=== PATIENT | female | born 1950 | race Caucasian/White ===

== ENCOUNTER 2020-01-30 17:33 | Inpatient (IN) ==
--- NOTE | 2020-01-30 17:43 | Emergency Department Note ---
Impression & Plan Ambulatory dysfunction, Hypokalemia, Knee pain, right ED Provider Note NAME: ADDY MON AGE: 69 SEX: F : 1950 ARRIVES VIA: Ambulance INFORMANT: Patient, ED PROVIDER(S): Arcadio Causey MD Chief Complaint: Knee pain HPI: Patient does present from home. The patient was trying to pivot while getting from wheelchair to the bed and the patient did have some right knee pain. Patient states that she has chronic knee pain but today seems worse. Patient describes it as sharp and in the front of the knee. The patient has not taken anything prior to arrival. Patient denies fevers or chills or recent fal ls. Patient states that yesterday she was able to walk across the room which is approximately 10 feet. Patient does chronically use oxygen. No change in her shortness of breath. Patient denies chest pains. Patient denies COVID symptoms. Family has reported per nursing they were considering rehab for the patient as the patient has had a steady decline in the patient's functional ability at home. Patient does live by herself. ROS: See HPI for pertinent positives and negatives. A total of 10 systems were reviewed and otherwise negative. Past medical history: See below Surgical history: See below Social history: See below Physical Exam: GENERAL: Wearing a mask and nasal cannula, NAD, non-toxic. Morbidly obese. EYE EXAM: Normal conjunctiva. PERRL, no anisocoria and EOM's grossly intact w/o pain. NECK: Supple, no nuchal rigidity, no adenopathy, non-tender. No signs of meningismus. LUNGS: Clear to auscultation. Normal chest wall mechanics. HEART: NSR, no MRG. ABDOMEN: Abdomen soft, non-tender, normo-active bowel sounds, no masses, no rebound or guarding. BACK: No CVA TTP. SKIN: No rashes and no bruising. UPPER EXTREMITIES: Upper extremities are grossly normal. LOWER EXTREMITIES: Extremely large lower extremities, effort is present with patient bending knee ankle and hip but is unable to raise legs off the bed. No sensory deficits, no obvious effusion but lower extremities are very large at baseline. NEURO EXAM: A&O x3, cranial nerves II-XII grossly intact, normal speech, decreased strength of bilateral lower extremities. No sensory deficits. Differential diagnoses: Infection, dehydration, metabolic abnormality, hypo/hyperglycemia, electrolyte disturbance, anemia, hypoxia, cardiac sources, intracerebral event, toxicologic, neurologic, as well as other pathologies. Course: Patient was seen and evaluated the bedside. Full history physical exam was performed. EKG: Normal sinus rhythm, rate of 88, wide QRS prolonged QTC, left bundle branch block. Left axis deviation. No priors for comparison. Imaging Studies: Radiology results as stated below per my review in the radiologist's interpretation: XR knee RT 1 or 2V routine CLINICAL HISTORY: pain pain COMPARISON: None. DISCUSSION: Severe degenerative change all major joint compartments. Moderate chondrocalcinosis. No evidence for fracture. There is no evidence for soft tissue swelling. IMPRESSION: Severe degenerative change. Chondrocalcinosis. ACT 112: Negative or not required by law. The above report was generated using voice recognition software. It may contain grammatical, syntax or spelling errors. Electronically signed by: Denver Reid M.D. 01/30/2020 6:23 PM Dictated: 01/30/201821 Transcribed: 01/30/201821 XR knee LT 1 or 2V routine CLINICAL HISTORY: pain pain COMPARISON: None. DISCUSSION: Significant degenerative change all major joint compartments. No evidence for fracture. Moderate chondrocalcinosis. There is no evidence for soft tissue swelling. IMPRESSION: Degenerative change. Chondrocalcinosis. No acute process. ACT 112: Negative or not required by law. The above report was generated using voice recognition software. It may contain grammatical, syntax or spelling errors. Electronically signed by: Denver Reid M.D. 01/30/2020 6:21 PM Dictated: 01/30/201820 Transcribed: 01/30/201820 Cardiac monitoring: An order was placed for continuous cardiac monitoring. The monitor shows a rate of 91 with sinus rhythm. MDM: Patient does present with right knee pain. The patient does have difficulty with moving her legs. Blood work was obtained along with knee x-rays. Patient was given pain medication. Patient's x-ray is unremarkable. The patient does have mild hypokalemia. INR was added as the patient is on Coumadin. Given the patient's inability to properly walk I did discuss the patient's case with case filler. Unable to get to rehab this evening. The patient was subsequently admitted to the [facility] physician group by Dr. Marie.INR was 3.2. Potassium was ordered for repleted. Magnesium was added and resulted as normal. Past Med/Surg History Medical History COPD (chronic obstructive pulmonary disease) Morbid obesity Social History Preferred Language: Italian Feels Safe at Home: Yes Smoking Status: Never smoker Allergies Allergies Allergy/AdvReac Type Severity Reaction Status Date / Time amoxicillin Allergy Unknown Unverified 01/30/20 21:34 codeine Allergy Unknown Unverified 01/30/20 21:31 latex Allergy Unknown Unverified 01/30/20 21:33 meloxicam [From Mobic] Allergy Unknown Unverified 01/30/20 21:32 metformin Allergy Unknown Unverified 01/30/20 21:32 Penicillins Allergy Unknown Unverified 01/30/20 21:30 Sulfa (Sulfonamide Allergy Unknown Unverified 01/30/20 21:30 Antibiotics) tramadol Allergy Unknown Unverified 01/30/20 21:32 Home Meds Home Medications Medication Instructions Recorded Confirmed acetaminophen [Tylenol Extra 1,000 mg PO QID PRN 01/30/20 01/30/20 Strength] albuterol sulfate 2 puff INHALATION Q6H PRN 01/30/20 01/30/20 ascorbic acid (vitamin C) 500 mg PO BID 01/30/20 01/30/20 bumetanide 2 mg PO BID 01/30/20 01/30/20 cholecalciferol (vitamin D3) 50 mcg PO 3XWK 01/30/20 01/30/20 cyclobenzaprine 5 mg PO TID PRN 01/30/20 01/30/20 dicyclomine 10 mg PO BID 01/30/20 01/30/20 diphenhydramine HCl 25 mg PO Q6H PRN 01/30/20 01/30/20 ferrous sulfate 142 mg PO DAILY 01/30/20 01/30/20 fluticasone furoate-vilanterol 1 inh INHALATION DAILY 01/30/20 01/30/20 [Breo Ellipta] fluticasone propionate 1 spray INTRANASAL BID 01/30/20 01/30/20 gabapentin 300 mg PO TID 01/30/20 01/30/20 insulin aspart U-100 [Novolog 60 unit SUBCUT TIDM 01/30/20 01/30/20 Flexpen U-100 Insulin] insulin glargine [Basaglar KwikPen 80 unit SUBCUT QAM 01/30/20 01/30/20 U-100 Insulin] ipratropium-albuterol 3 ml INHALATION BID PRN 01/30/20 01/30/20 levothyroxine 50 mcg PO QAM 01/30/20 01/30/20 linaclotide [Linzess] 145 mcg PO DAILY PRN 01/30/20 01/30/20 meclizine 25 mg PO TID PRN 01/30/20 01/30/20 metolazone 2.5 mg PO QAM 01/30/20 01/30/20 mupirocin 1 applic TOPICAL TID 01/30/20 01/30/20 nystatin 1 applic TOPICAL BID 01/30/20 01/30/20 ondansetron HCl [Zofran] 8 mg PO BID PRN 01/30/20 01/30/20 oxycodone [OxyContin] 10 mg PO Q12H 01/30/20 01/30/20 oxycodone-acetaminophen 1 tab PO Q8H PRN 01/30/20 01/30/20 pantoprazole [Protonix] 40 mg PO DAILY 01/30/20 01/30/20 warfarin 7.5 mg PO DAILY 01/30/20 01/30/20 zolpidem [Ambien] 10 mg PO HS PRN 01/30/20 01/30/20 Results & Data (ED) Vital Signs Vital Signs - 24 hr 01/30/20 17:41 01/30/20 18:29 01/30/20 18:31 Temperature 36.8 C Temperature Source Oral Pulse Rate 91 H Pulse Rate [Finger] 81 Pulse Rhythm Regular Pulse Rhythm [Finger] Regular Pulse Strength Normal Pulse Strength [Finger] Normal Respiratory Rate 18 22 Respiratory Effort / Characteristics Non-Labored Spontaneous Non-Labored Spontaneous Respiratory Depth Normal Normal Respiratory Pattern Regular Regular Blood Pressure 173/74 H Blood Pressure [Left Arm] 122/83 Blood Pressure Mean 107 Blood Pressure Mean [Left Arm] 96 Blood Pressure Position Lying Blood Pressure Position [Left Arm] Lying Pulse Oximetry 98 99 98 Oxygen Delivery Method Nasal Cannula Nasal Cannula Nasal Cannula Oxygen Flow Rate 4 4 4 Sepsis Recent Fever Within 48 Hours No Sepsis New/Unexplained Change in Mental Status No Sepsis Action Taken by Nursing No Action Required 01/30/20 19:30 01/30/20 21:00 Temperature Temperature Source Pulse Rate Pulse Rate [Finger] 88 88 Pulse Rhythm Pulse Rhythm [Finger] Regular Pulse Strength Pulse Strength [Finger] Respiratory Rate 14 16 Respiratory Effort / Characteristics Non-Labored Spontaneous Non-Labored Spontaneous Respiratory Depth Normal Normal Respiratory Pattern Regular Blood Pressure Blood Pressure [Left Arm] 133/58 L 90/74 L Blood Pressure Mean Blood Pressure Mean [Left Arm] 83 79 Blood Pressure Position Blood Pressure Position [Left Arm] Pulse Oximetry 98 95 Oxygen Delivery Method Room Air Nasal Cannula Oxygen Flow Rate 4 Sepsis Recent Fever Within 48 Hours Sepsis New/Unexplained Change in Mental Status Sepsis Action Taken by Correction Medications Current Medication List: was personally reviewed by me Laboratory Data Attestation: I reviewed the patient's lab results. Result diagrams: 01/30/20 18:25 01/30/20 18:25 Lab Results 01/30/20 01/30/20 01/30/20 Range/Units 18:25 18:25 18:25 WBC 7.00 (4.8-10.8) K/uL RBC 4.38 (4.2-5.4) M/uL Hgb 12.5 (12.0-16.0) g/dL Hct 39.4 (37-47) % MCV 90.0 (80-100) fL MCH 28.5 (25-34) pg MCHC 31.7 L (32-36) g/dL RDW Std Deviation 48.5 H (36.4-46.3) fL RDW Coeff of Tung 14.6 H (11.5-14.5) % Plt Count 200 (130-400) K/uL MPV 9.7 (7.4-10.4) fL Immature Gran % (Auto) 0.3 % Neut % (Auto) 75.6 % Lymph % (Auto) 16.1 % [place] % (Auto) 7.9 % Eos % (Auto) 0.0 % Baso % (Auto) 0.1 % Neut # (Auto) 5.29 (1.4-6.5) K/uL Lymph # (Auto) 1.13 L (1.2-3.4) K/uL [place] # (Auto) 0.55 (0.11-0.59) K/uL Eos # (Auto) 0.00 (0-0.5) K/uL Baso # (Auto) 0.01 (0-0.2) K/uL Immature Gran # (Auto) 0.02 (0.00-0.02) K/uL PT 31.7 H (9.0-12.0) Seconds INR 3.2 H (0.9-1.1) APTT 44.7 H (21.0-31.0) Seconds PTT Ratio 1.6 Sodium 132 L (136-145) mmol/L Potassium 2.9 L (3.5-5.1) mmol/L Chloride 86 L (98-107) mmol/L Carbon Dioxide 39 H (21-32) mmol/L Anion Gap 7.0 (3-11) BUN 38 H (7-18) mg/dl Creatinine 1.53 H (0.6-1.2) mg/dl Est Cr Clr Drug Dosing 63.7 ml/min Est GFR ( Amer) 39.3 Est GFR (Non-Af Amer) 33.9 BUN/Creatinine Ratio 24.5 H (10-20) Glucose 135 H (70-99) mg/dl Calcium 10.1 (8.5-10.1) mg/dl Magnesium 2.3 (1.8-2.4) mg/dl Administered Medications Acetaminophen (Tylenol) 650 mg PO Q4H PRN PRN Reason: pain/fever Stop: 02/29/20 23:25 Last Admin: 01/30/20 23:48 Dose: 650 mg Documented by: [id number] Oxycodone HCl (Oxycontin) 10 mg PO BID [facility] Stop: 02/13/20 23:44 Last Admin: 01/30/20 23:58 Dose: Not Given Documented by: [id number] Discontinued Medications Morphine Sulfate (Morphine Sulfate) 4 mg IV NOW STA Stop: 01/30/20 17:50 Last Admin: 01/30/20 18:29 Dose: 4 mg Documented by: [id number] Oxycodone HCl (Oxycontin) Confirm Administered Dose 10 mg .ROUTE .STK-MED ONE Stop: 01/30/20 23:43 Last Admin: 01/30/20 23:45 Dose: 10 mg Documented by: [id number] Potassium Chloride (Klor-Con M20) 40 meq PO NOW STA Stop: 01/30/20 19:54 Last Admin: 01/30/20 20:21 Dose: 40 meq Documented by: [id number] Discharge Plan Visit Data *Final* Discharge Date/Time: 01/30/20 22:28 Chief Complaint: Knee Injury/Pain Stated Complaint: R KNEE PAIN ED Provider: Arcadio Causey Discharge Problem: Ambulatory dysfunction, Hypokalemia, Knee pain, right Patient Disposition: Admitted As Inpatient Discharge Instructions Interventions: ED Discharge Assessment Last Done: 01/30/20 22:28 Discharge Problem: Knee pain, right Qualifiers: Chronicity: acute Qualified Code(s): M25.561 - Pain in right knee
[2020-01-30] MEDS ORDERED: MoRPHine SULFATE 4 MG/ML 1 ML CARP\\VIAL IV STA (17:49)
--- NOTE | 2020-01-30 18:23 | XRay Report ---
XR knee LT 1 or 2V routine CLINICAL HISTORY: pain pain COMPARISON: None. DISCUSSION: Significant degenerative change all major joint compartments. No evidence for fracture. M oderate chondrocalcinosis. There is no evidence for soft tissue swelling. IMPRESSION: Degenerative change. Chondrocalcinosis. No acute process. ACT 112: Negative or not required by law. The above report was generated using voice recognition software. It may contain grammatical, syntax or spelling errors. Electronically signed by: Denver Reid M.D. 01/30/2020 6:21 PM
--- NOTE | 2020-01-30 18:24 | XRay Report ---
XR knee RT 1 or 2V routine CLINICAL HISTORY: pain pain COMPARISON: None. DISCUSSION: Severe degenerative change all major joint compartments. Moderate chondrocalcinosis. No e vidence for fracture. There is no evidence for soft tissue swelling. IMPRESSION: Severe degenerative change. Chondrocalcinosis. ACT 112: Negative or not required by law. The above report was generated using voice recognition software. It may contain grammatical, syntax or spelling errors. Electronically signed by: Denver Reid M.D. 01/30/2020 6:23 PM
[2020-01-30 18:38] LABS: Basophils # (auto) 0.01 K/uL (0-0.2); Basophils % (auto) 0.1 %; Hematocrit (blood only) 39.4 % (37-47); Hemoglobin 12.5 g/dL (12.0-16.0); Immature Granulocytes # (auto) 0.02 K/uL (0.00-0.02); Immature Granulocytes % (auto) 0.3 %; Lymphocytes # (auto) 1.13 K/uL (1.2-3.4); Lymphocytes % (auto) 16.1 %; Mean Corpuscular Hemoglobin 28.5 pg (25-34); Mean Corpuscular Hgb Conc 31.7 g/dL (32-36); Mean Platelet Volume 9.7 fL (7.4-10.4); Monocytes # (auto) 0.55 K/uL (0.11-0.59); Monocytes % (auto) 7.9 %; Neutrophils # (auto) 5.29 K/uL (1.4-6.5); Neutrophils % (auto) 75.6 %; Platelet Count 200 K/uL (130-400); RDW Coefficient of Variation 14.6 % (11.5-14.5); RDW Standard Deviation 48.5 fL (36.4-46.3); Red Blood Count 4.38 M/uL (4.2-5.4)
[2020-01-30 19:03] LABS: BUN Creatinine Ratio 24.5 (10-20); Calcium 10.1 mg/dl (8.5-10.1); Creatinine Clr Calc Pharmacy 63.7 ml/min; Est GFR (African American) 39.3; Est GFR (Non-African American) 33.9; Potassium 2.9 mmol/L (3.5-5.1)
[2020-01-30] MEDS ORDERED: POTASSIUM CHLORIDE 20 MEQ TABCR PO STA (19:53)
[2020-01-30 20:14] LABS: Magnesium 2.3 mg/dl (1.8-2.4)
[2020-01-30 21:24] LABS: INR 3.2 (0.9-1.1); Partial Thromboplastin Ratio 1.6; Partial Thromboplastin Time 44.7 Seconds (21.0-31.0); Prothrombin Time 31.7 Seconds (9.0-12.0)
[2020-01-30] MEDS ORDERED: GLUCAGON FOR INJ 1 MG VIAL SQ PRN (23:26)
[2020-01-30] MEDS ORDERED: MECLIZINE HCL 25 MG TAB PO PRN (23:26)
[2020-01-30] MEDS ORDERED: POLYETHYLENE (MIRALAX) 17 GM PACK PO PRN (23:26)
[2020-01-30] MEDS ORDERED: DC ALL PREVIOUSLY ORDERED DIABETES MEDS ONE (23:26)
[2020-01-30] MEDS ORDERED: GLUCOSE 10 TABS/TUBE PO PRN (23:26)
[2020-01-30] MEDS ORDERED: DEXTROSE 50% 50 ML SYRINGE IV PRN (23:26)
[2020-01-30] MEDS ORDERED: bisacodyL 10 MG SUPP PR STA (23:26)
[2020-01-30] MEDS ORDERED: ALBUT/IPRATROP 3MG/0.5MG NEB 3 ML VIAL INH PRN (23:26)
[2020-01-30] MEDS ORDERED: GLUCOSE 40% GEL 15 GM TUBE PO PRN (23:26)
[2020-01-30] MEDS ORDERED: CARBOHYDRATES FOR HYPOGLYCEMIA PO PRN (23:26)
[2020-01-30] MEDS ORDERED: ALBUTEROL HFA 8 GM INHALER INH PRN (23:26)
[2020-01-30] MEDS ORDERED: OXYCODONE HCL 10 MG TABCR (OXYCONTIN) ONE (23:42)
[2020-01-30] MEDS: ACETAMINOPHEN 325 MG TAB PO PRN (23:48)
--- NOTE | 2020-01-30 23:53 | History & Physical Report ---
Date of Service January 30, 2020 Assessment & Plan (1) Ambulatory dysfunction: Akila Hernandez is a morbidly obese 69 year old woman with complicated PMH here for amulatory dysfunction and inability to function at home. Ambulatory dysfunction Progressive weakness over past few weeks with recent injury in last few days. Likely from obesity and joint destruction, recent weakness possibly secondary to UTI and constipation CVA in differential given patients stated history of upper and lower extremity left sided weakness. Currently not tolerating CT scan and neuro exam showing equal strength bilaterally Will treat UTI, and order PT/OT evaluation Most likely will need inpatient rehab vs SNF placement. UTI urinalysis and culture pending Will treat with ceftriaxone for now Constipation Will treat with dulcolax suppositories and miralax scheduled BID If needed could order enema Likely cause of her abdominal pain Abdominal pain Could be secondary to constipation History of endometrial cancer, will get Transvaginal u/s to evaluate for possible pelvic causes SHERI Likely prerenal secondary to dehydration from recently poor PO intake, Will put on IV fluids CHF Continuing home bumex 2mg PO BID Increased orthopnea and weakness may be caused by CHF exacerbation Will check BNP troponin and order an echo for am History of VTE Continuing home warfarin 7.5 mg daily History of C. Diff Will add probiotic with abx Osteoarthritis Continue home oxycontin for pain control Physical therapy and rehab and weight loss could play a large role in reducing her chronic pain moving forward. Hypothyroidism Continuing home levothryoxine 50 mcg Skin rashes Continuing home mupirocin Adding nystatin for intertrigo DMII Placed on sliding scale with approximately 75% of home dose DVT PPx: Home warfarin F/E/N: Diabetes diet, NSS @125 with KCl rider Dispo: Med tele for evaluation by PT/OT and likely out to rehab vs SNF Conditional code, DNI but all other interventions including chest compressions and shocks desired (2) Hypokalemia: (3) Knee pain, right: (4) Right wrist pain: (5) CHF (congestive heart failure): (6) Shortness of breath: (7) Abdominal pain: (8) Constipation: Admission and Anticipated Discharge Date Admission Date: January 30, 2020 History of Present Illness Chief Complaint: Difficulty getting around Primary Care Provider: NO PCP Akila Hernandez is nelson nice and medically complicated 69 year old woman with a past medical history significant for morbid obesity, CHF, Obesity hypoventilation syndrome, Chronic hypoxemic respiratory failure on 4L O2 at home, DMII, venous thromboembolic disease on warfarin chronically, osteoarthritis, hypothyroidism, HLD, recurrent UTI's, and adenocarcinoma of the endometrium. She weighs 203.3 kg and has home health aids 13 hours a day but lives independently. She is here today because she has had a three day history of worsening ability to get around, left leg muscular weakness and constipation. She tells me she has not had a bowel movement since last week, and even then it was firm and difficult to pass with any success. She has noted that of late in transitioning from her wheelchair to her bed she has had more and more trouble. She has had some increasing abdominal pain and swelling. She has also noted some shortness of breath beyond her usual worse with exertion. She has had some urinary symptoms as well and is concerned she may have another infection. She feels that over the last week or so she is generally doing worse and is not able to thrive at home. On admission to the emergency department she was doing fairly well and was oxygenating appropriately on room air despite her home O2. She had a painful left knee and this was x rayed showing severe degenerative changes. Her labwork was remarkable for hypokalemia(2.9) and an SHERI with a creatinine of 1.53. Patient is resting comfortably at present eating rashida crackers and watching TV. She has no acute distress but does feel some abdominal fullness and discomfort some nausea and feels like she has a UTI. Allergies Allergy/AdvReac Type Severity Reaction Status Date / Time amoxicillin Allergy Unknown Unverified 01/30/20 21:34 codeine Allergy Unknown Unverified 01/30/20 21:31 latex Allergy Unknown Unverified 01/30/20 21:33 meloxicam [From Mobic] Allergy Unknown Unverified 01/30/20 21:32 metformin Allergy Unknown Unverified 01/30/20 21:32 Penicillins Allergy Unknown Unverified 01/30/20 21:30 Sulfa (Sulfonamide Allergy Unknown Unverified 01/30/20 21:30 Antibiotics) tramadol Allergy Unknown Unverified 01/30/20 21:32 Home Medications Home Medications Medication Instructions Recorded Confirmed Type acetaminophen [Tylenol Extra 1,000 mg PO QID PRN 01/30/20 01/30/20 History Strength] albuterol sulfate 2 puff INHALATION Q6H PRN 01/30/20 01/30/20 History ascorbic acid (vitamin C) 500 mg PO BID 01/30/20 01/30/20 History bumetanide 2 mg PO BID 01/30/20 01/30/20 History cholecalciferol (vitamin D3) 50 mcg PO 3XWK 01/30/20 01/30/20 History cyclobenzaprine 5 mg PO TID PRN 01/30/20 01/30/20 History dicyclomine 10 mg PO BID 01/30/20 01/30/20 History diphenhydramine HCl 25 mg PO Q6H PRN 01/30/20 01/30/20 History ferrous sulfate 142 mg PO DAILY 01/30/20 01/30/20 History fluticasone furoate-vilanterol 1 inh INHALATION DAILY 01/30/20 01/30/20 History [Breo Ellipta] fluticasone propionate 1 spray INTRANASAL BID 01/30/20 01/30/20 History gabapentin 300 mg PO TID 01/30/20 01/30/20 History insulin aspart U-100 [Novolog 60 unit SUBCUT TIDM 01/30/20 01/30/20 History Flexpen U-100 Insulin] insulin glargine [Basaglar KwikPen 80 unit SUBCUT QAM 01/30/20 01/30/20 History U-100 Insulin] ipratropium-albuterol 3 ml INHALATION BID PRN 01/30/20 01/30/20 History levothyroxine 50 mcg PO QAM 01/30/20 01/30/20 History linaclotide [Linzess] 145 mcg PO DAILY PRN 01/30/20 01/30/20 History meclizine 25 mg PO TID PRN 01/30/20 01/30/20 History metolazone 2.5 mg PO QAM 01/30/20 01/30/20 History mupirocin 1 applic TOPICAL TID 01/30/20 01/30/20 History nystatin 1 applic TOPICAL BID 01/30/20 01/30/20 History ondansetron HCl [Zofran] 8 mg PO BID PRN 01/30/20 01/30/20 History oxycodone [OxyContin] 10 mg PO Q12H 01/30/20 01/30/20 History oxycodone-acetaminophen 1 tab PO Q8H PRN 01/30/20 01/30/20 History pantoprazole [Protonix] 40 mg PO DAILY 01/30/20 01/30/20 History warfarin 7.5 mg PO DAILY 01/30/20 01/30/20 History zolpidem [Ambien] 10 mg PO HS PRN 01/30/20 01/30/20 History Past Med/Surg History Medical History COPD (chronic obstructive pulmonary disease) Morbid obesity Social History Preferred Language: Malagasy Communication Ability: Effective 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: No Beliefs That Will Affect Care: None marital status: Single Current Living Situation: Alone Feels Safe at Home: Yes Smoking Status: Never smoker Hx Alcohol Use: Yes Hx Substance Use: No Review of Systems Constitutional: + chills, + sweats, + body aches, + fatigue, + malaise, + weakness and + insomnia; no fever and no anorexia Eyes: no problem reported Ear, Nose, Mouth, Throat: no problem reported Respiratory: + dyspnea and + dyspnea on exertion; no cough Cardiovascular: + dyspnea, + dyspnea on exertion, + orthopnea, + paroxysmal nocturnal dyspnea, + palpitations, + lightheadedness and + edema; no chest pain, no chest pain with activity, no syncope and no calf pain Gastrointestinal: + abdominal pain, + belching, + bloating, + early satiety, + nausea, + change in stools, + constipation and + fecal incontinence; no vomiting, no hematemesis, no diarrhea/loose stools, no constant urge to pass stools and no blood in stools Genitourinary: + dysuria, + urinary frequency and + urinary incontinence Integumentary: + rash Intertrigo present Neurologic: + localized weakness LEft sided leg and process checker weakness reported by patient Physical Exam Constitutional: Morbidly obese woman lying in bed clearly uncomfortable neck support pillow gary in from home, Eyes: PERRLA, anicteric sclerae ENMT: external ear and nose normal, oropharynx normal Respiratory: Decreased air entry globally, no extra lung sounds some accessory muscle use. Cardiovascular: RRR, no murmur, no edema Heart Sounds: no click, no gallop, no murmur and no cardiac rub heart sounds distant, unable to assess JVD secondary to body habitus Gastrointestinal (Abdomen): Obese abdomen, mildly tender to left lower quadrant, compressible mass felt, likely stool, left inguinal area tender and full. Difficult exam secondary to body habitus, bowel sounds present Skin: Red raised nonblaching blisters of bilateral lower extremities, possible venous stasis ulcers, multiple hematomas, throughout body including underside of pannus, intertrigo present in skin folds. Results & Data Results & Data ([facility]) Vital Signs (Past 12 Hours) Vital Signs Temp Pulse Pulse Resp BP BP Pulse Ox 01/30/20 22:11 78 16 138/62 98 01/30/20 21:00 88 16 90/74 L 95 01/30/20 19:30 88 14 133/58 L 98 01/30/20 18:31 98 01/30/20 18:29 81 22 122/83 99 01/30/20 17:41 36.8 C 91 H 18 173/74 H 98 Code Status & VTE Plan VTE Prophylaxis Plan VTE Prophylaxis will be ordered: Yes Supervising Physician Co-Signing Physician Notes Attending addendum: I have physically seen this patient, have supervised the medical residents activities, and agree with the H&P unless as otherwise noted. Assessment and Plan: Ambulatory dysfunction- Multifactorial Morbid obesity/severe osteoarthritis, particular complaint of left knee pain. Consult PT/OT Family as discussed, I would agree for need for inpatient rehab Urinary tract infection- Full urinalysis urine culture and sensitivity. Ceftriaxone 2 g IV daily Acute kidney injury/CHF- Hold Bumex this evening, we will rehydrate with IV fluids, and reassess timing of resuming Bumex in the a.m. Follow serial CBC with differential, BMP, troponin and magnesium levels. The patient will be admitted to telemetry for serial cardiac enzymes, serial EKG's, cardiac rhythm monitoring and a 2-D echocardiogram with Dopplers. Diabetes mellitus- Placed on Accu-Cheks before meals and at bedtime/every 6 hours, with NovoLog coverage per scale. Hold standing order for NovoLog with meals. Reduce Glargine from 80 to 60 units subcu every morning History of VTE- Continue current dosing of warfarin and 7.5 mg daily. Follow serial PT/INR History of C. difficile colitis- Add probiotic, and vancomycin 125 mg p.o. daily Hypothyroidism- Continue levothyroxine 50 mcg daily Resident Activity Tracking Resident Involvement: Resident Care Provided Care Provided: Adult Hospital Medicine (1) Knee pain, right Chronicity: acute Qualified Code(s): M25.561 - Pain in right knee
[2020-01-30] MEDS: OXYCODONE HCL 10 MG TABCR (OXYCONTIN) PO SCH (23:58)
[2020-01-31 00:21] LABS: Alanine Aminotransferase 26 U/L (12-78); Albumin Level 2.9 gm/dl (3.4-5.0); Alkaline Phosphatase 81 U/L (45-117); Aspartate Aminotransferase 18 U/L (15-37); Bilirubin Direct 0.2 mg/dl (0-0.2); Bilirubin,Total 0.7 mg/dl (0.2-1); NT Pro B Type Natriuretic Pept 230 pg/ml (0-900); Total Protein 7.7 gm/dl (6.4-8.2); Troponin I < 0.015 ng/ml (0-0.045)
[2020-01-31] MEDS: SODIUM CHLORIDE 0.45 % 1,000 ML IV SCH ×3 (01:24→15:57)
[2020-01-31] MEDS: POTASSIUM CHLORIDE / WTR 10 MEQ/100 ML PLCT IV SCH ×11 (01:33→20:56)
[2020-01-31] MEDS: cefTRIAXone SODIUM 2,000 MG in DEXTROSE 5% 50 ML IV SCH (01:35)
[2020-01-31] MEDS ORDERED: bisacodyL 10 MG SUPP PR ONE (02:10)
[2020-01-31] MEDS: POLYETHYLENE (MIRALAX) 17 GM PACK PO SCH ×3 (02:15→21:00)
[2020-01-31 03:04] LABS: Appearance Urine Cloudy (Clear); Bacteria Urine Automated 4+ (Negative); Bilirubin Urine Negative (Negative); Blood Urine 2+ (Negative); Color Urine Yellow; Epithelial Cell Urine Auto 0-5 /lpf (0-5); Glucose Urine UA Negative (Negative); Ketones Urine Negative (Negative); Leukocyte Esterase Urine 3+ (Negative); Nitrite Urine Negative (Negative); Protein Urine Negative (Negative); RBC Urine Automated 0-4 /hpf (0-4); Specific Gravity Urine 1.017 (1.000-1.030); Urobilinogen Urine Negative (Negative); WBC Urine Automated >30 /hpf (0-5); pH Urine 5.5 (4.5-7.5)
[2020-01-31] MEDS ORDERED: MoRPHine SULFATE 2 MG/ML CARP IV STA (03:30)
[2020-01-31 05:50] LABS: INR 2.8 (0.9-1.1); Prothrombin Time 28.1 Seconds (9.0-12.0)
[2020-01-31] MEDS: LEVOTHYROXINE SODIUM 50 MCG TABLET PO SCH (05:57)
[2020-01-31 06:14] LABS: Estimated Average Glucose 197 mg/dl; Hemoglobin A1C 8.5 % (4.5-5.6)
[2020-01-31] MEDS ORDERED: INSULIN ASPART 100 UNITS/ML 3 ML PEN SC SCH (07:30)
[2020-01-31] MEDS: MUPIROCIN 2% OINT 22 GM TUBE EXT SCH ×3 (08:05→21:00)
--- NOTE | 2020-01-31 08:08 | Ultrasound Report ---
PELVIC ULTRASOUND, TRANSABDOMINAL AND TRANSVAGINAL HISTORY: Adnexal pain, not able to get CT COMPARISON: None. FINDINGS: Uterus: 9.1 x 3.9 cm. No uterine masses. A few nabothian cysts. Endometrial stripe: Abnormally thickened for age measuring 1.1 cm. Right ovary: Obscured by overlying bowel gas. Left ovary: Normal in size and demonstrates normal color flow. Miscellaneous:No pelvic free fluid. IMPRESSION: Abnormally thickened endometrium for age measuring 1.1 cm. Gynecologic consultation recommended to as sess for possibility of an endometrial lesion. ACT 112: Negative or not required by law. Electronically signed by: Wai Abdullahi M.D. 01/31/2020 8:06 AM
--- NOTE | 2020-01-31 08:20 | Electrocardiogram Report ---
Test Reason : Blood Pressure : / mmHG Vent. Rate : 088 BPM Atrial Rate : 088 BPM P-R Int : 190 ms QRS Dur : 134 ms QT Int : 410 ms P-R-T Axes : 049 -56 049 degrees QTc Int : 496 ms Poor data quality, interpretation may be adversely affected Normal sinus rhythm Left bundle branch block Abnormal ECG No previous ECGs available Confirmed by Shalom Do ([id number]) on 01/31/2020 8:20:26 AM Referred By: REFERRED SELF Confirmed By:Shalom Do
[2020-01-31] MEDS: FLUTICASONE/VILANTEROL 100/25MCG 14 PUFFS/INHALER INH SCH (08:26)
[2020-01-31] MEDS: DICYCLOMINE HCL 10 MG CAP PO SCH ×2 (08:26→21:01)
--- NOTE | 2020-01-31 08:26 | XRay Report ---
XR chest 1V portable CLINICAL HISTORY: Shortness of breath dyspnea COMPARISON STUDY: No previous studies for comparison. FINDINGS: The bones soft tissues and hemidiaphragms are normal. The cardiomediastinal silhouette is n ormal. The lungs are clear. The pulmonary vasculature is normal. IMPRESSION: Negative chest. ACT 112: Negative or not required by law. The above report was generated using voice recognition software. It may contain grammatical, syntax or spelling errors. Electronically signed by: Denver Reid M.D. 01/31/2020 8:25 AM
[2020-01-31] MEDS: BUMETANIDE 1 MG TAB PO SCH ×2 (08:27→17:00)
[2020-01-31] MEDS: SACCHAROMYCES BOULARDII 250 MG CAP PO SCH (08:27)
[2020-01-31] MEDS: GABAPENTIN 300 MG CAP PO SCH ×3 (08:27→20:57)
[2020-01-31] MEDS: ASCORBIC ACID 500 MG TAB PO SCH ×2 (08:28→21:01)
[2020-01-31] MEDS: OXYCODONE HCL 10 MG TABCR (OXYCONTIN) PO SCH ×2 (08:28→21:00)
[2020-01-31] MEDS: NYSTATIN CR 15 GM TUBE EXT SCH ×2 (08:28→21:05)
[2020-01-31] MEDS: PANTOprazole 40 MG TAB PO SCH (08:28)
[2020-01-31] MEDS: metOLazone 2.5 MG TABLET PO SCH (08:28)
[2020-01-31] MEDS ORDERED: PHARMACY GLYCEMIC MGMT CONSULT PRN (08:59)
[2020-01-31] MEDS ORDERED: FERROUS SULFATE 142 MG PO SCH (09:00)
[2020-01-31] MEDS ORDERED: INSULIN GLARGINE SOLOSTAR 100 UNITS/ML 3 ML PEN SC SCH ×2 (09:00→21:00)
[2020-01-31] MEDS ORDERED: SOD PHOSPHATE/SOD BIPHOSPHATE ENEMA 132 ML BTL PR STA (10:10)
--- NOTE | 2020-01-31 10:14 | XCELERA ---
[id number]
--- NOTE | 2020-01-31 10:28 | Hospitalist Progress Note ---
Date of Service January 31, 2020 Assessment & Plan (1) Ambulatory dysfunction: Akila Hernandez is a morbidly obese 69 year old woman with complicated PMH here for ambulatory dysfunction and inability to function at home. Ambulatory dysfunction - Progressive weakness over past month - Prior to COVID epidemic, patient was receiving home PT services from [facility] with significant progress - subsequent decline in ambulation when home services suspended due to COVID- related restrictions/institutional policies - Most likely from morbid obesity and joint destruction - CVA cannot be ruled out as patient is unable to have head imaging done due to her size, although no focal deficits appreciated on exam - Echo today showing normal LV function, EF 60-65%; grade I diastolic dysfunction. No sign of fluid overload on exam - anticipate need for inpatient rehab vs SNF placement UTI - patient reports recent urinary retention, possible secondary to co-existent constipation - UA neg nitrites, + for LE, 4+ bacteria, > 30 WBCs - urine culture pending - continue IV ceftriaxone Abdominal pain - began several days prior to admission - left lower quadrant tender on exam - highest suspicion is constipation, although diverticulitis is on differential - CT scan unable to be obtained secondary to body habitus - Follow clinically Constipation - longstanding issue for this patient - dulcolax suppositories and miralax scheduled BID - fleet enema today - suspected source of her abdominal pain SHERI - baseline Cr ~ 1.4 - Cr 1.53 on admission, repeat level ordered for this afternoon - Likely prerenal secondary to dehydration from recently poor PO intake - continue IVF Hx Endometrial Cancer - diagnosed in [place] at [facility] [place] [facility] [place] - focal endometrioid adenocarcinoma, FIGO grade 1 - s/p ED&C (done by a provider at [facility]) and Mirena IUD placement (has since been removed) - currently following with a hat braider-onc provider at [facility] - pelvic US on admission showing a thickened endometrial stripe (1.1cm) History of VTE - continue home dose warfarin Chronic Lymphedema - bilateral LE - no active management History of C. Diff - continue probiotic in setting of antibiotic use Osteoarthritis - Continue home oxycontin for pain control, although opioid likely contributing to ongoing constipation - PT/OT for rehab recommendation Hypothyroidism - Continuing home levothryoxine 50 mcg Skin rashes - Continuing home mupirocin - Adding nystatin for intertrigo DMII, uncontrolled - A1C 8.5 on admission - patient is insulin dependent - follows with Dr. London (endocrinology at [facility] [place] [place] DVT PPx: Home warfarin F/E/N: Diabetes diet, NSS @125 with KCl rider Dispo: Med tele Conditional code, DNI but all other interventions including chest compressions and shocks desired (2) Hypokalemia: (3) Knee pain, right: (4) Right wrist pain: (5) CHF (congestive heart failure): (6) Shortness of breath: (7) Abdominal pain: (8) Constipation: Admission and Anticipated Discharge Date Admission Date: January 30, 2020 Supervising Physician Co-Signing Physician Notes Resident Physician Supervision Note: I independently interviewed and examined the patient and verified the romero history and physical, reviewed labs and image studies, discussed the case with the resident Dr. Rowland and agree with the findings and care plan. Subjective Resting comfortably in bed. Reports history of constipation troubles - home health was going to administer an enema today, before patient got admitted. Patient also has had urinary retention over past several days. Review of Systems Gastrointestinal: + abdominal pain Physical Exam Constitutional: + morbidly obese and cooperative + hirsuitism Eyes: + anicteric sclerae ENMT: external ear and nose normal, oropharynx normal Neck: normal visual inspection and trachea midline Respiratory: normal respiratory effort, lungs clear to auscultation Cardiovascular: Rate/Rhythm: regular rate and regular rhythm Heart Sounds: normal S1, normal S2 and + murmur (systolic ejection ) Gastrointestinal (Abdomen): Inspection/Auscultation: normal bowel sounds and + significant pannus Percussion/Palpation: + abdomen tender (left lower quadrant ) and abdomen soft; no guarding Skin: no rashes, warm and dry Psychiatric: A+Ox3, euthymic affect Results & Data Results & Data ([facility]) Vital Signs (Past 12 Hours) Vital Signs Temp Pulse Pulse Resp BP BP Pulse Ox 01/31/20 07:31 36.5 C 78 20 120/62 99 01/31/20 04:29 36.8 C 73 18 117/64 97 01/31/20 02:17 36.9 C 85 20 128/63 96 01/31/20 00:47 87 Resident Activity Tracking Resident Involvement: Resident Care Provided Care Provided: Adult Hospital Medicine (1) Knee pain, right Chronicity: acute Qualified Code(s): M25.561 - Pain in right knee
--- NOTE | 2020-01-31 10:42 | Pharmacy Report ---
Pharmacy Glycemic Short Note 2 - Date of Service January 31, 2020 - Glycemic Short BSG Results (Last 24 hours): 01/30/20 01/31/20 01/31/20 18:25 01:21 08:08 Glucose 135 H POC Glucose 172 H 248 H OUTPATIENT ANTIDIABETIC REGIMEN: * Basaglar 80 units SQ qAM, Aspart 60 units TID with meals ASSESSMENT: * Akila is a 69 yo T2DM female admitted with ambulatory dysfunction, UTI, SHERI. She takes large doses of insulin at home (260 units/day). * Fasting BSG is elevated, 248 mg/dL. It is unclear when her last dose of basal insulin was prior to admission. She is currently ordered Lantus 30 units BID (~75% of home basal dose). I will change to dose per scale until inpatient needs are determined. * She is ordered 50 units of novolog with meals. I will change this to novolog per CF and CR based on home usage/weight-stress 3. PLAN FOR INPATIENT GLYCEMIC CONTROL: * Hold outpatient oral diabetes medications * Basal insulin * Lantus 30 units this morning + 30 units with lunch * Start Lantus BID per scale this evening: * 0 units for BSG less than 150 mg/dL * 10 units for BSG 150 - 220 mg/dL * 20 units for BSG greater than 220 mg/dL * Bolus insulin * NovoLog per scale ACHS or Q6hrs while NPO * Goal Range: Low 110 mg/dL - High 150 mg/dL * Correction Factor: 10 mg/dL/unit * Nutritional / Prandial insulin per carb ratio of 1 unit per 3 grams CHO consumed
[2020-01-31] MEDS: INSULIN ASPART 100 UNITS/ML 3 ML PEN SC SCH ×3 (12:13→21:02)
[2020-01-31] MEDS ORDERED: INSULIN GLARGINE SOLOSTAR 100 UNITS/ML 3 ML PEN SC ONE (12:30)
[2020-01-31] MEDS: ACETAMINOPHEN 325 MG TAB PO PRN ×2 (12:36→20:55)
[2020-01-31 14:37] LABS: BUN Creatinine Ratio 23.4 (10-20); Calcium 9.6 mg/dl (8.5-10.1); Creatinine Clr Calc Pharmacy 69.7 ml/min; Est GFR (African American) 43.7; Est GFR (Non-African American) 37.7
[2020-01-31] MEDS: WARFARIN SOD 7.5 MG TAB PO SCH (15:58)
[2020-01-31] MEDS: ZOLPIDEM TARTRATE 10 MG TAB PO PRN (20:59)
[2020-02-01] MEDS: SODIUM CHLORIDE 0.45 % 1,000 ML IV SCH ×3 (00:08→16:54)
[2020-02-01] MEDS: cefTRIAXone SODIUM 2,000 MG in DEXTROSE 5% 50 ML IV SCH (00:57)
[2020-02-01] MEDS: INSULIN ASPART 100 UNITS/ML 3 ML PEN SC SCH ×6 (01:04→20:36)
--- NOTE | 2020-02-01 02:10 | Billing Data ---
Date of Service February 01, 2020 Coding Level of Care Code 71038 Initial Inpt Care Lvl 3
[2020-02-01] MEDS: CYCLOBENZAPRINE HCL 10 MG TAB PO PRN (05:56)
[2020-02-01] MEDS: LEVOTHYROXINE SODIUM 50 MCG TABLET PO SCH (05:56)
[2020-02-01] MEDS: PANTOprazole 40 MG TAB PO SCH (07:33)
[2020-02-01] MEDS: CHOLECALCIFEROL 1,000 UNITS 25 MCG TAB PO SCH (07:33)
[2020-02-01] MEDS: DICYCLOMINE HCL 10 MG CAP PO SCH ×2 (07:33→20:39)
[2020-02-01] MEDS: GABAPENTIN 300 MG CAP PO SCH ×3 (07:34→20:38)
[2020-02-01] MEDS: SACCHAROMYCES BOULARDII 250 MG CAP PO SCH (07:34)
[2020-02-01] MEDS: BUMETANIDE 1 MG TAB PO SCH ×2 (07:34→17:21)
[2020-02-01] MEDS: metOLazone 2.5 MG TABLET PO SCH (07:34)
[2020-02-01] MEDS: ASCORBIC ACID 500 MG TAB PO SCH ×2 (07:34→20:38)
[2020-02-01] MEDS: FLUTICASONE/VILANTEROL 100/25MCG 14 PUFFS/INHALER INH SCH (07:35)
[2020-02-01] MEDS: POLYETHYLENE (MIRALAX) 17 GM PACK PO SCH ×3 (07:36→21:04)
[2020-02-01] MEDS: MUPIROCIN 2% OINT 22 GM TUBE EXT SCH ×3 (07:37→20:39)
[2020-02-01] MEDS: NYSTATIN CR 15 GM TUBE EXT SCH ×2 (07:37→20:40)
[2020-02-01] MEDS: ATORVASTATIN 40 MG TAB PO SCH (07:46)
[2020-02-01 08:34] LABS: INR 2.3 (0.9-1.1); Prothrombin Time 23.4 Seconds (9.0-12.0)
[2020-02-01 08:54] LABS: Potassium 2.8 mmol/L (3.5-5.1)
[2020-02-01] MEDS: OXYCODONE HCL 10 MG TABCR (OXYCONTIN) PO SCH ×2 (08:55→20:43)
[2020-02-01] MEDS: ONDANSETRON INJ 2 MG/ML 2 ML VIAL IV PRN ×2 (08:55→18:08)
[2020-02-01] MEDS: INSULIN GLARGINE SOLOSTAR 100 UNITS/ML 3 ML PEN SC SCH ×2 (08:55→09:02)
--- NOTE | 2020-02-01 09:20 | Pharmacy Report ---
Pharmacy Glycemic Short Note 2 - Date of Service February 01, 2020 - Glycemic Short BSG Results (Last 24 hours): 01/31/20 01/31/20 01/31/20 11:48 14:13 16:42 Glucose 163 H POC Glucose 267 H 117 H 01/31/20 02/01/20 02/01/20 20:24 01:02 04:50 Glucose POC Glucose 221 H 244 H 208 H 02/01/20 07:54 Glucose POC Glucose 256 H OUTPATIENT ANTIDIABETIC REGIMEN: * Basaglar 80 units SQ qAM, Aspart 60 units TID with meals ASSESSMENT: * Akila is a 69 yo T2DM female admitted with ambulatory dysfunction, UTI, SHERI. She takes large doses of insulin at home (260 units/day). * Patient received 191 units of insulin yesterday: * 80 units of basal * 111 units of bolus * Majority of BSGs were above goal * Fasting BSG remains elevated. I will increase Lantus dose by 25%. * Tighten Novolog CF and CR. Based on home usage of 260 units/day, the patient could tolerate a CF/CR of 5/2. Patient reports a carb ratio of ~1 at home (she takes set dose of 60 units and typically eats about 60 grams of carbs). PLAN FOR INPATIENT GLYCEMIC CONTROL: * Hold outpatient oral diabetes medications * Basal insulin - increase * Lantus 100 units SQ qAM (administer as two 50 unit injections) * Bolus insulin - tighten * NovoLog per scale ACHS or Q6hrs while NPO * Goal Range: Low 110 mg/dL - High 150 mg/dL * Correction Factor: 5 mg/dL/unit * Nutritional / Prandial insulin per carb ratio of 1 unit per 2 grams CHO consumed
[2020-02-01 09:25] LABS: BUN Creatinine Ratio 24.6 (10-20); Calcium 9.5 mg/dl (8.5-10.1); Creatinine Clr Calc Pharmacy 76.2 ml/min; Est GFR (African American) 49.6; Est GFR (Non-African American) 42.8
[2020-02-01] MEDS: ACETAMINOPHEN 325 MG TAB PO PRN ×2 (10:14→14:32)
[2020-02-01] MEDS ORDERED: POTASSIUM CHLORIDE 20 MEQ TABCR PO STA (12:35)
[2020-02-01] MEDS: POTASSIUM CHLORIDE / WTR 10 MEQ/100 ML PLCT IV SCH ×4 (12:50→19:08)
[2020-02-01] MEDS: MEDROXYPROGESTERONE ACETATE 2.5 MG TAB PO SCH (14:15)
--- NOTE | 2020-02-01 14:23 | Hospitalist Progress Note ---
Date of Service February 01, 2020 Assessment & Plan (1) Ambulatory dysfunction: Akila Hernandez is a morbidly obese 69 year old woman with complicated PMH here for ambulatory dysfunction and inability to function at home. Awaiting inpatient rehab placement. Ambulatory dysfunction - Progressive weakness over past month - Prior to COVID epidemic, patient was receiving home PT services from [facility] with significant progress - subsequent decline in ambulation when home services suspended due to COVID- related restrictions/institutional policies - Most likely from morbid obesity and joint destruction - CVA cannot be ruled out as patient is unable to have head imaging done due to her size, although no focal deficits appreciated on exam - Echo today showing normal LV function, EF 60-65%; grade I diastolic dysfunction. No sign of fluid overload on exam - PT/OT recommended inpatient rehab after discharge, awaiting placement UTI - patient reports recent urinary retention, possible secondary to co-existent constipation - UA neg nitrites, + for LE, 4+ bacteria, > 30 WBCs - urine culture growing gram - bacilli, awaiting sensitives - continue IV ceftriaxone Abdominal pain - began several days prior to admission - left lower quadrant tender on exam - highest suspicion is constipation, although diverticulitis is on differential - CT scan unable to be obtained secondary to body habitus - Follow clinically, treat constipation as below Constipation - longstanding issue for this patient - dulcolax suppositories and miralax scheduled BID - fleet enema given 01/30 with multiple, subsequent BMs - suspected source of her abdominal pain SHERI, resolved - baseline Cr ~ 1.4 - Cr 1.53 on admission, down to 1.26 - Likely prerenal secondary to dehydration from recently poor PO intake Hx Endometrial Cancer - diagnosed in 2016 at [facility] [place] - focal endometrioid adenocarcinoma, FIGO grade 1 - s/p ED&C (done by a provider at [facility]) and Mirena IUD placement (has since been removed) - patient reports current tx with Provera 10mg, daily for 10 days every 3 months. Last dosing in September; we will initiate 10 day course today (01/31) - currently following with a pad tufter-onc provider (Dr. Garza) at [facility] - pelvic US on admission showing a thickened endometrial stripe (1.1cm) History of VTE - continue home dose warfarin Chronic Lymphedema - bilateral LE - no active management History of C. Diff - continue probiotic in setting of antibiotic use Osteoarthritis - Continue home oxycontin for pain control, although opioid likely contributing to ongoing constipation - PT/OT for rehab recommendation Hypothyroidism - Continuing home levothyroxine 50 mcg Skin rashes - Continuing home mupirocin - Adding nystatin for intertrigo DMII, uncontrolled - A1C 8.5 on admission - patient is insulin dependent - follows with Dr. London (endocrinology at [facility]) - patient was not on a statin prior to admission; started lipitor 40mg, qAM - not on an SUSANA/ARB, although at times BP runs low DVT PPx: Home warfarin F/E/N: Diabetes diet, NSS @125 with KCl rider Dispo: Med tele Conditional code, DNI but all other interventions including chest compressions and shocks desired (2) Hypokalemia: (3) Knee pain, right: (4) Right wrist pain: (5) CHF (congestive heart failure): (6) Shortness of breath: (7) Abdominal pain: (8) Constipation: Admission and Anticipated Discharge Date Admission Date: January 30, 2020 Supervising Physician Co-Signing Physician Notes Resident Physician Supervision Note: I independently interviewed and examined the patient and verified the romero history and physical, reviewed labs and image studies, discussed the case with the resident Dr. Rowland and agree with the findings and care plan. Subjective No acute events overnight. Asks for a narcotic for her neck pain. Had several BMs yesterday Review of Systems Musculoskeletal: as per Subjective / HPI and + neck pain Physical Exam Constitutional: + morbidly obese and cooperative + hirsutism Eyes: + anicteric sclerae ENMT: external ear and nose normal, oropharynx normal Neck: normal visual inspection and trachea midline Respiratory: normal respiratory effort, lungs clear to auscultation Cardiovascular: Rate/Rhythm: regular rate and regular rhythm Heart Sounds: normal S1, normal S2 and + murmur (systolic ejection ) Gastrointestinal (Abdomen): Inspection/Auscultation: normal bowel sounds and + significant pannus Percussion/Palpation: + abdomen tender (left lower quadrant ) and abdomen soft; no guarding Skin: no rashes, warm and dry Psychiatric: A+Ox3, euthymic affect Results & Data Results & Data ([facility]) Vital Signs (Past 12 Hours) Vital Signs Temp Pulse Pulse Resp BP Pulse Ox 02/01/20 11:23 36.7 C 81 18 133/80 96 02/01/20 07:35 36.8 C 73 20 123/56 L 97 02/01/20 05:34 75 02/01/20 03:02 37.0 C 78 20 116/51 L 96 Resident Activity Tracking Resident Involvement: Resident Care Provided Care Provided: Adult Hospital Medicine (1) Knee pain, right Chronicity: acute Qualified Code(s): M25.561 - Pain in right knee
[2020-02-01] MEDS: WARFARIN SOD 7.5 MG TAB PO SCH (15:42)
[2020-02-02] MEDS: cefTRIAXone SODIUM 2,000 MG in DEXTROSE 5% 50 ML IV SCH (00:09)
[2020-02-02] MEDS: ZOLPIDEM TARTRATE 10 MG TAB PO PRN ×2 (00:09→20:17)
[2020-02-02] MEDS: SODIUM CHLORIDE 0.45 % 1,000 ML IV SCH ×3 (00:26→17:51)
[2020-02-02] MEDS: CYCLOBENZAPRINE HCL 10 MG TAB PO PRN (00:27)
[2020-02-02] MEDS: LEVOTHYROXINE SODIUM 50 MCG TABLET PO SCH (06:12)
--- NOTE | 2020-02-02 06:37 | Hospitalist Progress Note ---
Date of Service February 02, 2020 Assessment & Plan (1) Ambulatory dysfunction: Akila Hernandez is a morbidly obese 69 year old woman with complicated PMH here for ambulatory dysfunction and inability to function at home. Awaiting inpatient rehab placement. Ambulatory dysfunction - Progressive weakness over past month - Prior to COVID epidemic, patient was receiving home PT services from [facility] with significant progress - subsequent decline in ambulation when home services suspended due to COVID- related restrictions/institutional policies - Most likely from morbid obesity and joint destruction - CVA cannot be ruled out as patient is unable to have head imaging done due to her size, although no focal deficits appreciated on exam - Echo today showing normal LV function, EF 60-65%; grade I diastolic dysfunction. No sign of fluid overload on exam - PT/OT recommended inpatient rehab after discharge, initial insurance authorization denied, attending to do [id number] appeal. Case management involved. - Patient's family expresses strong desire for to have inpatient rehab placement preferably at [facility], but open to idea of her going to SNF for rehab. Patient is fully competent and does not want to go to SNF. If inpatient rehab is denied, patient will have to agree for SNF placement. Case management following. UTI - patient reports recent urinary retention, possible secondary to co-existent constipation - UA neg nitrites, + for LE, 4+ bacteria, > 30 WBCs - urine culture growing flores sensitive klebsiella - deescalate abx from Rocephin to nitrofurantoin Abdominal pain - began several days prior to admission - left lower quadrant tender on exam - highest suspicion is constipation, although diverticulitis is on differential - CT scan unable to be obtained secondary to body habitus - Follow clinically, treat constipation as below Constipation - longstanding issue for this patient - dulcolax suppositories and miralax scheduled BID - fleet enema given 01/30 with multiple, subsequent BMs - suspected source of her abdominal pain SHERI, resolved - baseline Cr ~ 1.4 - Cr 1.53 on admission, down to 126 - Likely prerenal secondary to dehydration from recently poor PO intake Hypokalemia - K has been low since admission despite replacement - level at 2.7 today - Mag normal at 2.3 on admission - 40meq IV and 40meq via elixer ordered today - patient is on bumex daily, although not on a home dose of KCl supplement per med rec; will add today - no GI losses (vomiting/diarrhea) - possibly secondary to elevated aldosterone although much more likely to be from daily loop diuretic use without KCl replacement Hx Endometrial Cancer - diagnosed in 2016 at [facility] [place] - focal endometrioid adenocarcinoma, FIGO grade 1 - s/p ED&C (done by a provider at [facility]) and Mirena IUD placement (has since been removed) - patient reports current tx with Provera 10mg, daily for 10 days every 3 months. Last dosing in September; we will initiate 10 day course today (01/31) - currently following with a manager gyn-onc provider (Dr. Garza) at [facility] - pelvic US on admission showing a thickened endometrial stripe (1.1cm) History of VTE - continue home dose warfarin Chronic Lymphedema - bilateral LE - no active management History of C. Diff - continue probiotic in setting of antibiotic use Osteoarthritis - Continue home oxycontin for pain control, although opioid likely contributing to ongoing constipation - PT/OT for rehab recommendation Hypothyroidism - Continuing home levothyroxine 50 mcg Skin rashes - Continuing home mupirocin - Adding nystatin for intertrigo DMII, uncontrolled - A1C 8.5 on admission - patient is insulin dependent - follows with Dr. London (endocrinology at [facility] [place]) - patient was not on a statin prior to admission; started lipitor 40mg, qAM - not on an SUSANA/ARB, although at times BP runs low DVT PPx: Home warfarin F/E/N: Diabetes diet, NSS @125 with KCl rider Dispo: Med tele Conditional code, DNI but all other interventions including chest compressions and shocks desired (2) Hypokalemia: (3) Knee pain, right: (4) Right wrist pain: (5) CHF (congestive heart failure): (6) Shortness of breath: (7) Abdominal pain: (8) Constipation: Admission and Anticipated Discharge Date Admission Date: January 30, 2020 Supervising Physician Co-Signing Physician Notes Resident Physician Supervision Note: I independently interviewed and examined the patient and verified the romero history and physical, reviewed labs and image studies, discussed the case with the resident Dr. Rowland and agree with the findings and care plan. Subjective No acute events overnight. voices preference to go home (rather than SNF) if acute rehab [id number] does not get approved. Patient had several poor experiences in nursing homes in past Review of Systems Gastrointestinal: + constipation Physical Exam Constitutional: + morbidly obese and cooperative + hirsuitism Eyes: + anicteric sclerae ENMT: external ear and nose normal, oropharynx normal Neck: normal visual inspection and trachea midline Respiratory: normal respiratory effort, lungs clear to auscultation Cardiovascular: Rate/Rhythm: regular rate and regular rhythm Heart Sounds: normal S1, normal S2 and + murmur (systolic ejection ) Gastrointestinal (Abdomen): Inspection/Auscultation: normal bowel sounds and + significant pannus Percussion/Palpation: + abdomen tender (left lower quadrant ) and abdomen soft; no guarding Skin: no rashes, warm and dry Psychiatric: A+Ox3, euthymic affect Results & Data Results & Data ([facility]) Vital Signs (Past 12 Hours) Vital Signs Temp Pulse Pulse Resp BP Pulse Ox 02/02/20 03:52 36.9 C 66 20 135/63 97 02/02/20 01:32 73 02/01/20 23:32 36.6 C 68 20 141/61 H 96 02/01/20 19:19 36.9 C 72 18 126/54 L 95 Resident Activity Tracking Resident Involvement: Resident Care Provided Care Provided: Adult Hospital Medicine (1) Knee pain, right Chronicity: acute Qualified Code(s): M25.561 - Pain in right knee
[2020-02-02 08:26] LABS: INR 2.3 (0.9-1.1)
[2020-02-02] MEDS: DICYCLOMINE HCL 10 MG CAP PO SCH ×2 (08:27→20:18)
[2020-02-02] MEDS: BUMETANIDE 1 MG TAB PO SCH ×2 (08:27→17:18)
[2020-02-02] MEDS: MUPIROCIN 2% OINT 22 GM TUBE EXT SCH ×3 (08:27→20:19)
[2020-02-02] MEDS: FLUTICASONE/VILANTEROL 100/25MCG 14 PUFFS/INHALER INH SCH (08:27)
[2020-02-02] MEDS: SACCHAROMYCES BOULARDII 250 MG CAP PO SCH (08:28)
[2020-02-02] MEDS: ATORVASTATIN 40 MG TAB PO SCH (08:28)
[2020-02-02] MEDS: POLYETHYLENE (MIRALAX) 17 GM PACK PO SCH ×2 (08:28→20:19)
[2020-02-02] MEDS: MEDROXYPROGESTERONE ACETATE 2.5 MG TAB PO SCH (08:29)
[2020-02-02] MEDS: PANTOprazole 40 MG TAB PO SCH (08:29)
[2020-02-02] MEDS: GABAPENTIN 300 MG CAP PO SCH ×3 (08:29→20:18)
[2020-02-02] MEDS: metOLazone 2.5 MG TABLET PO SCH (08:29)
[2020-02-02] MEDS: OXYCODONE HCL 10 MG TABCR (OXYCONTIN) PO SCH ×2 (08:29→20:17)
[2020-02-02] MEDS: ASCORBIC ACID 500 MG TAB PO SCH ×2 (08:29→20:18)
[2020-02-02] MEDS: NYSTATIN CR 15 GM TUBE EXT SCH ×2 (08:29→20:19)
[2020-02-02] MEDS: INSULIN GLARGINE SOLOSTAR 100 UNITS/ML 3 ML PEN SC SCH ×2 (08:30→08:32)
[2020-02-02 08:31] LABS: BUN Creatinine Ratio 24.4 (10-20); Calcium 9.5 mg/dl (8.5-10.1); Creatinine Clr Calc Pharmacy 83.8 ml/min; Est GFR (African American) 54.3; Est GFR (Non-African American) 46.8; Potassium 2.7 mmol/L (3.5-5.1)
[2020-02-02] MEDS: INSULIN ASPART 100 UNITS/ML 3 ML PEN SC SCH ×2 (09:01→12:31)
[2020-02-02] MEDS ORDERED: POTASSIUM CHLORIDE 20 MEQ/15 ML UDC PO STA (10:24)
[2020-02-02] MEDS: POTASSIUM CHLORIDE / WTR 10 MEQ/100 ML PLCT IV SCH ×4 (10:50→14:42)
--- NOTE | 2020-02-02 12:01 | Pharmacy Report ---
Pharmacy Glycemic Short Note 2 - Date of Service February 02, 2020 - Glycemic Short BSG Results (Last 24 hours): 02/01/20 02/01/20 02/02/20 16:33 20:08 07:25 Glucose 222 H POC Glucose 188 H 191 H 02/02/20 02/02/20 07:43 11:39 Glucose POC Glucose 255 H 278 H OUTPATIENT ANTIDIABETIC REGIMEN: * Basaglar 80 units SQ qAM, Aspart 60 units TID with meals ASSESSMENT: * Akila is a 69 yo T2DM female admitted with ambulatory dysfunction, UTI, SHERI. She takes large doses of insulin at home (260 units/day). * Patient received 269 units of insulin yesterday * 100 units of basal * 169 units of prandial/correctional * Fasting BSG this morning of 255 mg/dL * Will add on Lantus HS scale this evening * Lunch BSG of 278 mg/dL - will tighten CR to 1.5 * Continues on ceftriaxone 2 g IV q24h for complicated UTI PLAN FOR INPATIENT GLYCEMIC CONTROL: * Hold outpatient oral diabetes medications * Basal insulin - increase * Lantus 100 units SQ qAM (administer as two 50 unit injections) * Lantus scale HS - 0-20 units (see EHR for details) * Bolus insulin - tighten * NovoLog per scale ACHS or Q6hrs while NPO * Goal Range: Low 110 mg/dL - High 150 mg/dL * Correction Factor: 5 mg/dL/unit * Nutritional / Prandial insulin per carb ratio of 1 unit per 1.5 grams CHO consumed * Will leave with evening pharmacist to reassess appropriateness of aggressive carb ratio
[2020-02-02] MEDS: WARFARIN SOD 7.5 MG TAB PO SCH (16:00)
[2020-02-02] MEDS: INSULIN ASPART 100 UNITS/ML VIAL SC SCH ×2 (17:15→20:20)
[2020-02-02] MEDS ORDERED: INSULIN GLARGINE 100 UNIT/ML VIAL SC SCH (21:00)
[2020-02-02] MEDS ORDERED: INSULIN GLARGINE SOLOSTAR 100 UNITS/ML 3 ML PEN SC SCH (21:00)
[2020-02-03] MEDS: CYCLOBENZAPRINE HCL 10 MG TAB PO PRN ×3 (00:53→22:54)
[2020-02-03] MEDS: ACETAMINOPHEN 325 MG TAB PO PRN ×3 (00:53→16:38)
[2020-02-03] MEDS: SODIUM CHLORIDE 0.45 % 1,000 ML IV SCH ×2 (01:41→08:42)
[2020-02-03] MEDS: LEVOTHYROXINE SODIUM 50 MCG TABLET PO SCH (05:59)
[2020-02-03 07:50] LABS: INR 2.3 (0.9-1.1); Prothrombin Time 23.5 Seconds (9.0-12.0)
[2020-02-03 08:06] LABS: BUN Creatinine Ratio 22.1 (10-20); Calcium 9.3 mg/dl (8.5-10.1); Creatinine Clr Calc Pharmacy 81.2 ml/min; Est GFR (African American) 52.1
[2020-02-03] MEDS ORDERED: POTASSIUM CHLORIDE 20 MEQ/15 ML UDC PO STA (08:21)
[2020-02-03] MEDS: DICYCLOMINE HCL 10 MG CAP PO SCH ×2 (08:32→21:10)
[2020-02-03] MEDS: GABAPENTIN 300 MG CAP PO SCH ×3 (08:32→21:11)
[2020-02-03] MEDS: NITROFURANTOIN MONOHYDRATE 100 MG CAP PO SCH ×2 (08:32→21:10)
[2020-02-03] MEDS: ASCORBIC ACID 500 MG TAB PO SCH ×2 (08:32→21:11)
[2020-02-03] MEDS: PANTOprazole 40 MG TAB PO SCH (08:33)
[2020-02-03] MEDS: BUMETANIDE 1 MG TAB PO SCH ×2 (08:33→17:22)
[2020-02-03] MEDS: ATORVASTATIN 40 MG TAB PO SCH (08:33)
[2020-02-03] MEDS: FLUTICASONE/VILANTEROL 100/25MCG 14 PUFFS/INHALER INH SCH (08:33)
[2020-02-03] MEDS: metOLazone 2.5 MG TABLET PO SCH (08:33)
[2020-02-03] MEDS: SACCHAROMYCES BOULARDII 250 MG CAP PO SCH (08:33)
[2020-02-03] MEDS: POTASSIUM CHLORIDE 20 MEQ TABCR PO SCH (08:33)
[2020-02-03] MEDS: POLYETHYLENE (MIRALAX) 17 GM PACK PO SCH ×2 (08:34→21:11)
[2020-02-03] MEDS: MUPIROCIN 2% OINT 22 GM TUBE EXT SCH ×3 (08:34→21:15)
[2020-02-03] MEDS: INSULIN ASPART 100 UNITS/ML VIAL SC SCH ×4 (08:35→21:34)
[2020-02-03] MEDS: MEDROXYPROGESTERONE ACETATE 2.5 MG TAB PO SCH (08:35)
[2020-02-03] MEDS: NYSTATIN CR 15 GM TUBE EXT SCH ×2 (08:36→21:11)
[2020-02-03] MEDS: INSULIN GLARGINE 100 UNIT/ML VIAL SC SCH ×2 (08:36→08:44)
[2020-02-03] MEDS: OXYCODONE HCL 10 MG TABCR (OXYCONTIN) PO SCH ×2 (08:42→21:11)
[2020-02-03] MEDS ORDERED: bisacodyL 10 MG SUPP PR ONE (09:10)
[2020-02-03] MEDS: POTASSIUM CHLORIDE / WTR 10 MEQ/100 ML PLCT IV SCH ×4 (10:04→14:19)
--- NOTE | 2020-02-03 10:41 | Hospitalist Progress Note ---
Date of Service February 03, 2020 Assessment & Plan (1) Ambulatory dysfunction: Akila Hernandez is a morbidly obese 69 year old woman with complicated PMH here for ambulatory dysfunction and inability to function at home. Awaiting inpatient rehab placement. Ambulatory dysfunction - Progressive weakness over past month - Prior to COVID epidemic, patient was receiving home PT services from [facility] with significant progress - subsequent decline in ambulation when home services suspended due to COVID- related restrictions/institutional policies - Most likely from morbid obesity and joint destruction - CVA cannot be ruled out as patient is unable to have head imaging done due to her size, although no focal deficits appreciated on exam - Echo today showing normal LV function, EF 60-65%; grade I diastolic dysfunction. No sign of fluid overload on exam - PT/OT recommended inpatient rehab after discharge, initial insurance authorization denied, attending to do [id number] appeal on 02/04/20. Case management involved. - Patient's family expresses strong desire for to have inpatient rehab placement preferably at [facility], but open to idea of her going to SNF for rehab. Patient is fully competent and does not want to go to SNF. If inpatient rehab is denied, patient will have to agree for SNF placement. Case management following. UTI - patient reports recent urinary retention, possible secondary to co-existent constipation - urine culture growing flores sensitive klebsiella - Given Rocephin initially - now on nitrofurantoin - Currently on Day 4 of abx Abdominal pain - began several days prior to admission - left lower quadrant tender on exam - highest suspicion is constipation, although diverticulitis is on differential - CT scan unable to be obtained secondary to body habitus - Follow clinically, treat constipation as below Constipation - longstanding issue for this patient - bowel regimen: miralax and colace scheduled BID; dulcolax suppositories prn - fleet enema given 01/30 with multiple, subsequent BMs - still feels she is constipated - will try dose of mag citrate. - suspected source of her abdominal pain SHERI, resolved - baseline Cr ~ 1.4 - Cr 1.53 on admission, down to 126 - Likely prerenal secondary to dehydration from recently poor PO intake Hypokalemia - K has been low since admission despite replacement - level at 3.0 today - Mag normal at 2.3 on admission - 40meq IV and 40meq via elixer ordered today - patient is on bumex daily, although not on a home dose of KCl supplement per med rec; added 20mEq Kcl PO supplement daily - no GI losses (vomiting/diarrhea) - possibly secondary to elevated aldosterone although much more likely to be f rom daily loop diuretic use without prior KCl replacement Hx Endometrial Cancer - diagnosed in 2016 at [facility] [place] - focal endometrioid adenocarcinoma, FIGO grade 1 - s/p ED&C (done by a provider at [facility] in [place]) and Mirena IUD placement (has since been removed) - patient reports current tx with Provera 10mg, daily for 10 days every 3 months. Last dosing in September; we will initiate 10 day course today (completes 02/09) - currently following with a reading interventionist-onc provider (Dr. 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 Diff - continue probiotic in setting of antibiotic use Osteoarthritis - Continue home oxycontin for pain control, although opioid likely contributing to ongoing constipation - PT/OT for rehab recommendation Hypothyroidism - Continuing home levothyroxine 50 mcg Skin rashes - Continuing home mupirocin - Adding nystatin for intertrigo DMII, uncontrolled - A1C 8.5 on admission - patient is insulin dependent - follows with Dr. London (endocrinology at [facility]) - patient was not on a statin prior to admission; started lipitor 40mg, qAM - not on an SUSANA/ARB, although at times BP runs low DVT PPx: Home warfarin F/E/N: Diabetes diet, NSS @125 with KCl rider Dispo: Med tele Conditional code, DNI but all other interventions including chest compressions and shocks desired (2) Hypokalemia: (3) Knee pain, right: (4) Right wrist pain: (5) CHF (congestive heart failure): (6) Shortness of breath: (7) Abdominal pain: (8) Constipation: Admission and Anticipated Discharge Date Admission Date: January 30, 2020 Supervising Physician Co-Signing Physician Notes Resident Physician Supervision Note: I independently interviewed and examined the patient and verified the romero history and physical, reviewed labs and image studies, discussed the case with the resident Dr. Rowland and agree with the findings and care plan. Subjective No acute events overnight. Patient has had some abdominal cramping. Review of Systems Gastrointestinal: + abdominal pain Physical Exam Physical Exam: +hirsutism Constitutional: + morbidly obese and cooperative Eyes: + anicteric sclerae ENMT: external ear and nose normal, oropharynx normal Neck: normal visual inspection and trachea midline Respiratory: normal respiratory effort, lungs clear to auscultation Cardiovascular: Rate/Rhythm: regular rate and regular rhythm Heart Sounds: normal S1, normal S2 and + murmur (systolic ejection ) Extremities: + edema (non-pitting, b/l LE) Gastrointestinal (Abdomen): Inspection/Auscultation: normal bowel sounds and + significant pannus Percussion/Palpation: + abdomen tender (left lower quadrant ) and abdomen soft; no guarding Skin: no rashes, warm and dry Psychiatric: A+Ox3, euthymic affect Results & Data Results & Data ([facility]) Vital Signs (Past 12 Hours) Vital Signs Temp Pulse Pulse Resp BP Pulse Ox 02/03/20 07:30 74 02/03/20 07:28 36.6 C 75 20 124/73 98 02/03/20 05:00 74 02/03/20 03:36 36.7 C 74 20 147/65 H 98 02/02/20 23:43 36.7 C 80 20 143/61 H 97 Resident Activity Tracking Resident Involvement: Resident Care Provided Care Provided: Adult Hospital Medicine (1) Knee pain, right Chronicity: acute Qualified Code(s): M25.561 - Pain in right knee
[2020-02-03] MEDS ORDERED: INSULIN GLARGINE SOLOSTAR 100 UNITS/ML 3 ML PEN SC ONE (12:00)
[2020-02-03] MEDS ORDERED: MAGNESIUM CITRATE 296 ML/BTL PO STA (12:09)
[2020-02-03] MEDS ORDERED: INSULIN GLARGINE 100 UNIT/ML VIAL SC ONE (12:15)
[2020-02-03] MEDS: ONDANSETRON INJ 2 MG/ML 2 ML VIAL IV PRN (13:09)
--- NOTE | 2020-02-03 13:57 | Pharmacy Report ---
Pharmacy Glycemic Short Note 2 - Date of Service February 03, 2020 - Glycemic Short BSG Results (Last 24 hours): 02/02/20 02/02/20 02/03/20 16:46 20:19 07:05 Glucose 238 H POC Glucose 134 H 174 H 02/03/20 02/03/20 02/03/20 07:24 11:34 11:36 Glucose POC Glucose 255 H 323 H* 350 H* OUTPATIENT ANTIDIABETIC REGIMEN: * Basaglar 80 units SQ qAM, Aspart 60 units TID with meals ASSESSMENT: * Akila is a 69 yo T2DM female admitted with ambulatory dysfunction, UTI, SHERI. She takes large doses of insulin at home (260 units/day). * Patient received 292 units of insulin yesterday * 120 units of basal * 172 units of prandial/correctional * Fasting BSG this morning of 255 mg/dL * Will increase Lantus today * Lunch BSG of 323 mg/dL - will tighten CR to 1.5 * Continues on ceftriaxone 2 g IV q24h for complicated UTI PLAN FOR INPATIENT GLYCEMIC CONTROL: * Hold outpatient oral diabetes medications * Basal insulin - increase * Lantus 100 units SQ qAM (administer as two 50 unit injections) * --Added 30 units with lunch * Lantus scale HS - 0-30 units (see EHR for details) * Bolus insulin - tighten * NovoLog per scale ACHS or Q6hrs while NPO * Goal Range: Low 110 mg/dL - High 150 mg/dL * Correction Factor: 5 mg/dL/unit * Nutritional / Prandial insulin per carb ratio of 1 unit per 1.5 grams CHO consumed * Will leave with evening pharmacist to reassess appropriateness of aggressive carb ratio
[2020-02-03] MEDS: WARFARIN SOD 7.5 MG TAB PO SCH (15:33)
[2020-02-03] MEDS ORDERED: INSULIN GLARGINE 100 UNIT/ML VIAL SC SCH ×2 (21:00)
[2020-02-03] MEDS: DOCUSATE SODIUM 100 MG CAP PO SCH (21:10)
[2020-02-03] MEDS: ZOLPIDEM TARTRATE 10 MG TAB PO PRN (21:11)
[2020-02-04] MEDS: INSULIN ASPART 100 UNITS/ML VIAL SC SCH ×6 (00:14→21:44)
[2020-02-04] MEDS: ACETAMINOPHEN 325 MG TAB PO PRN ×2 (03:32→08:03)
[2020-02-04] MEDS: LEVOTHYROXINE SODIUM 50 MCG TABLET PO SCH (06:01)
[2020-02-04] MEDS: POTASSIUM CHLORIDE 20 MEQ TABCR PO SCH ×2 (08:03→21:26)
[2020-02-04] MEDS: ASCORBIC ACID 500 MG TAB PO SCH ×2 (08:03→21:27)
[2020-02-04] MEDS: PANTOprazole 40 MG TAB PO SCH (08:03)
[2020-02-04] MEDS: CHOLECALCIFEROL 1,000 UNITS 25 MCG TAB PO SCH (08:03)
[2020-02-04] MEDS: ATORVASTATIN 40 MG TAB PO SCH (08:03)
[2020-02-04] MEDS: DICYCLOMINE HCL 10 MG CAP PO SCH ×2 (08:03→21:26)
[2020-02-04] MEDS: OXYCODONE HCL 10 MG TABCR (OXYCONTIN) PO SCH ×2 (08:03→21:26)
[2020-02-04] MEDS: metOLazone 2.5 MG TABLET PO SCH (08:03)
[2020-02-04] MEDS: BUMETANIDE 1 MG TAB PO SCH ×2 (08:03→17:40)
[2020-02-04] MEDS: GABAPENTIN 300 MG CAP PO SCH ×3 (08:04→21:26)
[2020-02-04] MEDS: POLYETHYLENE (MIRALAX) 17 GM PACK PO SCH ×2 (08:04→21:26)
[2020-02-04] MEDS: DOCUSATE SODIUM 100 MG CAP PO SCH ×2 (08:04→21:26)
[2020-02-04] MEDS: NITROFURANTOIN MONOHYDRATE 100 MG CAP PO SCH ×2 (08:05→21:26)
[2020-02-04] MEDS: MUPIROCIN 2% OINT 22 GM TUBE EXT SCH ×3 (08:05→21:48)
[2020-02-04] MEDS: NYSTATIN CR 15 GM TUBE EXT SCH ×2 (08:05→21:48)
[2020-02-04] MEDS: MEDROXYPROGESTERONE ACETATE 2.5 MG TAB PO SCH (08:05)
[2020-02-04] MEDS: SACCHAROMYCES BOULARDII 250 MG CAP PO SCH (08:06)
[2020-02-04] MEDS: FLUTICASONE/VILANTEROL 100/25MCG 14 PUFFS/INHALER INH SCH (08:06)
[2020-02-04] MEDS: INSULIN GLARGINE 100 UNIT/ML VIAL SC SCH ×3 (08:09→08:18)
[2020-02-04 08:26] LABS: BUN Creatinine Ratio 21.8 (10-20); Calcium 9.8 mg/dl (8.5-10.1); Creatinine Clr Calc Pharmacy 77.4 ml/min; Est GFR (African American) 49.2; Est GFR (Non-African American) 42.4; Potassium 2.9 mmol/L (3.5-5.1)
[2020-02-04] MEDS ORDERED: POTASSIUM CHLORIDE 20 MEQ TABCR PO STA (09:29)
[2020-02-04] MEDS: POTASSIUM CHLORIDE / WTR 10 MEQ/100 ML PLCT IV SCH ×4 (09:52→14:50)
[2020-02-04] MEDS: CYCLOBENZAPRINE HCL 10 MG TAB PO PRN ×2 (10:56→23:14)
--- NOTE | 2020-02-04 12:04 | Hospitalist Progress Note ---
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 Awaiting inpatient rehab placement vs. discharge home with home PT/OT. Ambulatory dysfunction and deconditioning: - Progressive weakness over past several months. - Prior to COVID epidemic, patient was receiving home PT services from [facility] with significant progress, PT was able to return to house last week. - Differentials include deconditioning from chronic bedbound status and decreased PT at home, CVA, infection. - CVA cannot be ruled out as patient is unable to have head imaging done due to her size, although no focal deficits appreciated on exam. - Echo this admission showed normal LV function, EF 60-65%; grade I diastolic dysfunction. No signs of acute fluid overload on exam. - PT/OT recommended inpatient rehab after discharge, initial insurance authorization denied, attending to do [id number] appeal today. Case management involved. - Suspect that while patient would benefit from inpatient rehab, that she would likely not tolerate several hours of PT daily. - Patient's family expresses strong desire for to have inpatient rehab placement preferably at [facility], but open to idea of her going to SNF for rehab. Patient is fully competent and does not want to go to SNF. If inpatient rehab is denied, patient will have to agree for SNF placement or be discharged home with home PT. Case management following. ? Inflammatory arthropathy: - bilateral knee XRAY showed chondrocalcinosis; ESR and CRP elevated today. - Possibly suggestive of pseudogout; patient refuses joint aspiration or ortho evaluation at this time but is amenable to prednisone. - Will start prednisone 20mg PO, then taper to 10mg daily for some time before considering d/c'ing it. - Suspect this may improve her functional status with regar to her joint pain, making her more able to perform PT/OT daily while admitted. Hypokalemia: - K has been low since admission despite replacement - level at 2.9 today, this is despite KRiders 40meq IV, 20meq KCl PO yesterday. - Mag normal at 2.3 on admission; will recheck given continued hypokalemia. - 40meq IV given today, have increased KCl PO to 40 meq BID. - No vomiting or diarrhea that would explain losses. - Possibly secondary to elevated aldosterone, although much more likely to be from daily loop diuretic use without prior KCl replacement . Patient admits to "not being very compliant with my potassium". Hx Endometrial Cancer: - Diagnosed in 2017 at [facility] [place] with focal endometrioid adenocarcinoma, FIGO grade 1. - s/p ED&C (done by a provider at [facility]) and Mirena IUD placement (has since been removed for unclear reason). - Patient reports current tx with Provera 10mg, daily for 10 days every 3 months. Last dosing in September. - Given abnormally thickened endometrial stripe on admission TVUS, [employer] consult placed. - Dr. Cole was unable to perform endometrial biopsy on L+D 09/02 patient's body habitus. - Will require biopsy and Mirena IUD placement under general anesthesia; patient is amenable and Dr. Cole will confer with [facility] [employer] [facility] surgery office regarding scheduling while admitted. Abdominal pain in patient with Hx positive Cologuard: - Began several days prior to admission. - Diffuse on exam, likely 2/2 constipation given history of chronic high doses of opiates daily. - CT scan unable to be obtained secondary to body habitus. - Follow clinically, treat constipation as below. - GI consult placed for positive Cologuard and stool changes. UTI: - Patient reports recent urinary retention, possible secondary to co-existent constipation. - UA neg nitrites, + for LE, 4+ bacteria, > 30 WBCs. - Urine culture growing flores sensitive klebsiella . - Deescalated Abx from Rocephin to nitrofurantoin this admission; currently on day 5 of Abx. Constipation - Longstanding issue for this patient, chronic opioid used for over 10 years. - Bowel regimen: Miralax and colace scheduled BID; Dulcolax suppositories prn. - Fleet enema given 01/30 with multiple, subsequent BMs. Had one formed BM overnight. DMII, uncontrolled: - A1C 8.5 on admission. - patient is insulin dependent but noncompliant with dosages at home and will "sometimes take her insulin, sometimes not". - DM education consult placed for assistance with dietary changes, insulin regimen at home. - patient was not on a statin prior to admission; started lipitor 40mg, qAM. - not on an SUSANA/ARB, although at times BP runs low so will hold for now. Elevated Creatinine: - Baseline Cr ~ 1.4, currently 1.27. History of VTE - Continue home dose warfarin; INR 2.3 this admission on 7.5mg daily. Chronic Lymphedema - Bilateral LE. - On metolazone and bumetanide at home, continue these and monitor for SHERI, electrolyte abnormalities. History of C. Diff: - Continue probiotic in setting of antibiotic use . Osteoarthritis: - Continue home oxycontin for pain control at reduced dosage due to constipation (normally on Oxycontin 20mg BID, Percocet q6h PRN). - Continue PT/OT. Hypothyroidism: - TSH today 2.7. - Continuing home levothyroxine 50 mcg daily. Intertrigo: - Continuing home mupirocin and nystatin powder for intertrigo. DVT PPx: Home warfarin F/E/N: DM2 diet, K replaced as above Dispo: Med/Surg with Tele Conditional code: DNI but all other interventions including chest compressions and shocks desired (2) Hypokalemia: (3) Knee pain, right: (4) Right wrist pain: (5) CHF (congestive heart failure): (6) Shortness of breath: (7) Abdominal pain: (8) Constipation: (9) Morbid obesity with BMI of 60.0-69.9, adult: (10) Chronic respiratory failure with hypoxia: Admission and Anticipated Discharge Date Admission Date: January 30, 2020 Supervising Physician Co-Signing Physician Notes Resident Physician Supervision Note and Attestation: Pt seen/examined, chart reviewed, care plan d/w PGY2 Dr Zahira Campbell. I agree w/ the romero components of her documentation. Dr Campbell and I performed bedside rounds together. During the visit we observed her PT isabella. She was a max assist x 2 to get from chair to standing position. This took multiple attempts. Used walked to walk 5 feet to sink. Required both PTs to walk that far. Pt's main complaint is that of b/l knee pain along with shoulder pain. She brings up wanting to speak with GI about her positive cologuard, body masker due to h/o endometrial ca, and also told us she was dx with 10 pulmonary nodules in 2008 to 2009. While on subject of b/l knee pain we offered ortho consultation for consideration of knee steroid injections but she adamantly refused such. exam - gen - morbidly obese, a/o x3 mouth - MMM neck -no JVD heart - RRR, s1 s2 lungs - decreased BS bases, o/w CTA b/l abd - obese, soft musculo - b/l knees w crepitus; not warm or tender to palpation; passive ROM produces pain in both knees. b/l shoulders warm to touch; joint effusions present of shoulders; tender to palpation. ext - <1+ edema b/l, pulses 2+ b/l skin - stasis changes b/l shins; severely dry skin arms with some element of keratosis pilaris noted - normal TSH sed rate elevated crp elevated A/P: 1. b/l knee pain - likely with advanced OA, but also pseudogout as seen on x- rays. Could conceivably have gout in various joints as well due to chronic thiazide usage. Her knee pain is the greatest limiting factor in her ambulation. Will Rx for pseudogout - start prednisone. 20mg x 1-2 days, then a course of 10mg for 7-10 days. This should help shoulders too. 2. h/o endometrial ca, abnormal pelvis u/s - body masker consultation. 3. +cologuard test - GI consultation. 4. chronic hypoxic resp failure - likely obesity-hypoventilation syndrome. Really needs updated sleep study. 5. pulmonary nodules - refer to [facility]od[facility] program. 6. T2DM, uncontrolled - defer management to pharmacy glycemic team. 7. UTI - finish abx course. 8. hypokalemia - 2nd to double diuretic usage - replace IV/PO; recheck K/mag levels am. needs rehab without question Andrey Lund MD Subjective Patient without acute events overnight. Complaints of intermittent abdominal pain, has had a BM overnight which she reports is formed and somewhat hard. With continued pain in bilateral knees and R shoulder today. States that she will not go to a SNF, so if she is refused from [facility] she will discharge to home when acute illness is resolved. Review of Systems Review of Systems: All systems reviewed & are unremarkable except as noted in Subjective Constitutional: no fever, no chills and no malaise Respiratory: no cough and no dyspnea Cardiovascular: no chest pain, no palpitations and no edema Physical Exam Physical Exam: Constitutional: + morbidly obese and cooperative; no acute distress Respiratory: Patient with diminished breath sounds at bilateral lung bases, no crackles or wheezes, bilateral chest wall expansion with inspiration; on 4LNC saturating well Cardiovascular: Rate/Rhythm: regular rate and regular rhythm Heart Sounds: + murmur (systolic ejection murmur best heard over RUSB) Extremities: + edema (non-pitting, b/l LE) Gastrointestinal (Abdomen): Inspection/Auscultation: normal bowel sounds and + significant pannus Percussion/Palpation: + abdomen tender (mild, diffuse) and abdomen soft; no guarding Skin: no rashes, warm and dry Psychiatric: A+Ox3, euthymic affect tangential but redirectable Results & Data Results & Data ([facility]) Vital Signs (Past 12 Hours) Vital Signs Temp Pulse Pulse Resp BP Pulse Ox 02/04/20 11:40 36.4 C L 74 20 128/68 97 02/04/20 07:53 36.4 C L 67 18 146/63 H 98 02/04/20 07:25 73 02/04/20 03:00 37 C 84 20 114/56 L 93 02/04/20 01:50 79 Resident Activity Tracking Resident Involvement: Resident Care Provided Care Provided: Adult Hospital Medicine (1) Knee pain, right Chronicity: acute Qualified Code(s): M25.561 - Pain in right knee
[2020-02-04 13:24] LABS: C Reactive Protein 9.83 mg/dl (0-0.29); Thyroid Stimulating Hormone 2.7 uIu/ml (0.300-4.500)
[2020-02-04] MEDS: LIDOCAINE 5% 1 PATCH TD SCH (14:49)
--- NOTE | 2020-02-04 15:33 | Consultation Report ---
DATE OF CONSULTATION: 02/04/2020 GASTROINTESTINAL CONSULTATION NOTE REASON FOR EVALUATION: Positive Cologuard and constipation. HISTORY OF PRESENT ILLNESS: The patient is a 69-year-old admitted a few days ago with ambulatory dysfunction. The patient is massively morbidly obese with a BMI of 69 and a weight of 205.6 kilograms, which is equivalent to about 456 pounds. The patient as an outpatient had a Cologuard test, which returned positive. She has never had a colonoscopy and has been followed in the past in [place] by the [facility] and they had declined colonoscopies due to her morbid obesity. She was also diagnosed with adenocarcinoma of the endometrium and surgical therapy was also declined due to her high morbidity prognosis for surgery. The patient reports that she has some left lower quadrant pain and has chronic constipation, predominant irritable bowel. She has been treated with MiraLax, Colace, Dulcolax suppositories and Linzess in the past. Currently, her blood count shows that she is not anemic. Her sedimentation rate is slightly elevated. PAST MEDICAL HISTORY: Remarkable for congestive heart failure, history of C. diff, osteoarthritis, hypothyroidism, diabetes. MEDICATIONS: Per list. ALLERGIES: AMOXICILLIN, CODEINE, LATEX, MELOXICAM, METFORMIN, PENICILLIN, SULFA AND TRAMADOL. SOCIAL HISTORY: The patient is single, lives alone, does not smoke, does consume some alcohol. REVIEW OF SYSTEMS: Positive for body aches, malaise, dyspnea on exertion, abdominal pain, bloating, dysuria, intertrigo rash, weakness. PHYSICAL EXAMINATION: GENERAL: The patient is lying in bed, sitting up, in no acute distress. The patient is morbidly obese. ABDOMEN: Protuberant. She has a small scar in the right upper abdomen from the lipoma resection. I was not able to palpate any internal organs. She did say that she felt a little bit of tenderness in the left lower quadrant. IMPRESSION AND PLAN: The patient had a positive Cologuard test, but is morbidly obese and not really a candidate for endoscopic procedure or sedation. Gastroenterologists in [place] have declined endoscopy in the past. She is also not an operative candidate based on the inclusion paraeducator declining surgery for endometrial adenocarcinoma in the past. At this point, I would try to treat her symptomatically with MiraLax and Colace. We could potentially resume Linzess if needed. I will check a CEA to see if there are signs of potential colon cancer, but this would be purely for prognostic purposes, not for treatment purposes as she is really not a candidate for sedation due to high risk of morbidity and mortality given her massive obesity.
[2020-02-04] MEDS: predniSONE 20 MG TAB PO SCH (17:06)
[2020-02-04] MEDS: WARFARIN SOD 7.5 MG TAB PO SCH (17:41)
--- NOTE | 2020-02-04 18:58 | Consultation Report ---
DATE OF CONSULTATION: 02/04/2020 REASON FOR CONSULTATION: Thickened endometrial stripe in the setting of prior history of endometrial cancer. BRIEF HISTORY: Akila is a 69-year-old who is admitted to the medicine floor for multiple health concerns. During her admission, she had an ultrasound performed, which showed a thickened endometrial stripe at 1.1 cm. In discussion with Akila today, she reports that she has a prior history of endometrial cancer, which was treated with Mirena IUD followed by serial D and C, hysteroscopies. She reports that this treatment modality was chosen due to her poor candidate for more invasive types of procedures due to her multiple health concerns. The patient reports that she responded well to the Mirena IUD progesterone treatment, and at her last D and C, she was noted to have benign endometrium. She reports that this D and C was performed in mid 2019 to the best of her knowledge. The patient denies any vaginal bleeding since the final D and C, hysteroscopy was performed. The patient reports that her IUD was removed during that OR procedure for unclear reasons. I discussed with Akila today that we should obtain a biopsy for diagnosis, which could potentially be done in house or in clinic. The patient reports that she is homebound and really has no ability to come to the clinic and that everything would need to be done while she is in house. We attempted to do an endometrial biopsy in labor and delivery on an CAPABILITY LEAD bed, but the patient was unable to tolerate the procedure and had to be abandoned. PAST MEDICAL HISTORY: 1. Morbid obesity with BMI of 69 at present. 2. Type 2 diabetes. 3. Chronic lymphedema. 4. Osteoarthritis. 5. Hypothyroidism. 6. Congestive heart failure. 7. Admitted for hypokalemia. 8. History of VTE. 9. History of endometrial cancer as noted per HPI. FAMILY HISTORY: Noncontributory. PAST SURGICAL HISTORY: Multiple D and C, hysteroscopies for history of endometrial cancer. MEDICATIONS: Please see extensive list in EMR. ALLERGIES: Please see extensive list in EMR. PHYSICAL EXAMINATION: VITAL SIGNS: At the time of visit, blood pressure 138/53, pulse 78, respiratory rate 18, temperature 36.5. The patient on nasal cannula at 4 liters per minute with 100% O2 sats. HOSPICE NURSE exam was attempted but unable to be performed secondary to the patient's body habitus and inability to lie flat. ASSESSMENT AND PLAN: Akila is a 69-year-old with a prior history of endometrial cancer, treated with serial dilation and curettages, hysteroscopies with Mirena intrauterine device progesterone treatment. The patient's last dilation and curettage was approximately 1 year ago, at which time the intrauterine device was removed. The patient had an endometrial thickness on admission of 1.1 cm. The patient denies any bleeding since her last dilation and curettage. I discussed with Akila today that in light of her prior history, current medical status with morbid obesity that she was at a high risk of recurrence of the endometrial cancer. I discussed that we should obtain a biopsy, which we attempted today, but was unable to be completed secondary to patient's intolerance of exam. At this point, the only option is to proceed with a dilation and curettage, hysteroscopy and a Mirena intrauterine device placement for treatment. If we are going to do an operating room procedure, I would recommend that we complete all aspects of the treatment and diagnosis at the same time due to the patient's significant medical comorbidities. I will arrange for the procedure for the dilation and curettage, hysteroscopy and Mirena intrauterine device placement for one day this week based on operating room availability and our ability to get a Mirena intrauterine device authorized for placement. I would recommend that anesthesia see the patient at least 1 day prior to the procedure scheduled time to assess the patient's stability to tolerate anesthesia for the procedure.
[2020-02-04] MEDS ORDERED: INSULIN GLARGINE SOLOSTAR 100 UNITS/ML 3 ML PEN SC SCH (21:00)
[2020-02-04] MEDS ORDERED: INSULIN GLARGINE 100 UNIT/ML VIAL SC SCH (21:00)
[2020-02-04] MEDS: AMMONIUM LACTATE 12% LOTION 225 GM BTL EXT SCH (21:17)
[2020-02-04] MEDS: ZOLPIDEM TARTRATE 10 MG TAB PO PRN (21:27)
[2020-02-04] MEDS: ONDANSETRON INJ 2 MG/ML 2 ML VIAL IV PRN (22:33)
[2020-02-05] MEDS ORDERED: INSULIN ASPART 100 UNITS/ML 3 ML PEN SC SCH
[2020-02-05] MEDS: INSULIN ASPART 100 UNITS/ML VIAL SC SCH ×7 (00:22→23:54)
--- NOTE | 2020-02-05 06:09 | Billing Data ---
Date of Service February 04, 2020 Coding Level of Care Code 79757 Subseq Hosp Care Lvl 3
[2020-02-05] MEDS: LEVOTHYROXINE SODIUM 50 MCG TABLET PO SCH (06:39)
[2020-02-05] MEDS: ACETAMINOPHEN 325 MG TAB PO PRN ×3 (06:42→18:39)
--- NOTE | 2020-02-05 07:57 | Hospitalist Progress Note ---
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 Awaiting inpatient rehab placement vs. discharge home with home PT/OT. Ambulatory dysfunction and deconditioning: - Progressive weakness over past several months. - Prior to COVID epidemic, patient was receiving home PT services from [facility] with significant progress (was walking around 100 feet at a time with assistance and walker), PT was able to return to house last week but at that time patient had weakened considerably. - Differentials include deconditioning from chronic bedbound status and decreased PT at home, CVA, infection. - CVA cannot be ruled out as patient is unable to have head imaging done due to her size, although no focal deficits appreciated on exam. - Echo this admission showed normal LV function, EF 60-65%; grade I diastolic dysfunction. No signs of acute fluid overload on exam. - PT/OT recommended inpatient rehab after discharge, initial insurance authorization denied, attending to do [id number] appeal today. - Suspect that while patient would benefit from inpatient rehab, and today has expressed adamant desire to go to acute rehab for daily PT/OT. - Patient's family expresses strong desire for to have inpatient rehab placement preferably at [facility], but open to idea of her going to SNF for rehab. Patient is fully competent and does not want to go to SNF. If inpatient rehab is denied, patient will have to agree for SNF placement or be discharged home with home PT. Case management following. ? Inflammatory arthropathy: - Bilateral knee XRAY showed chondrocalcinosis; ESR and CRP elevated today. - Possibly suggestive of pseudogout; patient refuses joint aspiration or ortho evaluation at this time but is amenable to prednisone, which today seems to have moderately improved the patient's joint pains (specifically knees and R shoulder). - Will continue prednisone 20mg PO today, then taper to 10mg daily for some time following in outpatient setting. - Suspect this may improve her functional status with regard to her joint pain, making her more able to perform PT/OT daily while admitted. Hypokalemia: - K has been low since admission despite replacement; ;evel at 2.9 yesterday despite KRiders 40meq IV, 20meq KCl PO - Mag normal at 2.3 on admission. - Yesterday given extra 40meq IV KRiders and increased KCl to 40meq PO BID. - Today K 3.6. - No vomiting or diarrhea that would explain losses. - Possibly secondary to elevated aldosterone, although much more likely to be from daily loop diuretic use without prior KCl replacement. Patient admits to "not being very compliant with my potassium". Hx Endometrial Cancer: - Diagnosed in 2017 at [facility] [place] with focal endometrioid adenocarcinoma, FIGO grade 1. - s/p ED&C (done by a provider at [facility]) and Mirena IUD placement (has since been removed for unclear reason). - Patient reports current tx with Provera 10mg, daily for 10 days every 3 months. Last dosing in September. - Given abnormally thickened endometrial stripe on admission TVUS, Head Of Science consult placed. - Dr. Cole was unable to perform endometrial biopsy on L+D 2/2 patient's body habitus. - Will require biopsy and Mirena IUD placement under general anesthesia; patient is amenable and Dr. Cole will confer with Head Of Science surgery office regarding scheduling while admitted. Will make NPO when aware of date. Dr. Cole amenable to patient's current INR. Will require anesthesia to see one day prior to surgery. Abdominal pain in patient with Hx positive Cologuard: - Began several days prior to admission. - Diffuse on exam, likely 2/2 constipation given history of chronic high doses of opiates daily. - CT scan unable to be obtained secondary to body habitus. - Follow clinically, treat constipation as below. - GI consult placed for positive Cologuard and stool changes. Feel she is not a good candidate for colonoscopy under sedation. - CEA ordered, normal level. - Recommend restarting Linzess if patient found this helpful for constipation and IBS in the past. UTI: - Patient reports recent urinary retention, possible secondary to co-existent constipation. - UA neg nitrites, + for LE, 4+ bacteria, > 30 WBCs. - Urine culture growing flores sensitive klebsiella . - Deescalated Abx from Rocephin to nitrofurantoin this admission; currently on day 6 of Abx. Constipation: - Longstanding issue for this patient, chronic opioid user for over 10 years. - Bowel regimen: Miralax and colace scheduled BID; Dulcolax suppositories prn. - Fleet enema given 01/30 with multiple, subsequent BMs. Had one formed BM yesterday. DMII, uncontrolled: - A1C 8.5 on admission. - Patient is insulin dependent but noncompliant with dosages at home and will "sometimes take her insulin, sometimes not". - DM education consult placed for assistance with dietary changes, insulin regimen at home. - Patient was not on a statin prior to admission; started Lipitor 40mg, qAM. - Not on an SUSANA/ARB, although at times BP runs low so will hold for now. Elevated Creatinine, resolved: - Baseline Cr ~ 1.4, currently 1.17. History of VTE: - Continue home dose warfarin; INR 2.3 this admission on 7.5mg daily. Chronic Lymphedema: - Bilateral LE. - On metolazone and bumetanide at home, continue these and monitor for SHERI, electrolyte abnormalities. History of C. Diff: - Continue probiotic in setting of antibiotic use. Osteoarthritis: - Continue home Oxycontin for pain control at reduced dosage due to constipation (normally on Oxycontin 20mg BID, Percocet q6h PRN). - Continue PT/OT. Hypothyroidism: - TSH this admission 2.7. - Continuing home levothyroxine 50 mcg daily. Intertrigo: - Continuing home mupirocin and nystatin powder for intertrigo. Keratosis pilaris: - Patient with dry skin of arms on exam. - Ammonium lactate cream added to regimen. DVT PPx: Home warfarin F/E/N: DM2 diet, K replaced as above Dispo: Med/Surg with Tele Conditional code: DNI but all other interventions including chest compressions and shocks desired (2) Hypokalemia: (3) Knee pain, right: (4) Right wrist pain: (5) CHF (congestive heart failure): (6) Shortness of breath: (7) Abdominal pain: (8) Constipation: (9) Morbid obesity with BMI of 60.0-69.9, adult: (10) Chronic respiratory failure with hypoxia: Admission and Anticipated Discharge Date Admission Date: January 30, 2020 Supervising Physician Co-Signing Physician Notes I personally examined the patient and verified all romero points of history and exam, discussed case, and agree with decision making with Dr Hickey. knee pain feeling better than before. for D&C soon would like colo but understands that GI might not feel it feasible or safe, or that inpt might not be appropriate vitals noted nad heent nc at mmm breathing unlabored no accessory muscles good effort skin no rashes no pallor or icterus neuro no focal deficits knee pain - improving w steroids - continue but start to wean thickened endometrium - management by medical assistant ob gyn appreciated positive cologuard - if not safe to do colo due to breathing issues, possibly BE and/or flex sig might suffice and meet with safety criteria otherwise as above Subjective Patient without acute events overnight. Reports that her knees are feeling much better today after starting prednisone 20mg yesterday. Is adamant that she is motivated to perform therapy for as long every day as she needs to in order to qualify for acute rehab. Is motivated to improve her quality of life and "get her life back on track". Denies abdominal pain today, still some constipation but better on bowel regimen. No fevers or chills. Review of Systems Review of Systems: All systems reviewed & are unremarkable except as noted in Subjective Constitutional: no fever, no chills and no malaise Respiratory: no cough and no dyspnea Cardiovascular: no chest pain, no palpitations and no edema Physical Exam Physical Exam: Constitutional: + morbidly obese and cooperative; no acute distress Respiratory: Patient with diminished breath sounds at bilateral lung bases, no crackles or wheezes, bilateral chest wall expansion with inspiration; on 4LNC saturating well Cardiovascular: Rate/Rhythm: regular rate and regular rhythm Heart Sounds: + murmur (systolic ejection murmur best heard over RUSB) Extremities: + edema (non-pitting, b/l LE) Gastrointestinal (Abdomen): Inspection/Auscultation: normal bowel sounds and + significant pannus Percussion/Palpation: + abdomen tender (mild, diffuse) and abdomen soft; no guarding Skin: dry skin on bilateral upper extremities RLE medial to popliteal fossa with pink, non-erythematous mass that patient reports has had for years Psychiatric: A+Ox3, euthymic affect tangential but redirectable Results & Data Results & Data ([facility]) Vital Signs (Past 12 Hours) Vital Signs Temp Pulse Pulse Resp BP Pulse Ox 02/05/20 07:36 36.3 C L 76 16 123/70 99 02/05/20 03:15 36.5 C 82 20 125/62 98 02/05/20 01:18 87 02/04/20 23:45 36.4 C L 93 H 22 129/62 94 Resident Activity Tracking Resident Involvement: Resident Care Provided Care Provided: Adult Hospital Medicine (1) Knee pain, right Chronicity: acute Qualified Code(s): M25.561 - Pain in right knee
[2020-02-05 08:34] LABS: Basophils # (auto) 0.01 K/uL (0-0.2); Basophils % (auto) 0.1 %; Eosinophils # (auto) 0.05 K/uL (0-0.5); Eosinophils % (auto) 0.7 %; Hematocrit (blood only) 37.1 % (37-47); Hemoglobin 11.5 g/dL (12.0-16.0); Immature Granulocytes # (auto) 0.05 K/uL (0.00-0.02); Immature Granulocytes % (auto) 0.7 %; Lymphocytes % (auto) 33.7 %; Mean Corpuscular Hemoglobin 28.3 pg (25-34); Mean Corpuscular Volume 91.4 fL (80-100); Mean Platelet Volume 9.6 fL (7.4-10.4); Monocytes # (auto) 0.52 K/uL (0.11-0.59); Monocytes % (auto) 7.6 %; Neutrophils # (auto) 3.89 K/uL (1.4-6.5); Neutrophils % (auto) 57.2 %; Platelet Count 246 K/uL (130-400); RDW Coefficient of Variation 14.3 % (11.5-14.5); Red Blood Count 4.06 M/uL (4.2-5.4); White Blood Count 6.82 K/uL (4.8-10.8)
[2020-02-05] MEDS: LIDOCAINE 5% 1 PATCH TD SCH (08:41)
[2020-02-05] MEDS: AMMONIUM LACTATE 12% LOTION 225 GM BTL EXT SCH ×2 (08:41→20:33)
[2020-02-05] MEDS: metOLazone 2.5 MG TABLET PO SCH (08:42)
[2020-02-05] MEDS: FLUTICASONE/VILANTEROL 100/25MCG 14 PUFFS/INHALER INH SCH (08:42)
[2020-02-05] MEDS: OXYCODONE HCL 10 MG TABCR (OXYCONTIN) PO SCH ×2 (08:42→20:36)
[2020-02-05] MEDS: MEDROXYPROGESTERONE ACETATE 2.5 MG TAB PO SCH (08:43)
[2020-02-05] MEDS: ATORVASTATIN 40 MG TAB PO SCH (08:43)
[2020-02-05] MEDS: GABAPENTIN 300 MG CAP PO SCH ×3 (08:43→20:37)
[2020-02-05] MEDS: DICYCLOMINE HCL 10 MG CAP PO SCH ×2 (08:43→20:34)
[2020-02-05] MEDS: ASCORBIC ACID 500 MG TAB PO SCH ×2 (08:43→20:37)
[2020-02-05] MEDS: PANTOprazole 40 MG TAB PO SCH (08:43)
[2020-02-05] MEDS: predniSONE 20 MG TAB PO SCH (08:43)
[2020-02-05] MEDS: DOCUSATE SODIUM 100 MG CAP PO SCH ×2 (08:43→20:39)
[2020-02-05] MEDS: NITROFURANTOIN MONOHYDRATE 100 MG CAP PO SCH ×2 (08:43→20:38)
[2020-02-05] MEDS: MUPIROCIN 2% OINT 22 GM TUBE EXT SCH ×3 (08:44→20:33)
[2020-02-05] MEDS: BUMETANIDE 1 MG TAB PO SCH ×2 (08:44→16:51)
[2020-02-05] MEDS: SACCHAROMYCES BOULARDII 250 MG CAP PO SCH (08:44)
[2020-02-05] MEDS: POTASSIUM CHLORIDE 20 MEQ TABCR PO SCH ×2 (08:44→20:38)
[2020-02-05] MEDS: INSULIN GLARGINE 100 UNIT/ML VIAL SC SCH ×2 (08:46→09:07)
[2020-02-05] MEDS: POLYETHYLENE (MIRALAX) 17 GM PACK PO SCH ×2 (08:47→20:35)
[2020-02-05 08:59] LABS: BUN Creatinine Ratio 20.7 (10-20); Est GFR (African American) 54.3; Est GFR (Non-African American) 46.8; Potassium 3.6 mmol/L (3.5-5.1)
[2020-02-05] MEDS ORDERED: NovoLIN-N (NPH) PER UNIT CHARGE SQ SCH (09:00)
[2020-02-05] MEDS: NYSTATIN CR 15 GM TUBE EXT SCH ×2 (09:40→20:35)
[2020-02-05] MEDS: CYCLOBENZAPRINE HCL 10 MG TAB PO PRN (13:04)
--- NOTE | 2020-02-05 15:26 | Pharmacy Report ---
Pharmacy Glycemic Short Note 2 - Date of Service February 05, 2020 - Glycemic Short BSG Results (Last 24 hours): 02/04/20 02/04/20 02/05/20 16:36 20:04 00:16 Glucose POC Glucose 159 H 273 H 267 H 02/05/20 02/05/20 02/05/20 04:09 07:40 08:04 Glucose 200 H POC Glucose 224 H 213 H 02/05/20 11:50 Glucose POC Glucose 269 H OUTPATIENT ANTIDIABETIC REGIMEN: * Basaglar 80 units SQ qAM, Aspart 60 units TID with meals ASSESSMENT: 02/04 * BSGs continue to be elevated, range 159-267 * Received 135 units of basal + 186 units of correctional/prandial * Patient was started on prednisone 20 mg daily, provided additional 20 units of NPH this morning (~0.2 units/kg of adjusted body weight), lunch BSG elevated and therefore adjusted carb ratio * Continuing to titrate up on lantus, fasting is trending down but still elevated 02/02 * Akila is a 69 yo T2DM female admitted with ambulatory dysfunction, UTI, SHERI. She takes large doses of insulin at home (260 units/day). * Patient received 292 units of insulin yesterday * 120 units of basal * 172 units of prandial/correctional * Fasting BSG this morning of 255 mg/dL * Will increase Lantus today * Lunch BSG of 323 mg/dL - will tighten CR to 1.5 * Continues on ceftriaxone 2 g IV q24h for complicated UTI PLAN FOR INPATIENT GLYCEMIC CONTROL: * Hold outpatient oral diabetes medications * Basal insulin - increase * Lantus 130 units SQ qAM (administer as two 65 unit injections) * Lantus scale HS - 0-15 units (see EHR for details) * Bolus insulin - tighten * NovoLog per scale ACHS or Q6hrs while NPO * Goal Range: Low 110 mg/dL - High 150 mg/dL * Correction Factor: 5 mg/dL/unit * Nutritional / Prandial insulin per carb ratio of 1 unit per 1.5 grams CHO consumed * Will leave with evening pharmacist to reassess appropriateness of aggressive carb ratio
--- NOTE | 2020-02-05 15:37 | Progress Notes ---
DATE: 02/05/2020 The patient was seen by gynecology and she is unable to tolerate an endometrial biopsy in the COLLECTOR suite, so the plan is to try to get her evaluated by anesthesia to see if she is able to be sedated, so that they can do an exam under anesthesia and biopsy and placement of an IUD all at once in the OR. In the meantime, the CEA that I have ordered yesterday came back normal at 1.8. Obviously, her gynecologic problem takes precedence over a positive Cologuard with a normal CEA. I suspect that she will be extremely high risk for sedation, and doing an elective or semi-elective colonoscopy would be ill advised.
[2020-02-05] MEDS: WARFARIN SOD 7.5 MG TAB PO SCH ×2 (16:52→18:40)
[2020-02-05 18:12] LABS: INR 2.4 (0.9-1.1); Partial Thromboplastin Ratio 1.3; Partial Thromboplastin Time 34.9 Seconds (21.0-31.0)
--- NOTE | 2020-02-05 18:46 | Billing Data ---
Date of Service February 05, 2020 Coding Level of Care Code 45300 Subseq Hosp Care Lvl 3
[2020-02-05] MEDS ORDERED: INSULIN GLARGINE 100 UNIT/ML VIAL SC SCH (21:00)
[2020-02-05] MEDS: ZOLPIDEM TARTRATE 10 MG TAB PO PRN (22:26)
[2020-02-05] MEDS: CYCLOBENZAPRINE HCL 5 MG TAB PO PRN (22:26)
[2020-02-06] MEDS: INSULIN ASPART 100 UNITS/ML VIAL SC SCH ×7 (03:54→22:09)
[2020-02-06] MEDS: LEVOTHYROXINE SODIUM 50 MCG TABLET PO SCH (05:53)
[2020-02-06] MEDS: ACETAMINOPHEN 325 MG TAB PO PRN ×3 (06:03→21:59)
[2020-02-06] MEDS: metOLazone 2.5 MG TABLET PO SCH (08:05)
[2020-02-06] MEDS: GABAPENTIN 300 MG CAP PO SCH (08:05)
[2020-02-06] MEDS: ATORVASTATIN 40 MG TAB PO SCH ×2 (08:05→08:23)
[2020-02-06] MEDS: MEDROXYPROGESTERONE ACETATE 2.5 MG TAB PO SCH (08:05)
[2020-02-06] MEDS: SACCHAROMYCES BOULARDII 250 MG CAP PO SCH (08:05)
[2020-02-06] MEDS: NITROFURANTOIN MONOHYDRATE 100 MG CAP PO SCH ×2 (08:06→22:08)
[2020-02-06] MEDS: DOCUSATE SODIUM 100 MG CAP PO SCH ×2 (08:06→22:03)
[2020-02-06] MEDS: ASCORBIC ACID 500 MG TAB PO SCH ×2 (08:06→22:10)
[2020-02-06] MEDS: BUMETANIDE 1 MG TAB PO SCH ×2 (08:07→17:14)
[2020-02-06] MEDS: DICYCLOMINE HCL 10 MG CAP PO SCH ×2 (08:07→22:02)
[2020-02-06] MEDS: PANTOprazole 40 MG TAB PO SCH (08:07)
[2020-02-06] MEDS: CHOLECALCIFEROL 1,000 UNITS 25 MCG TAB PO SCH (08:07)
[2020-02-06] MEDS: POTASSIUM CHLORIDE 20 MEQ TABCR PO SCH ×2 (08:07→22:03)
[2020-02-06] MEDS: MUPIROCIN 2% OINT 22 GM TUBE EXT SCH ×3 (08:08→22:01)
[2020-02-06] MEDS: FLUTICASONE/VILANTEROL 100/25MCG 14 PUFFS/INHALER INH SCH (08:08)
[2020-02-06] MEDS: LIDOCAINE 5% 1 PATCH TD SCH (08:09)
[2020-02-06] MEDS: NYSTATIN CR 15 GM TUBE EXT SCH ×2 (08:10→22:00)
[2020-02-06] MEDS: POLYETHYLENE (MIRALAX) 17 GM PACK PO SCH ×2 (08:10→22:08)
[2020-02-06] MEDS: AMMONIUM LACTATE 12% LOTION 225 GM BTL EXT SCH ×2 (08:11→21:59)
[2020-02-06] MEDS: predniSONE 10 MG TABLET PO SCH (08:11)
[2020-02-06] MEDS: OXYCODONE HCL 10 MG TABCR (OXYCONTIN) PO SCH ×2 (08:13→22:11)
--- NOTE | 2020-02-06 08:19 | Pharmacy Report ---
Pharmacy Glycemic Short Note 2 - Date of Service February 06, 2020 - Glycemic Short BSG Results (Last 24 hours): 02/05/20 02/05/20 02/05/20 08:04 11:50 16:34 Glucose 200 H POC Glucose 269 H 255 H 02/05/20 02/05/20 02/05/20 20:20 20:21 23:50 Glucose POC Glucose 303 H* 286 H 212 H 02/06/20 02/06/20 03:51 07:37 Glucose POC Glucose 154 H 200 H OUTPATIENT ANTIDIABETIC REGIMEN: * Basaglar 80 units SQ qAM, Aspart 60 units TID with meals ASSESSMENT: * BSGs remain persistently elevated (ranging 212-286 mg/dL yesterday) * Patient received 364 units of insulin yesterday * -145 units of Lantus * - 20 units of NPH to cover 20 mg prednisone * - 219 units of prandial/correctional insulin * Currently receiving prednisone 10 mg PO daily PLAN FOR INPATIENT GLYCEMIC CONTROL: * Hold outpatient oral diabetes medications * Basal insulin * Lantus 130 units SQ qAM (administer as two 65 unit injections) * NPH 10 units given with prednisone 10 mg this morning * Lantus scale HS - 0-25 units (see EHR for details) * Bolus insulin - CF tightened to 4 last evening - will continue * NovoLog per scale ACHS or Q6hrs while NPO * Goal Range: Low 110 mg/dL - High 150 mg/dL * Correction Factor: 4 mg/dL/unit * Nutritional / Prandial insulin per carb ratio of 1 unit per 1.5 grams CHO consumed * Will leave with evening pharmacist to reassess appropriateness of aggressive carb ratio
[2020-02-06] MEDS: INSULIN GLARGINE 100 UNIT/ML VIAL SC SCH ×3 (08:25→22:07)
[2020-02-06] MEDS ORDERED: NovoLIN-N (NPH) PER UNIT CHARGE SQ SCH (09:00)
--- NOTE | 2020-02-06 09:30 | Anesthesiology Consultation ---
Date of Service February 06, 2020 Assessment & Plan (1) Encounter for pre-operative examination: Chart Review Chart Review: Acceptable Risk for Surgery and Patient NOT seen in Pre Admission Testing Patient's CXR without acute findings. She is on chronic oxygen therapy but remains at 4L NC without any recent changes. She denies any recent worsening of what appears to be her chronic shortness of breath. Echo this admission failed to show any s/s suggestive of heart failure. Patient stated her biggest concern is her inability to be supine and positioning given her significant lower body lymphedema. While she does have significant comorbid conditions, she appears to be relatively well optimized from a cardiopulmonary standpoint. She will be a challenge to position intraoperatively but I feel she could tolerate a general endotracheal anesthetic if she is ramped and/or induced while semirecumbent. Current covid-19 prescreen is negative from 01/31/2020. All questions are answered. Will await surgical scheduling to see if/when patient will present to the OR. NPO guidelines were discussed with patient. Consults Requested none History Surgery Operation Date: 02/08/20 11:30 Proposed Procedures p Dilation and Curettage, - Angelo Cole MD s Hysteroscopy, Possible Polypectomy - Angelo Cole MD Height/Weight Height: 5 ft 8 in Weight: 120.5 kg Allergies Allergy/AdvReac Type Severity Reaction Status Date / Time amoxicillin Allergy Unknown Unverified 01/30/20 21:34 codeine Allergy Unknown Unverified 01/30/20 21:31 latex Allergy Unknown Unverified 01/30/20 21:33 meloxicam [From Mobic] Allergy Unknown Unverified 01/30/20 21:32 metformin Allergy Unknown Unverified 01/30/20 21:32 Penicillins Allergy Unknown Unverified 01/30/20 21:30 Sulfa (Sulfonamide Allergy Unknown Unverified 01/30/20 21:30 Antibiotics) tramadol Allergy Unknown Unverified 01/30/20 21:32 Medications Home Medications Medication Instructions Recorded Confirmed Last Taken acetaminophen [Tylenol Extra 1,000 mg PO QID PRN 01/30/20 01/30/20 Unknown Strength] albuterol sulfate 2 puff INHALATION Q6H PRN 01/30/20 01/30/20 Unknown ascorbic acid (vitamin C) 500 mg PO BID 01/30/20 01/30/20 Unknown bumetanide 2 mg PO BID 01/30/20 01/30/20 Unknown cholecalciferol (vitamin D3) 50 mcg PO 3XWK 01/30/20 01/30/20 Unknown cyclobenzaprine 5 mg PO TID PRN 01/30/20 01/30/20 Unknown dicyclomine 10 mg PO BID 01/30/20 01/30/20 Unknown diphenhydramine HCl 25 mg PO Q6H PRN 01/30/20 01/30/20 Unknown ferrous sulfate 142 mg PO DAILY 01/30/20 01/30/20 Unknown fluticasone furoate-vilanterol 1 inh INHALATION DAILY 01/30/20 01/30/20 Unknown [Breo Ellipta] fluticasone propionate 1 spray INTRANASAL BID 01/30/20 01/30/20 Unknown gabapentin 300 mg PO TID 01/30/20 01/30/20 Unknown insulin aspart U-100 [Novolog 60 unit SUBCUT TIDM 01/30/20 01/30/20 Unknown Flexpen U-100 Insulin] insulin glargine [Basaglar KwikPen 80 unit SUBCUT QAM 01/30/20 01/30/20 Unknown U-100 Insulin] ipratropium-albuterol 3 ml INHALATION BID PRN 01/30/20 01/30/20 Unknown levothyroxine 50 mcg PO QAM 01/30/20 01/30/20 Unknown linaclotide [Linzess] 145 mcg PO DAILY PRN 01/30/20 01/30/20 Unknown meclizine 25 mg PO TID PRN 01/30/20 01/30/20 Unknown metolazone 2.5 mg PO QAM 01/30/20 01/30/20 Unknown mupirocin 1 applic TOPICAL TID 01/30/20 01/30/20 Unknown nystatin 1 applic TOPICAL BID 01/30/20 01/30/20 Unknown ondansetron HCl [Zofran] 8 mg PO BID PRN 01/30/20 01/30/20 Unknown oxycodone [OxyContin] 10 mg PO Q12H 01/30/20 01/30/20 Unknown oxycodone-acetaminophen 1 tab PO Q8H PRN 01/30/20 01/30/20 Unknown pantoprazole [Protonix] 40 mg PO DAILY 01/30/20 01/30/20 Unknown warfarin 7.5 mg PO DAILY 01/30/20 01/30/20 Unknown zolpidem [Ambien] 10 mg PO HS PRN 01/30/20 01/30/20 Unknown atorvastatin 40 mg PO QAM 30 Days #30 tab 02/01/20 Unknown Active Medications Generic Name Dose Route Start Last Admin Trade Name Freq PRN Reason Stop Dose Admin Acetaminophen 650 mg 01/30/20 23:26 02/06/20 13:28 Tylenol PO 02/29/20 23:25 650 mg Q4H PRN Administration pain/fever Ascorbic Acid 500 mg 01/31/20 09:00 02/06/20 08:06 Vitamin C PO 03/01/20 08:59 500 mg BID GOLDIE Administration Atorvastatin Calcium 40 mg 02/01/20 09:00 02/06/20 08:23 Lipitor PO 03/02/20 08:59 Not Given QAM GOLDIE Bumetanide 2 mg 01/31/20 09:00 02/06/20 08:07 Bumex PO 03/01/20 08:59 2 mg BID17 GOLDIE Administration Cyclobenzaprine HCl 5 mg 02/05/20 21:05 02/06/20 09:35 Flexeril PO 03/06/20 21:04 5 mg TID PRN Administration MUSCLE SPASM Diclofenac Sodium 2 gm 02/06/20 10:30 02/06/20 12:33 Voltaren 1% Top EXT 03/07/20 10:29 2 gm BID GOLDIE Administration Dicyclomine HCl 10 mg 01/31/20 09:00 02/06/20 08:07 Bentyl PO 03/01/20 08:59 10 mg BID GOLDIE Administration Diphenhydramine HCl 25 mg 01/30/20 23:26 02/06/20 08:20 Benadryl Capsule PO 03/01/20 23:25 25 mg Q6H PRN Administration Allergy Symptoms Docusate Sodium 100 mg 02/03/20 21:00 02/06/20 08:06 Colace PO 03/04/20 20:59 100 mg BID GOLDIE Administration Fluticasone/Vilanterol 1 puffs 01/31/20 09:00 02/06/20 08:08 Breo Ellipta 100/25 Mcg Inh INH 03/01/20 08:59 1 puffs DAILY GOLDIE Administration Gabapentin 600 mg 02/06/20 14:00 02/06/20 13:28 Neurontin PO 03/07/20 13:59 600 mg TID GOLDIE Administration Insulin Aspart 0 units 02/06/20 08:05 02/06/20 12:34 Novolog Aspart SC 03/03/20 16:29 73 units ACHS GOLDIE Administration Insulin Glargine 65 units 02/05/20 09:00 02/06/20 08:34 Lantus SC 03/04/20 08:59 65 units DAILY@0900,0901 GOLDIE Administration Lactic Acid 1 gm 02/04/20 21:00 02/06/20 08:11 Amlactin EXT 03/05/20 20:59 1 gm BID GOLDIE Administration Levothyroxine Sodium 50 mcg 01/31/20 06:30 02/06/20 05:53 Synthroid PO 03/01/20 06:29 50 mcg DAILYBB GLODIE Administration Lidocaine 3 patch 02/04/20 13:45 02/06/20 08:09 Lidoderm 5% TD 03/05/20 13:44 3 patch QAM GOLDIE Administration Medroxyprogesterone Acetate 10 mg 02/01/20 13:45 02/06/20 08:05 Provera PO 02/11/20 13:44 10 mg QAM GOLDIE Administration Metolazone 2.5 mg 01/31/20 09:00 02/06/20 08:05 Zaroxolyn PO 03/01/20 08:59 2.5 mg QAM GOLDIE Administration Miscellaneous 3 ea 02/04/20 21:00 02/05/20 20:36 Remove Lidoderm Patch N/A 03/05/20 20:59 3 ea DAILY@2100 GOLDIE Administration Mupirocin 1 appln 01/31/20 09:00 02/06/20 13:28 Bactroban 2% EXT 03/01/20 08:59 Not Given TID GOLDIE Nitrofurantoin Macrocrystals 100 mg 02/03/20 08:00 02/06/20 08:06 Macrobid PO 02/08/20 07:59 100 mg BID GOLDIE Administration Protocol Nystatin 1 appln 01/31/20 09:00 02/06/20 08:10 Nystatin EXT 03/01/20 08:59 1 appln BID GOLDIE Administration Ondansetron HCl 4 mg 01/30/20 23:26 02/04/20 22:33 Zofran IV 02/29/20 23:25 4 mg Q6H PRN Administration Nausea Oxycodone HCl 10 mg 01/30/20 23:45 02/06/20 08:13 Oxycontin PO 02/13/20 23:44 10 mg BID GOLDIE Administration Pantoprazole Sodium 40 mg 01/31/20 09:00 02/06/20 08:07 Protonix PO 03/01/20 08:59 40 mg DAILY GOLDIE Administration Polyethylene Glycol 17 gm 01/30/20 23:26 02/06/20 08:10 Miralax Powder Packet PO 02/29/20 23:25 Not Given BID GOLDIE Potassium Chloride 40 meq 02/04/20 21:00 02/06/20 08:07 Klor-Con M20 PO 03/05/20 20:59 40 meq BID GOLDIE Administration Prednisone 10 mg 02/06/20 09:00 02/06/20 08:11 Prednisone PO 03/07/20 08:59 10 mg DAILY GOLDIE Administration Saccharomyces Boulardii 250 mg 01/31/20 09:00 02/06/20 08:05 Florastor PO 03/01/20 08:59 250 mg DAILY GOLDIE Administration Vitamin D 2,000 units 02/01/20 09:00 02/06/20 08:07 Vitamin D3 PO 03/02/20 08:59 2,000 units MoWeFr GOLDIE Administration Warfarin Sodium 7.5 mg 01/31/20 16:00 02/05/20 18:40 Coumadin PO 03/01/20 15:59 7.5 mg DAILY@1600 GOLDIE Administration Zolpidem Tartrate 10 mg 01/30/20 23:26 02/05/20 22:26 Ambien PO 02/29/20 23:25 10 mg HS PRN Administration Insomnia Past Medical History Medical History (Updated 02/06/20 @ 15:56 by Oscar Franklin MD) Ambulatory dysfunction (Inactive) Chronic respiratory failure 4L oxygen at home COPD (chronic obstructive pulmonary disease) Diabetes Endometrial cancer Hypokalemia (Inactive) Hypothyroidism Inflammatory arthropathy Lymphedema Morbid obesity Urinary tract infection VTE (venous thromboembolism) Exercise / Class Metabolic Activity IV < 2 Limit ADL/Bedbound Past Surgical History Surgical History (Updated 02/06/20 @ 15:42 by Oscar Franklin MD) Hx of tonsillectomy History of PONV No Hx of PONV and No Hx of Motion Sickness Social History Smoking Status: Never smoker Do You Dip or Chew Tobacco: No Hx Alcohol Use: Yes alcohol intake frequency: holidays/special occasions only Hx Substance Use: No Physical Exam Vital Signs Last Vital Signs Temp 36.6 C 02/06/20 15:46 Pulse 82 02/06/20 15:46 Resp 20 02/06/20 15:46 BP 138/62 02/06/20 15:46 Pulse Ox 97 02/06/20 15:46 Significant lower body and especially lower extremity swelling 2/2 severe chronic lymphedema. ENMT Mouth: + dentition abnormality; no TMJ abnormality, no TMJ clicking and no chipped teeth Thyromental Distance: < 3.5 Finger Breadths Mallampati Class: II Neck normal visual inspection; neck not thick Respiratory normal respiratory effort Auscultation: lungs clear to auscultation bilaterally Cardiovascular Rate/Rhythm: regular rate and regular rhythm Musculoskeletal Spine: normal cervical ROM and no pain with cervical ROM Extremities: + limited ROM of extremities; + extremities abnormal to inspection Psychiatric Orientation: alert and oriented x 3 Testing Laboratory Results 02/05/20 08:04 02/05/20 08:04 PT 24.0 Seconds (9.0-12.0) H 02/05/20 17:49 INR 2.4 (0.9-1.1) H 02/05/20 17:49 APTT 34.9 Seconds (21.0-31.0) H 02/05/20 17:49 Hemoglobin A1c 8.5 % (4.5-5.6) H 01/31/20 05:06 Urine Color Yellow 01/31/20 02:17 Urine Appearance Cloudy (Clear) A 01/31/20 02:17 Urine pH 5.5 (4.5-7.5) 01/31/20 02:17 Ur Specific [place] 1.017 (1.000-1.030) 01/31/20 02:17 Urine Protein Negative (Negative) 01/31/20 02:17 Urine Glucose (UA) Negative (Negative) 01/31/20 02:17 Urine Ketones Negative (Negative) 01/31/20 02:17 Urine Nitrite Negative (Negative) 01/31/20 02:17 Ur Leukocyte Esterase 3+ (Negative) H 01/31/20 02:17 Urine WBC (Auto) >30 /hpf (0-5) H 01/31/20 02:17 Urine RBC (Auto) 0-4 /hpf (0-4) 01/31/20 02:17 U Hyaline Cast (Auto) 10-30 /lpf (0-5) H 01/31/20 02:17 U Epithel Cells (Auto) 0-5 /lpf (0-5) 01/31/20 02:17 Urine Bacteria (Auto) 4+ (Negative) H 01/31/20 02:17 01/31/20 02:17 Urine Culture - Final Urine,Clean Catch Klebsiella pneumoniae 02/06/20 02/06/20 11:36 07:37 POC Glucose 220 H 200 H Electrocardiogram Date: 01/30/20 HR 88 Poor data quality, interpretation may be adversely affected Normal sinus rhythm Left bundle branch block Abnormal ECG No previous ECGs available Confirmed by Shalom Do ([id number]) on 01/31/2020 8:20:26 AM Chest X-Ray Date: 01/30/20 XR chest 1V portable CLINICAL HISTORY: Shortness of breath dyspnea COMPARISON STUDY: No previous studies for comparison. FINDINGS: The bones soft tissues and hemidiaphragms are normal. The ca rdiomediastinal silhouette is normal. The lungs are clear. The pulmonary vasculature is normal. IMPRESSION: Negative chest. Echocardiogram Date: 01/31/20 EF: 60-65% LV Function: normal LV systolic function is normal EF 60-65% LV wall motion is normal Basal septum is thickened and angulated consistent with sigmoid septum Mild LVH Grade 1 DD No obvious valvular disease. LA moderately dilated.
[2020-02-06] MEDS: CYCLOBENZAPRINE HCL 5 MG TAB PO PRN ×2 (09:35→16:46)
[2020-02-06] MEDS: DICLOFENAC SOD 1% GEL 100 GM TUBE EXT SCH ×2 (12:33→22:00)
[2020-02-06] MEDS: GABAPENTIN 600 MG TAB PO SCH ×2 (13:28→22:08)
[2020-02-06] MEDS: WARFARIN SOD 7.5 MG TAB PO SCH (16:47)
--- NOTE | 2020-02-06 18:20 | Billing Data ---
Date of Service February 06, 2020 Coding Level of Care Code 14952 Subseq Hosp Care Lvl 3
--- NOTE | 2020-02-06 18:22 | Billing Data ---
Date of Service February 06, 2020 Coding Level of Care Code 86792 Prolonged Care (int'l)
--- NOTE | 2020-02-06 18:33 | Hospitalist Progress Note ---
Date of Service February 06, 2020 Assessment & Plan (1) Knee pain, right: (2) Right wrist pain: (3) CHF (congestive heart failure): (4) Shortness of breath: (5) Abdominal pain: (6) Constipation: (7) Morbid obesity with BMI of 60.0-69.9, adult: (8) Chronic respiratory failure with hypoxia: Admission and Anticipated Discharge Date Admission Date: January 30, 2020 Supervising Physician Co-Signing Physician Notes I personally examined the patient and verified all roemro points of history and exam, discussed case, and agree with decision making with Dr Hickey. for D&C tuesday. leg pain ongoing. doesn't really mind basically being bedbound vitals noted nad heent nc at mmm breathing unlabored no accessory muscles good effort skin no rashes no pallor or icterus neuro no focal deficits knee pain, chronic pain, DJD/OA - improving w steroids - continue to wean, modify pain regimen (discussed extensively - for now weaning (slowly) narcotics, raising gabapentin, scheduled tylenol, diclofenac gel to knees, continue topical lidocaine. 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 would want to try again for rehab if at all possible thickened endometrium - management by professional athlete appreciated - for procedure tuesday positive cologuard - normal CEA. unable to do barium enema at this time. non emergent goals of care discussion - she notes to me today (with much repeated questioning to keep her on track) that being able to pray, watch [employer] TV, have daily communion, and have aids take care of her basically constitutes what she thinks of as quality. will need to try to have her communicate those goals to family/caregivers more if they remain consistent over time so that all are on the same page as to what she values otherwise as above >30mins face to face time in ~5p time out ~545p Subjective Patient without acute events overnight. No abdominal pain, knees are sore however not as much as admission. Once professional athlete surgery is performed patient desires discharge home, as "she is fed up with hospital things". No fevers or chills, no chest pain or SOB. No nausea or vomiting. Reports that her pain is manageable today despite being on a lower dose of opiate medication than she is at home. Review of Systems Review of Systems: All systems reviewed & are unremarkable except as noted in Subjective Physical Exam Physical Exam: Constitutional: + morbidly obese and cooperative; no acute distress Respiratory: Patient with diminished breath sounds at bilateral lung bases, no crackles or wheezes, bilateral chest wall expansion with inspiration; on 4LNC saturating well Cardiovascular: Rate/Rhythm: regular rate and regular rhythm Heart Sounds: + murmur (systolic ejection murmur best heard over RUSB) Extremities: + edema (non-pitting, b/l LE) Gastrointestinal (Abdomen): Inspection/Auscultation: normal bowel sounds and + significant pannus Percussion/Palpation: + abdomen tender (mild, diffuse) and abdomen soft; no guarding Skin: dry skin on bilateral upper extremities RLE medial to popliteal fossa with pink, non-erythematous mass that patient reports has had for years Psychiatric: A+Ox3, euthymic affect tangential but redirectable Results & Data Results & Data ([facility]) Vital Signs (Past 12 Hours) Vital Signs Temp Pulse Pulse Resp BP Pulse Ox 02/06/20 17:04 90 02/06/20 15:46 36.6 C 82 20 138/62 97 02/06/20 11:39 36.6 C 72 20 127/56 L 96 02/06/20 07:10 36.5 C 73 20 133/65 100 02/06/20 07:00 67 Resident Activity Tracking Resident Involvement: Resident Care Provided Care Provided: Adult Hospital Medicine (1) Knee pain, right Chronicity: acute Qualified Code(s): M25.561 - Pain in right knee
[2020-02-06] MEDS ORDERED: INSULIN GLARGINE SOLOSTAR 100 UNITS/ML 3 ML PEN SC SCH (21:00)
[2020-02-06] MEDS: ZOLPIDEM TARTRATE 10 MG TAB PO PRN (21:59)
[2020-02-06] MEDS ORDERED: LIDOCAINE 2% JELLY 5 ML TUBE EXT ONE (22:00)
[2020-02-07] MEDS: ACETAMINOPHEN 325 MG TAB PO PRN ×2 (04:41→12:30)
[2020-02-07] MEDS: LEVOTHYROXINE SODIUM 50 MCG TABLET PO SCH (04:42)
[2020-02-07] MEDS: CYCLOBENZAPRINE HCL 5 MG TAB PO PRN ×2 (04:42→18:11)
--- NOTE | 2020-02-07 07:55 | Hospitalist Progress Note ---
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 Awaiting D&C and IUD placement on Tuesday. SHERI: - Today patient with Cr 1.48, baseline per records from [facility] 1.1; likely 2/2 bumetanide dosing. - Patient is noncompliant with medications at home and suspect she was not taking Bumex BID at home every day, whereas here she has been receiving her scheduled doses. It is possible that with the hospital diet twice daily Bumex is too high a dose for her diastolic dysfunction and peripheral edema. - Her diet in house has also been restrictive with regard to salt intake, as opposed to her diet at home. - Will decrease Bumex BID to daily, repeat BMP AM. Abdominal/Adnexal pain with Hx Endometrial Cancer: - [place] [facility] [place] endometrioid [place], FIGO grade 1. - s/p ED&C (done by a provider at [facility]) and Mirena IUD placement (has since been removed for unclear reason). - Patient reports current tx with Provera 10mg, daily for 10 days every 3 months. Last dosing in September. - Given lower abdominal vs adnexal pain, and abnormally thickened endometrial stripe on admission TVUS, Leather Scraper consult placed. - Dr. Cole was unable to perform endometrial biopsy on L+D 2/2 patient's body habitus. - Will require biopsy and Mirena IUD placement under general anesthesia; patient is amenable and Dr. Cole will perform on Tuesday. Will make NPO at midnight. Dr. Cole amenable to patient's current INR. Anesthesia has seen and deemed at appropriate cardiopulmonary risk for this surgery. - Given acuity of symptoms abdominal pain could be secondary in some part due to the above. DMII, uncontrolled: - A1C 8.5 on admission. - Patient is insulin dependent but noncompliant with dosages at home and will "sometimes take her insulin, sometimes not" due to a lack of understanding and education about her diabetes. - DM education consult placed for assistance with dietary changes, insulin regimen at home. - Patient was not on a statin prior to admission; started Lipitor 40mg, qAM. - Not on an SUSANA/ARB, although at times BP runs low so will hold for now. - Had continued discussion with patient today regarding needing to start off fresh on discharge with a static regimen for her Lantus, and then work from the re to determine her best regimen. - On discharge will start her on Lantus/Basaglar 90u BID, with Novolog 60u with meals and then have her "check her work" 2 hours later to determine if she was properly covered. - Given need to adjust patient's insulin on an almost daily basis due to the amount of insulin she uses, would benefit from daily monitoring and regimented structure for further teaching and glucose monitoring. Hypokalemia: - Continues to have hypokalemia despite repletion with KCl 40 meq BID. - Suspect likely secondary to diuretic daily use. - Have decrease Bumex dose from BID to daily as above for SHERI. - Repeat BMP, Mg AM. Ambulatory dysfunction and deconditioning: - Progressive weakness over past several months. - Prior to COVID epidemic, patient was receiving home PT services from [facility] with significant progress (was walking around 100 feet at a time with assistance and walker), PT was able to return to house last week but at that time patient had weakened considerably. - Differentials include deconditioning from chronic bedbound status and decreased PT at home, CVA, infection. - CVA cannot be ruled out as patient is unable to have head imaging done due to her size, although no focal deficits appreciated on exam. - Echo this admission showed normal LV function, EF 60-65%; grade I diastolic dysfunction. No signs of acute fluid overload on exam. - PT/OT recommended inpatient rehab after discharge for continued strengthening. - Due to patient's significant multiple comorbidities, deconditioning at home despite home PT, and multiple changes in home medications that will require frequent if not daily monitoring by a medical professional on discharge, she would benefit highly from Acute Inpatient Rehab at [facility]. Abdominal pain in patient with Hx positive Cologuard: - Began several days prior to admission. - Diffuse on exam early in admission but improving, likely 2/2 constipation given history of chronic high doses of opiates daily. - CT scan unable to be obtained secondary to body habitus. - GI consult placed for positive Cologuard and stool changes. Feel she is not a good candidate for colonoscopy under sedation. - CEA ordered, normal level. - Recommend restarting Linzess if patient found this helpful for constipation and IBS in the past, however not on formulary. Will consider for outpatient. - Unable to perform barium enema due to hospital resources. Could consider at a later date. - Constipation is a longstanding issue for this patient, chronic opioid user for over 10 years. - Bowel regimen: Miralax and Colace scheduled BID; Dulcolax suppositories prn. ? Inflammatory arthropathy: - Bilateral knee XRAY showed chondrocalcinosis; ESR and CRP elevated today. - Possibly suggestive of pseudogout; patient refuses joint aspiration or ortho evaluation at this time but is amenable to prednisone, which seems to have moderately improved the patient's joint pains (specifically knees and R shoulder). - Will continue prednisone 10mg PO while admitted. - Suspect this may improve her functional status with regard to her joint pain, making her more able to perform PT/OT daily while admitted. UTI: - Patient reports recent urinary retention, possible secondary to co-existent constipation. - UA neg nitrites, + for LE, 4+ bacteria, > 30 WBCs. - Urine culture growing flores sensitive klebsiella . - Deescalated Abx from Rocephin to nitrofurantoin this admission; completed treatment. History of VTE: - Continue home dose warfarin; INR 2.3 this admission on 7.5mg daily. Okay to continue dosing despite surgery Tuesday. - Patient has suffered from a PE in SNF in the past prior to starting on Coumadin. - Due to body habitus is likely not a good candidate for NOAC therapy. Chronic Lymphedema: - Bilateral LE. - On metolazone and bumetanide at home, continue these with changes as above and monitor for SHERI, electrolyte abnormalities. History of C. Diff: - Continue probiotic in setting of antibiotic use. Osteoarthritis: - Continue home Oxycontin for pain control at reduced dosage due to constipation (normally on Oxycontin 20mg BID, Percocet q6h PRN). - Today we continued discussion regarding adjusting her home pain medication regimen to help her decrease her constipation when home. - Have increased her gabapentin to 600mg TID this admission in an effort to continue reducing her opiate dose over the next several weeks to months, will be continued as outpatient. - Current opiate dose this admission is Oxycontin 10mg BID. Continue to monitor for signs of withdrawal given change in dosing. - Continue PT/OT. Hypothyroidism: - TSH this admission 2.7. - Continuing home levothyroxine 50 mcg daily. Intertrigo: - Continuing home mupirocin and nystatin powder for intertrigo. Keratosis pilaris: - Patient with dry skin of arms on exam. - Ammonium lactate cream added to regimen. DVT PPx: Home warfarin F/E/N: DM2 diet, K replaced as above Dispo: Med/Surg with Tele Conditional code: DNI but all other interventions including chest compressions and shocks desired (2) Hypokalemia: (3) Knee pain, right: (4) Right wrist pain: (5) CHF (congestive heart failure): (6) Shortness of breath: (7) Abdominal pain: (8) Constipation: (9) Morbid obesity with BMI of 60.0-69.9, adult: (10) Chronic respiratory failure with hypoxia: Admission and Anticipated Discharge Date Admission Date: January 30, 2020 Supervising Physician Co-Signing Physician Notes I personally examined the patient and verified all romero points of history and exam, discussed case, and agree with decision making with Dr Hickey. discussed insulins. for D&C tomorrow. no new complaints. vitals noted nad heent nc at mmm breathing unlabored no accessory muscles good effort skin no rashes no pallor or icterus neuro no focal deficits knee pain, chronic pain, DJD/OA - improving w steroids - continue to wean, continue to modify pain regimen (discussed extensively on 02/05 - for now weaning (slowly) narcotics, raising gabapentin, scheduled tylenol, diclofenac gel to knees, continue topical lidocaine. DM - educated more on basal bolus - particularly the bolus portion. also discussed that my suspicion is that she probably doesn't specifically and only respond best to lantus, but more than likely when she was on lantus coincided with better ovearll control on basal/bolus. morbid obesity, OA/DJD w functionally near paraplegia b/l LE - ongoing PT/OT. will try again for rehab if at all possible thickened endometrium - management by stone finisher appreciated - for procedure tomorrow SHERI - suspect diuretics at home are probably for venous stasis - given morbid obesity she probably actually has a lot of fluid that can be mobilized this way, but also that less sodium (likely) in hospital diet has led to less fluid retention and therefore more dry w bumex. hold afternoon dose. BMP in AM. can give fluids if creatinine continues to rise positive cologuard - normal CEA. unable to do barium enema at this time. non emergent goals of care discussion - she noted to me 02/05 (with much repeated questioning to keep her on track) that being able to pray, watch [employer] TV, have daily communion, and have aids take care of her basically constitutes what she thinks of as quality. will need to try to have her communicate those goals to family/caregivers more if they remain consistent over time so that all are on the same page as to what she values (although not entirely clear if that is truly all that constitutes quality of life for her, as it took a lot of questioning to even get her to answer "what makes you happy" - she frequently would talk about prior living circumstances or medical equipment she had/was trying to get) otherwise as above Subjective Patient without acute events overnight. For hysteroscopy, D&C, Mirena placement tomorrow AM by Dr. Cole. Denies CP, SOB, fevers or chills, abdominal pain, nausea or vomiting. Has continued joint pain however improved some since admission. Review of Systems Review of Systems: All systems reviewed & are unremarkable except as noted in Subjective Physical Exam Physical Exam: Constitutional: + morbidly obese and cooperative; no acute distress Respiratory: Patient with diminished breath sounds at bilateral lung bases, no crackles or wheezes, bilateral chest wall expansion with inspiration; on 4LNC saturating well Cardiovascular: Rate/Rhythm: regular rate and regular rhythm Heart Sounds: + murmur (systolic ejection murmur best heard over RUSB) Extremities: + edema (non-pitting, b/l LE) Gastrointestinal (Abdomen): Inspection/Auscultation: normal bowel sounds and + significant pannus Percussion/Palpation: + abdomen tender (mild, diffuse) and abdomen soft; no guarding Skin: dry skin on bilateral upper extremities RLE medial to popliteal fossa with pink, non-erythematous mass that patient reports has had for years Psychiatric: A+Ox3, euthymic affect tangential but redirectable Results & Data Results & Data ([facility]) Vital Signs (Past 12 Hours) Vital Signs Temp Pulse Pulse Resp BP Pulse Ox 02/07/20 07:19 36.6 C 72 16 147/67 H 100 02/07/20 07:08 68 02/07/20 04:00 36.5 C 71 18 139/62 98 02/07/20 00:00 67 02/06/20 23:00 36.7 C 62 18 119/53 L 97 02/06/20 20:11 36.6 C 75 20 114/63 97 Resident Activity Tracking Resident Involvement: Resident Care Provided Care Provided: Adult Hospital Medicine (1) Knee pain, right Chronicity: acute Qualified Code(s): M25.561 - Pain in right knee
[2020-02-07 08:10] LABS: Basophils # (auto) 0.02 K/uL (0-0.2); Basophils % (auto) 0.3 %; Eosinophils # (auto) 0.07 K/uL (0-0.5); Hematocrit (blood only) 40.4 % (37-47); Hemoglobin 12.3 g/dL (12.0-16.0); Immature Granulocytes # (auto) 0.09 K/uL (0.00-0.02); Immature Granulocytes % (auto) 1.3 %; Lymphocytes # (auto) 3.36 K/uL (1.2-3.4); Lymphocytes % (auto) 48.1 %; Mean Corpuscular Hgb Conc 30.4 g/dL (32-36); Mean Platelet Volume 9.4 fL (7.4-10.4); Monocytes # (auto) 0.66 K/uL (0.11-0.59); Monocytes % (auto) 9.5 %; Neutrophils # (auto) 2.78 K/uL (1.4-6.5); Neutrophils % (auto) 39.8 %; Platelet Count 301 K/uL (130-400); RDW Coefficient of Variation 14.7 % (11.5-14.5); RDW Standard Deviation 49.4 fL (36.4-46.3); Red Blood Count 4.39 M/uL (4.2-5.4); White Blood Count 6.98 K/uL (4.8-10.8)
[2020-02-07 08:40] LABS: BUN Creatinine Ratio 23.9 (10-20); Calcium 9.9 mg/dl (8.5-10.1); Creatinine Clr Calc Pharmacy 66.9 ml/min; Est GFR (African American) 40.9; Est GFR (Non-African American) 35.3; Potassium 3.1 mmol/L (3.5-5.1)
[2020-02-07] MEDS: ATORVASTATIN 40 MG TAB PO SCH (08:52)
[2020-02-07] MEDS: OXYCODONE HCL 10 MG TABCR (OXYCONTIN) PO SCH ×2 (08:52→20:44)
[2020-02-07] MEDS: POTASSIUM CHLORIDE 20 MEQ TABCR PO SCH ×2 (08:52→20:36)
[2020-02-07] MEDS: ASCORBIC ACID 500 MG TAB PO SCH ×2 (08:52→20:45)
[2020-02-07] MEDS: predniSONE 10 MG TABLET PO SCH (08:52)
[2020-02-07] MEDS: BUMETANIDE 1 MG TAB PO SCH (08:53)
[2020-02-07] MEDS: MEDROXYPROGESTERONE ACETATE 2.5 MG TAB PO SCH (08:53)
[2020-02-07] MEDS: PANTOprazole 40 MG TAB PO SCH (08:53)
[2020-02-07] MEDS: GABAPENTIN 600 MG TAB PO SCH ×3 (08:53→20:41)
[2020-02-07] MEDS: SACCHAROMYCES BOULARDII 250 MG CAP PO SCH (08:53)
[2020-02-07] MEDS: metOLazone 2.5 MG TABLET PO SCH (08:53)
[2020-02-07] MEDS: DOCUSATE SODIUM 100 MG CAP PO SCH ×2 (08:53→20:36)
[2020-02-07] MEDS: AMMONIUM LACTATE 12% LOTION 225 GM BTL EXT SCH ×2 (08:54→20:34)
[2020-02-07] MEDS: DICLOFENAC SOD 1% GEL 100 GM TUBE EXT SCH ×2 (08:54→20:45)
[2020-02-07] MEDS: DICYCLOMINE HCL 10 MG CAP PO SCH ×2 (08:54→20:35)
[2020-02-07] MEDS: MUPIROCIN 2% OINT 22 GM TUBE EXT SCH ×3 (08:54→20:34)
[2020-02-07] MEDS: NYSTATIN CR 15 GM TUBE EXT SCH ×2 (08:55→20:44)
[2020-02-07] MEDS: POLYETHYLENE (MIRALAX) 17 GM PACK PO SCH ×2 (08:56→20:41)
[2020-02-07] MEDS: FLUTICASONE/VILANTEROL 100/25MCG 14 PUFFS/INHALER INH SCH (08:57)
[2020-02-07] MEDS: LIDOCAINE 5% 1 PATCH TD SCH (08:57)
[2020-02-07] MEDS: NovoLIN-N (NPH) PER UNIT CHARGE SQ SCH (09:04)
[2020-02-07] MEDS: INSULIN ASPART 100 UNITS/ML VIAL SC SCH ×4 (09:05→20:42)
[2020-02-07] MEDS: INSULIN GLARGINE 100 UNIT/ML VIAL SC SCH ×3 (09:08→20:37)
--- NOTE | 2020-02-07 11:38 | Pharmacy Report ---
Pharmacy Glycemic Short Note 2 - Date of Service February 07, 2020 - Glycemic Short BSG Results (Last 24 hours): 02/06/20 02/06/20 02/06/20 11:36 16:41 22:06 Glucose POC Glucose 220 H 165 H 123 H 02/07/20 02/07/20 07:39 07:46 Glucose 182 H POC Glucose 189 H OUTPATIENT ANTIDIABETIC REGIMEN: * Basaglar 80 units SQ qAM, Aspart 60 units TID with meals ASSESSMENT: 02/06 * Patient received total of 354 units of insulin yesterday, of which 140 units were basal * Fasting BSG 182 mg/dL - improving from day prior - continue same basal/NPH for this AM * Continue same CF/CR * Plan for NPO at midnight for endometrial biopsy tomorrow - will evaluate basal tomorrow AM PLAN FOR INPATIENT GLYCEMIC CONTROL: * Hold outpatient oral diabetes medications * Basal insulin * Lantus 130 units SQ qAM (administer as two 65 unit injections) * NPH 10 units given with prednisone 10 mg this morning * Lantus scale HS - 0-20 units (see EHR for details) * Bolus insulin * NovoLog per scale ACHS or Q6hrs while NPO * Goal Range: Low 110 mg/dL - High 150 mg/dL * Correction Factor: 4 mg/dL/unit * Nutritional / Prandial insulin per carb ratio of 1 unit per 1 grams CHO consumed * Will leave with evening pharmacist to reassess appropriateness of aggressive carb ratio
--- NOTE | 2020-02-07 16:43 | Billing Data ---
Date of Service February 07, 2020 Coding Level of Care Code 86826 Subseq Hosp Care Lvl 3
[2020-02-07] MEDS: WARFARIN SOD 7.5 MG TAB PO SCH (16:55)
[2020-02-07] MEDS: ZOLPIDEM TARTRATE 10 MG TAB PO PRN (20:45)
[2020-02-08] MEDS: LEVOTHYROXINE SODIUM 50 MCG TABLET PO SCH (07:49)
--- NOTE | 2020-02-08 07:55 | Hospitalist Progress Note ---
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 Awaiting D&C and IUD placement today. SHERI: - Yesterday patient with Cr 1.48, baseline per records from [facility] 1.2; likely 2/2 bumetanide dosing. - Patient is noncompliant with medications at home and suspect she was not taking Bumex BID at home every day, whereas here she has been receiving her scheduled doses. It is possible that with the hospital diet twice daily Bumex is too high a dose for her diastolic dysfunction and peripheral edema. - Her diet in house has also been restrictive with regard to salt intake, as opposed to her diet at home. - Decreased Bumex BID to daily yesterday, creatinine today 1.39, no longer SHERI. - Repeat BMP tomorrow. Abdominal/Adnexal pain with Hx Endometrial Cancer: - Diagnosed in 2017 at [facility] with focal endometrioid adenocarcinoma, FIGO grade 1. - s/p ED&C (done by a provider at [facility] in [place]) and Mirena IUD placement (has since been removed for unclear reason). - Patient reports current tx with Provera 10mg, daily for 10 days every 3 months. Last dosing in September. - Given lower abdominal vs adnexal pain, and abnormally thickened endometrial stripe on admission TVUS, Stock Counter consult placed. - Dr. Cole was unable to perform endometrial biopsy on L+D 2/2 patient's body habitus. - Will require biopsy and Mirena IUD placement under general anesthesia; patient is amenable and Dr. Cole will perform today. - Given acuity of symptoms abdominal pain could be secondary in some part due to the above. DMII, uncontrolled: - A1C 8.5 on admission. - Patient is insulin dependent but noncompliant with dosages at home and will "sometimes take her insulin, sometimes not" due to a lack of understanding and education about her diabetes. - DM education consult placed for assistance with dietary changes, insulin regimen at home. - Patient was not on a statin prior to admission; started Lipitor 40mg, qAM. - Not on an SUSANA/ARB, although at times BP runs low so will hold for now. - Had continued discussion with patient today regarding needing to start off fresh on discharge with a static regimen for her Lantus, and then work from there to determine her best regimen. - On discharge will start her on Lantus/Basaglar 90u BID, with Novolog 60u with meals and then have her "check her work" 2 hours later to determine if she was properly covered. - Given need to adjust patient's insulin on an almost daily basis due to the amount of insulin she uses, would benefit from daily monitoring and regimented structure for further teaching and glucose monitoring. Hypokalemia/Hypomagnesemia: - Continues to have hypokalemia despite repletion with KCl 40 meq BID. - Suspect likely secondary to diuretic daily use. - Have decreased Bumex dose from BID to daily as above for SHERI. - Mg today 1.7, repleted with Mag Sulfate 1gram x2 bags. - KRiders 40meq IV given for potassium repletion. - Repeat BMP, Mg AM. Ambulatory dysfunction and deconditioning: - Progressive weakness over past several months. - Prior to COVID epidemic, patient was receiving [facility] with significant progress (was walking around 100 feet at a time with assistance and walker), PT was able to return to house last week but at that time patient had weakened considerably. - Differentials include deconditioning from chronic bedbound status and decreased PT at home, CVA, infection. - CVA cannot be ruled out as patient is unable to have head imaging done due to her size, although no focal deficits appreciated on exam. - Echo this admission showed normal LV function, EF 60-65%; grade I diastolic dysfunction. No signs of acute fluid overload on exam. - PT/OT recommended inpatient rehab after discharge for continued strengthening. - Due to patient's significant multiple comorbidities, deconditioning at home despite home PT, and multiple changes in home medications that will require frequent if not daily monitoring by a medical professional on discharge, she would benefit highly from Acute Inpatient Rehab at [facility]. Osteoarthritis: - Continue home Oxycontin for pain control at reduced dosage due to constipation (normally on Oxycontin 20mg BID, Percocet q6h PRN). - Today we continued discussion regarding adjusting her home pain medication regimen to help her decrease her constipation when home. - Have increased her gabapentin to 600mg TID this admission in an effort to continue reducing her opiate dose over the next several weeks to months, will be continued as outpatient. - Current opiate dose this admission is Oxycontin 10mg BID. Continue to monitor for signs of withdrawal given change in dosing. - Continue PT/OT. Abdominal pain in patient with Hx positive Cologuard: - Began several days prior to admission. - Diffuse on exam early in admission but improving, likely 2/2 constipation given history of chronic high doses of opiates daily. - CT scan unable to be obtained secondary to body habitus. - GI consult placed for positive Cologuard and stool changes. Feel she is not a good candidate for colonoscopy under sedation. - CEA ordered, normal level. - Recommend restarting Linzess if patient found this helpful for constipation and IBS in the past, however not on formulary. Will consider for outpatient. - Unable to perform barium enema due to hospital resources. Could consider at a later date. - Constipation is a longstanding issue for this patient, chronic opioid user for over 10 years. - Bowel regimen: Miralax and Colace scheduled BID; Dulcolax suppositories prn. ? Inflammatory arthropathy: - Bilateral knee XRAY showed chondrocalcinosis; ESR and CRP elevated today. - Possibly suggestive of pseudogout; patient refuses joint aspiration or ortho evaluation at this time but is amenable to prednisone, which seems to have moderately improved the patient's joint pains (specifically knees and R shoulder). - Will continue prednisone 10mg PO while admitted. - Suspect this may improve her functional status with regard to her joint pain, making her more able to perform PT/OT daily while admitted. UTI: - Patient reports recent urinary retention, possible secondary to co-existent constipation. - UA neg nitrites, + for LE, 4+ bacteria, > 30 WBCs. - Urine culture growing floers sensitive klebsiella . - Deescalated Abx from Rocephin to nitrofurantoin this admission; completed treatment. History of VTE: - Continue home dose warfarin; INR 2.3 this admission on 7.5mg daily. Okay to continue dosing despite surgery Tuesday. - Patient has suffered from a PE in SNF in the past prior to starting on Coumadin. - Due to body habitus is likely not a good candidate for NOAC therapy. Chronic Lymphedema: - Bilateral LE. - On metolazone and bumetanide at home, continue these with changes as above and monitor for SHERI, electrolyte abnormalities. History of C. Diff: - Continue probiotic in setting of antibiotic use. Hypothyroidism: - TSH this admission 2.7. - Continuing home levothyroxine 50 mcg daily. Intertrigo: - Continuing home mupirocin and nystatin powder for intertrigo. Keratosis pilaris: - Patient with dry skin of arms on exam. - Ammonium lactate cream added to regimen. DVT PPx: Home warfarin F/E/N: DM2 diet, K and Mg replaced as above Dispo: Med/Surg with Tele Conditional code: DNI but all other interventions including chest compressions and shocks desired (2) Right wrist pain: (3) CHF (congestive heart failure): (4) Shortness of breath: (5) Abdominal pain: (6) Constipation: (7) Morbid obesity with BMI of 60.0-69.9, adult: (8) Chronic respiratory failure with hypoxia: (9) SHERI (acute kidney injury): (10) Endometrial cancer: Admission and Anticipated Discharge Date Admission Date: January 30, 2020 Supervising Physician Co-Signing Physician Notes I personally examined the patient and verified all romero points of history and exam, discussed case, and agree with decision making with Dr Hickey. life educator procedure went well. no new issues or problems. unfortunately unable to get approval for rehab. she plans on home and outpt therapy once she is able to get care set up. vitals noted nad heent nc at mmm breathing unlabored no accessory muscles good effort skin no rashes no pallor or icterus neuro no focal deficits knee pain, chronic pain, DJD/OA - improving w steroids - continue to wean (5mg tomorrow and tuesday, then likely stop), slowly modify pain regimen (discussed extensively on 02/05 - for now weaning (slowly) narcotics, raising gabapentin, scheduled tylenol, diclofenac gel to knees, continue topical lidocaine. DM - continue to titrate basal bolus morbid obesity, OA/DJD w functionally near paraplegia b/l LE - ongoing PT/OT. will have to do home PT - unable to get to rehab thickened endometrium - management by life educator appreciated - post procedure. SHERI - suspect diuretics at home are probably for venous stasis - given morbid obesity she probably actually has a lot of fluid that can be mobilized this way, but also that less sodium (likely) in hospital diet has led to less fluid retention and therefore more dry w bumex. creatinine improved some on reduced dose - continue, continue to follow positive cologuard - normal CEA. unable to do barium enema at this time. non emergent goals of care discussion - she noted to me 02/05 (with much repeated questioning to keep her on track) that being able to pray, watch Baptism TV, have daily communion, and have aids take care of her basically constitutes what she thinks of as quality. will need to try to have her communicate those goals to family/caregivers more if they remain consistent over time so that all are on the same page as to what she values (although not entirely clear if that is truly all that constitutes quality of life for her, as it took a lot of questi oning to even get her to answer "what makes you happy" - she frequently would talk about prior living circumstances or medical equipment she had/was trying to get) otherwise as above, anticipate home once caregivers able to be set up / safe environment Subjective Patient without any acute events overnight. For OR this AM for hysteroscopy, D&C, IUD placement by Dr. Cole. Doing well otherwise and without complaints. No chest pain, SOB, nausea or vomiting, constipation or diarrhea, fevers or chills. Review of Systems Review of Systems: All systems reviewed & are unremarkable except as noted in Subjective Physical Exam Physical Exam: Constitutional: + morbidly obese and cooperative; no acute distress Respiratory: Patient with diminished breath sounds at bilateral lung bases, no crackles or wheezes, bilateral chest wall expansion with inspiration; on 4LNC saturating well Cardiovascular: Rate/Rhythm: regular rate and regular rhythm Heart Sounds: + murmur (systolic ejection murmur best heard over RUSB) Extremities: + edema (non-pitting, b/l LE) Gastrointestinal (Abdomen): Inspection/Auscultation: normal bowel sounds and + significant pannus Percussion/Palpation: + abdomen tender (mild, diffuse) and abdomen soft; no guarding Skin: dry skin on bilateral upper extremities RLE medial to popliteal fossa with pink, non-erythematous mass that patient reports has had for years Psychiatric: A+Ox3, euthymic affect tangential but redirectable Results & Data Results & Data ([facility]) Vital Signs (Past 12 Hours) Vital Signs Temp Pulse Pulse Resp BP Pulse Ox 02/08/20 07:01 36.9 C 70 18 116/58 L 100 02/08/20 04:06 36.5 C 68 18 135/61 98 02/08/20 02:56 69 02/07/20 23:00 36.5 C 69 18 134/52 L 99 Resident Activity Tracking Resident Involvement: Resident Care Provided Care Provided: Adult Hospital Medicine (1) Knee pain, right Chronicity: acute Qualified Code(s): M25.561 - Pain in right knee
[2020-02-08 08:13] LABS: Est GFR (African American) 44.1; Potassium 3.2 mmol/L (3.5-5.1)
[2020-02-08 08:14] LABS: BUN Creatinine Ratio 26.2 (10-20); Calcium 9.7 mg/dl (8.5-10.1); Creatinine Clr Calc Pharmacy 70.1 ml/min; Magnesium 1.7 mg/dl (1.8-2.4)
[2020-02-08] MEDS: INSULIN GLARGINE 100 UNIT/ML VIAL SC SCH ×3 (09:58→20:07)
[2020-02-08] MEDS: INSULIN ASPART 100 UNITS/ML VIAL SC SCH ×4 (09:58→20:07)
[2020-02-08] MEDS: LIDOCAINE 5% 1 PATCH TD SCH (10:03)
[2020-02-08] MEDS: POTASSIUM CHLORIDE 20 MEQ TABCR PO SCH ×2 (10:03→21:02)
[2020-02-08] MEDS: DOCUSATE SODIUM 100 MG CAP PO SCH ×2 (10:04→21:00)
[2020-02-08] MEDS: DICYCLOMINE HCL 10 MG CAP PO SCH ×2 (10:04→21:01)
[2020-02-08] MEDS: SACCHAROMYCES BOULARDII 250 MG CAP PO SCH (10:04)
[2020-02-08] MEDS: BUMETANIDE 1 MG TAB PO SCH (10:04)
[2020-02-08] MEDS: ATORVASTATIN 40 MG TAB PO SCH (10:04)
[2020-02-08] MEDS: metOLazone 2.5 MG TABLET PO SCH (10:05)
[2020-02-08] MEDS: GABAPENTIN 600 MG TAB PO SCH ×3 (10:05→21:04)
[2020-02-08] MEDS: ASCORBIC ACID 500 MG TAB PO SCH ×2 (10:05→21:03)
[2020-02-08] MEDS: CHOLECALCIFEROL 1,000 UNITS 25 MCG TAB PO SCH (10:05)
[2020-02-08] MEDS: POLYETHYLENE (MIRALAX) 17 GM PACK PO SCH ×2 (10:05→21:08)
[2020-02-08] MEDS: predniSONE 10 MG TABLET PO SCH (10:05)
[2020-02-08] MEDS: PANTOprazole 40 MG TAB PO SCH (10:05)
[2020-02-08] MEDS: MEDROXYPROGESTERONE ACETATE 2.5 MG TAB PO SCH (10:05)
[2020-02-08] MEDS: OXYCODONE HCL 10 MG TABCR (OXYCONTIN) PO SCH ×2 (10:05→21:06)
[2020-02-08] MEDS: DICLOFENAC SOD 1% GEL 100 GM TUBE EXT SCH ×2 (10:06→21:12)
[2020-02-08] MEDS: NYSTATIN CR 15 GM TUBE EXT SCH ×2 (10:07→21:11)
[2020-02-08] MEDS: FLUTICASONE/VILANTEROL 100/25MCG 14 PUFFS/INHALER INH SCH (10:08)
[2020-02-08] MEDS: AMMONIUM LACTATE 12% LOTION 225 GM BTL EXT SCH ×2 (10:08→21:10)
[2020-02-08] MEDS: MUPIROCIN 2% OINT 22 GM TUBE EXT SCH ×3 (10:08→21:10)
[2020-02-08] MEDS: POTASSIUM CHLORIDE / WTR 10 MEQ/100 ML PLCT IV SCH ×4 (10:41→19:26)
[2020-02-08] MEDS: MAGNESIUM SULFATE / D5W 1 GM/100 ML BAG IV SCH ×2 (10:41→15:57)
[2020-02-08] MEDS ORDERED: PROPOFOL IV EMULSION 10 MG/ML 20 ML VIAL IV ONE (10:52)
[2020-02-08] MEDS ORDERED: MIDAZOLAM HCL 1 MG/ML 2ML VIAL ONE (10:52)
[2020-02-08] MEDS ORDERED: LIDOCAINE HCL 2% 2 ML VIAL/AMP(20MG/ML) INFIL ONE (10:52)
[2020-02-08] MEDS ORDERED: ONDANSETRON INJ 2 MG/ML 2 ML VIAL ONE (10:52)
[2020-02-08] MEDS ORDERED: fentaNYL citrate 100 MCG/2 ML VIAL ONE (10:53)
--- NOTE | 2020-02-08 11:25 | History & Physical Bridge Note ---
Date of Service February 08, 2020 History & Physical Bridge Note I have examined the patient, reviewed the History & Physical and in the interval since the performance of the History & Physical I have noted the following changes of clinical significance:Discussed case with lead warehouse associate oncology [place] [facility]. Altamirano, who recommend just doing a EMB with IUD placement. Discussed with patient today.
[2020-02-08] MEDS ORDERED: KETAMINE HCL INJ 50 MG/ML 10 ML VIAL ONE (12:20)
--- NOTE | 2020-02-08 12:42 | Pharmacy Report ---
Pharmacy Glycemic Short Note 2 - Date of Service February 08, 2020 - Glycemic Short BSG Results (Last 24 hours): 02/07/20 02/07/20 02/08/20 16:52 20:39 07:17 Glucose 131 H POC Glucose 250 H 215 H 02/08/20 02/08/20 07:22 11:56 Glucose POC Glucose 171 H 196 H OUTPATIENT ANTIDIABETIC REGIMEN: * Basaglar 80 units SQ qAM, Aspart 60 units TID with meals ASSESSMENT: 02/07 * Patient received total of 426 units of insulin yesterday, of which 160 units were basal insulin * Fating BSG this AM 171 mg/dL - patient NPO this AM for procedure / reduced Lantus from 130 units to 110 units this AM (~15% decr for NPO status) * Lunch time BSG 196 - continue same CF/CR * Continue scale for Lantus at HS * Had held NPH dose this AM due to prednisone dose being held for NPO status 02/06 * Patient received total of 354 units of insulin yesterday, of which 140 units were basal * Fasting BSG 182 mg/dL - improving from day prior - continue same basal/NPH for this AM * Continue same CF/CR * Plan for NPO at midnight for endometrial biopsy tomorrow - will evaluate basal tomorrow AM PLAN FOR INPATIENT GLYCEMIC CONTROL: * Hold outpatient oral diabetes medications * Basal insulin * Lantus 110 units SQ qAM (administer as two 55 unit injections) - reduced for NPO 02/07 * NPH 10 units given with prednisone 10 mg this morning - held d/t prednisone not given * Lantus scale HS - 0-20 units (see EHR for details) * Bolus insulin * NovoLog per scale ACHS or Q6hrs while NPO * Goal Range: Low 110 mg/dL - High 150 mg/dL * Correction Factor: 4 mg/dL/unit * Nutritional / Prandial insulin per carb ratio of 1 unit per 1 grams CHO consumed * Will leave with evening pharmacist to reassess appropriateness of aggressive carb ratio
--- NOTE | 2020-02-08 12:44 | Post Operative Brief Note ---
PG Immediate Post Op with CF Date of Surgery February 08, 2020 Pre & Post Diagnosis Operation Date: 02/08/20 11:30 Pre-Op Diagnosis: Endometrial thickening, history of endometrial cancer Post-Op Diagnosis: Endometrial thickening, history of endometrial cancer I identified the patient and participated in the time-out.: Yes Procedure Operation Date: 02/08/20 11:30 Actual Procedures p Dilation of Cervix, Endometrial Biopsy, Placement of IUD(Not Applicable) - Angelo Cole MD Surgeon Angelo Cole MD Hospitalist Physician None Estimated Blood Loss 2 Findings Consistent with Post-Op Diagnosis Specimens Specimen Description: A. Endometrial Biopsy
[2020-02-08] MEDS ORDERED: ePHEDrine sulfate 50 MG/ML AMP IV PRN (13:02)
[2020-02-08] MEDS ORDERED: ATROPINE SULFATE 0.1 MG/ML 10ML SYR IV PRN (13:02)
[2020-02-08] MEDS ORDERED: ONDANSETRON INJ 2 MG/ML 2 ML VIAL IV STA (13:29)
--- NOTE | 2020-02-08 13:40 | Anesthesiology Progress Note ---
Date of Service February 08, 2020 Anesthesia Post Procedure Vital Signs Vital Signs: Temp Pulse Pulse Pulse Pulse Resp BP 02/08/20 13:30 74 20 142/58 H 02/08/20 13:20 76 20 143/53 H 02/08/20 13:10 82 20 140/58 L 02/08/20 13:04 36.5 C 79 20 127/73 02/08/20 11:30 36.6 C 76 76 20 126/67 02/08/20 08:00 69 02/08/20 07:01 36.9 C 70 18 116/58 L 02/08/20 04:06 36.5 C 68 18 135/61 02/08/20 02:56 69 02/07/20 23:00 36.5 C 69 18 134/52 L 02/07/20 19:22 83 18 107/41 L 02/07/20 15:43 36.4 C L 76 18 141/75 H 02/07/20 15:14 93 H Pulse Ox 02/08/20 13:30 96 02/08/20 13:20 96 02/08/20 13:10 100 02/08/20 13:04 100 02/08/20 11:30 100 02/08/20 08:00 02/08/20 07:01 100 02/08/20 04:06 98 02/08/20 02:56 02/07/20 23:00 99 02/07/20 19:22 97 02/07/20 15:43 98 02/07/20 15:14 Pain Intensity Right Knee: Pain Intensity: 5 Bilateral Leg: Pain Intensity: 5 Bilateral Neck: Pain Intensity: 2 Transfer of Care Handoff Completed per policy Notes Mental Status: alert / awake / arousable Patient Amnestic to Procedure: Yes Nausea / Vomiting: adequately controlled Pain: adequately controlled Airway Patency, RR, SpO2: stable & adequate BP & HR: stable & adequate Hydration State: stable & adequate Anesthetic Complications: no major complications apparent
[2020-02-08] MEDS ORDERED: OXYCODONE/ACETAMINOPHEN 5mg/325mg TAB PO STA (14:53)
[2020-02-08] MEDS ORDERED: OXYCODONE/ACETAMINOPHEN 5mg/325mg TAB PO ONE (15:03)
[2020-02-08] MEDS: CYCLOBENZAPRINE HCL 5 MG TAB PO PRN (17:06)
[2020-02-08] MEDS: ACETAMINOPHEN 325 MG TAB PO PRN (17:06)
[2020-02-08] MEDS: WARFARIN SOD 7.5 MG TAB PO SCH (17:06)
--- NOTE | 2020-02-08 18:43 | Billing Data ---
Date of Service February 08, 2020 Coding Level of Care Code 73286 Subseq Hosp Care Lvl 2
--- NOTE | 2020-02-08 19:27 | Operative Report (OR) ---
DATE OF OPERATION: 02/08/2020 OPERATIVE PROCEDURES: 1. Exam under anesthesia. 2. Endometrial biopsy. 3. Placement of IUD. PREOPERATIVE DIAGNOSES: 1. History of endometrial cancer. 2. Thickened endometrium on ultrasound. POSTOPERATIVE DIAGNOSES: 1. History of endometrial cancer. 2. Thickened endometrium on ultrasound. 3. Status post procedure. SURGEON: Angelo Cole MD. ESTIMATED BLOOD LOSS: 2 mL. DRAINS: None. FLUIDS: Continuous lactated Ringer. URINE OUTPUT: Not measured. COMPLICATIONS: None. FINDINGS: There was noted to be normal external female genitalia. Cervix was visualized and appeared normal. Vagina was normal. An endometrial biopsy was attempted with scant material collected. An IUD was inserted into the uterus without complication. INDICATIONS: Akila is a 69-year-old with a prior history of endometrial cancer first diagnosed several years ago. At that time, the patient saw several [employer]IC [employer]ANT [employer]MER oncologists who recommended that she was only a candidate for progesterone therapy as due to medical issues and BMI, she is not a surgical candidate. The patient was also previously offered radiation therapy, which she declined. The patient reports that she was initially treated with a Mirena IUD with serial D and Cs performed to ensure resolution of the endometrial cancer, which did have 2 negative endometrial sampling results. The IUD was then subsequently removed for unclear reasons approximately 1 year ago and the patient has had no bleeding since that time. She presented for care for other issues and in that visit was noted to have a thickened endometrium on ultrasound. I previously discussed options and further discussed this finding with Akila and potential treatment options. I contacted [facility] oncology at [facility], Dr. Angelo Altamirano, and I discussed the case with him and the plan and discussed the potential treatment options. In discussion with Dr. Altamirano, the patient is not a surgical candidate and will never be able to be a surgical candidate, and therefore, the only option would be progesterone therapies. We discussed that Mirena IUD is typically the best option as it does provide a consistent progesterone release to the uterus. He did not feel that any sampling was really necessary going forward and if we were able to obtain an endometrial biopsy at the time of IUD placement, that was good, but that was not required as the other treatment options would not be indicated for her due to her other medical comorbidities. I discussed this conversation with Akila and the recommendation of trying for an endometrial biopsy, but most importantly placement of Mirena IUD, which she was agreeable to. Consents for the procedure were reviewed and signed with her. DESCRIPTION OF PROCEDURE: The patient was taken to the operating room after consents were ensured. Upon presentation, she was properly identified. Sedation was performed and was able to maintain normal breathing. The patient was then prepped and draped in normal sterile fashion and a preprocedural timeout was performed. A speculum was then placed within the vagina with visualization of the cervix. A single tooth tenaculum was placed on the superior aspect of the cervix. Cervix was then dilated to allow for entry of an endometrial Pipelle, which was introduced into the uterus with a small amount of material obtained. The IUD was then inserted into the uterus and deployed per yard loader operator's recommendations. The strings were then trimmed. The tenaculum was removed from the anterior aspect of the cervix and inspected to ensure that no bleeding from tenaculum was occurring and the speculum was then removed. The patient was then taken to recovery room in stable condition. All instrument counts were correct. The patient tolerated the procedure well without complications. I attest to the content of the Intraoperative Record and any orders documented therein. Any exceptions are noted below. MTDD
[2020-02-08] MEDS: ZOLPIDEM TARTRATE 10 MG TAB PO PRN (20:58)
[2020-02-09] MEDS: ACETAMINOPHEN 325 MG TAB PO PRN ×3 (00:19→14:30)
[2020-02-09] MEDS: LEVOTHYROXINE SODIUM 50 MCG TABLET PO SCH (06:05)
[2020-02-09] MEDS: CYCLOBENZAPRINE HCL 5 MG TAB PO PRN ×2 (06:42→17:41)
[2020-02-09] MEDS: INSULIN ASPART 100 UNITS/ML VIAL SC SCH ×4 (09:34→20:09)
[2020-02-09] MEDS: INSULIN GLARGINE 100 UNIT/ML VIAL SC SCH ×3 (09:38→20:08)
[2020-02-09] MEDS: NovoLIN-N (NPH) PER UNIT CHARGE SQ SCH (09:42)
[2020-02-09] MEDS: DICYCLOMINE HCL 10 MG CAP PO SCH ×2 (10:05→20:04)
[2020-02-09] MEDS: FLUTICASONE/VILANTEROL 100/25MCG 14 PUFFS/INHALER INH SCH (10:06)
[2020-02-09] MEDS: BUMETANIDE 1 MG TAB PO SCH (10:08)
[2020-02-09] MEDS: SACCHAROMYCES BOULARDII 250 MG CAP PO SCH ×2 (10:09→11:04)
[2020-02-09] MEDS: POTASSIUM CHLORIDE 20 MEQ TABCR PO SCH ×2 (10:11→20:05)
[2020-02-09] MEDS: LIDOCAINE 5% 1 PATCH TD SCH (10:13)
[2020-02-09] MEDS: ATORVASTATIN 40 MG TAB PO SCH ×2 (10:14→11:01)
[2020-02-09] MEDS: GABAPENTIN 600 MG TAB PO SCH ×3 (10:15→20:07)
[2020-02-09] MEDS: NYSTATIN CR 15 GM TUBE EXT SCH ×3 (10:15→20:11)
[2020-02-09] MEDS: predniSONE 5 MG TAB PO SCH (10:16)
[2020-02-09] MEDS: PANTOprazole 40 MG TAB PO SCH (10:16)
[2020-02-09] MEDS: MEDROXYPROGESTERONE ACETATE 2.5 MG TAB PO SCH (10:17)
[2020-02-09] MEDS: metOLazone 2.5 MG TABLET PO SCH (10:19)
[2020-02-09] MEDS: ASCORBIC ACID 500 MG TAB PO SCH ×3 (10:19→20:06)
[2020-02-09] MEDS: POLYETHYLENE (MIRALAX) 17 GM PACK PO SCH ×2 (10:20→20:03)
[2020-02-09] MEDS: DOCUSATE SODIUM 100 MG CAP PO SCH ×2 (10:21→20:03)
[2020-02-09] MEDS: DICLOFENAC SOD 1% GEL 100 GM TUBE EXT SCH ×2 (10:22→20:09)
--- NOTE | 2020-02-09 10:24 | Hospitalist Progress Note ---
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 SHERI: improving - Cr down from 1.4 to 1.32 - noncompliant with home BID bumex dosing; hospital low salt diet and scheduled medications likely putting more stress on kidneys than at home - continue following BMP - also Pelvic/Adnexal pain with Hx Endometrial Cancer: - Diagnosed in 2017 at [facility] [place] with focal endometrioid adenocarcinoma, FIGO grade 1. - s/p ED&C and IUD placement + removal at [facility] - Thickened endometrial stripe on uterine ultrasound -- endometrial biopsy and IUD placement in OR under anesthesia 02/[address] Cole - Constipation is a longstanding issue for this patient, chronic opioid user for over 10 years. - Bowel regimen: Miralax and Colace scheduled BID; Dulcolax suppositories prn. Abdominal pain w/ hx positive cologuard: - GI: not good candidate for endoscopy due to anesthesia requirements - CEA ordered, normal level. - Recommend restarting Linzess if patient found this helpful for constipation and IBS in the past, however not on formulary. Will consider for outpatient. - Unable to perform barium enema due to hospital resources. Could consider at a later date. DMII, uncontrolled: - A1C 8.5 on admission. - Patient is insulin dependent but noncompliant with dosages at home and will "sometimes take her insulin, sometimes not" due to a lack of understanding and education about her diabetes. - DM education consult placed for assistance with dietary changes, insulin regimen at home. - Patient was not on a statin prior to admission; started Lipitor 40mg, qAM. - Not on an SUSANA/ARB, although at times BP runs low so will hold for now. - Had continued discussion with patient today regarding needing to start off fresh on discharge with a static regimen for her Lantus, and then work from there to determine her best regimen. - On discharge will start her on Lantus/Basaglar 90u BID, with Novolog 60u with meals and then have her "check her work" 2 hours later to determine if she was properly covered. - Given need to adjust patient's insulin on an almost daily basis due to the amount of insulin she uses, would benefit from daily monitoring and regimented structure for further teaching and glucose monitoring. Electrolyte Disturbances: - Hypokalemia normalized with Kriders - mild Hyponatremia at 135 - Magnesium 2.0 after repletion yesterday - Cr continues to improve. History of VTE: - Continue home dose warfarin; INR 2.3 this admission on 7.5mg daily. Okay to continue dosing despite surgery Tuesday. - Patient has suffered from a PE in SNF in the past prior to starting on Coumadin. - Due to body habitus is likely not a good candidate for NOAC therapy. Ambulatory dysfunction and deconditioning: - Progressive weakness over past several months. - Prior to COVID epidemic, patient was receiving home PT services from [facility] with significant progress (was walking around 100 feet at a time with assistance and walker), PT was able to return to house last week but at that time patient had weakened considerably. - Differentials include deconditioning from chronic bedbound status and decreased PT at home, CVA, infection. - CVA cannot be ruled out as patient is unable to have head imaging done due to her size, although no focal deficits appreciated on exam. - Echo this admission showed normal LV function, EF 60-65%; grade I diastolic dysfunction. No signs of acute fluid overload on exam. - PT/OT recommended inpatient rehab after discharge for continued strengthening. - Due to patient's significant multiple comorbidities, deconditioning at home despite home PT, and multiple changes in home medications that will require frequent if not daily monitoring by a medical professional on discharge, she would benefit highly from Acute Inpatient Rehab at [facility]. Osteoarthritis: - Continue home Oxycontin for pain control at reduced dosage due to constipation (normally on Oxycontin 20mg BID, Percocet q6h PRN). - Today we continued discussion regarding adjusting her home pain medication regimen to help her decrease her constipation when home. - Have increased her gabapentin to 600mg TID this admission in an effort to continue reducing her opiate dose over the next several weeks to months, will be continued as outpatient. - Current opiate dose this admission is Oxycontin 10mg BID. Continue to monitor for signs of withdrawal given change in dosing. - Continue PT/OT. ? Inflammatory arthropathy: chronic - Bilateral knee XRAY showed chondrocalcinosis; ESR and CRP elevated today. - Possibly suggestive of pseudogout; patient refuses joint aspiration or ortho evaluation at this time but is amenable to prednisone, which seems to have moderately improved the patient's joint pains (specifically knees and R shoulder). - Will continue prednisone 10mg PO while admitted. - Suspect this may improve her functional status with regard to her joint pain, making her more able to perform PT/OT daily while admitted. UTI: resolved - Patient reports recent urinary retention, possible secondary to co-existent constipation. - UA neg nitrites, + for LE, 4+ bacteria, > 30 WBCs. - Urine culture growing flores sensitive klebsiella . - Deescalated Abx from Rocephin to nitrofurantoin this admission; completed treatment. Chronic Lymphedema: - Bilateral LE. - On metolazone and bumetanide at home, continue these with changes as above and monitor for SHERI, electrolyte abnormalities. History of C. Diff: - Continue probiotic in setting of antibiotic use. Hypothyroidism: - TSH this admission 2.7. - Continuing home levothyroxine 50 mcg daily. Intertrigo: - Continuing home mupirocin and nystatin powder for intertrigo. Keratosis pilaris: - Patient with dry skin of arms on exam. - Ammonium lactate cream added to regimen. DVT PPx: Home warfarin F/E/N: DM2 diet, K and Mg replaced as above Dispo: Med/Surg with Tele Conditional code: DNI but all other interventions including chest compressions and shocks desired (2) Right wrist pain: (3) CHF (congestive heart failure): (4) Shortness of breath: (5) Abdominal pain: (6) Constipation: (7) Morbid obesity with BMI of 60.0-69.9, adult: (8) Chronic respiratory failure with hypoxia: (9) SHERI (acute kidney injury): (10) Endometrial cancer: Admission and Anticipated Discharge Date Admission Date: January 30, 2020 Supervising Physician Co-Signing Physician Notes I personally examined the patient and verified all romero points of history and exam, discussed case, and agree with decision making with Dr Maloney. feeling ok a little crampy from procedure but nothing severe vitals noted nad heent nc at mmm breathing unlabored no accessory muscles good effort skin no rashes no pallor or icterus neuro no focal deficits knee pain, chronic pain, DJD/OA - improving w steroids - continue to wean (5mg tuesday, then likely stop), slowly modify pain regimen (discussed extensively on 02/05 - for now weaning (slowly) narcotics, raised gabapentin, scheduled tylenol, diclofenac gel to knees, continue topical lidocaine. 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 will have to do home PT - unable to get to rehab due to insurance denial thickened endometrium - management by ob/gyn appreciated - post procedure. doing well SHERI - suspect diuretics at home are probably for venous stasis - given morbid obesity she probably actually has a lot of fluid that can be mobilized this way, but also that less sodium (likely) in hospital diet has led to less fluid retention and therefore more dry w bumex. improving creat, follow positive cologuard - normal CEA. unable to do barium enema at this time. non emergent goals of care discussion - she noted to me 02/05 (with much repeated questioning to keep her on track) that being able to pray, watch [employer] TV, have daily communion, and have aids take care of her basically constitutes what she thinks of as quality. will need to try to have her communicate those goals to family/caregivers more if they remain consistent over time so that all are on the same page as to what she values (although not entirely clear if that is truly all that constitutes quality of life for her, as it took a lot of questioning to even get her to answer "what makes you happy" - she frequently would talk about prior living circumstances or medical equipment she had/was trying to get) otherwise as above, anticipate home once caregivers able to be set up / safe environment Subjective complaints of mild lower abdominal pain/uterine cramping with some vaginal discharge. Experiencing some diarrhea, nonbloody. Hesitant to eat due to frequent bowel movements. Review of Systems Constitutional: no fever, no chills, no body aches and no fatigue Respiratory: no cough and no dyspnea Cardiovascular: no chest pain, no dyspnea and no edema Gastrointestinal: + diarrhea/loose stools; no abdominal pain, no nausea, no vomiting and no constipation Genitourinary: + vaginal discharge and + pelvic pain; no dysuria Physical Exam Constitutional: morbidly obese, sitting in no acute distress Neck: normal visual inspection Respiratory: normal respiratory effort, able to speak in complete sentences and symmetric chest movement; no respiratory distress, no labored breathing, no retractions, no cough and no audible wheezes Auscultation: lungs clear to auscultation bilaterally; no crackles, no rales, no rhonchi and no wheezes exam limited by body habitus Cardiovascular: Rate/Rhythm: regular rate and regular rhythm Heart Sounds: normal S1 and normal S2; no gallop, no murmur and no cardiac rub Vessels: posterior tibial pulses present Gastrointestinal (Abdomen): Multiple large pannus(es?), soft, not tympanic Results & Data Results & Data ([facility]) Vital Signs (Past 12 Hours) Vital Signs Temp Pulse Pulse Resp BP Pulse Ox 02/09/20 07:32 36.5 C 74 20 142/60 H 99 02/09/20 04:00 36.5 C 69 18 123/60 98 Laboratory Results WBC 6.98 K/uL (4.8-10.8) 02/07/20 07:39 RBC 4.39 M/uL (4.2-5.4) 02/07/20 07:39 Hgb 12.3 g/dL (12.0-16.0) 02/07/20 07:39 Hct 40.4 % (37-47) 02/07/20 07:39 MCV 92.0 fL (80-100) 02/07/20 07:39 MCH 28.0 pg (25-34) 02/07/20 07:39 MCHC 30.4 g/dL (32-36) L 02/07/20 07:39 RDW Std Deviation 49.4 fL (36.4-46.3) H 02/07/20 07:39 RDW Coeff of Tung 14.7 % (11.5-14.5) H 02/07/20 07:39 Plt Count 301 K/uL (130-400) 02/07/20 07:39 MPV 9.4 fL (7.4-10.4) 02/07/20 07:39 Immature Gran % (Auto) 1.3 % 02/07/20 07:39 Neut % (Auto) 39.8 % 02/07/20 07:39 Lymph % (Auto) 48.1 % 02/07/20 07:39 [place] % (Auto) 9.5 % 02/07/20 07:39 Eos % (Auto) 1.0 % 02/07/20 07:39 Baso % (Auto) 0.3 % 02/07/20 07:39 Neut # (Auto) 2.78 K/uL (1.4-6.5) 02/07/20 07:39 Lymph # (Auto) 3.36 K/uL (1.2-3.4) 02/07/20 07:39 [place] # (Auto) 0.66 K/uL (0.11-0.59) H 02/07/20 07:39 Eos # (Auto) 0.07 K/uL (0-0.5) 02/07/20 07:39 Baso # (Auto) 0.02 K/uL (0-0.2) 02/07/20 07:39 Immature Gran # (Auto) 0.09 K/uL (0.00-0.02) H 02/07/20 07:39 ESR 57 mm/hr (0-21) H 02/04/20 07:10 PT 24.0 Seconds (9.0-12.0) H 02/05/20 17:49 INR 2.4 (0.9-1.1) H 02/05/20 17:49 APTT 34.9 Seconds (21.0-31.0) H 02/05/20 17:49 PTT Ratio 1.3 02/05/20 17:49 Sodium 135 mmol/L (136-145) L 02/09/20 11:59 Potassium 3.5 mmol/L (3.5-5.1) 02/09/20 11:59 Chloride 95 mmol/L (98-107) L 02/09/20 11:59 Carbon Dioxide 35 mmol/L (21-32) H 02/09/20 11:59 Anion Gap 5.0 (3-11) 02/09/20 11:59 BUN 26 mg/dl (7-18) H 02/09/20 11:59 Creatinine 1.32 mg/dl (0.6-1.2) H 02/09/20 11:59 Est Cr Clr Drug Dosing 73.9 ml/min 02/09/20 11:59 Est GFR ( Amer) 46.9 02/09/20 11:59 Est GFR (Non-Af Amer) 40.5 02/09/20 11:59 BUN/Creatinine Ratio 19.8 (10-20) 02/09/20 11:59 Glucose 176 mg/dl (70-99) H 02/09/20 11:59 POC Glucose 203 mg/dl (70-99) H 02/09/20 11:47 Estimat Average Glucose 197 mg/dl 01/31/20 05:06 Hemoglobin A1c 8.5 % (4.5-5.6) H 01/31/20 05:06 Calcium 10.2 mg/dl (8.5-10.1) H 02/09/20 11:59 Magnesium 2.0 mg/dl (1.8-2.4) 02/09/20 11:59 Total Bilirubin 0.7 mg/dl (0.2-1) 01/30/20 23:40 Direct Bilirubin 0.2 mg/dl (0-0.2) 01/30/20 23:40 AST 18 U/L (15-37) 01/30/20 23:40 ALT 26 U/L (12-78) 01/30/20 23:40 Alkaline Phosphatase 81 U/L (45-117) 01/30/20 23:40 Troponin I < 0.015 ng/ml (0-0.045) 01/30/20 23:40 C-Reactive Protein 9.83 mg/dl (0-0.29) H 02/04/20 07:10 NT-Pro-B Natriuret Pep 230 pg/ml (0-900) 01/30/20 23:40 Total Protein 7.7 gm/dl (6.4-8.2) 01/30/20 23:40 Albumin 2.9 gm/dl (3.4-5.0) L 01/30/20 23:40 Carcinoembryonic Ag 1.8 ng/ml (0-2.5) 02/04/20 15:34 TSH 2.700 uIu/ml (0.300-4.500) 02/04/20 07:10 Urine Color Yellow 01/31/20 02:17 Urine Appearance Cloudy (Clear) A 01/31/20 02:17 Urine pH 5.5 (4.5-7.5) 01/31/20 02:17 Ur Specific [place] 1.017 (1.000-1.030) 01/31/20 02:17 Urine Protein Negative (Negative) 01/31/20 02:17 Urine Glucose (UA) Negative (Negative) 01/31/20 02:17 Urine Ketones Negative (Negative) 01/31/20 02:17 Urine Blood 2+ (Negative) H 01/31/20 02:17 Urine Nitrite Negative (Negative) 01/31/20 02:17 Urine Bilirubin Negative (Negative) 01/31/20 02:17 Urine Urobilinogen Negative (Negative) 01/31/20 02:17 Ur Leukocyte Esterase 3+ (Negative) H 01/31/20 02:17 Urine WBC (Auto) >30 /hpf (0-5) H 01/31/20 02:17 Urine RBC (Auto) 0-4 /hpf (0-4) 01/31/20 02:17 U Hyaline Cast (Auto) 10-30 /lpf (0-5) H 01/31/20 02:17 U Epithel Cells (Auto) 0-5 /lpf (0-5) 01/31/20 02:17 Urine Bacteria (Auto) 4+ (Negative) H 01/31/20 02:17 SARS-CoV-2 RNA (RT-PCR) NEGATIVE (Negative) 01/31/20 21:40 Resident Activity Tracking Resident Involvement: Resident Care Provided Care Provided: Adult Hospital Medicine (1) Knee pain, right Chronicity: acute Qualified Code(s): M25.561 - Pain in right knee
[2020-02-09] MEDS: OXYCODONE HCL 10 MG TABCR (OXYCONTIN) PO SCH ×2 (10:30→20:15)
[2020-02-09] MEDS: MUPIROCIN 2% OINT 22 GM TUBE EXT SCH ×3 (11:00→20:04)
[2020-02-09] MEDS: AMMONIUM LACTATE 12% LOTION 225 GM BTL EXT SCH ×2 (11:00→20:03)
[2020-02-09 12:54] LABS: BUN Creatinine Ratio 19.8 (10-20); Calcium 10.2 mg/dl (8.5-10.1); Creatinine Clr Calc Pharmacy 73.9 ml/min; Est GFR (African American) 46.9; Est GFR (Non-African American) 40.5; Potassium 3.5 mmol/L (3.5-5.1)
[2020-02-09] MEDS: WARFARIN SOD 7.5 MG TAB PO SCH (16:05)
--- NOTE | 2020-02-09 17:50 | Billing Data ---
Date of Service February 09, 2020 Coding Level of Care Code 86789 Subseq Hosp Care Lvl 2
[2020-02-10] MEDS: ACETAMINOPHEN 325 MG TAB PO PRN ×2 (04:18→15:01)
[2020-02-10] MEDS: LEVOTHYROXINE SODIUM 50 MCG TABLET PO SCH (04:18)
--- NOTE | 2020-02-10 08:23 | Hospitalist Progress Note ---
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 SHERI: resolved - Cr down from 1.4 to 1.18 - noncompliant with home BID bumex dosing;switched to daily bumex + metolazone continued - continue following BMP Pelvic/Adnexal pain with Hx Endometrial Cancer: - Diagnosed in 2017 at [facility] with focal endometrioid adenocarcinoma, FIGO grade 1. - s/p ED&C and IUD placement + removal at [facility] - Thickened endometrial stripe on uterine ultrasound -- endometrial biopsy and IUD placement in OR under anesthesia 02/[address] Cole - Constipation is a longstanding issue for this patient, chronic opioid user for over 10 years. - Bowel regimen: Miralax and Colace scheduled BID; Dulcolax suppositories prn. Abdominal pain w/ hx positive cologuard: - GI: not good candidate for endoscopy due to anesthesia requirements - CEA ordered, normal level. - Recommend restarting Linzess if patient found this helpful for constipation and IBS in the past, however not on formulary. Will consider for outpatient. - Unable to perform barium enema due to hospital resources. Could consider at a later date. DMII, uncontrolled: - A1C 8.5 on admission. - Patient is insulin dependent but noncompliant with dosages at home and will "sometimes take her insulin, sometimes not" due to a lack of understanding and education about her diabetes. - DM education consult placed for assistance with dietary changes, insulin regimen at home. - Patient was not on a statin prior to admission; started Lipitor 40mg, qAM. - Not on an SUSANA/ARB, although at times BP runs low so will hold for now. - Had continued discussion with patient today regarding needing to start off fresh on discharge with a static regimen for her Lantus, and then work from there to determine her best regimen. - On discharge will start her on Lantus/Basaglar 90u BID, with Novolog 60u with meals and then have her "check her work" 2 hours later to determine if she was properly covered. - Given need to adjust patient's insulin on an almost daily basis due to the amount of insulin she uses, would benefit from daily monitoring and regimented structure for further teaching and glucose monitoring. Electrolyte Disturbances: - Hypokalemia normalized with K-riders - mild Hyponatremia at 135 - Magnesium 2.0 after repletion - Cr continues to improve. - may benefit from oral potassium on home regimen (pt requested 10 mg pills as the 20 mg and bigger pills are difficult for her to swallow) History of VTE: - Continue home dose warfarin; INR 2.3 this admission on 7.5mg daily. Okay to continue dosing despite surgery Tuesday. - Patient has suffered from a PE in SNF in the past prior to starting on Coumadin. - Due to body habitus is likely not a good candidate for NOAC therapy. Ambulatory dysfunction and deconditioning: - Progressive weakness over past several months. - Prior to COVID epidemic, patient was receiving home PT services from [facility] with significant progress (was walking around 100 feet at a time with assistance and walker), PT was able to return to house last week but at that time patient had weakened considerably. - Differentials include deconditioning from chronic bedbound status and decreased PT at home, CVA, infection. - CVA cannot be ruled out as patient is unable to have head imaging done due to her size, although no focal deficits appreciated on exam. - Echo this admission showed normal LV function, EF 60-65%; grade I diastolic dysfunction. No signs of acute fluid overload on exam. - PT/OT recommended inpatient rehab after discharge for continued strengthening. - Due to patient's significant multiple comorbidities, deconditioning at home despite home PT, and multiple changes in home medications that will require frequent if not daily monitoring by a medical professional on discharge, she would benefit highly from Acute Inpatient Rehab at [facility]. Osteoarthritis: - Continue home Oxycontin for pain control at reduced dosage due to constipation (normally on Oxycontin 20mg BID, Percocet q6h PRN). - Today we continued discussion regarding adjusting her home pain medication regimen to help her decrease her constipation when home. - Have increased her gabapentin to 600mg TID this admission in an effort to continue reducing her opiate dose over the next several weeks to months, will be continued as outpatient. - Current opiate dose this admission is Oxycontin 10mg BID. Continue to monitor for signs of withdrawal given change in dosing. - Continue PT/OT. ? Inflammatory arthropathy: chronic - Bilateral knee XRAY showed chondrocalcinosis; ESR and CRP elevated today. - Possibly suggestive of pseudogout; patient refuses joint aspiration or ortho evaluation at this time but is amenable to prednisone, which seems to have moderately improved the patient's joint pains (specifically knees and R shoulder). - Will continue prednisone 10mg PO while admitted. - Suspect this may improve her functional status with regard to her joint pain, making her more able to perform PT/OT daily while admitted. UTI: resolved - Patient reports recent urinary retention, possible secondary to co-existent constipation. - UA neg nitrites, + for LE, 4+ bacteria, > 30 WBCs. - Urine culture growing flores sensitive klebsiella . - Deescalated Abx from Rocephin to nitrofurantoin this admission; completed treatment. Chronic Lymphedema: - Bilateral LE. - On metolazone and bumetanide at home, continue these with changes as above and monitor for SHERI, electrolyte abnormalities. History of C. Diff: - Continue probiotic in setting of antibiotic use. Hypothyroidism: - TSH this admission 2.7. - Continuing home levothyroxine 50 mcg daily. Intertrigo: - Continuing home mupirocin and nystatin powder for intertrigo. Keratosis pilaris: - Patient with dry skin of arms on exam. - Ammonium lactate cream added to regimen. DVT PPx: Home warfarin F/E/N: DM2 diet, K and Mg replaced as above Dispo: Med/Surg with Tele; placement to rehab this week Conditional code: DNI but all other interventions including chest compressions and shocks desired (2) Right wrist pain: (3) CHF (congestive heart failure): (4) Shortness of breath: (5) Abdominal pain: (6) Constipation: (7) Morbid obesity with BMI of 60.0-69.9, adult: (8) Chronic respiratory failure with hypoxia: (9) SHERI (acute kidney injury): (10) Endometrial cancer: Admission and Anticipated Discharge Date Admission Date: January 30, 2020 Supervising Physician Co-Signing Physician Notes I personally examined the patient and verified all romero points of history and exam, discussed case, and agree with decision making with Dr Maloney. no new complaints, plan for home tomorrow. discussed glucose management vitals noted nad heent nc at mmm breathing unlabored no accessory muscles good effort skin no rashes no pallor or icterus neuro no focal deficits knee pain, chronic pain, DJD/OA - improved steroids - stopped after today, slowly modify pain regimen (discussed extensively on 02/05 - for now weaning (slowly) narcotics, raised gabapentin, scheduled tylenol, diclofenac gel to knees, continue topical lidocaine. 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 for home PT - unable to get to rehab due to insurance denial thickened endometrium - management by senior contracts administrator appreciated - post procedure. doing well SHERI - suspect diuretics at home are probably for venous stasis - given morbid obesity she probably actually has a lot of fluid that can be mobilized this way, but also that less sodium (likely) in hospital diet has led to less fluid retention and therefore more dry w bumex. improving creat, follow periodically positive cologuard - normal CEA. unable to do barium enema at this time. non emergent goals of care discussion - she noted to me 02/05 (with much repeated questioning to keep her on track) that being able to pray, watch Zoroastrianism TV, have daily communion, and have aids take care of her basically constitutes what she thinks of as quality. will need to try to have her communicate those goals to family/caregivers more if they remain consistent over time so that all are on the same page as to what she values (although not entirely clear if that is truly all that constitutes quality of life for her, as it took a lot of questioning to even get her to answer "what makes you happy" - she frequently would talk about prior living circumstances or medical equipment she had/was trying to get) otherwise as above, anticipate home once caregivers able to be set up / safe environment (likely 02/10) Subjective Continuing to have soft, frequent bowel movements. No other complaints. Review of Systems Constitutional: no fever, no chills, no body aches and no fatigue Respiratory: no cough and no dyspnea Cardiovascular: no chest pain, no dyspnea and no edema Gastrointestinal: + diarrhea/loose stools; no abdominal pain, no nausea, no vomiting and no constipation Genitourinary: no dysuria Physical Exam Constitutional: morbidly obese, sitting in no acute distress Neck: normal visual inspection Respiratory: normal respiratory effort, able to speak in complete sentences and symmetric chest movement; no respiratory distress, no labored breathing, no retractions, no cough and no audible wheezes Auscultation: lungs clear to auscultation bilaterally; no crackles, no rales, no rhonchi and no wheezes exam limited by body habitus Cardiovascular: Rate/Rhythm: regular rate and regular rhythm Heart Sounds: normal S1 and normal S2; no gallop, no murmur and no cardiac rub Vessels: posterior tibial pulses present Gastrointestinal (Abdomen): Multiple large pannus(es?), soft, not tympanic Results & Data Results & Data ([facility]) Vital Signs (Past 12 Hours) Vital Signs Temp Pulse Pulse Pulse Resp BP Pulse Ox 02/10/20 07:39 65 02/10/20 07:13 36.3 C L 69 20 128/64 100 02/10/20 05:25 36.6 C 66 20 113/54 L 99 02/10/20 01:38 70 02/09/20 23:58 36.6 C 65 20 131/55 L 96 Laboratory Results WBC 6.98 K/uL (4.8-10.8) 02/07/20 07:39 RBC 4.39 M/uL (4.2-5.4) 02/07/20 07:39 Hgb 12.3 g/dL (12.0-16.0) 02/07/20 07:39 Hct 40.4 % (37-47) 02/07/20 07:39 MCV 92.0 fL (80-100) 02/07/20 07:39 MCH 28.0 pg (25-34) 02/07/20 07:39 MCHC 30.4 g/dL (32-36) L 02/07/20 07:39 RDW Std Deviation 49.4 fL (36.4-46.3) H 02/07/20 07:39 RDW Coeff of Tung 14.7 % (11.5-14.5) H 02/07/20 07:39 Plt Count 301 K/uL (130-400) 02/07/20 07:39 MPV 9.4 fL (7.4-10.4) 02/07/20 07:39 Immature Gran % (Auto) 1.3 % 02/07/20 07:39 Neut % (Auto) 39.8 % 02/07/20 07:39 Lymph % (Auto) 48.1 % 02/07/20 07:39 [place] % (Auto) 9.5 % 02/07/20 07:39 Eos % (Auto) 1.0 % 02/07/20 07:39 Baso % (Auto) 0.3 % 02/07/20 07:39 Neut # (Auto) 2.78 K/uL (1.4-6.5) 02/07/20 07:39 Lymph # (Auto) 3.36 K/uL (1.2-3.4) 02/07/20 07:39 [place] # (Auto) 0.66 K/uL (0.11-0.59) H 02/07/20 07:39 Eos # (Auto) 0.07 K/uL (0-0.5) 02/07/20 07:39 Baso # (Auto) 0.02 K/uL (0-0.2) 02/07/20 07:39 Immature Gran # (Auto) 0.09 K/uL (0.00-0.02) H 02/07/20 07:39 ESR 57 mm/hr (0-21) H 02/04/20 07:10 PT 24.0 Seconds (9.0-12.0) H 02/05/20 17:49 INR 2.4 (0.9-1.1) H 02/05/20 17:49 APTT 34.9 Seconds (21.0-31.0) H 02/05/20 17:49 PTT Ratio 1.3 02/05/20 17:49 Sodium 136 mmol/L (136-145) 02/10/20 09:09 Potassium 3.3 mmol/L (3.5-5.1) L 02/10/20 09:09 Chloride 96 mmol/L (98-107) L 02/10/20 09:09 Carbon Dioxide 36 mmol/L (21-32) H 02/10/20 09:09 Anion Gap 4.0 (3-11) 02/10/20 09:09 BUN 22 mg/dl (7-18) H 02/10/20 09:09 Creatinine 1.18 mg/dl (0.6-1.2) 02/10/20 09:09 Est Cr Clr Drug Dosing 98.4 ml/min 02/10/20 09:09 Est GFR ( Amer) 53.7 02/10/20 09:09 Est GFR (Non-Af Amer) 46.4 02/10/20 09:09 BUN/Creatinine Ratio 18.6 (10-20) 02/10/20 09:09 Glucose 238 mg/dl (70-99) H 02/10/20 09:09 POC Glucose 195 mg/dl (70-99) H 02/10/20 11:45 Estimat Average Glucose 197 mg/dl 01/31/20 05:06 Hemoglobin A1c 8.5 % (4.5-5.6) H 01/31/20 05:06 Calcium 9.8 mg/dl (8.5-10.1) 02/10/20 09:09 Magnesium 2.0 mg/dl (1.8-2.4) 02/09/20 11:59 Total Bilirubin 0.7 mg/dl (0.2-1) 01/30/20 23:40 Direct Bilirubin 0.2 mg/dl (0-0.2) 01/30/20 23:40 AST 18 U/L (15-37) 01/30/20 23:40 ALT 26 U/L (12-78) 01/30/20 23:40 Alkaline Phosphatase 81 U/L (45-117) 01/30/20 23:40 Troponin I < 0.015 ng/ml (0-0.045) 01/30/20 23:40 C-Reactive Protein 9.83 mg/dl (0-0.29) H 02/04/20 07:10 NT-Pro-B Natriuret Pep 230 pg/ml (0-900) 01/30/20 23:40 Total Protein 7.7 gm/dl (6.4-8.2) 01/30/20 23:40 Albumin 2.9 gm/dl (3.4-5.0) L 01/30/20 23:40 Carcinoembryonic Ag 1.8 ng/ml (0-2.5) 02/04/20 15:34 TSH 2.700 uIu/ml (0.300-4.500) 02/04/20 07:10 Urine Color Yellow 01/31/20 02:17 Urine Appearance Cloudy (Clear) A 01/31/20 02:17 Urine pH 5.5 (4.5-7.5) 01/31/20 02:17 Ur Specific Snook 1.017 (1.000-1.030) 01/31/20 02:17 Urine Protein Negative (Negative) 01/31/20 02:17 Urine Glucose (UA) Negative (Negative) 01/31/20 02:17 Urine Ketones Negative (Negative) 01/31/20 02:17 Urine Blood 2+ (Negative) H 01/31/20 02:17 Urine Nitrite Negative (Negative) 01/31/20 02:17 Urine Bilirubin Negative (Negative) 01/31/20 02:17 Urine Urobilinogen Negative (Negative) 01/31/20 02:17 Ur Leukocyte Esterase 3+ (Negative) H 01/31/20 02:17 Urine WBC (Auto) >30 /hpf (0-5) H 01/31/20 02:17 Urine RBC (Auto) 0-4 /hpf (0-4) 01/31/20 02:17 U Hyaline Cast (Auto) 10-30 /lpf (0-5) H 01/31/20 02:17 U Epithel Cells (Auto) 0-5 /lpf (0-5) 01/31/20 02:17 Urine Bacteria (Auto) 4+ (Negative) H 01/31/20 02:17 SARS-CoV-2 RNA (RT-PCR) NEGATIVE (Negative) 01/31/20 21:40 (1) Knee pain, right Chronicity: acute Qualified Code(s): M25.561 - Pain in right knee
[2020-02-10] MEDS: ATORVASTATIN 40 MG TAB PO SCH (08:40)
[2020-02-10] MEDS: DOCUSATE SODIUM 100 MG CAP PO SCH ×2 (08:40→20:20)
[2020-02-10] MEDS: AMMONIUM LACTATE 12% LOTION 225 GM BTL EXT SCH ×2 (08:40→20:18)
[2020-02-10] MEDS: POLYETHYLENE (MIRALAX) 17 GM PACK PO SCH ×2 (08:40→20:23)
[2020-02-10] MEDS: POTASSIUM CHLORIDE 20 MEQ TABCR PO SCH ×2 (08:41→20:20)
[2020-02-10] MEDS: FLUTICASONE/VILANTEROL 100/25MCG 14 PUFFS/INHALER INH SCH (08:41)
[2020-02-10] MEDS: BUMETANIDE 1 MG TAB PO SCH (08:41)
[2020-02-10] MEDS: MUPIROCIN 2% OINT 22 GM TUBE EXT SCH ×3 (08:41→20:19)
[2020-02-10] MEDS: DICYCLOMINE HCL 10 MG CAP PO SCH ×2 (08:41→20:19)
[2020-02-10] MEDS: LIDOCAINE 5% 1 PATCH TD SCH (08:41)
[2020-02-10] MEDS: SACCHAROMYCES BOULARDII 250 MG CAP PO SCH (08:41)
[2020-02-10] MEDS: GABAPENTIN 600 MG TAB PO SCH ×3 (08:42→20:23)
[2020-02-10] MEDS: OXYCODONE HCL 10 MG TABCR (OXYCONTIN) PO SCH ×2 (08:42→20:30)
[2020-02-10] MEDS: metOLazone 2.5 MG TABLET PO SCH (08:42)
[2020-02-10] MEDS: PANTOprazole 40 MG TAB PO SCH (08:42)
[2020-02-10] MEDS: MEDROXYPROGESTERONE ACETATE 2.5 MG TAB PO SCH (08:42)
[2020-02-10] MEDS: ASCORBIC ACID 500 MG TAB PO SCH ×2 (08:42→20:24)
[2020-02-10] MEDS: NYSTATIN CR 15 GM TUBE EXT SCH ×2 (08:42→20:15)
[2020-02-10] MEDS: predniSONE 5 MG TAB PO SCH (08:42)
[2020-02-10] MEDS: NovoLIN-N (NPH) PER UNIT CHARGE SQ SCH (08:43)
[2020-02-10] MEDS: DICLOFENAC SOD 1% GEL 100 GM TUBE EXT SCH ×2 (08:43→20:16)
[2020-02-10] MEDS: INSULIN GLARGINE 100 UNIT/ML VIAL SC SCH ×3 (08:43→20:22)
[2020-02-10] MEDS: INSULIN ASPART 100 UNITS/ML VIAL SC SCH ×4 (08:44→20:23)
[2020-02-10 09:55] LABS: BUN Creatinine Ratio 18.6 (10-20); Calcium 9.8 mg/dl (8.5-10.1); Creatinine Clr Calc Pharmacy 98.4 ml/min; Est GFR (African American) 53.7; Est GFR (Non-African American) 46.4; Potassium 3.3 mmol/L (3.5-5.1)
[2020-02-10] MEDS: CYCLOBENZAPRINE HCL 5 MG TAB PO PRN (10:47)
--- NOTE | 2020-02-10 11:32 | Pharmacy Report ---
Pharmacy Glycemic Short Note 2 - Date of Service February 10, 2020 - Glycemic Short BSG Results (Last 24 hours): 02/09/20 02/09/20 02/09/20 11:47 11:59 16:37 Glucose 176 H POC Glucose 203 H 140 H 02/09/20 02/10/20 02/10/20 20:03 00:08 07:37 Glucose POC Glucose 95 86 213 H 02/10/20 09:09 Glucose 238 H POC Glucose OUTPATIENT ANTIDIABETIC REGIMEN: * Basaglar 80 units SQ qAM, Aspart 60 units TID with meals ASSESSMENT: 02/09 * Patient received total of 361 units of insulin yesterday, 140 units basal * Blood sugars higher in the morning but drop to goal by dinner time * No changes at this time to prevent hypoglycemia 02/07 * Patient received total of 426 units of insulin yesterday, of which 160 units were basal insulin * Fating BSG this AM 171 mg/dL - patient NPO this AM for procedure / reduced Lantus from 130 units to 110 units this AM (~15% decr for NPO status) * Lunch time BSG 196 - continue same CF/CR * Continue scale for Lantus at HS * Had held NPH dose this AM due to prednisone dose being held for NPO status 02/06 * Patient received total of 354 units of insulin yesterday, of which 140 units were basal * Fasting BSG 182 mg/dL - improving from day prior - continue same basal/NPH for this AM * Continue same CF/CR * Plan for NPO at midnight for endometrial biopsy tomorrow - will evaluate basal tomorrow AM PLAN FOR INPATIENT GLYCEMIC CONTROL: * Hold outpatient oral diabetes medications * Basal insulin * Lantus 130 units SQ qAM (administer as two 65 unit injections) * NPH 10 units given with prednisone 5 mg QAM * Lantus scale HS - 0-20 units (see EHR for details) * Bolus insulin * NovoLog per scale ACHS or Q6hrs while NPO * Goal Range: Low 110 mg/dL - High 150 mg/dL * Correction Factor: 4 mg/dL/unit * Nutritional / Prandial insulin per carb ratio of 1 unit per 1 grams CHO consumed
[2020-02-10] MEDS: ONDANSETRON INJ 2 MG/ML 2 ML VIAL IV PRN (15:01)
[2020-02-10] MEDS: WARFARIN SOD 7.5 MG TAB PO SCH (15:53)
--- NOTE | 2020-02-10 17:21 | Billing Data ---
Date of Service February 10, 2020 Coding Level of Care Code 65623 Subseq Hosp Care Lvl 2
[2020-02-10] MEDS: POTASSIUM CHLORIDE 10 MEQ TABCR PO SCH (20:21)
[2020-02-10] MEDS: ZOLPIDEM TARTRATE 10 MG TAB PO PRN (20:30)
[2020-02-11] MEDS: CYCLOBENZAPRINE HCL 5 MG TAB PO PRN ×2 (01:34→08:49)
[2020-02-11] MEDS: ACETAMINOPHEN 325 MG TAB PO PRN ×2 (01:36→08:48)
[2020-02-11] MEDS: LEVOTHYROXINE SODIUM 50 MCG TABLET PO SCH (06:07)
[2020-02-11] MEDS: OXYCODONE HCL 10 MG TABCR (OXYCONTIN) PO SCH (08:48)
[2020-02-11] MEDS: DOCUSATE SODIUM 100 MG CAP PO SCH (08:49)
[2020-02-11] MEDS: SACCHAROMYCES BOULARDII 250 MG CAP PO SCH (08:49)
[2020-02-11] MEDS: DICYCLOMINE HCL 10 MG CAP PO SCH (08:49)
[2020-02-11] MEDS: ATORVASTATIN 40 MG TAB PO SCH (08:49)
[2020-02-11] MEDS: POLYETHYLENE (MIRALAX) 17 GM PACK PO SCH (08:50)
[2020-02-11] MEDS: DICLOFENAC SOD 1% GEL 100 GM TUBE EXT SCH (08:52)
[2020-02-11] MEDS: POTASSIUM CHLORIDE 10 MEQ TABCR PO SCH (08:52)
[2020-02-11] MEDS: POTASSIUM CHLORIDE 20 MEQ TABCR PO SCH (08:52)
[2020-02-11] MEDS: FLUTICASONE/VILANTEROL 100/25MCG 14 PUFFS/INHALER INH SCH (08:52)
[2020-02-11] MEDS: metOLazone 2.5 MG TABLET PO SCH (08:53)
[2020-02-11] MEDS: CHOLECALCIFEROL 1,000 UNITS 25 MCG TAB PO SCH (08:53)
[2020-02-11] MEDS: BUMETANIDE 1 MG TAB PO SCH (08:53)
[2020-02-11] MEDS: PANTOprazole 40 MG TAB PO SCH (08:53)
[2020-02-11] MEDS: GABAPENTIN 600 MG TAB PO SCH ×2 (08:54→15:17)
[2020-02-11] MEDS: MEDROXYPROGESTERONE ACETATE 2.5 MG TAB PO SCH (08:54)
[2020-02-11] MEDS: ASCORBIC ACID 500 MG TAB PO SCH (08:54)
[2020-02-11] MEDS: INSULIN GLARGINE 100 UNIT/ML VIAL SC SCH ×2 (08:55→09:12)
[2020-02-11] MEDS: LIDOCAINE 5% 1 PATCH TD SCH (08:56)
[2020-02-11] MEDS: NYSTATIN CR 15 GM TUBE EXT SCH (08:57)
[2020-02-11] MEDS: INSULIN ASPART 100 UNITS/ML VIAL SC SCH ×2 (08:57→12:24)
[2020-02-11] MEDS: AMMONIUM LACTATE 12% LOTION 225 GM BTL EXT SCH (09:10)
[2020-02-11] MEDS: MUPIROCIN 2% OINT 22 GM TUBE EXT SCH ×2 (09:10→15:17)
[2020-02-11 09:27] LABS: BUN Creatinine Ratio 19.4 (10-20); Creatinine Clr Calc Pharmacy 87.5 ml/min; Est GFR (African American) 46.5; Est GFR (Non-African American) 40.1; Potassium 3.7 mmol/L (3.5-5.1)
--- NOTE | 2020-02-11 12:32 | Discharge Summary ---
Date of Service February 11, 2020 Admission HPI Per Admitting Provider Akila Hernandez is nelson nice and medically complicated 69 year old woman with a past medical history significant for morbid obesity, CHF, Obesity hypoventilation syndrome, Chronic hypoxemic respiratory failure on 4L O2 at h ome, DMII, venous thromboembolic disease on warfarin chronically, osteoarthritis, hypothyroidism, HLD, recurrent UTI's, and adenocarcinoma of the endometrium. She weighs 203.3 kg and has home health aids 13 hours a day but lives independently. She is here today because she has had a three day history of worsening ability to get around, left leg muscular weakness and constipation. She tells me she has not had a bowel movement since last week, and even then it was firm and difficult to pass with any success. She has noted that of late in transitioning from her wheelchair to her bed she has had more and more trouble. She has had some increasing abdominal pain and swelling. She has also noted some shortness of breath beyond her usual worse with exertion. She has had some urinary symptoms as well and is concerned she may have another infection. She feels that over the last week or so she is generally doing worse and is not able to thrive at home. On admission to the emergency department she was doing fairly well and was oxygenating appropriately on room air despite her home O2. She had a painful left knee and this was x rayed showing severe degenerative changes. Her labwork was remarkable for hypokalemia(2.9) and an SHERI with a creatinine of 1.53. Patient is resting comfortably at present eating rashida crackers and watching TV. She has no acute distress but does feel some abdominal fullness and discomfort some nausea and feels like she has a UTI. Admission Exam Per Admitting Provider Constitutional: Morbidly obese woman lying in bed clearly uncomfortable neck support pillow gary in from home, Eyes: PERRLA, anicteric sclerae ENMT: external ear and nose normal, oropharynx normal Respiratory: Decreased air entry globally, no extra lung sounds some accessory muscle use. Cardiovascular: RRR, no murmur, no edema Heart Sounds: no click, no gallop, no murmur and no cardiac rub heart sounds distant, unable to assess JVD secondary to body habitus Gastrointestinal (Abdomen): Obese abdomen, mildly tender to left lower quadrant, compressible mass felt, likely stool, left inguinal area tender and full. Difficult exam secondary to body habitus, bowel sounds present Skin: Red raised nonblaching blisters of bilateral lower extremities, possible venous stasis ulcers, multiple hematomas, throughout body including underside of pannus, intertrigo present in skin folds. Principal Diagnosis ambulatory dysfunction, UTI, constipation Discharge Exam Constitutional WD/WN, vitals as above Eyes PERRL, conjunctivae normal, anicteric sclerae ENMT external ear and nose normal, oropharynx normal Neck normal visual inspection Respiratory normal respiratory effort, lungs clear to auscultation Cardiovascular RRR, no murmur, no edema Gastrointestinal (Abdomen) normal bowel sounds, soft, nontender, no hepatosplenomegaly Musculoskeletal no cyanosis or clubbing, extremities motor strength 5/5 Skin no rashes, warm and dry Psychiatric A+Ox3, euthymic affect Discharge Data Allergies Allergy/AdvReac Type Severity Reaction Status Date / Time amoxicillin Allergy Unknown Unverified 01/30/20 21:34 codeine Allergy Unknown Unverified 01/30/20 21:31 latex Allergy Unknown Unverified 01/30/20 21:33 meloxicam [From Mobic] Allergy Unknown Unverified 01/30/20 21:32 metformin Allergy Unknown Unverified 01/30/20 21:32 Penicillins Allergy Unknown Unverified 01/30/20 21:30 Sulfa (Sulfonamide Allergy Unknown Unverified 01/30/20 21:30 Antibiotics) tramadol Allergy Unknown Unverified 01/30/20 21:32 Consultations 01/30/20 19:53 ED Decision to Admit Stat 01/30/20 23:26 Consult Case Management - Discharge Planning Stat 02/04/20 14:27 Consult Gastroenterology Routine Consult Gynecology Routine Consult Lung Nodule Program Routine 02/06/20 07:49 Consult Anesthesiology Routine Procedures Performed Operation Date: 02/08/20 11:30 Actual Procedures p Dilation of Cervix, Endometrial Biopsy, Placement of IUD(Not Applicable) - Angelo Cole MD Ordered Studies 01/30/20 23:26 US pelvic complete Urgent US transvaginal Urgent Hospital Course (1) Knee pain, right: 69 yo F PMHx DM2 not well controlled, hypothyroidism, peripheral edema, osteoarthritis and fibromyalgia, GERD, 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 SHERI: - Resolved. - Cr down from 1.4 to 1.33. - Noncompliant with home BID Bumex dosing; switched to daily Bumex + metolazone continued. - Will require repeat BMP in one week to evaluate kidney function. Pelvic/Adnexal pain with Hx Endometrial Cancer: - Diagnosed in 2017 at [facility] with focal endometrioid adenocarcinoma, FIGO grade 1. - s/p ED&C and IUD placement + removal at [facility] [address]. - Thickened endometrial stripe on uterine ultrasound -- endometrial biopsy and IUD placement in OR under anesthesia 02/[address] Cole. Constipation: - Constipation is a longstanding issue for this patient, chronic opioid user for over 10 years. - Bowel regimen: Miralax PRN constipation. Abdominal pain w/ hx positive Cologuard: - GI: not good candidate for endoscopy due to anesthesia requirements. - CEA ordered, normal level. - Recommend restarting Linzess if patient found this helpful for constipation and IBS in the past, however not on formulary. Will consider for outpatient. - Unable to perform barium enema due to hospital resources. Could consider at a later date. DMII, uncontrolled: - A1C 8.5 on admission. - Patient is insulin dependent but noncompliant with dosages at home and will "sometimes take her insulin, sometimes not" due to a lack of understanding and education about her diabetes. - DM education consult placed for assistance with dietary changes, insulin regimen at home. - Patient was not on a statin prior to admission; started Lipitor 40mg, qAM. - Not on an SUSANA/ARB, although at times BP runs low so will hold for now. Can consider outpatient. - Had continued discussion with patient today regarding needing to start off fresh on discharge with a static regimen for her Lantus, and then work from there to determine her best regimen. - On discharge will start her on Lantus/Basaglar 85u BID, with Novolog 55u with meals and then have her "check her work" 2 hours later to determine if she was properly covered. She will check her sugars after meals and at bedtime. Electrolyte Disturbances: - Hypokalemia normalized with K-riders. - mild Hyponatremia at 135. - Magnesium 2.0 after repletion. - Cr continues to improve. - Have prescribed KCl 40meq (in 10meq pills due to tolerance by patient) BID given hypokalemia due to diuretic therapy. History of VTE: - Continue home dose warfarin; INR 2.4 this admission on 7.5mg daily. - Patient has suffered from a PE in SNF in the past prior to starting on Co umadin. - Due to body habitus is likely not a good candidate for NOAC therapy. - Repeat INR in one week. Ambulatory dysfunction and deconditioning: - Progressive weakness over past several months. - Prior to COVID epidemic, patient was receiving home PT services from [facility] with significant progress (was walking around 100 feet at a time with assistance and walker), PT was able to return to house last week but at that time patient had weakened considerably. - Differentials include deconditioning from chronic bedbound status and decreased PT at home, CVA, infection. - CVA cannot be ruled out as patient is unable to have head imaging done due to her size, although no focal deficits appreciated on exam. - Echo this admission showed normal LV function, EF 60-65%; grade I diastolic dysfunction. No signs of acute fluid overload on exam. - PT/OT recommended inpatient rehab after discharge for continued strengthening. - Due to patient's significant multiple comorbidities, deconditioning at home despite home PT, and multiple changes in home medications that will require frequent if not daily monitoring by a medical professional on discharge, she would benefit highly from Acute Inpatient Rehab at [facility]. Despite this, insurance has denied her acute rehab stay. - Patient refuses SNF and so will go home with home PT. - Follow up with myself both tomorrow, and on a weekly basis by phone (cannot do home health visits at this time due to COVID 19 pandemic). Osteoarthritis: - Continue home Oxycontin for pain control at reduced dosage due to constipation (normally on Oxycontin 20mg BID, Percocet q6h PRN). - Have increased her gabapentin to 600mg TID this admission in an effort to continue reducing her opiate dose over the next several weeks to months, will be continued as outpatient. - Current opiate dose this admission is Oxycontin 10mg BID, to continue outpatient with home Percocet PRN. - Continue Voltaren gel to knees. ? Inflammatory arthropathy: chronic - Bilateral knee XRAY showed chondrocalcinosis; ESR and CRP elevated today. - Possibly suggestive of pseudogout; patient refuses joint aspiration or ortho evaluation at this time but is amenable to prednisone, which seems to have moderately improved the patient's joint pains (specifically knees and R shoulder). - Received a week of steroid therapy; will not continue on discharge. UTI: resolved - Patient reports recent urinary retention, possible secondary to co-existent constipation. - UA neg nitrites, + for LE, 4+ bacteria, > 30 WBCs. - Urine culture growing flores sensitive klebsiella . - Deescalated Abx from Rocephin to nitrofurantoin this admission; completed 7 days of treatment. Chronic Lymphedema: - Bilateral LE. - On metolazone and bumetanide at home, continue these with changes as above and monitor for SHERI, electrolyte abnormalities. Hypothyroidism: - TSH this admission 2.7. - Continuing home levothyroxine 50 mcg daily. Intertrigo: - Continuing home mupirocin and nystatin powder for intertrigo. Keratosis pilaris: - Patient with dry skin of arms on exam. - Ammonium lactate cream added to regimen. - Advised good moisturizing at home. Dispo: home with home health services (PT/OT/lab draws), appointment with Dr. Campbell tomorrow for transition of care. (2) Right wrist pain: (3) CHF (congestive heart failure): (4) Shortness of breath: (5) Abdominal pain: (6) Constipation: (7) Morbid obesity with BMI of 60.0-69.9, adult: (8) Chronic respiratory failure with hypoxia: (9) SHERI (acute kidney injury): (10) Endometrial cancer: Total Time Total Time Spent Total Time Spent (In Minutes): I spent 45 minutes in seeing the patient, r eviewing data, calling in prescriptions, and answering her questions. Discharge Plan Discharge Items Patient Disposition: Home - Home Health Services Reason For Visit: WEAKNESS,DIFFICULTY WALKING LEFT SIDE WORSE THAN R Discharge Diagnosis: Ambulatory Dysfunction Activity: Per Instructions section Non-emergency contact: Primary Care Provider and Manager Legal Call non-emergency contact if: you have any medication questions and your temperature is above 101 Follow-up/Referrals: Rakesh Felix [Physician] - 03/24/20 10:20 am (Please, follow up with Dr. Felix on TuesdayMarch 24 at 10:20 am. *If you need to change this appointment, call the office at [phone].) Zahira Campbell, [Resident] - 02/12/20 2:40 pm (Please, follow up with Dr. Zahira Campbell on TuesdayFebruary 11 at 2:40 pm. You will be called by the doctor at this time. *The office is located in [address] of [facility], next to this hospital. If you need to change this appointment, call the office at [phone]. YOU DO NOT NEED TO GO TO THE OFFICE. THIS APPOINTMENT WILL BE A TELEPHONE VISIT.) Diet: Carb Consistent or DM2 Addtl Attending Provider Instructions: You were admitted the hospital for continued weakness. While you were here you had a transvaginal ultrasound which showed a thick endometrium. You had a biopsy of your endometrium done which is still pending, and a Mirena IUD placed without issue. You also had several insulin changes made, with good glucose control in the hospital. We will change your home insulin as described in the instructions favio caputo. We also increased your gabapentin for your knee and arthritis pains. We decreased your diuretic pills as below. We will be sending you home on Potassium supplements to take daily. Your new medications and care instructions will also be discussed with your POA. You will continue home PT/OT to further strengthen and move the fluid out of your legs. Please see the following medication changes: We have increased your gabapentin to 600mg every 8 hours. We were able to send you home with Oxycontin 10mg every 12 hours. You can continue to take your home Percocet every 6 hours as needed. For your insulin, you will take Basaglar 85 units every 12 hours (6am, 6pm). You will take 55 units of Novolog with every meal (three times a day). You should take your insulin with your meal. We have decreased your Bumex to one pill every day. You will take Potassium pills, 40 meq every 12 hours. You were sent for Voltaren gel to apply to your knees. You will take atorvastatin, a cholesterol medication, one pill every day. All of these medications have been sent to your Pharmacy. You should be checking your sugar two hours after you eat, to see what your sugar is and "check your work" to see how your carbs were covered. You should also check your sugar before bed. Please keep a log of these sugars for the next week so we can discuss them at our telephone visits. We will discuss your pain, your blood sugars, and your breathing/swelling at your telephone appointments in the clinic both tomorrow and one week from now. Your phone appointment tomorrow is at 2:40PM. If you have any worsening of your swelling, chest pain, trouble breathing, please seek urgent medical care. Pending Studies at Discharge: No Stand-Alone Forms: [facility], Smoking Cessation Medications and DC Order Prescriptions: New atorvastatin 40 mg Tablet 40 mg PO QAM 30 Days Qty: 30 RF: 0 gabapentin 600 mg Tablet 600 mg PO TID Qty: 30 RF: 0 bumetanide 1 mg Tablet 2 mg PO DAILY Qty: 30 RF: 0 potassium chloride [Klor-Con M10] 10 mEq Tablet,Er Particles/Crystals 40 meq PO BID 30 Days Qty: 240 RF: 0 diclofenac sodium [Voltaren] 1 % Gel 2 g EXT BID Qty: 100 RF: 0 oxycodone [OxyContin] 10 mg Tablet,Oral Only,Ext.Rel.12 Hr 10 mg PO BID Qty: 30 RF: 0 Continued levothyroxine 50 mcg tablet 50 mcg PO QAM RF: 0 cyclobenzaprine 5 mg tablet 5 mg PO TID PRN (Reason: Spasms) RF: 0 diphenhydramine HCl 25 mg Tablet 25 mg PO Q6H PRN (Reason: Allergy Symptoms) RF: 0 meclizine 25 mg Tablet 25 mg PO TID PRN (Reason: Dizziness Or Vertigo) RF: 0 zolpidem [Ambien] 10 mg Tablet 10 mg PO HS PRN (Reason: Insomnia) RF: 0 pantoprazole [Protonix] 40 mg Tablet,Delayed Release (Dr/Ec) 40 mg PO DAILY RF: 0 warfarin 7.5 mg Tablet 7.5 mg PO DAILY RF: 0 albuterol sulfate 90 mcg/actuation HFA aerosol inhaler 2 puff INHALATION Q6H PRN (Reason: Shortness Of Breath Or Wheezing) RF: 0 ipratropium-albuterol 0.5 mg-3 mg(2.5 mg base)/3 mL Solution For Nebulization 3 ml INHALATION BID PRN (Reason: Shortness Of Breath Or Wheezing) RF: 0 ascorbic acid (vitamin C) 500 mg Tablet 500 mg PO BID RF: 0 dicyclomine 10 mg Capsule 10 mg PO BID RF: 0 oxycodone-acetaminophen 5-325 mg Tablet 1 tab PO Q8H PRN (Reason: Breakthrough Pain) RF: 0 cholecalciferol (vitamin D3) 50 mcg (2,000 unit) Tablet,Chewable 50 mcg PO 3XWK RF: 0 Breo Ellipta 100-25 mcg/dose blister with device 1 inh INHALATION DAILY RF: 0 ferrous sulfate 142 mg (45 mg iron) Tablet Extended Release 142 mg PO DAILY RF: 0 metolazone 2.5 mg tablet 2.5 mg PO QAM RF: 0 ondansetron HCl [Zofran] 8 mg Tablet 8 mg PO BID PRN (Reason: Nausea) RF: 0 mupirocin 2 % ointment 1 applic TOPICAL TID RF: 0 fluticasone propionate 50 mcg/actuation spray,suspension 1 spray INTRANASAL BID RF: 0 acetaminophen [Tylenol Extra Strength] 500 mg Tablet 1,000 mg PO QID PRN (Reason: Pain) RF: 0 Linzess 145 mcg Capsule 145 mcg PO DAILY PRN (Reason: Constipation) RF: 0 nystatin 100,000 unit/gram Powder 1 applic TOPICAL BID RF: 0 Changed insulin aspart U-100 [Novolog Flexpen U-100 Insulin] 100 unit/mL (3 mL) insulin pen 55 unit SUBCUT TIDM Qty: 0 RF: 0 Basaglar KwikPen U-100 Insulin 100 unit/mL (3 mL) insulin pen 85 unit SUBCUT BID Qty: 0 RF: 0 Discontinued oxycodone [OxyContin] 10 mg Tablet,Oral Only,Ext.Rel.12 Hr 10 mg PO Q12H RF: 0 bumetanide 1 mg tablet 2 mg PO BID RF: 0 gabapentin 300 mg capsule 300 mg PO TID RF: 0 Discharge Orders: Discharge Order (Routine); Ordered 02/11/20 Ordered By: Zahira Bah/Other Patient Handouts: Managing Diabetes: The A1C Test Admission Data Admit Date/Time: 01/30/20 22:04 Attending Provider: Rudy Gutiérrez Admit Provider: Tra Corenjo Primary Care Provider: PCP,NO Other Providers: [facility] ; Andrey Lund ; Nixon Mata ; Rakesh Felix ; Angelo Cole ; Roscoe Ortiz. ; [facility] Other Interventions: Discharge Summary Assessment (RN) Last Done: 02/11/20 11:55 DC Date/Time DO NOT enter until pt leaves facility: 02/11/20 16:22 Supervising Physician Co-Signing Physician Notes I also saw the patient with the resident physician and confirmed romero portions of the history and examination. Discharge is arranged for this afternoon. We reviewed the medications in detail, including the changes in her insulin regimen, as well as her pain medications. She will have a video visit tomorrow afternoon to review all, and trouble shoot any logistical issues that may arise. Resident Activity Tracking Resident Involvement: Resident Care Provided Care Provided: Adult Hospital Medicine
== END 2020-02-11 16:22 | disposition home health service (06) | DRG 744 ==
LOC: ED 17:33 → SUATTDRO 22:04 → 2N 22:04

== ENCOUNTER 2020-06-26 03:34 | Observation (INO) ==
--- NOTE | 2020-06-26 03:55 | Emergency Department Note ---
Impression & Plan Substernal chest pain ED Provider Note Name: ADDY MON Age: 69 Sex: F Arrives Via: Ambulance Informant: Patient, EMS ED Provider: Donnie Sun MD Chief Complaint: Chest pain Impression: Substernal Chest Pain Medical Decision Makin yr old pleasnat female with history of COPD, DMI, Hypothyroid, Arthritis, Lymphedema, morbid obesity, PE, GERD arrives for acute onset substernal chest pain prior to arrival. ASA 324mg [employer] and pain resolved with 2 SLNTG by EMS. She is without symptoms on arrival and initial EKG unchanged from when she was here just a few days earlier for similar. CXR unchanged. Patient is stable with stable vitals and normal O2 sats on her baseline 4 L NC. Without significant shortness of breath and as already on coumadin PE seems unlikely. No persistent pain and with improvement after SLNTG dissection unlikely as well. Prior Medical Record and Triage/Nursing Notes reviewed by Me Additional history obtained from Differentials:Cardiac ischemia, aortic dissection, pulmonary embolism, pneumothorax, pneumonia, pericarditis, myocarditis, esophageal rupture, GERD, cholecystitis, pancreatitis, musculoskeletal, as well as other pathologies. Vital Signs: reviewed and remarkable for no significant abnormalities Interventions: Oxy IR 10mg PO (chronic arthritis pain med) Labs:Reviewed and remarkable for no significant abnormalities Imaging:X ray results are stated below per my interpretation: Chest: 1 view: No infiltrate, no effusion, normal cardiac border. Similar to 06/22/20 EKG:Per My Interpretation: Indication Chest Pain: NSR 90 bpm, qtc 472 with LBBB. No Ectopy. No Ischemia. Compared to EKG 06/22/20, no significant changes. Cardiac/Tele Monitoring: Cardiac Monitoring: An Order was placed for continuous cardiac monitoring. The monitor shows a rate of 80 with a normal sinus rhythm. Consults:Dr Mata Plan: Disposition:Hospitalization. Condition: Good Prescriptions:none PDMP: n/a History of Present Illness:69 yr old female arrives for evaluation of chest pain. Patient notes she was laying in bed around 12:30am when she developed subs ternal chest pressure. No radiation. Associated mild nausea. No shortness of breath beyond her normal chronic breathing difficulties. Denies vomiting, palpitations, syncope, nor other symptoms. Worse with exertion, better with rest. Used ASA 324mg PO and EMS called. EMS gave 2 SLNTG with improvement in chest pain. Patient with episode similar to this a few days ago which brought her to ED but notes this episode far more painful. Denies other recent cardiac evaluation. Denies known CAD. Has history of PE 12 years ago for which she is on Coumadin. Admits issues with low Coumadin recently for which she received Lovenox shot a few days ago. Denies recent fevers, chills, headache, neck pain, syncope, abdominal pain, urinary/bowel changes, change to leg swelling, calf pain nor other symptoms. She notes chronic joint pains for which she is on oxycodone, hydroxychloriquine, gabapentin. ROS: See above HPI for pertinent positives & negatives. A total of 10 systems reviewed and were otherwise negative. 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 Morbidly obese requiring near max assist to move from bed to bed EYES: No scleral icterus, unremarkable pupils. ENT: Mucous membranes moist, no nasal congestion. NECK: No masses appreciated, nomeningismus, trachea is midline. RESPIRATORY: No dyspnea. Clear to auscultation and equal bilaterally. No wheeze, no rhonchi. CARDIOVASCULAR: Regular rate and rhythm.No murmurs, rubs, gallops appreciated. GASTROINTESTINAL: Abdomen soft, non-tender, no peritonitis.Bowel sounds positive.No masses appreciated. BACK: No midline tenderness, no CVA tenderness EXTREMITIES: Wrists in splints, Normal motion all extremities, no cyanosis, no edema. NEUROLOGIC: Alert and oriented, no acute motor or sensory deficits, no focal weakness, cranial nerves grossly intact. SKIN: No rash, no jaundice, no diaphoresis. PSYCH: Appropriate GCS: 15 ED Course: Times/Reassessments: Stable, no further chest pain, Given Oxy IR for chronic arthritis pain Donnie Sun MD Past Med/Surg History Medical History Ambulatory dysfunction Chronic respiratory failure 4L oxygen at home COPD (chronic obstructive pulmonary disease) Diabetes Endometrial cancer GERD (gastroesophageal reflux disease) Hiatal hernia Hypokalemia Hypothyroidism Inflammatory arthropathy Lymphedema Morbid obesity Urinary tract infection VTE (venous thromboembolism) Surgical History Hx of tonsillectomy Social History Smoking Status: Never smoker Second Hand Exposure: No; Hx Alcohol Use: Yes Hx Substance Use: No Preferred Language: Divehi Communication Ability: Effective 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 Beliefs That Will Affect Care: None marital status: Single Current Living Situation: Alone Feels Safe at Home: Yes Assistive Devices: Glasses and Walker Allergies Allergies Allergy/AdvReac Type Severity Reaction Status Date / Time amoxicillin Allergy Severe Anaphylaxis Verified 06/26/20 04:43 Penicillins Allergy Severe Anaphylaxis Verified 06/26/20 04:43 WITH AMOXICILLIN latex Allergy Intermediate ITCHY, Verified 06/26/20 04:43 TIGHTENING OF THROAT meloxicam [From Mobic] Allergy Intermediate TIGHTENING Verified 06/26/20 04:43 OF THROAT Sulfa (Sulfonamide Allergy Intermediate Hives Verified 06/26/20 04:43 Antibiotics) tramadol Allergy Intermediate TIGHTENING Verified 06/26/20 04:43 OF THROAT codeine AdvReac Intermediate Nausea Verified 06/26/20 04:43 metformin AdvReac Intermediate Gastrointestinal Verified 06/26/20 04:43 Upset Home Meds Home Medications Medication Instructions Recorded Confirmed Breo Ellipta 1 inh INHALATION QAM 01/30/20 06/26/20 acetaminophen [Tylenol Extra 500 - 1,000 mg PO QID PRN 01/30/20 06/26/20 Strength] albuterol sulfate 2 puff INHALATION Q6H PRN 01/30/20 06/26/20 ascorbic acid (vitamin C) 500 mg PO BID 01/30/20 06/26/20 cholecalciferol (vitamin D3) 50 mcg PO 3XWK 01/30/20 06/26/20 dicyclomine 10 mg PO BID PRN 01/30/20 06/26/20 diphenhydramine HCl 25 mg PO Q6H PRN 01/30/20 06/26/20 fluticasone propionate 1 spray INTRANASAL BID 01/30/20 06/26/20 ipratropium-albuterol 3 ml INHALATION BID PRN 01/30/20 06/26/20 levothyroxine 50 mcg PO QAM 01/30/20 06/26/20 meclizine 25 mg PO TID PRN 01/30/20 06/26/20 metolazone 2.5 mg PO QAM 01/30/20 06/26/20 mupirocin 1 applic TOPICAL TID PRN 01/30/20 06/26/20 nystatin 1 applic TOPICAL BID 01/30/20 06/26/20 oxycodone-acetaminophen 1 tab PO Q8H PRN 01/30/20 06/26/20 pantoprazole [Protonix] 40 mg PO QAM 01/30/20 06/26/20 warfarin 7.5 mg PO 5XWK 01/30/20 06/26/20 zolpidem [Ambien] 10 mg PO HS PRN 01/30/20 06/26/20 bisacodyl [Dulcolax (bisacodyl)] 5 mg PO HS PRN 04/18/20 06/26/20 bumetanide See Rx Instructions .ROUTE .COMPLEX 04/18/20 06/26/20 dextromethorphan-guaifenesin 1 tab PO Q12H PRN 04/18/20 06/26/20 [Mucinex DM] diphenhydramine-acetaminophen 1 - 2 tab PO HS PRN 04/18/20 06/26/20 [Tylenol PM Extra Strength] ferrous sulfate [FerrouSul] 325 mg PO DAILY 04/18/20 06/26/20 insulin aspart U-100 [Novolog 0 unit SUBCUT TIDM MDD 60 UNITS/DAY 04/18/20 06/26/20 Flexpen U-100 Insulin] insulin glargine [Lantus Solostar 30 unit SUBCUT QPM 04/18/20 06/26/20 U-100 Insulin] insulin glargine [Lantus Solostar 70 unit SUBCUT QAM 04/18/20 06/26/20 U-100 Insulin] oxycodone [OxyContin] 10 mg PO Q12 04/18/20 06/26/20 gabapentin 600 mg PO TID 05/09/20 06/26/20 ondansetron HCl 8 mg PO BID PRN 05/09/20 06/26/20 hydroxychloroquine [Plaquenil] 200 mg PO DAILY 06/22/20 06/26/20 warfarin 5 mg PO 2XWK 06/26/20 06/26/20 Previous Rx's Medication Instructions Recorded diclofenac sodium [Voltaren] 2 g EXT BID #100 gm 02/11/20 albuterol sulfate 2 inh INH QID PRN #1 g 04/18/20 Results & Data (ED) Vital Signs Vital Signs - 24 hr 06/26/20 03:48 06/26/20 03:51 06/26/20 04:00 Temperature Temperature Source Pulse Rate 93 H 95 H 95 H Pulse Rate from SpO2 Sensor 94 H 93 H Respiratory Rate 21 19 20 Blood Pressure 129/66 Blood Pressure [Right Arm] Blood Pressure Mean 82 Blood Pressure Mean [Right Arm] Pulse Oximetry 96 96 Oxygen Delivery Method Oxygen Flow Rate Sepsis Recent Fever Within 48 Hours Sepsis New/Unexplained Change in Mental Status Sepsis Action Taken by Nursing 06/26/20 04:01 06/26/20 04:04 06/26/20 04:10 Temperature 36.9 C Temperature Source Oral Pulse Rate 100 H 104 H 95 H Pulse Rate from SpO2 Sensor Respiratory Rate 22 17 Blood Pressure 129/67 129/66 Blood Pressure [Right Arm] Blood Pressure Mean 85 87 Blood Pressure Mean [Right Arm] Pulse Oximetry 96 Oxygen Delivery Method Nasal Cannula Oxygen Flow Rate 4 Sepsis Recent Fever Within 48 Hours No Sepsis New/Unexplained Change in Mental Status No Sepsis Action Taken by Nursing No Action Required 06/26/20 04:12 06/26/20 04:20 06/26/20 04:30 Temperature Temperature Source Pulse Rate 92 H 90 Pulse Rate from SpO2 Sensor Respiratory Rate 22 15 26 H Blood Pressure Blood Pressure [Right Arm] 129/66 Blood Pressure Mean Blood Pressure Mean [Right Arm] 87 Pulse Oximetry 97 Oxygen Delivery Method Nasal Cannula Oxygen Flow Rate 4 Sepsis Recent Fever Within 48 Hours Sepsis New/Unexplained Change in Mental Status Sepsis Action Taken by Nursing 06/26/20 04:31 06/26/20 04:40 06/26/20 04:50 Temperature Temperature Source Pulse Rate 87 85 86 Pulse Rate from SpO2 Sensor 88 Respiratory Rate 22 17 19 Blood Pressure 130/71 Blood Pressure [Right Arm] Blood Pressure Mean 94 Blood Pressure Mean [Right Arm] Pulse Oximetry 97 Oxygen Delivery Method Oxygen Flow Rate Sepsis Recent Fever Within 48 Hours Sepsis New/Unexplained Change in Mental Status Sepsis Action Taken by Nursing 06/26/20 05:00 06/26/20 05:01 06/26/20 05:10 Temperature Temperature Source Pulse Rate 86 90 87 Pulse Rate from SpO2 Sensor 86 87 Respiratory Rate 16 18 18 Blood Pressure 118/34 L Blood Pressure [Right Arm] Blood Pressure Mean 96 Blood Pressure Mean [Right Arm] Pulse Oximetry 93 96 Oxygen Delivery Method Oxygen Flow Rate Sepsis Recent Fever Within 48 Hours Sepsis New/Unexplained Change in Mental Status Sepsis Action Taken by Nursing 06/26/20 05:20 Temperature Temperature Source Pulse Rate 84 Pulse Rate from SpO2 Sensor 85 Respiratory Rate Blood Pressure Blood Pressure [Right Arm] Blood Pressure Mean Blood Pressure Mean [Right Arm] Pulse Oximetry 94 Oxygen Delivery Method Oxygen Flow Rate Sepsis Recent Fever Within 48 Hours Sepsis New/Unexplained Change in Mental Status Sepsis Action Taken by Nursing Laboratory Data Result diagrams: 06/27/20 00:47 06/27/20 00:47 Lab Results 06/26/20 06/26/20 06/26/20 Range/Units 04:52 04:52 04:52 WBC 7.23 (4.8-10.8) K/uL RBC 4.30 (4.2-5.4) M/uL Hgb 11.9 L (12.0-16.0) g/dL Hct 38.7 (37-47) % MCV 90.0 (80-100) fL MCH 27.7 (25-34) pg MCHC 30.7 L (32-36) g/dL RDW Std Deviation 50.1 H (36.4-46.3) fL RDW Coeff of Tung 15.2 H (11.5-14.5) % Plt Count 220 (130-400) K/uL MPV 10.0 (7.4-10.4) fL Immature Gran % (Auto) 0.1 % Neut % (Auto) 66.4 % Lymph % (Auto) 25.6 % Kemper % (Auto) 6.2 % Eos % (Auto) 1.4 % Baso % (Auto) 0.3 % Neut # (Auto) 4.80 (1.4-6.5) K/uL Lymph # (Auto) 1.85 (1.2-3.4) K/uL Kemper # (Auto) 0.45 (0.11-0.59) K/uL Eos # (Auto) 0.10 (0-0.5) K/uL Baso # (Auto) 0.02 (0-0.2) K/uL Immature Gran # (Auto) 0.01 (0.00-0.02) K/uL PT 17.5 H (9.0-12.0) Seconds INR 1.7 H (0.9-1.1) APTT 29.2 (21.0-31.0) Seconds PTT Ratio 1.0 Sodium 136 (136-145) mmol/L Potassium 3.5 (3.5-5.1) mmol/L Chloride 96 L (98-107) mmol/L Carbon Dioxide 36 H (21-32) mmol/L Anion Gap 4.0 (3-11) BUN 48 H (7-18) mg/dl Creatinine 1.53 H (0.6-1.2) mg/dl Est Cr Clr Drug Dosing 66.0 ml/min Est GFR ( Amer) 39.3 Est GFR (Non-Af Amer) 33.9 BUN/Creatinine Ratio 31.4 H (10-20) Glucose 223 H (70-99) mg/dl Estimat Average Glucose mg/dl Hemoglobin A1c (4.5-5.6) % Calcium 10.1 (8.5-10.1) mg/dl Magnesium 2.2 (1.8-2.4) mg/dl Total Bilirubin 0.3 (0.2-1) mg/dl Direct Bilirubin < 0.1 (0-0.2) mg/dl AST 10 L (15-37) U/L ALT 27 (12-78) U/L Alkaline Phosphatase 76 (45-117) U/L Troponin I 0.019 (0-0.045) ng/ml Total Protein 8.1 (6.4-8.2) gm/dl Albumin 3.7 (3.4-5.0) gm/dl Triglycerides (0-150) mg/dl Cholesterol (0-200) mg/dl LDL Cholesterol, Calc mg/dl VLDL Cholesterol, Calc mg/dl HDL Cholesterol mg/dl Cholesterol/HDL Ratio Lipase 61 L (73-393) U/L 11/26/20 11/26/20 Range/Units 04:52 04:58 WBC (4.8-10.8) K/uL RBC (4.2-5.4) M/uL Hgb (12.0-16.0) g/dL Hct (37-47) % MCV (80-100) fL MCH (25-34) pg MCHC (32-36) g/dL RDW Std Deviation (36.4-46.3) fL RDW Coeff of Tung (11.5-14.5) % Plt Count (130-400) K/uL MPV (7.4-10.4) fL Immature Gran % (Auto) % Neut % (Auto) % Lymph % (Auto) % Kemper % (Auto) % Eos % (Auto) % Baso % (Auto) % Neut # (Auto) (1.4-6.5) K/uL Lymph # (Auto) (1.2-3.4) K/uL Kemper # (Auto) (0.11-0.59) K/uL Eos # (Auto) (0-0.5) K/uL Baso # (Auto) (0-0.2) K/uL Immature Gran # (Auto) (0.00-0.02) K/uL PT (9.0-12.0) Seconds INR (0.9-1.1) APTT (21.0-31.0) Seconds PTT Ratio Sodium (136-145) mmol/L Potassium (3.5-5.1) mmol/L Chloride (98-107) mmol/L Carbon Dioxide (21-32) mmol/L Anion Gap (3-11) BUN (7-18) mg/dl Creatinine (0.6-1.2) mg/dl Est Cr Clr Drug Dosing ml/min Est GFR ( Amer) Est GFR (Non-Af Amer) BUN/Creatinine Ratio (10-20) Glucose (70-99) mg/dl Estimat Average Glucose 192 mg/dl Hemoglobin A1c 8.3 H (4.5-5.6) % Calcium (8.5-10.1) mg/dl Magnesium (1.8-2.4) mg/dl Total Bilirubin (0.2-1) mg/dl Direct Bilirubin (0-0.2) mg/dl AST (15-37) U/L ALT (12-78) U/L Alkaline Phosphatase (45-117) U/L Troponin I (0-0.045) ng/ml Total Protein (6.4-8.2) gm/dl Albumin (3.4-5.0) gm/dl Triglycerides 170 H (0-150) mg/dl Cholesterol 181 (0-200) mg/dl LDL Cholesterol, Calc 103 mg/dl VLDL Cholesterol, Calc 34 mg/dl HDL Cholesterol 44 mg/dl Cholesterol/HDL Ratio 4 Lipase (73-393) U/L Administered Medications Acetaminophen (Acetaminophen 325 Mg Tab) 650 mg PO Q4H PRN PRN Reason: Pain or Fever Stop: 07/26/20 09:03 Last Admin: 06/26/20 19:51 Dose: 650 mg Documented by: [id number] Ascorbic Acid (Ascorbic Acid 500 Mg Tab) 500 mg PO BID [facility] Stop: 07/26/20 09:03 Last Admin: 06/27/20 07:52 Dose: 500 mg Documented by: [id number] Admin: 06/26/20 21:06 Dose: 500 mg Documented by: [id number] Admin: 06/26/20 11:18 Dose: 500 mg Documented by: [id number] Ferrous Sulfate (Ferrous Sulfate 325 Mg Tab) 325 mg PO DAILY [facility] Stop: 07/26/20 09:03 Last Admin: 06/27/20 07:51 Dose: 325 mg Documented by: [id number] Admin: 06/26/20 11:16 Dose: 325 mg Documented by: [id number] Fluticasone Propionate (Fluticasone Propionate Na Spr 16 Gm Btl) 1 sprays GUSTAVO BID [facility] Stop: 07/26/20 09:03 Last Admin: 06/27/20 07:55 Dose: 1 sprays Documented by: [id number] Admin: 06/26/20 21:04 Dose: 1 sprays Documented by: [id number] Admin: 06/26/20 11:19 Dose: 1 sprays Documented by: [id number] Fluticasone/Vilanterol (Fluticasone/Vilanterol 100/25mcg 14 Puffs/Inhaler) 1 puffs INH QAM [facility] Stop: 07/26/20 09:03 Last Admin: 06/27/20 07:57 Dose: 1 puffs Documented by: [id number] Admin: 06/26/20 11:18 Dose: 1 puffs Documented by: [id number] Gabapentin (Gabapentin 600 Mg Tab) 600 mg PO TID [facility] Stop: 07/26/20 09:03 Last Admin: 06/27/20 07:52 Dose: 600 mg Documented by: [id number] Admin: 06/26/20 21:06 Dose: 600 mg Documented by: [id number] Admin: 06/26/20 14:12 Dose: Not Given Documented by: [id number] Admin: 06/26/20 14:10 Dose: 600 mg Documented by: [id number] Heparin Sodium (Porcine) (Heparin Sod 5,000 Unit/0.5 Ml Vial) 7,500 units SQ Q8 [facility] Stop: 07/26/20 13:59 Last Admin: 06/27/20 05:48 Dose: 7,500 units Documented by: [id number] Admin: 06/26/20 21:07 Dose: 7,500 units Documented by: [id number] Admin: 06/26/20 14:10 Dose: 7,500 units Documented by: [id number] Hydroxychloroquine Sulfate (Hydroxychloroquine Sulfate 200 Mg Tab) 200 mg PO DAILY [facility] Stop: 07/26/20 09:03 Last Admin: 06/27/20 07:53 Dose: 200 mg Documented by: [id number] Admin: 06/26/20 11:18 Dose: 200 mg Documented by: [id number] Bumetanide 2 mg/ Syringe 8 mls @ 4 mls/min IV QAM [facility] Stop: 07/27/20 08:59 Last Admin: 06/27/20 07:53 Dose: 4 mls/min Documented by: [id number] Bumetanide 1 mg/ Syringe 4 mls @ 4 mls/min IV DAILY@1700 [facility] Stop: 07/26/20 16:59 Last Admin: 06/26/20 16:11 Dose: 4 mls/min Documented by: [id number] Insulin Aspart (Insulin Aspart 100 Units/Ml 3 Ml Pen) 0 units SC ACHS [facility] Stop: 07/26/20 09:03 Last Admin: 06/27/20 11:57 Dose: 37 units Documented by: [id number] Cosigned by: [id number] Admin: 06/27/20 07:58 Dose: 33 units Documented by: [id number] Cosigned by: [id number] Admin: 06/26/20 21:03 Dose: 13 units Documented by: [id number] Cosigned by: [id number] Admin: 06/26/20 17:46 Dose: 6 units Documented by: [id number] Cosigned by: [id number] Admin: 06/26/20 16:05 Dose: 20 units Documented by: [id number] Cosigned by: [id number] Admin: 06/26/20 12:19 Dose: 17 units Documented by: [id number] Cosigned by: [id number] Admin: 06/26/20 11:20 Dose: 6 units Documented by: [id number] Cosigned by: [id number] Insulin Glargine (Insulin Glargine 100 Unit/Ml Vial) 90 units SC QAM [facility] Stop: 07/27/20 08:59 Last Admin: 06/27/20 07:55 Dose: 90 units Documented by: [id number] Cosigned by: [id number] Levothyroxine Sodium (Levothyroxine Sodium 50 Mcg Tablet) 50 mcg PO DAILYBB [facility] Stop: 07/26/20 09:03 Last Admin: 06/27/20 05:48 Dose: 50 mcg Documented by: [id number] Admin: 06/26/20 11:18 Dose: 50 mcg Documented by: [id number] Metolazone (Metolazone 2.5 Mg Tablet) 2.5 mg PO QAM [facility] Stop: 07/26/20 09:03 Last Admin: 06/27/20 07:53 Dose: 2.5 mg Documented by: [id number] Admin: 06/26/20 11:17 Dose: 2.5 mg Documented by: [id number] Nystatin (Nystatin Powder 15gm Btl) 1 appln EXT BID [facility] Stop: 07/26/20 09:03 Last Admin: 06/27/20 07:56 Dose: 1 appln Documented by: [id number] Admin: 06/26/20 21:37 Dose: Not Given Documented by: [id number] Admin: 06/26/20 11:21 Dose: 1 appln Documented by: [id number] Oxycodone HCl (Oxycodone Hcl 10 Mg Tabcr (Oxycontin)) 10 mg PO Q12 [facility] Stop: 07/10/20 20:59 Last Admin: 06/27/20 08:03 Dose: 10 mg Documented by: [id number] Admin: 06/26/20 21:14 Dose: 10 mg Documented by: [id number] Oxycodone/Acetaminophen (Oxycodone/Acetaminophen 5mg/325mg Tab) 1 tab PO Q8H PRN PRN Reason: Breakthrough Pain Stop: 07/10/20 17:23 Last Admin: 06/27/20 09:41 Dose: 1 tab Documented by: [id number] Admin: 06/26/20 18:12 Dose: 1 tab Documented by: [id number] Pantoprazole Sodium (Pantoprazole 40 Mg Tab) 40 mg PO QAM [facility] Stop: 07/26/20 09:03 Last Admin: 06/27/20 07:52 Dose: 40 mg Documented by: [id number] Admin: 06/26/20 11:17 Dose: 40 mg Documented by: [id number] Vitamin D (Cholecalciferol 1,000 Units 25 Mcg Tab) 2,000 units PO MoWeFr@0900 [facility] Stop: 07/27/20 08:59 Last Admin: 06/27/20 07:54 Dose: 2,000 units Documented by: [id number] Zolpidem Tartrate (Zolpidem Tartrate 10 Mg Tab) 10 mg PO HS PRN PRN Reason: Insomnia Stop: 07/26/20 09:03 Last Admin: 06/26/20 23:32 Dose: 10 mg Documented by: [id number] Discontinued Medications Bumetanide (Bumetanide 1 Mg Tab) [facility] [place]: 07/26/20 09:03 Last Admin: 06/26/20 11:16 Dose: 2 mg Documented by: [id number] Insulin Aspart (Insulin Aspart 100 Units/Ml 3 Ml Pen) 0 units SC TODAY@0000,0400 [facility] Stop: 06/27/20 04:01 Last Admin: 06/27/20 04:10 Dose: 10 units Documented by: [id number] Cosigned by: [id number] Admin: 06/27/20 00:13 Dose: 9 units Documented by: [id number] Cosigned by: [id number] Insulin Glargine (Insulin Glargine 100 Unit/Ml Vial) 70 units SC NOW ONE Stop: 06/26/20 08:16 Last Admin: 06/26/20 08:21 Dose: 70 units Documented by: [id number] Cosigned by: [id number] Insulin Glargine (Insulin Glargine 100 Unit/Ml Vial) 30 units SQ QPM [facility] Stop: 07/26/20 20:59 Last Admin: 06/26/20 21:06 Dose: 30 units Documented by: [id number] Cosigned by: [id number] Insulin Glargine (Insulin Glargine Solostar 100 Units/Ml 3 Ml Pen) 70 units SQ QAM [facility] Stop: 07/26/20 09:03 Last Admin: 06/26/20 10:28 Dose: Not Given Documented by: [id number] Oxycodone HCl (Oxycodone Hcl Ir 5 Mg Tab (Immediate Release)) 10 mg PO NOW STA Stop: 06/26/20 05:07 Last Admin: 06/26/20 05:25 Dose: 10 mg Documented by: [id number] Perflutren Lipid Microsphere (Perflutren Lipid Microsphere ([employer])) 2 ml IV ONCE ONE Stop: 06/26/20 10:17 Last Admin: 06/26/20 10:16 Dose: 2 ml Documented by: [id number] Warfarin Sodium (Warfarin Sod 5 Mg Tab) 10 mg PO 1600 ONE Stop: 06/26/20 16:01 Last Admin: 06/26/20 16:10 Dose: 10 mg Documented by: [id number] Discharge Plan Visit Data Chief Complaint: Chest Pain Stated Complaint: CHEST PAIN/SHORT OF BREATH ED Provider: Donnie Sun Discharge Problem: Substernal chest pain Patient Disposition: Admitted As Inpatient Discharge Instructions Interventions: ED Discharge Assessment Last Done: 06/26/20 08:42
[2020-06-26] MEDS ORDERED: oxyCODONE HCL IR 5 MG TAB (IMMEDIATE RELEASE) PO STA (05:06)
[2020-06-26 05:27] LABS: Basophils # (auto) 0.02 K/uL (0-0.2); Basophils % (auto) 0.3 %; Eosinophils % (auto) 1.4 %; Hematocrit (blood only) 38.7 % (37-47); Hemoglobin 11.9 g/dL (12.0-16.0); Immature Granulocytes # (auto) 0.01 K/uL (0.00-0.02); Immature Granulocytes % (auto) 0.1 %; Lymphocytes # (auto) 1.85 K/uL (1.2-3.4); Lymphocytes % (auto) 25.6 %; Mean Corpuscular Hemoglobin 27.7 pg (25-34); Mean Corpuscular Hgb Conc 30.7 g/dL (32-36); Monocytes # (auto) 0.45 K/uL (0.11-0.59); Monocytes % (auto) 6.2 %; Neutrophils % (auto) 66.4 %; Platelet Count 220 K/uL (130-400); RDW Coefficient of Variation 15.2 % (11.5-14.5); RDW Standard Deviation 50.1 fL (36.4-46.3); White Blood Count 7.23 K/uL (4.8-10.8)
[2020-06-26 05:53] LABS: Alanine Aminotransferase 27 U/L (12-78); Albumin Level 3.7 gm/dl (3.4-5.0); Aspartate Aminotransferase 10 U/L (15-37); BUN Creatinine Ratio 31.4 (10-20); Bilirubin Direct < 0.1 mg/dl (0-0.2); Blood Urea Nitrogen 48 mg/dl (7-18); Calcium 10.1 mg/dl (8.5-10.1); Carbon Dioxide 36 mmol/L (21-32); Chloride 96 mmol/L (98-107); Est GFR (African American) 39.3; Est GFR (Non-African American) 33.9; Glucose 223 mg/dl (70-99); Lipase 61 U/L (73-393); Magnesium 2.2 mg/dl (1.8-2.4); Potassium 3.5 mmol/L (3.5-5.1); Sodium 136 mmol/L (136-145)
[2020-06-26 05:58] LABS: Alkaline Phosphatase 76 U/L (45-117); Bilirubin,Total 0.3 mg/dl (0.2-1); Total Protein 8.1 gm/dl (6.4-8.2); Troponin I 0.019 ng/ml (0-0.045)
[2020-06-26 06:18] LABS: INR 1.7 (0.9-1.1); Partial Thromboplastin Time 29.2 Seconds (21.0-31.0); Prothrombin Time 17.5 Seconds (9.0-12.0)
[2020-06-26] MEDS ORDERED: ALBUT/IPRATROP 3MG/0.5MG NEB 3 ML VIAL NEB PRN (06:43)
--- NOTE | 2020-06-26 06:47 | History & Physical Report ---
Date of Service June 26, 2020 Assessment & Plan (1) Atypical chest pain: The patient will be admitted to telemetry for serial cardiac enzymes, serial EKG's, cardiac rhythm monitoring and a 2-D echocardiogram with Dopplers. Aspirin 81 mg p.o. daily continue metolazone, and bumetanide Present on Admission?: Yes (2) Chronic respiratory failure: O2 sat satisfactory on her baseline of 4 L nasal cannula O2. Continue duo nebs as needed. Continue Brio Ellipta 1 inhalation every morning, Present on Admission?: Yes (3) Diabetes: Continue usual dose of insulin glargine, 70 units subcu every morning and 30 units subcu every afternoon. Placed on Accu-Cheks before meals and at bedtime with NovoLog coverage per scale Check hemoglobin A1c Present on Admission?: Yes (4) VTE (venous thromboembolism): See above venous thromboembolism history- INR mildly subtherapeutic at 1.7. Continue current regimen, recheck laboratories later on today and then daily. Present on Admission?: Yes (5) Subtherapeutic international normalized ratio (INR): See above Present on Admission?: Yes (6) SHERI (acute kidney injury): Creatinine 1.53 upon admission, with range 1.18-1.50. Follow serial BMP Present on Admission?: Yes (7) Hypothyroidism: Continue levothyroxine 50 mcg daily Present on Admission?: Yes (8) Morbid obesity with BMI of 60.0-69.9, adult: (9) Inflammatory arthropathy: Continue hydroxychloroquine 10 mg daily for now. There is a potential that the atypical chest pain that she is having may have been brought on by GI side effects of hydroxychloroquine. Continue oxycodone extended release 10 mg p.o. every 12 hours, and oxycodone/acetaminophen 5/325 1 p.o. every 8 hours as needed breakthrough pain Present on Admission?: Yes (10) GERD (gastroesophageal reflux disease): GERD/hiatal hernia- Continue pantoprazole 40 mg p.o. every morning Present on Admission?: Yes (11) Hiatal hernia: See above Present on Admission?: Yes History of Present Illness Chief Complaint: The patient presents to the emergency department via ambulance with complaint of precordial chest pain that was relieved by aspirin 324 mg and 2 sublingual nitroglycerin administered by EMS prior to arrival Primary Care Provider: Jarret Saunders DO The patient is a 69-year-old female with a past medical history including chronic respiratory failure, lymphedema, inflammatory arthropathy, hypothyroidism, venous thromboembolism, diabetes mellitus, urinary tract infection, endometrial cancer, morbid obesity with BMI 71.7, abdominal pain, chronic shortness of breath and CHF. The patient presents as noted above. The patient usually wears nasal cannula 4 L, and O2 sats upon admission were in the low to mid 90s. Allergies Allergy/AdvReac Type Severity Reaction Status Date / Time amoxicillin Allergy Severe Anaphylaxis Verified 06/26/20 04:43 Penicillins Allergy Severe Anaphylaxis Verified 06/26/20 04:43 WITH AMOXICILLIN latex Allergy Intermediate ITCHY, Verified 06/26/20 04:43 TIGHTENING OF THROAT meloxicam [From Mobic] Allergy Intermediate TIGHTENING Verified 06/26/20 04:43 OF THROAT Sulfa (Sulfonamide Allergy Intermediate Hives Verified 06/26/20 04:43 Antibiotics) tramadol Allergy Intermediate TIGHTENING Verified 06/26/20 04:43 OF THROAT codeine AdvReac Intermediate Nausea Verified 06/26/20 04:43 metformin AdvReac Intermediate Gastrointestinal Verified 06/26/20 04:43 Upset Home Medications Medication Instructions Recorded Confirmed Type Breo Ellipta 1 inh INHALATION QAM 01/30/20 06/26/20 History acetaminophen [Tylenol Extra 500 - 1,000 mg PO QID PRN 01/30/20 06/26/20 History Strength] albuterol sulfate 2 puff INHALATION Q6H PRN 01/30/20 06/26/20 History ascorbic acid (vitamin C) 500 mg PO BID 01/30/20 06/26/20 History cholecalciferol (vitamin D3) 50 mcg PO 3XWK 01/30/20 06/26/20 History dicyclomine 10 mg PO BID PRN 01/30/20 06/26/20 History diphenhydramine HCl 25 mg PO Q6H PRN 01/30/20 06/26/20 History fluticasone propionate 1 spray INTRANASAL BID 01/30/20 06/26/20 History ipratropium-albuterol 3 ml INHALATION BID PRN 01/30/20 06/26/20 History levothyroxine 50 mcg PO QAM 01/30/20 06/26/20 History meclizine 25 mg PO TID PRN 01/30/20 06/26/20 History metolazone 2.5 mg PO QAM 01/30/20 06/26/20 History mupirocin 1 applic TOPICAL TID PRN 01/30/20 06/26/20 History nystatin 1 applic TOPICAL BID 01/30/20 06/26/20 History oxycodone-acetaminophen 1 tab PO Q8H PRN 01/30/20 06/26/20 History pantoprazole [Protonix] 40 mg PO QAM 01/30/20 06/26/20 History warfarin 7.5 mg PO 5XWK 01/30/20 06/26/20 History zolpidem [Ambien] 10 mg PO HS PRN 01/30/20 06/26/20 History diclofenac sodium [Voltaren] 2 g EXT BID #100 gm 02/11/20 06/26/20 Rx albuterol sulfate 2 inh INH QID PRN #1 g 04/18/20 06/26/20 Rx bisacodyl [Dulcolax (bisacodyl)] 5 mg PO HS PRN 04/18/20 06/26/20 History bumetanide See Rx Instructions .ROUTE .COMPLEX 04/18/20 06/26/20 History dextromethorphan-guaifenesin 1 tab PO Q12H PRN 04/18/20 06/26/20 History [Mucinex DM] diphenhydramine-acetaminophen 1 - 2 tab PO HS PRN 04/18/20 06/26/20 History [Tylenol PM Extra Strength] ferrous sulfate [FerrouSul] 325 mg PO DAILY 04/18/20 06/26/20 History insulin aspart U-100 [Novolog 0 unit SUBCUT TIDM MDD 60 UNITS/DAY 04/18/20 06/26/20 History Flexpen U-100 Insulin] insulin glargine [Lantus Solostar 30 unit SUBCUT QPM 04/18/20 06/26/20 History U-100 Insulin] insulin glargine [Lantus Solostar 70 unit SUBCUT QAM 04/18/20 06/26/20 History U-100 Insulin] oxycodone [OxyContin] 10 mg PO Q12 04/18/20 06/26/20 History gabapentin 600 mg PO TID 05/09/20 06/26/20 History ondansetron HCl 8 mg PO BID PRN 05/09/20 06/26/20 History hydroxychloroquine [Plaquenil] 200 mg PO DAILY 06/22/20 06/26/20 History warfarin 5 mg PO 2XWK 06/26/20 06/26/20 History Past Med/Surg History Medical History (Updated 06/26/20 @ 06:44 by Nixon Mata MD) Ambulatory dysfunction Chronic respiratory failure 4L oxygen at home COPD (chronic obstructive pulmonary disease) Diabetes Endometrial cancer GERD (gastroesophageal reflux disease) Hiatal hernia Hypokalemia Hypothyroidism Inflammatory arthropathy Lymphedema Morbid obesity Urinary tract infection VTE (venous thromboembolism) Surgical History Hx of tonsillectomy Social History Smoking Status: Unknown if ever smoked Hx Alcohol Use: Yes Hx Substance Use: No Preferred Language: Malian Communication Ability: Effective 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 Beliefs That Will Affect Care: None marital status: Single Current Living Situation: Alone Feels Safe at Home: Yes Assistive Devices: Oxygen - Continuous and Walker Review of Systems Review of Systems: The patient denies palpitations, cough, lower extremity swelling, sore throat, fevers, chills, sweats, nausea, vomiting, diarrhea , constipation, abdominal pain, pelvic pain, blood in urine or stool, dysuria, urinary frequency or urgency, lightheadedness, dizziness, headache, memory loss, loss of consciousness, rash, abnormal bruising or bleeding, imbalance, focal or generalized weakness, numbness or tingling in arms or legs, back or neck pain, or night sweats. The review of systems is otherwise negative other than for that already noted above, and at least 10 systems have been reviewed. Physical Exam Physical Exam: The patient is awake, alert and oriented 3, well developed and well nourished, normocephalic and atraumatic, lying in bed and in no acute distress. HEENT--PERRL, EOMI, mucous membranes and oropharynx normal. Neck--supple. No JVD. No bruits. Thyroid normal, trachea midline, no adenopathy. Heart--normal S1 and S2. No murmurs, rubs or gallops. Lungs--clear bilaterally, no respiratory distress, no accessory muscle use. Abdomen--normal bowel sounds and soft. Nontender. Nondistended. Morbidly obese Extremities--no cyanosis or clubbing. No edema. Dermatologic--normal skin turgor, normal color, no abnormal lymph nodes, no rash. Neurologic--cranial nerves II through XII grossly intact. Rheumatologic--normal range of motion. Psychiatric--normal affect. Results & Data Results & Data ([facility]) Vital Signs (Past 12 Hours) Vital Signs Temp Pulse Pulse Resp BP BP Pulse Ox 06/26/20 06:20 83 20 89 L 06/26/20 06:10 88 18 06/26/20 06:00 86 26 H 131/52 L 92 06/26/20 05:53 88 22 138/52 L 94 06/26/20 05:50 85 19 06/26/20 05:46 83 20 138/52 L 94 06/26/20 05:40 86 06/26/20 05:34 87 68/58 L 97 06/26/20 05:31 87 74/49 L 06/26/20 05:30 85 93 06/26/20 05:20 84 94 06/26/20 05:10 87 18 96 06/26/20 05:01 90 18 118/34 L 06/26/20 05:00 86 16 93 06/26/20 04:50 86 19 06/26/20 04:40 85 17 06/26/20 04:31 87 22 130/71 97 06/26/20 04:30 90 26 H 06/26/20 04:20 92 H 15 06/26/20 04:12 22 129/66 97 06/26/20 04:10 95 H 17 06/26/20 04:04 98.4 F 104 H 22 129/66 96 06/26/20 04:01 100 H 129/67 06/26/20 04:00 95 H 20 06/26/20 03:51 95 H 19 96 06/26/20 03:48 93 H 21 129/66 96 Laboratory Results Laboratory Results WBC 7.23 K/uL (4.8-10.8) 06/26/20 04:52 RBC 4.30 M/uL (4.2-5.4) 06/26/20 04:52 Hgb 11.9 g/dL (12.0-16.0) L 06/26/20 04:52 Hct 38.7 % (37-47) 06/26/20 04:52 MCV 90.0 fL (80-100) 06/26/20 04:52 MCH 27.7 pg (25-34) 06/26/20 04:52 MCHC 30.7 g/dL (32-36) L 06/26/20 04:52 RDW Std Deviation 50.1 fL (36.4-46.3) H 06/26/20 04:52 RDW Coeff of Tung 15.2 % (11.5-14.5) H 06/26/20 04:52 Plt Count 220 K/uL (130-400) 06/26/20 04:52 MPV 10.0 fL (7.4-10.4) 06/26/20 04:52 Immature Gran % (Auto) 0.1 % 06/26/20 04:52 Neut % (Auto) 66.4 % 06/26/20 04:52 Lymph % (Auto) 25.6 % 06/26/20 04:52 [place] % (Auto) 6.2 % 06/26/20 04:52 Eos % (Auto) 1.4 % 06/26/20 04:52 Baso % (Auto) 0.3 % 06/26/20 04:52 Neut # (Auto) 4.80 K/uL (1.4-6.5) 06/26/20 04:52 Lymph # (Auto) 1.85 K/uL (1.2-3.4) 06/26/20 04:52 [place] # (Auto) 0.45 K/uL (0.11-0.59) 06/26/20 04:52 Eos # (Auto) 0.10 K/uL (0-0.5) 06/26/20 04:52 Baso # (Auto) 0.02 K/uL (0-0.2) 06/26/20 04:52 Immature Gran # (Auto) 0.01 K/uL (0.00-0.02) 06/26/20 04:52 PT 17.5 Seconds (9.0-12.0) H 06/26/20 04:52 INR 1.7 (0.9-1.1) H 06/26/20 04:52 APTT 29.2 Seconds (21.0-31.0) 06/26/20 04:52 PTT Ratio 1.0 06/26/20 04:52 Sodium 136 mmol/L (136-145) 06/26/20 04:52 Potassium 3.5 mmol/L (3.5-5.1) 06/26/20 04:52 Chloride 96 mmol/L (98-107) L 06/26/20 04:52 Carbon Dioxide 36 mmol/L (21-32) H 06/26/20 04:52 Anion Gap 4.0 (3-11) 06/26/20 04:52 BUN 48 mg/dl (7-18) H 06/26/20 04:52 Creatinine 1.53 mg/dl (0.6-1.2) H 06/26/20 04:52 Est Cr Clr Drug Dosing 66.0 ml/min 06/26/20 04:52 Est GFR ( Amer) 39.3 06/26/20 04:52 Est GFR (Non-Af Amer) 33.9 06/26/20 04:52 BUN/Creatinine Ratio 31.4 (10-20) H 06/26/20 04:52 Glucose 223 mg/dl (70-99) H 06/26/20 04:52 Calcium 10.1 mg/dl (8.5-10.1) 06/26/20 04:52 Magnesium 2.2 mg/dl (1.8-2.4) 06/26/20 04:52 Total Bilirubin 0.3 mg/dl (0.2-1) 06/26/20 04:52 Direct Bilirubin < 0.1 mg/dl (0-0.2) 06/26/20 04:52 AST 10 U/L (15-37) L 06/26/20 04:52 ALT 27 U/L (12-78) 06/26/20 04:52 Alkaline Phosphatase 76 U/L (45-117) 06/26/20 04:52 Troponin I 0.019 ng/ml (0-0.045) 06/26/20 04:52 Total Protein 8.1 gm/dl (6.4-8.2) 06/26/20 04:52 Albumin 3.7 gm/dl (3.4-5.0) 06/26/20 04:52 Lipase 61 U/L (73-393) L 06/26/20 04:52 SARS-CoV-2 Ag (Rapid) Negative (Negative) 06/26/20 Unknown Code Status & VTE Plan Code Status Full code VTE Prophylaxis Plan VTE Prophylaxis will be ordered: Yes PG Care Time/CCT Total # of Minutes Spent Total Time Spent with Patient: Total time spent is greater than 50% in coordination of care (as documented) at patient's floor/unit and/or counseling patient: Coding Level of Care Code 84795 OBS Care - Level 3 Diagnoses Atypical chest pain R07.89 Chronic respiratory failure J96.10 Diabetes E11.9 VTE (venous thromboembolism) I82.90 Subtherapeutic international normalized ratio (INR) R79.1 SHERI (acute kidney injury) N17.9 Hypothyroidism E03.9 Morbid obesity with BMI of 60.0-69.9, adult E66.01; Z68.44 Inflammatory arthropathy M19.90 GERD (gastroesophageal reflux disease) K21.9 Hiatal hernia K44.9
--- NOTE | 2020-06-26 07:59 | XRay Report ---
XR chest 1V portable HISTORY: 69 years-old Female substernal chest pain acute atypical chest pain COMPARISON: Chest radiograph 06/20/2020 TECHNIQUE: Portable AP view of the chest FINDINGS: Cardiac silhouette is mildly enlarged. Mild interstitial coarsening is redemonstrated. No pneumothora x, pleural effusion or focal airspace consolidation. Degenerative changes of the shoulders and spine. IMPRESSION: Cardiomegaly with unchanged mild interstitial coarsening suggestive of pulmonary vascular congestion. Interstitial pneumonitis considered less likely. ACT 112: Negative or not required by law. The above report was generated using voice recognition software. It may contain grammatical, syntax o r spelling errors. Electronically signed by: Greg Coello M.D. 06/26/2020 7:58 AM
[2020-06-26] MEDS ORDERED: INSULIN GLARGINE 100 UNIT/ML VIAL SC ONE (08:15)
[2020-06-26] MEDS ORDERED: ONDANSETRON INJ 2 MG/ML 2 ML VIAL IV PRN (09:04)
[2020-06-26] MEDS ORDERED: GLUCOSE 10 TABS/TUBE PO PRN (09:04)
[2020-06-26] MEDS ORDERED: bisacodyL 5 MG TABEC PO PRN (09:04)
[2020-06-26] MEDS ORDERED: GLUCOSE 40% GEL 15 GM TUBE PO PRN (09:04)
[2020-06-26] MEDS ORDERED: CARBOHYDRATES FOR HYPOGLYCEMIA PO PRN (09:04)
[2020-06-26] MEDS ORDERED: DEXTROSE 50% 50 ML SYRINGE IV PRN (09:04)
[2020-06-26] MEDS ORDERED: INSULIN GLARGINE SOLOSTAR 100 UNITS/ML 3 ML PEN SQ SCH (09:04)
[2020-06-26] MEDS ORDERED: GLUCAGON FOR INJ 1 MG VIAL SQ PRN (09:04)
[2020-06-26] MEDS ORDERED: POLYETHYLENE (MIRALAX) 17 GM PACK PO PRN (09:04)
[2020-06-26] MEDS ORDERED: BUMETANIDE 1 MG TAB PO SCH ×2 (09:04→17:00)
[2020-06-26 09:54] LABS: Chol HDL Ratio 4; Cholesterol 181 mg/dl (0-200); HDL Cholesterol 44 mg/dl; LDL Cholesterol Calculated 103 mg/dl; Triglycerides 170 mg/dl (0-150); VLDL Cholesterol 34 mg/dl
[2020-06-26] MEDS ORDERED: MECLIZINE HCL 25 MG TAB PO PRN (10:05)
[2020-06-26] MEDS ORDERED: MUPIROCIN 2% OINT 22 GM TUBE EXT PRN (10:06)
[2020-06-26] MEDS ORDERED: PERFLUTREN LIPID MICROSPHERE (DEFINITY) IV ONE (10:16)
[2020-06-26] MEDS: FERROUS SULFATE 325 MG TAB PO SCH (11:16)
[2020-06-26] MEDS: PANTOprazole 40 MG TAB PO SCH (11:17)
[2020-06-26] MEDS: metOLazone 2.5 MG TABLET PO SCH (11:17)
[2020-06-26] MEDS: HYDROXYCHLOROQUINE SULFATE 200 MG TAB PO SCH (11:18)
[2020-06-26] MEDS: ASCORBIC ACID 500 MG TAB PO SCH ×2 (11:18→21:06)
[2020-06-26] MEDS: FLUTICASONE/VILANTEROL 100/25MCG 14 PUFFS/INHALER INH SCH (11:18)
[2020-06-26] MEDS: LEVOTHYROXINE SODIUM 50 MCG TABLET PO SCH (11:18)
[2020-06-26] MEDS: FLUTICASONE PROPIONATE NA SPR 16 GM BTL NAE SCH ×2 (11:19→21:04)
[2020-06-26] MEDS: INSULIN ASPART 100 UNITS/ML 3 ML PEN SC SCH ×5 (11:20→21:03)
[2020-06-26] MEDS: NYSTATIN POWDER 15GM BTL EXT SCH ×3 (11:21→21:37)
[2020-06-26 11:59] LABS: Estimated Average Glucose 192 mg/dl; Hemoglobin A1C 8.3 % (4.5-5.6)
--- NOTE | 2020-06-26 12:37 | XCELERA ---
[id number] \\[id number]
--- NOTE | 2020-06-26 13:15 | Hospitalist Progress Note ---
Date of Service June 26, 2020 Assessment & Plan (1) Atypical chest pain: Akila Hernandez is a 69-year-old female with a past medical history including chronic respiratory failure, lymphedema, inflammatory arthropathy, hypothyroidism, venous thromboembolism, diabetes mellitus, urinary tract i nfection, endometrial cancer, morbid obesity with BMI 71.7, abdominal pain, chronic shortness of breath and CHF who presented to the emergency department via ambulance with complaint of precordial chest pain that was relieved by aspirin 324 mg and 2 sublingual nitroglycerin administered by EMS prior to arrival. Atypical chest pain - Troponins 0.019-->0.019 - EKG not concerning for ACS - Echo: Normal LV systolic fxn, EF 60-65%, normal LV wall motion, mildly dilated left atrium, Grade II diastolic dysfxn consistent with elevated left atrial pressure - Aspirin 81 mg p.o. daily - continue metolazone - PO bumex switched to IV - Check daily BMP to monitor creatinine - Will consult cardiology to evaluate her needs as she has significant difficulties with outpatient f/u due to body habitus Diabetes - Patient was having elevated blood sugars into high 300s - Hemoglobin A1c today 8.3 - Pharmacy consulted for glycemic management Chronic respiratory failure - O2 sat satisfactory on her baseline of 4 L nasal cannula O2. - Continue duo nebs as needed. - Continue Brio Ellipta 1 inhalation every morning VTE (venous thromboembolism) - history of this on chronic Coumadin - INR mildly subtherapeutic at 1.7. - Continue current regimen - Check daily INR Subtherapeutic international normalized ratio (INR) - As above SHERI (acute kidney injury) - Creatinine 1.53, with range 1.18-1.50. - Follow serial BMP Hypothyroidism - Continue levothyroxine 50 mcg daily Inflammatory arthropathy - Continue hydroxychloroquine 10 mg daily for now. - Continue oxycodone extended release 10 mg PO every 12 hours, and oxycodone/acetaminophen 5/325 1 p.o. every 8 hours as needed breakthrough pain GERD (gastroesophageal reflux disease) - Continue pantoprazole 40 mg PO every morning Hiatal hernia - As above FEN/GI: DM2, Heart healthy DVT ppx: Coumadin Dispo: Med/surg tele Code: Full Code (2) Chronic respiratory failure: (3) Diabetes: (4) VTE (venous thromboembolism): (5) Subtherapeutic international normalized ratio (INR): (6) SHERI (acute kidney injury): (7) Hypothyroidism: (8) Morbid obesity with BMI of 60.0-69.9, adult: (9) Inflammatory arthropathy: (10) GERD (gastroesophageal reflux disease): (11) Hiatal hernia: Admission and Anticipated Discharge Date Admission Date: June 26, 2020 Supervising Physician Co-Signing Physician Notes Resident Physician Supervision Note: I was present with Dr. Rambo Palomino during the history and exam. I discussed the case with the resident and agree with the findings and plan as documented in the note. Any exceptions or clarifications are listed here: None Pt is morbidly obese, did have chest pain relieved by nitro but does have significant risk factors, she has significant peripheral swelling and likely has pulmonary htn and some cor pulmonale, will attempt to diurese and have a cardiology opinion but likely her morbid obesity dose limit some diagnostic abilities given she is > 450 lbs pt is with some tachypnea, cardiac young has distant hear tones will continue to collect enzymes and diurese Documented By: Elmer Youssef MD Subjective Patient seen at bedside. Reports no ongoing chest pain but does mention that she wants to see a lead software tester, as she meant to try to set up outptient care but has not gotten around to it. She is also worried because her blood sugars have been high but she did say that she has been taking prednisone of her own choice, not prescribed by a physician. She denies CP, palp, SOB, n/v, diarrhea, constipation. Review of Systems Review of Systems: All systems reviewed & are unremarkable except as noted in Subjective Physical Exam Constitutional: WD/WN, vitals as above no acute distress Respiratory: normal respiratory effort, lungs clear to auscultation Cardiovascular: RRR, no murmur, no edema Heart Sounds: normal S1 and normal S2 Gastrointestinal (Abdomen): normal bowel sounds, soft, nontender, no hepatosplenomegaly Psychiatric: A+Ox3, euthymic affect Results & Data Results & Data ([facility]) Vital Signs (Past 12 Hours) Vital Signs Temp Pulse Pulse Resp BP BP Pulse Ox 06/26/20 11: 36.4 C L 75 18 141/52 H 98 06/26/20 09:04 36.5 C 85 22 158/70 H 96 06/26/20 08:10 79 24 06/26/20 08:01 83 20 133/65 97 06/26/20 08:00 85 17 06/26/20 07:50 84 96 06/26/20 07:40 88 13 90 06/26/20 07:31 85 15 114/69 97 06/26/20 07:30 82 14 97 06/26/20 07:20 96 H 12 97 06/26/20 07:10 86 15 92 06/26/20 07:00 82 17 143/76 H 96 06/26/20 06:50 82 17 94 06/26/20 06:40 79 19 92 06/26/20 06:31 83 19 128/60 86 L 06/26/20 06:30 83 18 86 L 06/26/20 06:20 83 20 89 L 06/26/20 06:10 88 18 06/26/20 06:00 86 26 H 131/52 L 92 06/26/20 05:53 88 22 138/52 L 94 06/26/20 05:50 85 19 06/26/20 05:46 83 20 138/52 L 94 06/26/20 05:40 86 06/26/20 05:34 87 68/58 L 97 06/26/20 05:31 87 74/49 L 06/26/20 05:30 85 93 06/26/20 05:20 84 94 06/26/20 05:10 87 18 96 06/26/20 05:01 90 18 118/34 L 06/26/20 05:00 86 16 93 06/26/20 04:50 86 19 06/26/20 04:40 85 17 06/26/20 04:31 87 22 130/71 97 06/26/20 04:30 90 26 H 06/26/20 04:20 92 H 15 06/26/20 04:12 22 129/66 97 06/26/20 04:10 95 H 17 06/26/20 04:04 36.9 C 104 H 22 129/66 96 06/26/20 04:01 100 H 129/67 06/26/20 04:00 95 H 20 06/26/20 03:51 95 H 19 96 06/26/20 03:48 93 H 21 129/66 96 Resident Activity Tracking Resident Involvement: Resident Care Provided Care Provided: [facility]
[2020-06-26] MEDS: GABAPENTIN 600 MG TAB PO SCH ×3 (14:10→21:06)
[2020-06-26] MEDS: HEPARIN SOD 5,000 UNIT/0.5 ML VIAL SQ SCH ×2 (14:10→21:07)
[2020-06-26] MEDS ORDERED: PHARMACY GLYCEMIC MGMT CONSULT PRN (14:51)
--- NOTE | 2020-06-26 15:01 | Pharmacy Report ---
Pharmacy Glycemic Short Note 2 - Date of Service June 26, 2020 - Glycemic Short BSG Results (Last 24 hours): 06/26/20 06/26/20 06/26/20 04:52 08:24 10:33 Glucose 223 H POC Glucose 284 H 291 H 06/26/20 11:46 Glucose POC Glucose 290 H OUTPATIENT ANTIDIABETIC REGIMEN: * Lantus 70 units in AM + Lantus 30 units in PM * NovoLog per scale with meals - up to 60 units/day * A1c = 8.3% on 06/26/20 ASSESSMENT: * 69yo T2DM female with near adequate degree of outpatient control, goal A1c likely 7-8% based on age and co-morbidities * Pt utilizes large doses of insulin as an outpatient - total daily outpatient dose ~ 160 units/day. Typically patients do not require full outpatient dosing while admitted (without steroids, pressors, infection, etc) secondary to decreased PO intake with CHO consistent meals inhouse. However, BSGs are markedly elevated. Will continue outpatient dosing of basal insulin and titrate based on BSG trends. * Current bolus insulin parameters are too conservative based on outpatient dosing of 160 units/day. Will tighten CF/CR to be more c/w estimated total daily dose. PLAN FOR INPATIENT GLYCEMIC CONTROL: * Basal insulin * Lantus 70 units SQ daily in AM + 30 units SQ daily in PM * Bolus insulin * NovoLog per scale ACHS or Q6hrs while NPO * Goal Range: Low 110 mg/dL - High 140 mg/dL * Correction Factor: 10 mg/dL/unit * Nutritional / Prandial insulin per carb ratio of 1 unit per 3 grams CHO consumed
[2020-06-26] MEDS ORDERED: WARFARIN SOD 5 MG TAB PO ONE (16:00)
[2020-06-26] MEDS: BUMETANIDE 1 MG in SYRINGE 0 ML IV SCH (16:11)
[2020-06-26] MEDS ORDERED: SIMETHICONE 40 MG/0.6 ML 30ML PO PRN (16:46)
[2020-06-26] MEDS ORDERED: DICYCLOMINE HCL 10 MG CAP PO PRN (16:46)
[2020-06-26] MEDS: oxyCODONE/ACETAMINOPHEN 5mg/325mg TAB PO PRN (18:12)
[2020-06-26] MEDS: ACETAMINOPHEN 325 MG TAB PO PRN (19:51)
[2020-06-26] MEDS ORDERED: INSULIN GLARGINE 100 UNIT/ML VIAL SQ SCH (21:00)
[2020-06-26] MEDS: oxyCODONE HCL 10 MG TABCR (OxyCONTIN) PO SCH (21:14)
[2020-06-26] MEDS: ZOLPIDEM TARTRATE 10 MG TAB PO PRN (23:32)
[2020-06-27] MEDS: INSULIN ASPART 100 UNITS/ML 3 ML PEN SC SCH ×6 (00:13→21:43)
[2020-06-27 01:10] LABS: Basophils # (auto) 0.02 K/uL (0-0.2); Basophils % (auto) 0.3 %; Eosinophils # (auto) 0.18 K/uL (0-0.5); Eosinophils % (auto) 2.8 %; Hematocrit (blood only) 36.6 % (37-47); Hemoglobin 11.1 g/dL (12.0-16.0); Immature Granulocytes # (auto) 0.01 K/uL (0.00-0.02); Immature Granulocytes % (auto) 0.2 %; Lymphocytes # (auto) 2.63 K/uL (1.2-3.4); Lymphocytes % (auto) 41.2 %; Mean Corpuscular Hemoglobin 27.5 pg (25-34); Mean Corpuscular Hgb Conc 30.3 g/dL (32-36); Mean Corpuscular Volume 90.6 fL (80-100); Mean Platelet Volume 9.9 fL (7.4-10.4); Monocytes # (auto) 0.47 K/uL (0.11-0.59); Monocytes % (auto) 7.4 %; Neutrophils # (auto) 3.08 K/uL (1.4-6.5); Neutrophils % (auto) 48.1 %; Platelet Count 222 K/uL (130-400); RDW Coefficient of Variation 15.3 % (11.5-14.5); RDW Standard Deviation 50.8 fL (36.4-46.3); Red Blood Count 4.04 M/uL (4.2-5.4); White Blood Count 6.39 K/uL (4.8-10.8)
[2020-06-27 01:20] LABS: INR 1.6 (0.9-1.1); Partial Thromboplastin Ratio 1.1; Partial Thromboplastin Time 30.2 Seconds (21.0-31.0); Prothrombin Time 16.5 Seconds (9.0-12.0)
[2020-06-27 01:29] LABS: Albumin Level 3.4 gm/dl (3.4-5.0); BUN Creatinine Ratio 25.6 (10-20); Calcium 9.7 mg/dl (8.5-10.1); Creatinine Clr Calc Pharmacy 62.7 ml/min; Est GFR (African American) 36.9; Est GFR (Non-African American) 31.8; Magnesium 1.9 mg/dl (1.8-2.4); Potassium 3.3 mmol/L (3.5-5.1)
[2020-06-27 01:32] LABS: Albumin Globulin Ratio 0.9 (0.9-2); Bilirubin,Total 0.5 mg/dl (0.2-1); Total Protein 7.4 gm/dl (6.4-8.2)
[2020-06-27] MEDS: LEVOTHYROXINE SODIUM 50 MCG TABLET PO SCH (05:48)
[2020-06-27] MEDS: HEPARIN SOD 5,000 UNIT/0.5 ML VIAL SQ SCH ×3 (05:48→21:01)
[2020-06-27] MEDS: FERROUS SULFATE 325 MG TAB PO SCH (07:51)
[2020-06-27] MEDS: GABAPENTIN 600 MG TAB PO SCH ×3 (07:52→20:59)
[2020-06-27] MEDS: PANTOprazole 40 MG TAB PO SCH (07:52)
[2020-06-27] MEDS: ASCORBIC ACID 500 MG TAB PO SCH ×2 (07:52→21:00)
[2020-06-27] MEDS: metOLazone 2.5 MG TABLET PO SCH (07:53)
[2020-06-27] MEDS: HYDROXYCHLOROQUINE SULFATE 200 MG TAB PO SCH (07:53)
[2020-06-27] MEDS: BUMETANIDE 2 MG in SYRINGE 0 ML IV SCH (07:53)
[2020-06-27] MEDS: CHOLECALCIFEROL 1,000 UNITS 25 MCG TAB PO SCH (07:54)
[2020-06-27] MEDS: INSULIN GLARGINE 100 UNIT/ML VIAL SC SCH (07:55)
[2020-06-27] MEDS: FLUTICASONE PROPIONATE NA SPR 16 GM BTL NAE SCH ×2 (07:55→20:57)
[2020-06-27] MEDS: NYSTATIN POWDER 15GM BTL EXT SCH ×2 (07:56→20:58)
[2020-06-27] MEDS: FLUTICASONE/VILANTEROL 100/25MCG 14 PUFFS/INHALER INH SCH (07:57)
[2020-06-27] MEDS: oxyCODONE HCL 10 MG TABCR (OxyCONTIN) PO SCH ×2 (08:03→21:05)
[2020-06-27] MEDS ORDERED: INSULIN GLARGINE 100 UNIT/ML VIAL SC SCH (09:00)
[2020-06-27] MEDS: oxyCODONE/ACETAMINOPHEN 5mg/325mg TAB PO PRN ×2 (09:41→23:03)
--- NOTE | 2020-06-27 10:08 | Pharmacy Report ---
Pharmacy Glycemic Short Note 2 - Date of Service June 27, 2020 - Glycemic Short BSG Results (Last 24 hours): 06/26/20 06/26/20 06/26/20 10:33 11:46 15:53 Glucose POC Glucose 291 H 290 H 331 H* 06/26/20 06/26/20 06/26/20 15:55 16:04 20:16 Glucose POC Glucose 387 H* 332 H* 187 H 06/27/20 06/27/20 06/27/20 00:06 00:47 04:05 Glucose 208 H POC Glucose 223 H 231 H 06/27/20 07:45 Glucose POC Glucose 273 H OUTPATIENT ANTIDIABETIC REGIMEN: * Lantus 70 units in AM + Lantus 30 units in PM * NovoLog per scale with meals - up to 60 units/day * A1c = 8.3% on 06/26/20 ASSESSMENT: 06/27/20: * Pt has received 171 units of SQ insulin over the past 24hrs * 100 units of basal insulin with Lantus * 71 units of bolus insulin with NovoLog * [phone] mg/dl * BSGs markedly elevated on admission; per discussion with hospitalist taking prednisone of her own volition (not prescribed) for unclear causes. * Since admission, all BSGs well above goal range for inpatient targets. Both basal and prandial insulin needs increased. 07/26/20: * 69yo T2DM female with near adequate degree of outpatient control, goal A1c likely 7-8% based on age and co-morbidities * Pt utilizes large doses of insulin as an outpatient - total daily outpatient dose ~ 160 units/day. Typically patients do not require full outpatient dosing while admitted (without steroids, pressors, infection, etc) secondary to decreased PO intake with CHO consistent meals inhouse. However, BSGs are markedly elevated. Will continue outpatient dosing of basal insulin and titrate based on BSG trends. * Current bolus insulin parameters are too conservative based on outpatient dosing of 160 units/day. Will tighten CF/CR to be more c/w estimated total daily dose. PLAN FOR INPATIENT GLYCEMIC CONTROL: * Basal insulin: * increase Lantus 90 units SQ daily in AM + 40 units SQ daily in PM * Bolus insulin: tighten parameters * NovoLog per scale ACHS or Q6hrs while NPO * Goal Range: Low 110 mg/dL - High 140 mg/dL * Correction Factor: 8 mg/dL/unit * Nutritional / Prandial insulin per carb ratio of 1 unit per 2 grams CHO consumed
--- NOTE | 2020-06-27 13:08 | Hospitalist Progress Note ---
Date of Service June 27, 2020 Assessment & Plan (1) Atypical chest pain: Akila Hernandez is a 69-year-old female with a past medical history including chronic respiratory failure, lymphedema, inflammatory arthropathy, hypothyroidism, venous thromboembolism, diabetes mellitus, urinary tract i nfection, endometrial cancer, morbid obesity with BMI 71.7, abdominal pain, chronic shortness of breath and CHF who presented to the emergency department via ambulance with complaint of precordial chest pain that was relieved by aspirin 324 mg and 2 sublingual nitroglycerin administered by EMS prior to arrival. Atypical chest pain - Troponins 0.019-->0.019 - EKG not concerning for ACS - Echo: Normal LV systolic fxn, EF 60-65%, normal LV wall motion, mildly dilated left atrium, Grade II diastolic dysfxn consistent with elevated left atrial pressure - Aspirin 81 mg p.o. daily - continue metolazone - PO bumex switched to IV on 06/26 - Cr today at 1.63, down from 1.7--continue to monitor, will continue to diurese - Cardiology consult: - based on the duration and the description, lack of exertional onset, only partial response to nitroglycerin and lack of enzyme abnormalities with several hours of pain I do not think this is cardiac - stress testing would be very technically difficult and I do not think we can do a catheterization here even if we wanted to due to her weight. Weakness/ambulatory dysfunction - PT/OT consulted - Family expressed concern about skin breakdown due to patient urinating in bed at home as she has difficulty moving--wound care consulted - Pt willing to try inpatient rehab if recommended by PT/OT and covered by insurance - Follow recs Diabetes - Patient was having elevated blood sugars into high 300s - Hemoglobin A1c today 8.3 - Pharmacy consulted for glycemic management Chronic respiratory failure - O2 sat satisfactory on her baseline of 4 L nasal cannula O2. - Continue duo nebs as needed. - Continue Brio Ellipta 1 inhalation every morning VTE (venous thromboembolism) - history of this on chronic Coumadin - INR mildly subtherapeutic at 1.7. - Continue current regimen - Check daily INR Subtherapeutic international normalized ratio (INR) - As above SHERI (acute kidney injury) - Creatinine 1.53, with range 1.18-1.50. - Follow serial BMP Hypothyroidism - Continue levothyroxine 50 mcg daily Inflammatory arthropathy - Continue hydroxychloroquine 10 mg daily for now. - Continue oxycodone extended release 10 mg PO every 12 hours, and oxycodone/acetaminophen 5/325 1 p.o. every 8 hours as needed breakthrough pain GERD (gastroesophageal reflux disease) - Continue pantoprazole 40 mg PO every morning Hiatal hernia - As above FEN/GI: DM2, Heart healthy DVT ppx: Coumadin Dispo: Med/surg tele Code: Full Code (2) Chronic respiratory failure: (3) Diabetes: (4) VTE (venous thromboembolism): (5) Subtherapeutic international normalized ratio (INR): (6) SHERI (acute kidney injury): (7) Hypothyroidism: (8) Morbid obesity with BMI of 60.0-69.9, adult: (9) Inflammatory arthropathy: (10) GERD (gastroesophageal reflux disease): (11) Hiatal hernia: Admission and Anticipated Discharge Date Admission Date: June 26, 2020 Supervising Physician Co-Signing Physician Notes I personally examined the patient and verified all romero points of history and exam, discussed case, and agree with decision making with Dr Palomino. still awaiting cardiology input when i see her. willing to go to rehab if we can get it approved. brother in law notes concern on her laying in urine // high risk for skin breakdown vitals noted nad heent nc at mmm breathing unlabored no accessory muscles good effort skin no rashes no pallor or icterus - pelvic floor/buttocks not personally examined today due to positioning/etc chest pain - await cardiology input weakness/ambulatory dysfunction - PT/OT eval and treat. rehab would be idea if possible concern on skin breakdown - wound consult DM - insulin management as best she'll allow otherwise as above, DVT proph w heparin SQ, follow BMP w diuresis Subjective Patient feels overall better. Denies having chest pain. Said she was feeling slightly SOB when her sugars were elevated yesterday evening but resolved when bsg was better controlled. She expresses desire to work with PT/OT as she believes she should be able to ambulate more despite her weight. Discussed possibility of transfer to inpt rehab for ambulatory dysfunction and she said she would be willing if it is recommended. Denies fever chills, n/v, abd pain, CP, palpitations. Review of Systems Review of Systems: All systems reviewed & are unremarkable except as noted in Subjective Physical Exam Constitutional: WD/WN, vitals as above + morbidly obese; no acute distress Respiratory: normal respiratory effort, lungs clear to auscultation Cardiovascular: Rate/Rhythm: regular rate and regular rhythm Heart Sounds: normal S1 and normal S2; no gallop, no murmur and no cardiac rub Psychiatric: A+Ox3, euthymic affect Results & Data Results & Data ([facility]) Vital Signs (Past 12 Hours) Vital Signs Temp Pulse Pulse Resp BP Pulse Ox 06/27/20 12:12 36.5 C 76 18 140/62 92 06/27/20 07:35 36.9 C 68 20 178/65 H 97 06/27/20 07:22 69 06/27/20 03:49 36.8 C 74 20 141/64 H 93 Resident Activity Tracking Resident Involvement: Resident Care Provided Care Provided: Adult Hospital Medicine
--- NOTE | 2020-06-27 13:27 | Cardiology Consultation ---
Date of Consultation June 27, 2020 Assessment & Plan (1) Atypical chest pain: She has significant chest discomfort however based on the duration and the description, lack of exertional onset, only partial response to nitroglycerin and lack of enzyme abnormalities with several hours of pain I do not think this is cardiac. Any type of cardiac evaluation is going to be problematic and I would not pursue either stress testing or catheterization at this time. Is something objective indicating ischemia is identified we could consider it but stress testing would be very technically difficult and I do not think we can do a catheterization here even if we wanted to due to her weight. (2) Lymphedema: She does have massive edema in both legs, she feels that it is worse but I do not have any reference to tell. She feels that she has had some improvement with diuresis. This is going to be difficult to follow and I am not sure how much of it we can eliminate with diuresis. I do not believe this is indicative of right heart failure. (3) LAFB (left anterior fascicular block): She has left anterior fascicular block which is not new this admission, it is unlikely to be related to her presentation and I would not pursue it further. She has no clinical evidence or electrocardiographic evidence of advanced AV block. History of Present Illness Reason for Consultation: Chest pain Attending Physician: Rudy Gutiérrez DO History of Present Illness An electrocardiogram done several days ago in the emergency room on June 22, 2020 shows sinus rhythm with left anterior fascicular block but no acute abnormalities. Another electrocardiogram done this admission on June 26, 2020 shows sinus rhythm at 90 bpm with left anterior fascicular block, again without acute change. An echocardiogram done June 26, 2020 shows preserved left ventricular function, mild concentric left ventricular hypertrophy and no wall motion abnormalities. It was a technically limited study however. She describes quite severe substernal chest discomfort occurring at night at rest, associate with shortness of breath and lasting for several hours yesterday morning. She initially did not call rescue but when she did they tried subl ingual nitroglycerin which she thought might have helped a little bit but the discomfort was not relieved immediately by her recollection. She has had no further chest discomfort here, she has had similar type discomfort in the past although this episode might have been a little bit worse and little bit more prolonged. She does feel that she has gained fluid weight recently, and feels better with diuresis since admission. She also has intermittent palpitations but does not note a racing heartbeat and apparently has had premature beats identified in the past. She may have had palpitations around the time of the chest discomfort but no racing heartbeat. Allergies Allergy/AdvReac Type Severity Reaction Status Date / Time amoxicillin Allergy Severe Anaphylaxis Verified 06/26/20 04:43 Penicillins Allergy Severe Anaphylaxis Verified 06/26/20 04:43 WITH AMOXICILLIN latex Allergy Intermediate ITCHY, Verified 06/26/20 04:43 TIGHTENING OF THROAT meloxicam [From Mobic] Allergy Intermediate TIGHTENING Verified 06/26/20 04:43 OF THROAT Sulfa (Sulfonamide Allergy Intermediate Hives Verified 06/26/20 04:43 Antibiotics) tramadol Allergy Intermediate TIGHTENING Verified 06/26/20 04:43 OF THROAT shellfish derived Allergy Verified 06/28/20 14:24 codeine AdvReac Intermediate Nausea Verified 06/26/20 04:43 metformin AdvReac Intermediate Gastrointestinal Verified 06/26/20 04:43 Upset Home Medications Medication Instructions Recorded Confirmed Type Breo Ellipta 1 inh INHALATION QAM 01/30/20 06/26/20 History acetaminophen [Tylenol Extra 500 - 1,000 mg PO QID PRN 01/30/20 06/26/20 History Strength] albuterol sulfate 2 puff INHALATION Q6H PRN 01/30/20 06/26/20 History ascorbic acid (vitamin C) 500 mg PO BID 01/30/20 06/26/20 History cholecalciferol (vitamin D3) 50 mcg PO 3XWK 01/30/20 06/26/20 History dicyclomine 10 mg PO BID PRN 01/30/20 06/26/20 History diphenhydramine HCl 25 mg PO Q6H PRN 01/30/20 06/26/20 History fluticasone propionate 1 spray INTRANASAL BID 01/30/20 06/26/20 History ipratropium-albuterol 3 ml INHALATION BID PRN 01/30/20 06/26/20 History levothyroxine 50 mcg PO QAM 01/30/20 06/26/20 History meclizine 25 mg PO TID PRN 01/30/20 06/26/20 History metolazone 2.5 mg PO QAM 01/30/20 06/26/20 History mupirocin 1 applic TOPICAL TID PRN 01/30/20 06/26/20 History nystatin 1 applic TOPICAL BID 01/30/20 06/26/20 History oxycodone-acetaminophen 1 tab PO Q8H PRN 01/30/20 06/26/20 History pantoprazole [Protonix] 40 mg PO QAM 01/30/20 06/26/20 History warfarin 7.5 mg PO 5XWK 01/30/20 06/26/20 History zolpidem [Ambien] 10 mg PO HS PRN 01/30/20 06/26/20 History diclofenac sodium [Voltaren] 2 g EXT BID #100 gm 02/11/20 06/26/20 Rx Lantus Solostar U-100 Insulin 30 unit SUBCUT QPM 04/18/20 06/26/20 History Lantus Solostar U-100 Insulin 70 unit SUBCUT QAM 04/18/20 06/26/20 History Mucinex DM 1 tab PO Q12H PRN 04/18/20 06/26/20 History albuterol sulfate 2 inh INH QID PRN #1 g 04/18/20 06/26/20 Rx bisacodyl [Dulcolax (bisacodyl)] 5 mg PO HS PRN 04/18/20 06/26/20 History bumetanide See Rx Instructions .ROUTE .COMPLEX 04/18/20 06/26/20 History diphenhydramine-acetaminophen 1 - 2 tab PO HS PRN 04/18/20 06/26/20 History [Tylenol PM Extra Strength] ferrous sulfate [FerrouSul] 325 mg PO DAILY 04/18/20 06/26/20 History insulin aspart U-100 [Novolog 0 unit SUBCUT TIDM MDD 60 UNITS/DAY 04/18/20 06/26/20 History Flexpen U-100 Insulin] oxycodone [OxyContin] 10 mg PO Q12 04/18/20 06/26/20 History gabapentin 600 mg PO TID 05/09/20 06/26/20 History ondansetron HCl 8 mg PO BID PRN 05/09/20 06/26/20 History hydroxychloroquine [Plaquenil] 200 mg PO DAILY 06/22/20 06/26/20 History potassium chloride 40 meq PO BID #14 tab 07/02/20 Rx Patient History Medical History Ambulatory dysfunction Chronic respiratory failure 4L oxygen at home COPD (chronic obstructive pulmonary disease) Diabetes Endometrial cancer GERD (gastroesophageal reflux disease) Hiatal hernia Hypokalemia Hypothyroidism Inflammatory arthropathy Lymphedema Morbid obesity Urinary tract infection VTE (venous thromboembolism) Surgical History Hx of tonsillectomy Social History Smoking Status: Never smoker Second Hand Exposure: No; Hx Alcohol Use: Yes Hx Substance Use: No Preferred Language: Kazakh Communication Ability: Effective Graduate Advisor Required: No Beliefs That Will Affect Care: None marital status: Single Current Living Situation: Alone Feels Safe at Home: Yes Assistive Devices: Oxygen - Continuous and Walker Review of Systems Review of Systems: All systems reviewed & are unremarkable except as noted in HPI & below Physical Exam Physical Exam: Constitutional: Alert, cooperative and in no distress. She is morbidly obese. HEENT: Unremarkable Neck: No jugular venous distention, carotid pulses are normal and equal bilaterally without bruits. Pulmonary: Clear to auscultation bilaterally but diminished breath sounds th roughout. Cardiac: Regular rhythm with distant heart sounds and no murmur, gallop or rub. Abdomen: Soft, obese, nontender with normal bowel sounds. Extremities: Massive bilateral edema. Distal pulses were not identified. Neurologic: No focal findings. Gait was not tested. Skin: No rash, ecchymoses or petechiae. Results & Data ([facility]) Vital Signs (Past 12 Hours) Vital Signs Temp Pulse Pulse Resp BP Pulse Ox 06/27/20 12:12 36.5 C 76 18 140/62 92 06/27/20 07:35 36.9 C 68 20 178/65 H 97 06/27/20 07:22 69 06/27/20 03:49 36.8 C 74 20 141/64 H 93 Laboratory Results Cardiac Enzymes 06/26/20 06/27/20 06/27/20 Range/Units 16:53 00:47 00:47 AST 13 L (15-37) U/L Troponin I 0.021 0.020 (0-0.045) ng/ml Coagulation 06/27/20 Range/Units 00:47 PT 16.5 H (9.0-12.0) Seconds APTT 30.2 (21.0-31.0) Seconds CBC 06/27/20 Range/Units 00:47 WBC 6.39 (4.8-10.8) K/uL RBC 4.04 L (4.2-5.4) M/uL Hgb 11.1 L (12.0-16.0) g/dL Hct 36.6 L (37-47) % Plt Count 222 (130-400) K/uL Neut # (Auto) 3.08 (1.4-6.5) K/uL Lymph # (Auto) 2.63 (1.2-3.4) K/uL [place] # (Auto) 0.47 (0.11-0.59) K/uL Eos # (Auto) 0.18 (0-0.5) K/uL Baso # (Auto) 0.02 (0-0.2) K/uL Comprehensive Metabolic Panel 06/27/20 Range/Units 00:47 Sodium 136 (136-145) mmol/L Potassium 3.3 L (3.5-5.1) mmol/L Chloride 94 L (98-107) mmol/L Carbon Dioxide 38 H (21-32) mmol/L BUN 41 H (7-18) mg/dl Creatinine 1.61 H (0.6-1.2) mg/dl Glucose 208 H (70-99) mg/dl Calcium 9.7 (8.5-10.1) mg/dl AST 13 L (15-37) U/L ALT 26 (12-78) U/L Alkaline Phosphatase 70 (45-117) U/L Total Protein 7.4 (6.4-8.2) gm/dl Albumin 3.4 (3.4-5.0) gm/dl Intake and Output 06/26/20 06/27/20 06/27/20 22:59 06:59 14:59 Intake Total 500 / 1225 200 / 1225 Output Total 2550 / 5550 800 / 5550 Balance -2050 / -4325 -600 / -4325 Intake: Oral 500 / 1225 200 / 1225 Output: Urine Amount (Catheter) 2550 / 4750 800 / 4750 Powers/Indwelling 2550 / 475 800 / 4750 Diagnostic Findings Telemetry: Sinus rhythm, rate 60-70 PG Care Time/CCT Total # of Minutes Spent Total Time Spent with Patient: Total time spent is greater than 50% in coordination of care (as documented) at patient's floor/unit and/or counseling patient: Coding Level of Care Code 52412 Initial Inpt Care Lvl 3 Diagnoses Atypical chest pain R07.89 Lymphedema I89.0 LAFB (left anterior fascicular block) I44.4
[2020-06-27] MEDS: ACETAMINOPHEN 325 MG TAB PO PRN (14:33)
--- NOTE | 2020-06-27 16:19 | Billing Data ---
Date of Service June 27, 2020 Coding Level of Care Code 65157 Subseq Obs Care Lvl 3
[2020-06-27] MEDS: WARFARIN SOD 10 MG TAB PO SCH (16:20)
[2020-06-27] MEDS: BUMETANIDE 1 MG in SYRINGE 0 ML IV SCH (16:21)
[2020-06-27] MEDS ORDERED: INSULIN GLARGINE 100 UNIT/ML VIAL SQ SCH (21:00)
--- NOTE | 2020-06-27 21:55 | Electrocardiogram Report ---
Test Reason : Blood Pressure : / mmHG Vent. Rate : 090 BPM Atrial Rate : 090 BPM P-R Int : 188 ms QRS Dur : 126 ms QT Int : 386 ms P-R-T Axes : 040 -59 078 degrees QTc Int : 472 ms Normal sinus rhythm Left anterior fascicular block Left ventricular hypertrophy with QRS widening and repolarization abnormality Abnormal ECG When compared with ECG of 22-JUN-2020 03:43, No significant change Confirmed by Ryan Preston ([id number]) on 06/27/2020 9:55:10 PM Referred By: REFERRED SELF Confirmed By:Ryan Preston
[2020-06-27] MEDS: ZOLPIDEM TARTRATE 10 MG TAB PO PRN (22:56)
[2020-06-28] MEDS: HEPARIN SOD 5,000 UNIT/0.5 ML VIAL SQ SCH ×3 (05:03→20:40)
[2020-06-28] MEDS: ACETAMINOPHEN 325 MG TAB PO PRN (05:03)
[2020-06-28] MEDS: LEVOTHYROXINE SODIUM 50 MCG TABLET PO SCH (05:53)
--- NOTE | 2020-06-28 06:53 | Hospitalist Progress Note ---
Date of Service June 28, 2020 Assessment & Plan (1) Atypical chest pain: Akila Hernandez is a 69-year-old female with a past medical history including chronic respiratory failure, lymphedema, inflammatory arthropathy, hypothyroidism, venous thromboembolism, diabetes mellitus, urinary tract i nfection, endometrial cancer, morbid obesity with BMI 71.7, abdominal pain, chronic shortness of breath and CHF who presented to the emergency department via ambulance with complaint of precordial chest pain that was relieved by aspirin 324 mg and 2 sublingual nitroglycerin administered by EMS prior to arrival. Atypical chest pain - Troponins 0.019-->0.019 - EKG not concerning for ACS - Echo: Normal LV systolic fxn, EF 60-65%, normal LV wall motion, mildly dilated left atrium, Grade II diastolic dysfxn consistent with elevated left atrial pressure - Aspirin 81 mg p.o. daily - continue metolazone - PO bumex switched to IV on 06/26 - Cr today at 1.63, down from 1.7--continue to monitor, will continue to diurese - Cardiology consult: - based on the duration and the description, lack of exertional onset, only partial response to nitroglycerin and lack of enzyme abnormalities with several hours of pain I do not think this is cardiac - stress testing would be very technically difficult and I do not think we can do a catheterization here even if we wanted to due to her weight. Weakness/ambulatory dysfunction - PT/OT consulted - Family expressed concern about skin breakdown due to patient urinating in bed at home as she has difficulty moving--wound care consulted - Pt willing to try inpatient rehab if recommended by PT/OT and covered by insurance - Follow recs Diabetes - Patient was having elevated blood sugars into high 300s - Hemoglobin A1c today 8.3 - Pharmacy consulted for glycemic management Chronic respiratory failure - O2 sat satisfactory on her baseline of 4 L nasal cannula O2. - Continue duo nebs as needed. - Continue Brio Ellipta 1 inhalation every morning VTE (venous thromboembolism) - history of this on chronic Coumadin - INR mildly subtherapeutic at 1.7. - Continue current regimen - Check daily INR Subtherapeutic international normalized ratio (INR) - As above SHERI (acute kidney injury) - Creatinine 1.53, with range 1.18-1.50. - Follow serial BMP Hypothyroidism - Continue levothyroxine 50 mcg daily Inflammatory arthropathy - Continue hydroxychloroquine 10 mg daily for now. - Continue oxycodone extended release 10 mg PO every 12 hours, and oxycodone/acetaminophen 5/325 1 p.o. every 8 hours as needed breakthrough pain GERD (gastroesophageal reflux disease) - Continue pantoprazole 40 mg PO every morning Hiatal hernia - As above FEN/GI: DM2, Heart healthy DVT ppx: Coumadin Dispo: Med/surg tele Code: Full Code (2) Chronic respiratory failure: (3) Diabetes: (4) VTE (venous thromboembolism): (5) Subtherapeutic international normalized ratio (INR): (6) SHERI (acute kidney injury): (7) Hypothyroidism: (8) Morbid obesity with BMI of 60.0-69.9, adult: (9) Inflammatory arthropathy: (10) GERD (gastroesophageal reflux disease): (11) Hiatal hernia: Admission and Anticipated Discharge Date Admission Date: June 26, 2020 Review of Systems Review of Systems: All systems reviewed & are unremarkable except as noted in Subjective Physical Exam Constitutional: WD/WN, vitals as above no acute distress Respiratory: normal respiratory effort, lungs clear to auscultation Cardiovascular: RRR, no murmur, no edema Heart Sounds: normal S1 and normal S2 Gastrointestinal (Abdomen): normal bowel sounds, soft, nontender, no hepatosplenomegaly Psychiatric: A+Ox3, euthymic affect Results & Data Results & Data ([facility]) Vital Signs (Past 12 Hours) Vital Signs Temp Pulse Pulse Resp BP BP Pulse Ox 06/28/20 05:06 37 C 79 16 138/53 L 94 06/27/20 23:43 36.7 C 75 18 127/52 L 94 06/27/20 23:20 85 06/27/20 19:49 36.5 C 72 18 134/64 94
[2020-06-28] MEDS: GABAPENTIN 600 MG TAB PO SCH ×3 (07:57→20:39)
[2020-06-28] MEDS: BUMETANIDE 2 MG in SYRINGE 0 ML IV SCH (07:57)
[2020-06-28] MEDS: FERROUS SULFATE 325 MG TAB PO SCH (07:58)
[2020-06-28] MEDS: PANTOprazole 40 MG TAB PO SCH (07:58)
[2020-06-28] MEDS: metOLazone 2.5 MG TABLET PO SCH (07:58)
[2020-06-28] MEDS: HYDROXYCHLOROQUINE SULFATE 200 MG TAB PO SCH (07:58)
[2020-06-28] MEDS: FLUTICASONE/VILANTEROL 100/25MCG 14 PUFFS/INHALER INH SCH (07:59)
[2020-06-28] MEDS: FLUTICASONE PROPIONATE NA SPR 16 GM BTL NAE SCH ×2 (07:59→21:03)
[2020-06-28] MEDS: ASCORBIC ACID 500 MG TAB PO SCH ×2 (07:59→21:21)
[2020-06-28] MEDS: NYSTATIN POWDER 15GM BTL EXT SCH ×2 (08:00→21:02)
[2020-06-28] MEDS: INSULIN GLARGINE 100 UNIT/ML VIAL SC SCH (08:01)
[2020-06-28] MEDS: INSULIN ASPART 100 UNITS/ML 3 ML PEN SC SCH ×4 (08:02→20:56)
[2020-06-28] MEDS: oxyCODONE HCL 10 MG TABCR (OxyCONTIN) PO SCH ×2 (08:06→21:21)
--- NOTE | 2020-06-28 09:53 | Electrocardiogram Report ---
Test Reason : Blood Pressure : / mmHG Vent. Rate : 069 BPM Atrial Rate : 069 BPM P-R Int : 196 ms QRS Dur : 140 ms QT Int : 422 ms P-R-T Axes : 046 -55 054 degrees QTc Int : 452 ms Normal sinus rhythm Left axis deviation Left ventricular hypertrophy with QRS widening and repolarization abnormality Abnormal ECG When compared with ECG of 26-JUN-2020 03:56, No significant change was found Confirmed by Shalom Do ([id number] on 06/28/2020 9:53:35 AM Referred By: REFERRED SELF Confirmed By:Shalom Do
[2020-06-28 10:48] LABS: Basophils # (auto) 0.01 K/uL (0-0.2); Basophils % (auto) 0.2 %; Hematocrit (blood only) 40.5 % (37-47); Hemoglobin 12.3 g/dL (12.0-16.0); Immature Granulocytes # (auto) 0.01 K/uL (0.00-0.02); Immature Granulocytes % (auto) 0.2 %; Lymphocytes # (auto) 1.56 K/uL (1.2-3.4); Lymphocytes % (auto) 31.1 %; Mean Corpuscular Hemoglobin 27.3 pg (25-34); Mean Corpuscular Hgb Conc 30.4 g/dL (32-36); Monocytes # (auto) 0.44 K/uL (0.11-0.59); Monocytes % (auto) 8.8 %; Neutrophils % (auto) 57.7 %; Platelet Count 230 K/uL (130-400); RDW Coefficient of Variation 14.9 % (11.5-14.5); RDW Standard Deviation 48.8 fL (36.4-46.3); White Blood Count 5.02 K/uL (4.8-10.8)
[2020-06-28 10:59] LABS: INR 1.8 (0.9-1.1); Partial Thromboplastin Ratio 1.1; Partial Thromboplastin Time 30.3 Seconds (21.0-31.0); Prothrombin Time 18.3 Seconds (9.0-12.0)
[2020-06-28 11:25] LABS: Albumin Level 3.6 gm/dl (3.4-5.0); BUN Creatinine Ratio 27.1 (10-20); Calcium 9.5 mg/dl (8.5-10.1); Creatinine Clr Calc Pharmacy 68.9 ml/min; Est GFR (African American) 41.9; Est GFR (Non-African American) 36.1; Magnesium 1.8 mg/dl (1.8-2.4); Potassium 2.9 mmol/L (3.5-5.1)
[2020-06-28 11:28] LABS: Albumin Globulin Ratio 0.8 (0.9-2); Bilirubin,Total 0.5 mg/dl (0.2-1); Globulin 4.5 gm/dl (2.5-4.0); Total Protein 8.1 gm/dl (6.4-8.2)
[2020-06-28] MEDS: WARFARIN SOD 7.5 MG TAB PO SCH (15:22)
--- NOTE | 2020-06-28 15:22 | Pharmacy Report ---
Pharmacy Glycemic Short Note 2 - Date of Service June 28, 2020 - Glycemic Short BSG Results (Last 24 hours): 06/27/20 06/27/20 06/28/20 16:38 20:13 07:40 Glucose POC Glucose 150 H 188 H 276 H 06/28/20 06/28/20 10:24 11:34 Glucose 244 H POC Glucose 247 H OUTPATIENT ANTIDIABETIC REGIMEN: * Lantus 70 units in AM + Lantus 30 units in PM * NovoLog per scale with meals - up to 60 units/day * A1c = 8.3% on 06/26/20 ASSESSMENT: 06/28: * Patient received total of 258 units of insulin yesterday, of which 130 were basal insulin * Fasting elevated at 276 mg/dL - plan to increase basal dose tonight, tighten CR this AM PLAN FOR INPATIENT GLYCEMIC CONTROL: * Basal insulin: * increase Lantus 90 units SQ daily in AM + 50-60 units SQ daily in PM (based upon BSG value) * Bolus insulin: tighten parameters * NovoLog per scale ACHS or Q6hrs while NPO * Goal Range: Low 110 mg/dL - High 140 mg/dL * Correction Factor: 6 mg/dL/unit * Nutritional / Prandial insulin per carb ratio of 1 unit per 2 grams CHO consumed
[2020-06-28] MEDS: BUMETANIDE 1 MG in SYRINGE 0 ML IV SCH (17:35)
[2020-06-28] MEDS ORDERED: POTASSIUM CHLORIDE CRTAB 20 MEQ TABCR PO STA (18:36)
--- NOTE | 2020-06-28 18:36 | Hospitalist Progress Note ---
Date of Service June 28, 2020 Assessment & Plan (1) Atypical chest pain: noncardiac as best can be ascertained. enzymes negative, cardiology input appreciated (2) Chronic respiratory failure: home meds and O2, strongly suspect strengthening and weight loss would help tremendously (3) Diabetes: sugars erratic - pharmacy consulted, but frequently pt will dictate sugar control (4) VTE (venous thromboembolism): continue coumadin, follow (5) Subtherapeutic international normalized ratio (INR): INR slowly rising, follow, continue coumadin (6) SHERI (acute kidney injury): follow - fluctuating with diuresis (7) Hypothyroidism: Continue levothyroxine 50 mcg daily (8) Morbid obesity with BMI of 60.0-69.9, adult: (9) Inflammatory arthropathy: home meds, PT (10) GERD (gastroesophageal reflux disease): GERD/hiatal hernia- Continue pantoprazole 40 mg p.o. every morning (11) Hiatal hernia: See above (12) Venous stasis: diuresis, compression mobilization. follow renal function on diuresis replace hypokalemia Admission and Anticipated Discharge Date Admission Date: June 26, 2020 Subjective did better w PT. still would like to go to rehab if possible. perez in. discussed risks/benefits for urine management and risk of pelvic ulcer/sacral ulcer vs risk of UTI and/or bladder deconditioning. Review of Systems Review of Systems: All systems reviewed & are unremarkable except as noted in HPI & below Physical Exam Physical Exam: gen aao pleasant nad heent nc at mmm breathing unlabored no accessory muscles good effort perez in place draining clear yellow urine no focal neuro deficits Results & Data Results & Data ([facility]) Vital Signs (Past 12 Hours) Vital Signs Temp Pulse Pulse Resp BP Pulse Ox 06/28/20 16:00 73 06/28/20 15:59 97.7 F 78 18 136/57 L 92 06/28/20 11:46 97.5 F L 71 20 123/69 95 06/28/20 11:06 98 06/28/20 07:58 98.1 F 70 20 114/74 97 06/28/20 07:31 67 PG Care Time/CCT Total # of Minutes Spent Total Time Spent with Patient: Total time spent is greater than 50% in coordination of care (as documented) at patient's floor/unit and/or counseling patient: Coding Level of Care Code 38772 Subseq Hosp Care Lvl 3 Diagnoses Atypical chest pain R07.89 Chronic respiratory failure J96.10 Diabetes E11.9 VTE (venous thromboembolism) I82.90 Subtherapeutic international normalized ratio (INR) R79.1 SHERI (acute kidney injury) N17.9 Hypothyroidism E03.9 Morbid obesity with BMI of 60.0-69.9, adult E66.01; Z68.44 Inflammatory arthropathy M19.90 GERD (gastroesophageal reflux disease) K21.9 Hiatal hernia K44.9 Venous stasis I87.8
[2020-06-28] MEDS: ZOLPIDEM TARTRATE 10 MG TAB PO PRN (20:36)
[2020-06-28] MEDS: INSULIN GLARGINE 100 UNIT/ML VIAL SQ SCH (20:58)
[2020-06-28] MEDS: POTASSIUM CHLORIDE CRTAB 20 MEQ TABCR PO SCH (21:00)
[2020-06-28] MEDS: MAGNESIUM OXIDE 400 MG TAB PO SCH (21:02)
[2020-06-29] MEDS: INSULIN ASPART 100 UNITS/ML 3 ML PEN SC SCH ×6 (01:13→21:03)
[2020-06-29] MEDS ORDERED: DICLOFENAC SOD 1% GEL 100 GM TUBE EXT PRN (04:48)
[2020-06-29] MEDS: HEPARIN SOD 5,000 UNIT/0.5 ML VIAL SQ SCH ×3 (05:15→20:59)
[2020-06-29] MEDS: LEVOTHYROXINE SODIUM 50 MCG TABLET PO SCH (05:18)
[2020-06-29] MEDS: FLUTICASONE/VILANTEROL 100/25MCG 14 PUFFS/INHALER INH SCH (07:37)
[2020-06-29] MEDS: BUMETANIDE 2 MG in SYRINGE 0 ML IV SCH (07:38)
[2020-06-29] MEDS: FERROUS SULFATE 325 MG TAB PO SCH (07:38)
[2020-06-29] MEDS: POTASSIUM CHLORIDE CRTAB 20 MEQ TABCR PO SCH (07:39)
[2020-06-29] MEDS: FLUTICASONE PROPIONATE NA SPR 16 GM BTL NAE SCH ×2 (07:39→20:57)
[2020-06-29] MEDS: LIDOCAINE 5% 1 PATCH TD SCH (07:40)
[2020-06-29] MEDS: MAGNESIUM OXIDE 400 MG TAB PO SCH ×2 (07:41→21:20)
[2020-06-29] MEDS: GABAPENTIN 600 MG TAB PO SCH ×3 (07:42→21:16)
[2020-06-29] MEDS: PANTOprazole 40 MG TAB PO SCH (07:43)
[2020-06-29] MEDS: ASCORBIC ACID 500 MG TAB PO SCH ×2 (07:43→21:15)
[2020-06-29] MEDS: metOLazone 2.5 MG TABLET PO SCH (07:43)
[2020-06-29] MEDS: HYDROXYCHLOROQUINE SULFATE 200 MG TAB PO SCH (07:43)
[2020-06-29] MEDS: oxyCODONE HCL 10 MG TABCR (OxyCONTIN) PO SCH ×2 (07:47→20:56)
[2020-06-29 07:56] LABS: Prothrombin Time 19.9 Seconds (9.0-12.0)
[2020-06-29 08:25] LABS: BUN Creatinine Ratio 31.1 (10-20); Calcium 10.3 mg/dl (8.5-10.1); Creatinine Clr Calc Pharmacy 72.4 ml/min; Est GFR (African American) 44.5; Est GFR (Non-African American) 38.4; Potassium 3.2 mmol/L (3.5-5.1)
[2020-06-29] MEDS: INSULIN GLARGINE 100 UNIT/ML VIAL SC SCH (09:14)
[2020-06-29] MEDS: NYSTATIN POWDER 15GM BTL EXT SCH ×2 (09:53→21:15)
--- NOTE | 2020-06-29 10:20 | Pharmacy Report ---
Pharmacy Glycemic Short Note 2 - Date of Service June 29, 2020 - Glycemic Short BSG Results (Last 24 hours): 06/28/20 06/28/20 06/28/20 10:24 11:34 16:31 Glucose 244 H POC Glucose 247 H 182 H 06/28/20 06/29/20 06/29/20 19:57 00:17 04:04 Glucose POC Glucose 249 H 187 H 196 H 06/29/20 06/29/20 06:56 08:14 Glucose 211 H POC Glucose 266 H OUTPATIENT ANTIDIABETIC REGIMEN: * Lantus 70 units in AM + Lantus 30 units in PM * NovoLog per scale with meals - up to 60 units/day * A1c = 8.3% on 06/26/20 ASSESSMENT: 06/29: * Patient received total of 299 units of insulin yesterday, of which 150 were basal insulin (increase from previous day) * Fasting BSG still elevated ~211 mg/dL - improving / titrate basal more today * BSGs still >200 throughout the day - tightened CF/CR further today to 5/1.5 06/28: * Patient received total of 258 units of insulin yesterday, of which 130 were basal insulin * Fasting elevated at 276 mg/dL - plan to increase basal dose tonight, tighten CR this AM PLAN FOR INPATIENT GLYCEMIC CONTROL: * Basal insulin: * increase Lantus 90 units SQ daily in AM + 60-70 units SQ daily in PM (based upon BSG value) * Bolus insulin: tighten parameters * NovoLog per scale ACHS or Q6hrs while NPO * Goal Range: Low 110 mg/dL - High 140 mg/dL * Correction Factor: 5 mg/dL/unit * Nutritional / Prandial insulin per carb ratio of 1 unit per 1.5 grams CHO consumed
[2020-06-29] MEDS ORDERED: POTASSIUM CHLORIDE 20 MEQ/15 ML UDC PO STA (10:53)
[2020-06-29] MEDS ORDERED: INSULIN GLARGINE 100 UNIT/ML VIAL SC ONE (11:45)
--- NOTE | 2020-06-29 13:14 | Hospitalist Progress Note ---
Date of Service June 29, 2020 Assessment & Plan (1) Atypical chest pain: Akila Hernandez is a 69-year-old female with a past medical history including chronic respiratory failure, lymphedema, inflammatory arthropathy, hypothyroidism, venous thromboembolism, diabetes mellitus, urinary tract i nfection, endometrial cancer, morbid obesity with BMI 71.7, abdominal pain, chronic shortness of breath and CHF who presented to the emergency department via ambulance with complaint of precordial chest pain that was relieved by aspirin 324 mg and 2 sublingual nitroglycerin administered by EMS prior to arrival. Atypical chest pain - Troponins 0.019-->0.019 - EKG not concerning for ACS - Echo: Normal LV systolic fxn, EF 60-65%, normal LV wall motion, mildly dilated left atrium, Grade II diastolic dysfxn consistent with elevated left atrial pressure - Aspirin 81 mg p.o. daily - continue metolazone - PO bumex switched to IV on 06/26 - Cr today at 1.38--continue to monitor - has been trending down despite diuresis--continue IV bumex - Cardiology consult: - based on the duration and the description, lack of exertional onset, only partial response to nitroglycerin and lack of enzyme abnormalities with several hours of pain I do not think this is cardiac - stress testing would be very technically difficult and I do not think we can do a catheterization here even if we wanted to due to her weight. Weakness/ambulatory dysfunction - PT/OT consulted - Family expressed concern about skin breakdown due to patient urinating in bed at home as she has difficulty moving--wound care consulted - Pt willing to try inpatient rehab if recommended by PT/OT and covered by insurance - PT/OT recommend SNF placement--patient willing to consider options that Case Management may come up with Diabetes - Patient was having elevated blood sugars into high 300s - Hemoglobin A1c today 8.3 - Pharmacy consulted for glycemic management Chronic respiratory failure - O2 sat satisfactory on her baseline of 4 L nasal cannula O2. - Continue duo nebs as needed. - Continue Brio Ellipta 1 inhalation every morning VTE (venous thromboembolism) - history of this on chronic Coumadin - INR mildly subtherapeutic at 1.7. - Continue current regimen - Check daily INR Subtherapeutic international normalized ratio (INR) - As above SHERI (acute kidney injury) - Creatinine 1.38 with range 1.18-1.50. - Follow serial BMP Hypothyroidism - Continue levothyroxine 50 mcg daily Inflammatory arthropathy - Continue hydroxychloroquine 10 mg daily for now. - Continue oxycodone extended release 10 mg PO every 12 hours, and oxycodone/acetaminophen 5/325 1 p.o. every 8 hours as needed breakthrough pain GERD (gastroesophageal reflux disease) - Continue pantoprazole 40 mg PO every morning Hiatal hernia - As above FEN/GI: DM2, Heart healthy DVT ppx: Coumadin Dispo: Med/surg Code: Full Code (2) Chronic respiratory failure: (3) Diabetes: (4) VTE (venous thromboembolism): (5) Subtherapeutic international normalized ratio (INR): (6) SHERI (acute kidney injury): (7) Hypothyroidism: (8) Morbid obesity with BMI of 60.0-69.9, adult: (9) Inflammatory arthropathy: (10) GERD (gastroesophageal reflux disease): (11) Hiatal hernia: Admission and Anticipated Discharge Date Admission Date: June 28, 2020 Supervising Physician Co-Signing Physician Notes I personally examined the patient and verified all romero points of history and exam, discussed case, and agree with decision making with Dr Palomino no new complaints. happy w diuresis. somewhat distraught about dispo options - but after extensive discussions agrees to at least looking into snf as subacute rehab options. wants to keep perez in for now but understsands risks get larger then longer it is in. vitals noted nad heent nc at mmm breathing unlabored no accessory muscles good effort skin no rashes no pallor or icterus neuro no focal deficits chest pain - resolved. dyspnea - seems to have resolved. no chf, strongly suspect OHS/deconditioning mediated. follow edema - venous stasis. fortunately/suprisingly diuresis has helped move a lot of fluid and thus far no serious adverse climb in creatinine - continue for now. follow BMP closely. encouraged ambulation. compression as she tolerates deconditioning/weakness/morbid obesity w BMI 70.7 - appears to be the biggest driving factor in her current situation. explained yesterday and today in very alvaro detail that she really cannot afford to let herself get any weaker - that by not working as much as she can to improve her situation, if she were to get weaker still, she basically will be putting herself into an irreparably weak state and essentially choosing a palliative/hospice type course even if she doesn't actively want that as her plan. further discussed that with how she fixates on getting the right equipment for home, she runs the risk of believing that the right bed or the right walker will fix her situation - and risking essentially giving up if she is not able to get the right equipment -- discussed that these types of aides are helpful but that they will not make her stronger - only working as hard as she can and trying to make progress will favorably improve her situation. hypokalemia - continue to replete, replete mag metabolic alkalosis -contraction from diuresis acutely and compensation for hypoventilation chronic most likely causes. follow. dispo - fortunately is willing to consider subacute rehab options - was plainly blunt with patient that she has not done well at home and going home to the same situation is unlikely to improve her status. otherwise as above Subjective No acute events overnight. Patient doing overall well. Worried about options for inpatient rehab. When told OT recommended SNF she was not very agreeable. However upon discussion with attending she does agree to consider options once Case Management has clearer picture of what those are. Denies CP, palp, SOB, n/v, abd pain, diarrhea, constipation. Review of Systems Review of Systems: All systems reviewed & are unremarkable except as noted in Subjective Physical Exam Constitutional: WD/WN, vitals as above + morbidly obese; no acute distress Respiratory: normal respiratory effort, lungs clear to auscultation Cardiovascular: Rate/Rhythm: regular rate and regular rhythm Heart Sounds: no gallop, no murmur and no cardiac rub Gastrointestinal (Abdomen): normal bowel sounds, soft, nontender, no hepatosplenomegaly Psychiatric: A+Ox3, euthymic affect Results & Data Results & Data ([facility]) Vital Signs (Past 12 Hours) Vital Signs Pulse Pulse Resp BP 06/29/20 08:27 76 16 134/61 06/29/20 07:30 68 Resident Activity Tracking Resident Involvement: Resident Care Provided Care Provided: Adult Hospital Medicine
[2020-06-29] MEDS: POTASSIUM 10 MEQ PO SCH ×2 (14:35→21:18)
--- NOTE | 2020-06-29 15:53 | Billing Data ---
Date of Service June 29, 2020 Coding Level of Care Code 80827 Subseq Hosp Care Lvl 3
[2020-06-29] MEDS: WARFARIN SOD 7.5 MG TAB PO SCH (16:38)
[2020-06-29] MEDS: BUMETANIDE 1 MG in SYRINGE 0 ML IV SCH (16:38)
[2020-06-29] MEDS: oxyCODONE/ACETAMINOPHEN 5mg/325mg TAB PO PRN (19:26)
[2020-06-29] MEDS: INSULIN GLARGINE 100 UNIT/ML VIAL SQ SCH (20:58)
[2020-06-29] MEDS: ZOLPIDEM TARTRATE 10 MG TAB PO PRN (21:04)
[2020-06-30] MEDS: INSULIN ASPART 100 UNITS/ML 3 ML PEN SC SCH ×6 (00:57→22:21)
[2020-06-30] MEDS: LEVOTHYROXINE SODIUM 50 MCG TABLET PO SCH (05:22)
[2020-06-30] MEDS: HEPARIN SOD 5,000 UNIT/0.5 ML VIAL SQ SCH ×3 (05:22→22:18)
[2020-06-30] MEDS: ACETAMINOPHEN 325 MG TAB PO PRN (08:36)
[2020-06-30] MEDS: oxyCODONE HCL 10 MG TABCR (OxyCONTIN) PO SCH ×2 (08:36→22:35)
[2020-06-30 08:37] LABS: BUN Creatinine Ratio 29.9 (10-20); Calcium 10.2 mg/dl (8.5-10.1); Creatinine Clr Calc Pharmacy 67.2 ml/min; Est GFR (African American) 40.9; Est GFR (Non-African American) 35.3
[2020-06-30] MEDS: FLUTICASONE/VILANTEROL 100/25MCG 14 PUFFS/INHALER INH SCH (08:39)
[2020-06-30] MEDS: HYDROXYCHLOROQUINE SULFATE 200 MG TAB PO SCH (08:40)
[2020-06-30] MEDS: ASCORBIC ACID 500 MG TAB PO SCH ×2 (08:40→22:18)
[2020-06-30] MEDS: GABAPENTIN 600 MG TAB PO SCH ×3 (08:40→22:13)
[2020-06-30] MEDS: FERROUS SULFATE 325 MG TAB PO SCH (08:40)
[2020-06-30] MEDS: MAGNESIUM OXIDE 400 MG TAB PO SCH ×2 (08:40→22:14)
[2020-06-30] MEDS: BUMETANIDE 2 MG in SYRINGE 0 ML IV SCH (08:40)
[2020-06-30] MEDS: INSULIN GLARGINE 100 UNIT/ML VIAL SC SCH (08:41)
[2020-06-30] MEDS: metOLazone 2.5 MG TABLET PO SCH (08:41)
[2020-06-30] MEDS: CHOLECALCIFEROL 1,000 UNITS 25 MCG TAB PO SCH (08:41)
[2020-06-30] MEDS: PANTOprazole 40 MG TAB PO SCH (08:42)
[2020-06-30] MEDS: NYSTATIN POWDER 15GM BTL EXT SCH ×2 (08:44→22:15)
[2020-06-30] MEDS: POTASSIUM 10 MEQ PO SCH ×3 (08:44→22:15)
[2020-06-30] MEDS: LIDOCAINE 5% 1 PATCH TD SCH (08:46)
[2020-06-30] MEDS ORDERED: POTASSIUM CHLORIDE CRTAB 20 MEQ TABCR PO STA (08:47)
[2020-06-30] MEDS: FLUTICASONE PROPIONATE NA SPR 16 GM BTL NAE SCH ×2 (08:49→22:07)
--- NOTE | 2020-06-30 13:42 | Pharmacy Report ---
Pharmacy Glycemic Short Note 2 - Date of Service June 30, 2020 - Glycemic Short BSG Results (Last 24 hours): 06/29/20 06/29/20 06/29/20 14:33 17:02 20:24 Glucose POC Glucose 282 H 169 H 227 H 06/30/20 06/30/20 06/30/20 00:03 04:33 07:36 Glucose POC Glucose 194 H 124 H 184 H 06/30/20 06/30/20 07:44 11:34 Glucose 165 H POC Glucose 214 H OUTPATIENT ANTIDIABETIC REGIMEN: * Lantus 70 units in AM + Lantus 30 units in PM * NovoLog per scale with meals - up to 60 units/day * A1c = 8.3% on 06/26/20 ASSESSMENT: 06/30: * BSGs yesterday of 266, 317, 261, 169, 227, and 194 mg/dL * Patient has significant insulin needs and received 394 units of insulin * 170 units of basal * 224 units of prandial/correctional insulin * If BSGs remain uncontrolled today - will tighten Novolog parameters further 06/29: * Patient received total of 299 units of insulin yesterday, of which 150 were basal insulin (increase from previous day) * Fasting BSG still elevated ~211 mg/dL - improving / titrate basal more today * BSGs still >200 throughout the day - tightened CF/CR further today to 5/1.5 06/28: * Patient received total of 258 units of insulin yesterday, of which 130 were basal insulin * Fasting elevated at 276 mg/dL - plan to increase basal dose tonight, tighten CR this AM PLAN FOR INPATIENT GLYCEMIC CONTROL: * Basal insulin: * Lantus 100 units SC qAM * Lantus scale HS to provide 50-70 units based on BSG (see EHR for details) * Bolus insulin: tighten CF slightly * NovoLog per scale ACHS or Q6hrs while NPO * Goal Range: Low 110 mg/dL - High 140 mg/dL * Correction Factor: 4.5 mg/dL/unit * Nutritional / Prandial insulin per carb ratio of 1 unit per 1.5 grams CHO consumed
[2020-06-30] MEDS: WARFARIN SOD 7.5 MG TAB PO SCH (16:01)
--- NOTE | 2020-06-30 17:09 | Hospitalist Progress Note ---
Date of Service June 30, 2020 Assessment & Plan (1) Atypical chest pain: Akila Hernandez is a 69-year-old female with a past medical history including chronic respiratory failure, lymphedema, inflammatory arthropathy, hypothyroidism, venous thromboembolism, diabetes mellitus, urinary tract i nfection, endometrial cancer, morbid obesity with BMI 71.7, abdominal pain, chronic shortness of breath and CHF who presented to the emergency department via ambulance with complaint of precordial chest pain that was relieved by aspirin 324 mg and 2 sublingual nitroglycerin administered by EMS prior to arrival. Atypical chest pain (RESOLVED) - Troponins 0.019-->0.019 - EKG not concerning for ACS - Echo: Normal LV systolic fxn, EF 60-65%, normal LV wall motion, mildly dilated left atrium, Grade II diastolic dysfxn consistent with elevated left atrial pressure - Aspirin 81 mg p.o. daily - continue metolazone - PO bumex switched to IV on 06/26 - Cr today at 1.48--continue to monitor - has been stable/ trending down despite diuresis--continue IV bumex - Cardiology consult: - based on the duration and the description, lack of exertional onset, only partial response to nitroglycerin and lack of enzyme abnormalities with several hours of pain I do not think this is cardiac - stress testing would be very technically difficult and I do not think we can do a catheterization here even if we wanted to due to her weight. - Both admission complaints of chest pain and dyspnea have resolved - will continue to monitor Edema - Likely component of venous stasis - Diuresis has reportedly helped to move a lot of the fluid - Will continue with diuresis and will continue to monitor BMP closely - Patient requesting compression stockings -- patient likely will need custom compression stockings for lymphedema Hypokalemia - Potassium today 3.0 --> will continue to replete - Monitor BMP closely Skin Tag - Complaining of skin tag on left mid abdomen that is irritated by clothing and touch - She is requesting removal of this skin tag - Discussed risks/benefits and options with patient - she elects for removal in hospital - Will plan for skin tag excision tomorrow Weakness/ambulatory dysfunction - PT/OT consulted - Family expressed concern about skin breakdown due to patient urinating in bed at home as she has difficulty moving--wound care consulted - Pt willing to try inpatient rehab if recommended by PT/OT and covered by insurance - PT/OT recommend SNF placement--patient willing to consider options that Case Management may come up with Diabetes - Patient was having elevated blood sugars into high 300s - Hemoglobin A1c today 8.3 - Pharmacy consulted for glycemic management Chronic respiratory failure - O2 sat satisfactory on her baseline of 4 L nasal cannula O2. - Continue duo nebs as needed. - Continue Brio Ellipta 1 inhalation every morning VTE (venous thromboembolism) - history of this on chronic Coumadin - INR mildly subtherapeutic at 1.7. - Continue current regimen - Check daily INR Subtherapeutic international normalized ratio (INR) - As above SHERI (acute kidney injury) - Creatinine 1.38 with range 1.18-1.50. - Perez catheter in place --> will plan to d/c perez cath morning of discharge w/ void challenge prior to d/c - Follow serial BMP Hypothyroidism - Continue levothyroxine 50 mcg daily Inflammatory arthropathy - Continue hydroxychloroquine 10 mg daily for now. - Continue oxycodone extended release 10 mg PO every 12 hours, and oxycodone/acetaminophen 5/325 1 p.o. every 8 hours as needed breakthrough pain GERD (gastroesophageal reflux disease) - Continue pantoprazole 40 mg PO every morning Hiatal hernia - As above FEN/GI: DM2, Heart healthy DVT ppx: Coumadin Dispo: Med/surg Code: Full Code (2) Chronic respiratory failure: (3) Diabetes: (4) VTE (venous thromboembolism): (5) Subtherapeutic international normalized ratio (INR): (6) SHERI (acute kidney injury): (7) Hypothyroidism: (8) Morbid obesity with BMI of 60.0-69.9, adult: (9) Inflammatory arthropathy: (10) GERD (gastroesophageal reflux disease): (11) Hiatal hernia: Admission and Anticipated Discharge Date Admission Date: June 28, 2020 Supervising Physician Co-Signing Physician Notes Patient seen and examined with PGY-1 Dr. Coronel. Agree with history, exam findings, assessment and plan as outlined. In brief, April is a 69 year old female with history of lymphedema, hypothyroid, VTE, DM and morbid obesity (BMI 71) admitted with chest pain. Denies any chest pain today. No change in breathing. She would like to go home. Is worried about the insurance not approving [facility] stay. Wants to keep Perez due to difficulty with urination with diuresis. She has a skin tag on the left abdomen that it irritated and getting caught on things. She wants to get it removed. VS and nursing notes reviewed. Exam per Dr. Coronel. Labs and imaging reviewed. 1. Atypical chest pain. Trop is stable. Echo with preserved EF and normal wall motion. Grade 2 diastolic dysfunction and elevated LA pressure. Continue with ASA, metolazone, bumex. Unable to do stress and cath due to weight/body habitus. 2. Weakness, deconditioning, ambulatory dysfunction. PT/OT. SNF recommended, but none with bariatric rooms. Awaiting approval from insurance for [facility]. She has already not done well at home and really cannot get the type of rehab she needs through home services. She is at high risk of further decompensating in terms of physical abilities and strength if she returns to the same home situation even with aides and assistive equipment. 3. DM. A1C 8.3. Glycemic management consult. 4. Chronic respiratory failure. At baseline 4L O2. 5. History of VTE. INR 2. Will adjust as indicated. 6. SHERI. Cr is stable despite diuresis. Dispo: Discharge home tomorrow. If she is not able to approved for [facility], then we will discharge her home with home care. Subjective Akila Hernandez (Judy) is a 69 yo female who was seen and examined at bedside this afternoon. She reports no acute events overnight. Patient states that she is overall doing much better and she is ready for d/c from the hospital. She does note that she is still agreeable to inpatient rehab if the insurance will authorize a stay at [facility], but she wants this process to happen soon because she wants discharge tomorrow. Specifically, she is worried about getting out of here to go to an ophthalmology appointment on . Patient has no new concerns today. She denies abdominal pain, nausea, vomiting, decreased appetite, fever, chills, SOB, cough, or CP. Review of Systems Constitutional: no fever, no chills and no fatigue Respiratory: no cough and no dyspnea Cardiovascular: no chest pain Gastrointestinal: no abdominal pain, no nausea and no vomiting Musculoskeletal: + swelling (generalized) Physical Exam Physical Exam: GENERAL: No acute distress. Morbidly obese female, sitting in bed. EYES: EOMI. Anicteric sclerae. HENT: Moist mucous membranes. RESPIRATORY: Clear to auscultation bilaterally. No wheezing, rales, or rhonchi. CARDIOVASCULAR: Distant heart sounds but regular rate and rhythm. ABDOMEN: Soft, obese abdomen, non-tender. Normal bowel sounds. : Perez catheter in place, draining clear yellow urine. EXTREMITIES: Diffuse edema. Non-tender. SKIN: Complaints of irritated skin tag on left mid abdomen. No surrounding erythema or tenderness. NEUROLOGIC: No focal neurological deficits. PSYCHIATRIC: Cooperative. Appropriate mood and affect. Results & Data Results & Data ([facility]) Vital Signs (Past 12 Hours) Vital Signs Temp Pulse Resp BP Pulse Ox 06/30/20 15:44 37.1 C 80 21 139/57 L 95 06/30/20 11:56 36.7 C 79 20 133/65 94 06/30/20 07:58 36.5 C 72 18 177/62 H 92 Resident Activity Tracking Resident Involvement: Resident Care Provided Care Provided: Adult Hospital Medicine
[2020-06-30] MEDS: BUMETANIDE 1 MG in SYRINGE 0 ML IV SCH (17:15)
[2020-06-30] MEDS: INSULIN GLARGINE 100 UNIT/ML VIAL SQ SCH (22:08)
[2020-06-30] MEDS: ZOLPIDEM TARTRATE 10 MG TAB PO PRN (22:35)
[2020-07-01] MEDS: LEVOTHYROXINE SODIUM 50 MCG TABLET PO SCH (05:47)
[2020-07-01] MEDS: HEPARIN SOD 5,000 UNIT/0.5 ML VIAL SQ SCH ×2 (05:50→14:51)
[2020-07-01] MEDS: ACETAMINOPHEN 325 MG TAB PO PRN (05:51)
[2020-07-01] MEDS ORDERED: LIDOCAINE/PRILOCAINE 2.5% EA CRM EXT SCH (08:00)
[2020-07-01] MEDS ORDERED: SILVER NITR/POTASSIUM NITRATE APPLICATOR EXT SCH (08:00)
[2020-07-01 08:02] LABS: Basophils # (auto) 0.02 K/uL (0-0.2); Basophils % (auto) 0.3 %; Eosinophils # (auto) 0.11 K/uL (0-0.5); Eosinophils % (auto) 1.7 %; Hematocrit (blood only) 36.4 % (37-47); Hemoglobin 11.2 g/dL (12.0-16.0); Immature Granulocytes # (auto) 0.04 K/uL (0.00-0.02); Immature Granulocytes % (auto) 0.6 %; Lymphocytes # (auto) 2.52 K/uL (1.2-3.4); Lymphocytes % (auto) 38.7 %; Mean Corpuscular Hemoglobin 27.6 pg (25-34); Mean Corpuscular Hgb Conc 30.8 g/dL (32-36); Mean Corpuscular Volume 89.7 fL (80-100); Mean Platelet Volume 9.8 fL (7.4-10.4); Monocytes # (auto) 0.44 K/uL (0.11-0.59); Monocytes % (auto) 6.7 %; Neutrophils # (auto) 3.39 K/uL (1.4-6.5); Platelet Count 197 K/uL (130-400); RDW Coefficient of Variation 15.3 % (11.5-14.5); RDW Standard Deviation 49.7 fL (36.4-46.3); Red Blood Count 4.06 M/uL (4.2-5.4); White Blood Count 6.52 K/uL (4.8-10.8)
[2020-07-01 08:16] LABS: INR 2.2 (0.9-1.1); Prothrombin Time 22.4 Seconds (9.0-12.0)
[2020-07-01 08:37] LABS: BUN Creatinine Ratio 29.2 (10-20); Calcium 9.9 mg/dl (8.5-10.1); Creatinine Clr Calc Pharmacy 57.5 ml/min; Est GFR (African American) 33.8; Est GFR (Non-African American) 29.2; Potassium 3.2 mmol/L (3.5-5.1)
[2020-07-01] MEDS: FERROUS SULFATE 325 MG TAB PO SCH (08:55)
[2020-07-01] MEDS: MAGNESIUM OXIDE 400 MG TAB PO SCH ×2 (08:55→20:20)
[2020-07-01] MEDS: GABAPENTIN 600 MG TAB PO SCH ×3 (08:56→20:20)
[2020-07-01] MEDS: PANTOprazole 40 MG TAB PO SCH (08:56)
[2020-07-01] MEDS: ASCORBIC ACID 500 MG TAB PO SCH ×2 (08:56→20:20)
[2020-07-01] MEDS: LIDOCAINE 5% 1 PATCH TD SCH (08:57)
[2020-07-01] MEDS: NYSTATIN POWDER 15GM BTL EXT SCH ×2 (08:57→20:21)
[2020-07-01] MEDS: metOLazone 2.5 MG TABLET PO SCH (08:59)
[2020-07-01] MEDS: POTASSIUM 10 MEQ PO SCH ×3 (09:03→20:21)
[2020-07-01] MEDS ORDERED: POTASSIUM CHLORIDE CRTAB 20 MEQ TABCR PO STA (09:03)
[2020-07-01] MEDS: oxyCODONE HCL 10 MG TABCR (OxyCONTIN) PO SCH ×2 (09:03→20:23)
[2020-07-01] MEDS: BUMETANIDE 2 MG in SYRINGE 0 ML IV SCH (09:04)
[2020-07-01] MEDS: FLUTICASONE/VILANTEROL 100/25MCG 14 PUFFS/INHALER INH SCH (09:04)
[2020-07-01] MEDS: FLUTICASONE PROPIONATE NA SPR 16 GM BTL NAE SCH ×2 (09:07→20:21)
[2020-07-01] MEDS: INSULIN GLARGINE 100 UNIT/ML VIAL SC SCH (09:08)
[2020-07-01] MEDS: INSULIN ASPART 100 UNITS/ML 3 ML PEN SC SCH ×2 (09:18→12:58)
[2020-07-01] MEDS: oxyCODONE/ACETAMINOPHEN 5mg/325mg TAB PO PRN (09:20)
[2020-07-01] MEDS: HYDROXYCHLOROQUINE SULFATE 200 MG TAB PO SCH (12:17)
--- NOTE | 2020-07-01 17:13 | Hospitalist Progress Note ---
Date of Service July 01, 2020 Assessment & Plan (1) Atypical chest pain: Akila Hernandez is a 69-year-old female with a past medical history including chronic respiratory failure, lymphedema, inflammatory arthropathy, hypothyroidism, venous thromboembolism, diabetes mellitus, urinary tract in fection, endometrial cancer, morbid obesity with BMI 71.7, abdominal pain, chronic shortness of breath and CHF who presented to the emergency department via ambulance with complaint of precordial chest pain that was relieved by aspirin 324 mg and 2 sublingual nitroglycerin administered by EMS prior to arrival. Atypical chest pain (RESOLVED) - Troponins 0.019-->0.019 - EKG not concerning for ACS - Echo: Normal LV systolic fxn, EF 60-65%, normal LV wall motion, mildly dilated left atrium, Grade II diastolic dysfxn consistent with elevated left atrial pressure - Aspirin 81 mg p.o. daily - continue metolazone - PO bumex switched to IV on 06/26 - Cr today at 1.48--continue to monitor - has been stable/ trending down despite diuresis--continue IV bumex - Cardiology consult: - based on the duration and the description, lack of exertional onset, only partial response to nitroglycerin and lack of enzyme abnormalities with several hours of pain I do not think this is cardiac - stress testing would be very technically difficult and I do not think we can do a catheterization here even if we wanted to due to her weight. - Both admission complaints of chest pain and dyspnea have resolved - will continue to monitor Edema - Likely component of venous stasis - Diuresis has reportedly helped to move a lot of the fluid - Will continue with diuresis and will continue to monitor BMP closely - Patient requesting compression stockings -- patient likely will need custom compression stockings for lymphedema Hypokalemia - Potassium 3.0 yesterday --> will continue to replete - Improved today to 3.2 (07/01) -- repleted today with an additional 60 mEq potassium - Monitor BMP closely Skin Tag - Complaining of skin tag on left mid abdomen that is irritated by clothing and touch - She is requesting removal of this skin tag - Discussed risks/benefits and options with patient - she elects for removal in hospital today - See procedure note Weakness/ambulatory dysfunction - PT/OT consulted - Family expressed concern about skin breakdown due to patient urinating in bed at home as she has difficulty moving--wound care consulted - Pt willing to try inpatient rehab if recommended by PT/OT and covered by insurance - PT/OT recommend SNF placement--patient willing to consider options that Case Management may come up with - Patient with multiple questions about outpatient care after she returns home/leaves inpatient rehab (if she goes there). Recommended that patient f/u with her PCP Diabetes - Patient was having elevated blood sugars into high 300s - Hemoglobin A1c this admission (06/26) was 8.3% - Pharmacy consulted for glycemic management Chronic respiratory failure - O2 sat satisfactory on her baseline of 4 L nasal cannula O2. - Continue duo nebs as needed. - Continue Brio Ellipta 1 inhalation every morning VTE (venous thromboembolism) - history of this on chronic Coumadin - INR mildly subtherapeutic at 1.7. - Continue current regimen - Check daily INR-- INR today (07/01) was 2.2 Subtherapeutic international normalized ratio (INR) - As above SHERI (acute kidney injury) - Creatinine 1.38 with range 1.18-1.50. - Perez catheter in place --> will plan to d/c perez cath morning of discharge w/ void challenge prior to d/c - Follow serial BMP Hypothyroidism - Continue levothyroxine 50 mcg daily Inflammatory arthropathy - Continue hydroxychloroquine 10 mg daily for now. - Continue oxycodone extended release 10 mg PO every 12 hours, and oxycodone/acetaminophen 5/325 1 p.o. every 8 hours as needed breakthrough pain GERD (gastroesophageal reflux disease) - Continue pantoprazole 40 mg PO every morning Hiatal hernia - As above FEN/GI: DM2, Heart healthy DVT ppx: Coumadin Dispo: Med/surg Code: Full Code (2) Chronic respiratory failure: (3) Diabetes: (4) VTE (venous thromboembolism): (5) Subtherapeutic international normalized ratio (INR): (6) SHERI (acute kidney injury): (7) Hypothyroidism: (8) Morbid obesity with BMI of 60.0-69.9, adult: (9) Inflammatory arthropathy: (10) GERD (gastroesophageal reflux disease): (11) Hiatal hernia: Admission and Anticipated Discharge Date Admission Date: June 28, 2020 Supervising Physician Co-Signing Physician Notes Patient seen and examined with PGY-1 Dr. Coronel. Agree with history, exam findings, assessment and plan as outlined. In brief, April is a 69 year old female with history of lymphedema, hypothyroid, VTE, DM and morbid obesity (BMI 71) admitted with chest pain. Denies any chest pain today. No change in breathing. Is worried about the insurance not approving [facility] stay. VS and nursing notes reviewed. Exam per Dr. Coronel. Labs and imaging reviewed. 1. Atypical chest pain. Trop is stable. Echo with preserved EF and normal wall motion. Grade 2 diastolic dysfunction and elevated LA pressure. Continue with ASA, metolazone, bumex. Unable to do stress and cath due to weight/body habitus. 2. Weakness, deconditioning, ambulatory dysfunction. PT/OT. SNF recommended, but none with bariatric rooms. Awaiting approval from insurance for [facility]. She has already not done well at home and really cannot get the type of rehab she needs through home services. She is at high risk of further decompensating in terms of physical abilities and strength if she returns to the same home situation even with aides and assistive equipment. 3. DM. A1C 8.3. Glycemic management consult. 4. Chronic respiratory failure. At baseline 4L O2. 5. History of VTE. INR 2.2 today Continue current Coumadin regimen (7.5mg Sun, Mon, Tues, Thurs, Sat and 10mg Tue/Tuepreviously 5mg Tue/Fri) 6. SHERI. Cr bumped with diuresis. Will decrease bumex for tomorrow and continue to monitor Cr/eGFR. 7. Irritated skin tag on the abdomen. Please see separate procedure note for removal of the skin tag. Dispo: Discharge home tomorrow. If she is not able to approved for [facility], then we will discharge her home with home care. Subjective Patient seen and examined at bedside this morning. She has had no acute events overnight. Patient reports that she is overall doing well. She is still agreeable to inpatient rehab due to her deconditioning. Patient would like to proceed with skin tag removal today. She has no new concerns today. She denies fever, chills, SOB, cough, abdominal pain, n/v, or CP. She has been tolerating her diet well w/o difficulty. Review of Systems Constitutional: no fever and no chills Respiratory: no cough and no dyspnea Cardiovascular: no chest pain Gastrointestinal: no abdominal pain, no nausea and no vomiting Integumentary: + skin tag Physical Exam Physical Exam: GENERAL: No acute distress. Morbidly obese female, sitting in bed. EYES: EOMI. Anicteric sclerae. HENT: Moist mucous membranes. RESPIRATORY: Clear to auscultation bilaterally. No wheezing, rales, or rhonchi. CARDIOVASCULAR: Distant heart sounds but regular rate and rhythm. ABDOMEN: Soft, obese abdomen, non-tender. Normal bowel sounds. : Perez catheter in place, draining clear yellow urine. EXTREMITIES: Diffuse edema. Non-tender. SKIN: Skin tag on left mid abdomen. No surrounding erythema or tenderness. (see procedure note) NEUROLOGIC: No focal neurological deficits. PSYCHIATRIC: Cooperative. Appropriate mood and affect. Results & Data Results & Data ([facility]) Vital Signs (Past 12 Hours) Vital Signs Temp Pulse Resp BP Pulse Ox 07/01/20 15:00 36.7 C 84 20 151/65 H 93 07/01/20 07:00 36.8 C 69 20 129/68 97 Resident Activity Tracking Resident Involvement: Resident Care Provided Care Provided: Adult Hospital Medicine
--- NOTE | 2020-07-01 17:33 | Procedure Note ---
Procedure Note Date of Service July 01, 2020 Note Time: 1:30 pm Name of the procedure being done: Skin tag removal Indications: Irritation associated with skin tag Patient consent: Discussed options for management of skin tag. Patient reports irritation of the skin tag, especially with clothing rubbing on the lesion. Skin tag is located on the left mid abdomen. Risks/benefitis discussed with patient. Risks include regrowth of the skin tag, infection, and bleeding. Patient was given the opportunity to ask questions. She verbally consented to the procedure. Type of Anesthesia used: Emla topical cream Description of the procedure: Emla cream was applied approximately 1 hour prior to procedure. The area was then cleaned with alcohol wipes and betadine swabs x3. The skin tag was grasped with sterile forceps and cut with sterile scissors. Hemostasis was obtained with gauze. Silver nitrate used for cauterization. Per patient request, area was covered with a folded 4x4 gauze pad and paper tape. Patient tolerated the procedure well. Post procedure care was discussed with patient. Complications: none Estimated blood loss (if indicated): none Disposition: Pt tolerated the procedure well. Supervising Physician Co-Signing Physician Notes I was present for the entire procedure as described by Dr. Coronel. Coding Resident Activity Tracking Resident Involvement: Resident Care Provided Care Provided: [facility]
[2020-07-01] MEDS: WARFARIN SOD 7.5 MG TAB PO SCH (17:50)
[2020-07-01] MEDS: BUMETANIDE 1 MG in SYRINGE 0 ML IV SCH (17:50)
[2020-07-01] MEDS: INSULIN ASPART 100 UNITS/ML VIAL SC SCH ×2 (17:51→20:34)
[2020-07-01] MEDS: INSULIN GLARGINE 100 UNIT/ML VIAL SQ SCH (20:32)
[2020-07-01] MEDS: ZOLPIDEM TARTRATE 10 MG TAB PO PRN (21:42)
[2020-07-02] MEDS: oxyCODONE/ACETAMINOPHEN 5mg/325mg TAB PO PRN ×2 (03:44→12:43)
[2020-07-02] MEDS: LEVOTHYROXINE SODIUM 50 MCG TABLET PO SCH (05:49)
[2020-07-02 07:31] LABS: INR 2.3 (0.9-1.1); Prothrombin Time 22.9 Seconds (9.0-12.0)
[2020-07-02 07:47] LABS: BUN Creatinine Ratio 34.4 (10-20); Calcium 9.9 mg/dl (8.5-10.1); Creatinine Clr Calc Pharmacy 63.8 ml/min; Est GFR (African American) 38.3; Est GFR (Non-African American) 33.1; Potassium 3.2 mmol/L (3.5-5.1)
[2020-07-02] MEDS: metOLazone 2.5 MG TABLET PO SCH (09:10)
[2020-07-02] MEDS: ASCORBIC ACID 500 MG TAB PO SCH (09:10)
[2020-07-02] MEDS: PANTOprazole 40 MG TAB PO SCH (09:10)
[2020-07-02] MEDS: HYDROXYCHLOROQUINE SULFATE 200 MG TAB PO SCH (09:10)
[2020-07-02] MEDS: LIDOCAINE 5% 1 PATCH TD SCH (09:11)
[2020-07-02] MEDS: GABAPENTIN 600 MG TAB PO SCH ×2 (09:11→13:21)
[2020-07-02] MEDS: CHOLECALCIFEROL 1,000 UNITS 25 MCG TAB PO SCH (09:11)
[2020-07-02] MEDS: MAGNESIUM OXIDE 400 MG TAB PO SCH (09:11)
[2020-07-02] MEDS: FLUTICASONE PROPIONATE NA SPR 16 GM BTL NAE SCH (09:12)
[2020-07-02] MEDS: FERROUS SULFATE 325 MG TAB PO SCH (09:13)
[2020-07-02] MEDS: FLUTICASONE/VILANTEROL 100/25MCG 14 PUFFS/INHALER INH SCH (09:13)
[2020-07-02] MEDS: NYSTATIN POWDER 15GM BTL EXT SCH (09:14)
[2020-07-02] MEDS: POTASSIUM 10 MEQ PO SCH ×2 (09:14→13:21)
[2020-07-02] MEDS: INSULIN GLARGINE 100 UNIT/ML VIAL SC SCH (09:19)
[2020-07-02] MEDS: INSULIN ASPART 100 UNITS/ML VIAL SC SCH ×2 (09:22→13:14)
[2020-07-02] MEDS: oxyCODONE HCL 10 MG TABCR (OxyCONTIN) PO SCH (09:27)
[2020-07-02] MEDS ORDERED: ALBUTEROL HFA 8 GM INHALER INH PRN (12:00)
[2020-07-02] MEDS: WARFARIN SOD 10 MG TAB PO SCH (15:57)
[2020-07-02] MEDS ORDERED: BUMETANIDE 1 MG TAB PO SCH (17:00)
--- NOTE | 2020-07-02 17:24 | Discharge Summary ---
Date of Service July 02, 2020 Admission HPI Per Admitting Provider The patient is a 69-year-old female with a past medical history including chronic respiratory failure, lymphedema, inflammatory arthropathy, hypothyroidism, venous thromboembolism, diabetes mellitus, urinary tract inf ection, endometrial cancer, morbid obesity with BMI 71.7, abdominal pain, chronic shortness of breath and CHF. The patient presents as noted above. The patient usually wears nasal cannula 4 L, and O2 sats upon admission were in the low to mid 90s. Admission Exam Per Admitting Provider The patient is awake, alert and oriented 3, well developed and well nourished, normocephalic and atraumatic, lying in bed and in no acute distress. HEENT--PERRL, EOMI, mucous membranes and oropharynx normal. Neck--supple. No JVD. No bruits. Thyroid normal, trachea midline, no adenopathy. Heart--normal S1 and S2. No murmurs, rubs or gallops. Lungs--clear bilaterally, no respiratory distress, no accessory muscle use. Abdomen--normal bowel sounds and soft. Nontender. Nondistended. Morbidly obese Extremities--no cyanosis or clubbing. No edema. Dermatologic--normal skin turgor, normal color, no abnormal lymph nodes, no rash. Neurologic--cranial nerves II through XII grossly intact. Rheumatologic--normal range of motion. Psychiatric--normal affect. Principal Diagnosis atypical chest pain, deconditioning Discharge Exam GENERAL: No acute distress. Morbidly obese female. Expresses frustration today over unknown plan for discharge to inpatient rehab vs. home. EYES: EOMI. Anicteric sclerae. HENT: Moist mucous membranes. RESPIRATORY: Clear to auscultation bilaterally. No wheezing, rales, or rhonchi. CARDIOVASCULAR: Regular rate and rhythm. No murmurs. ABDOMEN: Soft, obese abdomen, non-tender. Normal bowel sounds. SKIN: Warm, dry. Discharge Data Allergies Allergy/AdvReac Type Severity Reaction Status Date / Time amoxicillin Allergy Severe Anaphylaxis Verified 06/26/20 04:43 Penicillins Allergy Severe Anaphylaxis Verified 06/26/20 04:43 WITH AMOXICILLIN latex Allergy Intermediate ITCHY, Verified 06/26/20 04:43 TIGHTENING OF THROAT meloxicam [From Mobic] Allergy Intermediate TIGHTENING Verified 06/26/20 04:43 OF THROAT Sulfa (Sulfonamide Allergy Intermediate Hives Verified 06/26/20 04:43 Antibiotics) tramadol Allergy Intermediate TIGHTENING Verified 06/26/20 04:43 OF THROAT shellfish derived Allergy Verified 06/28/20 14:24 codeine AdvReac Intermediate Nausea Verified 06/26/20 04:43 metformin AdvReac Intermediate Gastrointestinal Verified 06/26/20 04:43 Upset Consultations 06/26/20 06:20 ED Decision to Admit Stat 06/26/20 09:04 Consult Case Management - Discharge Planning Routine 06/27/20 07:00 Consult Cardiology Routine Hospital Course (1) Atypical chest pain: Akila Hernandez is a 69-year-old female with a past medical history including chronic respiratory failure, lymphedema, inflammatory arthropathy, hypothyroidism, venous thromboembolism, diabetes mellitus, urinary tract infection, endometrial cancer, morbid obesity with BMI 71.7, abdominal pain, chronic shortness of breath and CHF who presented to the emergency department via ambulance with complaint of precordial chest pain that was relieved by aspirin 324 mg and 2 sublingual nitroglycerin administered by EMS prior to arrival. Atypical chest pain (RESOLVED) - Troponins 0.019-->0.019 - EKG not concerning for ACS - Echo: Normal LV systolic fxn, EF 60-65%, normal LV wall motion, mildly dilated left atrium, Grade II diastolic dysfxn consistent with elevated left atrial pressure - Aspirin 81 mg p.o. daily - continue metolazone - Cardiology consult: - based on the duration and the description, lack of exertional onset, only partial response to nitroglycerin and lack of enzyme abnormalities with several hours of pain I do not think this is cardiac - stress testing would be very technically difficult and I do not think we can do a catheterization here even if we wanted to due to her weight. - Both admission complaints of chest pain and dyspnea have resolved - will continue to monitor Edema - Likely component of venous stasis - Diuresis has reportedly helped to move a lot of the fluid - Continue with diuresis and monitored BMP closely - Patient requesting compression stockings -- patient likely will need custom compression stockings for lymphedema Hypokalemia - Potassium fluctuated with low of 2.9 (on 06/28) - Repleted with additional potassium on top of chronic dose --> improved to 3.2 on day of discharge Skin Tag - Complaining of skin tag on left mid abdomen that is irritated by clothing and touch - She is requesting removal of this skin tag - Discussed risks/benefits and options with patient - she elects for removal in hospital - See procedure note from 07/01/20 Weakness/ambulatory dysfunction - PT/OT consulted - Family expressed concern about skin breakdown due to patient urinating in bed at home as she has difficulty moving--wound care consulted - Pt willing to try inpatient rehab if recommended by PT/OT and covered by insurance - PT/OT recommend SNF placement--patient willing to consider options that Case Management may come up with - Patient with multiple questions about outpatient care after she returns home/leaves inpatient rehab (if she goes there). Recommended that patient f/u with her PCP - At time of discharge, patient elected for discharge home; she would be able to go to [facility] from home if she is accepted there Diabetes - Patient was having elevated blood sugars into high 300s - Hemoglobin A1c this admission (06/26) was 8.3% - Pharmacy consulted for glycemic management Chronic respiratory failure - O2 sat satisfactory on her baseline of 4 L nasal cannula O2. - Continue duo nebs as needed. - Continue Brio Ellipta 1 inhalation every morning VTE (venous thromboembolism) - history of this on chronic Coumadin - INR mildly subtherapeutic at 1.7. - Continue current regimen - Checked daily INR - Increased coumadin dose on Tue/Tue to 10 mg (was previously 5mg) and kept Sun/Tue///Sat dose at previously prescribed 7.5mg dose - INR on day of discharge was 2.3 Subtherapeutic international normalized ratio (INR) - As above SHERI (acute kidney injury) - Creatinine 1.38 with range 1.18-1.50. - Perez catheter in place --> will plan to d/c perez cath morning of discharge w/ void challenge prior to d/c - Follow serial BMP Hypothyroidism - Continue levothyroxine 50 mcg daily Inflammatory arthropathy - Continue hydroxychloroquine 10 mg daily for now. - Continue oxycodone extended release 10 mg PO every 12 hours, and oxycodone/acetaminophen 5/325 1 p.o. every 8 hours as needed breakthrough pain GERD (gastroesophageal reflux disease) - Continue pantoprazole 40 mg PO every morning Hiatal hernia - As above FEN/GI: DM2, Heart healthy DVT ppx: Coumadin Dispo: Med/surg Code: Full Code (2) Chronic respiratory failure: (3) Diabetes: (4) VTE (venous thromboembolism): (5) Subtherapeutic international normalized ratio (INR): (6) SHERI (acute kidney injury): (7) Hypothyroidism: (8) Morbid obesity with BMI of 60.0-69.9, adult: (9) Inflammatory arthropathy: (10) GERD (gastroesophageal reflux disease): (11) Hiatal hernia: Total Time Total Time Spent Total Time Spent (In Minutes): See attending attestation Discharge Plan Discharge Items Patient Disposition: Home - Self-Care Reason For Visit: PRECORDIAL CHEST PAIN Discharge Diagnosis: atypical chest pain, deconditioning Condition on Discharge: Fair Activity: Per Instructions section Non-emergency contact: Primary Care Provider Call non-emergency contact if: you have any medication questions, your symptoms worsen, your pain is not controlled and you have a fever Follow-up/Referrals: Jarret Saunders DO [Primary Care Provider] - 07/10/20 10:30 am (Telealth conference call with ) Diet: Carb Count or DM1 Addtl Attending Provider Instructions: Akila Hernandez (Judy), It was our pleasure to care for you at [facility] during your hospital admission from 06/26/20 to 07/02/20. You were admitted for chest pain. Throughout your stay, you have not had recurrent chest pain or shortness of breath. We were able to have multiple discussions with you regarding your medical care and concerns about deconditioning. It was recommended that you go to a facility for inpatient rehabilitation. We also addressed the following medical concerns: Chest pain - Your EKG was not concerning for an acute heart problem - You had an echocardiogram (ultrasound of your heart) which showed normal systolic function -- this is good Edema - We continued diuresis with Bumex and changed it to IV diuresis for more control of the edema - During this time, we also monitored your blood work to monitor your kidney function - You should follow up with your PCP to have your kidney function rechecked - We also discussed compression stockings to help with the swelling. You may need to get custom compression stockings for the lymphedema Low potassium - Your potassium was low several times which we helped to replete with additional potassium. - As we discussed, you should resume taking potassium 40 mEq by mouth twice a day Skin Tag - Due to irritation of the skin tag on your left abdomen, we discussed options for skin tag removal. - We did perform skin tag removal of your skin tag during the stay. Generalized Weakness and Deconditioning - You were able to be evluated by PT and OT during your stay - We also discussed inpatient reab Diabetes - Your hemoglobin A1c during this admission was 8.3% - You were seen by pharmacy for assistance with your sugar management Subtherapeutic INR - We monitored your INR and changed the coumadin to help make the INR therapeutic - Your INR today is therapeutic at 2.3 - Continue the following coumadin regimen: - 7.5mg on Tuesday, Tuesday, Tuesday, , and Tuesday - 10mg on Tuesday and Tuesday If you have any questions, please follow up with your primary care physician! Pending Studies at Discharge: No Stand-Alone Forms: My [employer], Smoking Cessation Medications and DC Order Prescriptions: New potassium chloride 20 mEq tablet,ER particles/crystals 40 meq PO BID Qty: 14 RF: 0 Continued levothyroxine 50 mcg tablet 50 mcg PO QAM RF: 0 diphenhydramine HCl 25 mg Tablet 25 mg PO Q6H PRN (Reason: Allergy Symptoms) RF: 0 meclizine 25 mg Tablet 25 mg PO TID PRN (Reason: Dizziness Or Vertigo) RF: 0 zolpidem [Ambien] 10 mg Tablet 10 mg PO HS PRN (Reason: Insomnia) RF: 0 pantoprazole [Protonix] 40 mg Tablet,Delayed Release (Dr/Ec) 40 mg PO QAM RF: 0 warfarin 7.5 mg Tablet 7.5 mg PO 5XWK RF: 0 albuterol sulfate 90 mcg/actuation HFA aerosol inhaler 2 puff INHALATION Q6H PRN (Reason: Shortness Of Breath Or Wheezing) RF: 0 ipratropium-albuterol 0.5 mg-3 mg(2.5 mg base)/3 mL Solution For Nebulization 3 ml INHALATION BID PRN (Reason: Shortness Of Breath Or Wheezing) RF: 0 ascorbic acid (vitamin C) 500 mg Tablet 500 mg PO BID RF: 0 dicyclomine 10 mg Capsule 10 mg PO BID PRN (Reason: ABD PAIN) RF: 0 oxycodone-acetaminophen 5-325 mg Tablet 1 tab PO Q8H PRN (Reason: Breakthrough Pain) RF: 0 cholecalciferol (vitamin D3) 50 mcg (2,000 unit) Tablet,Chewable 50 mcg PO 3XWK RF: 0 Breo Ellipta 100-25 mcg/dose blister with device 1 inh INHALATION QAM RF: 0 metolazone 2.5 mg tablet 2.5 mg PO QAM RF: 0 mupirocin 2 % ointment 1 applic TOPICAL TID PRN (Reason: BREAKOUTS) RF: 0 fluticasone propionate 50 mcg/actuation spray,suspension 1 spray INTRANASAL BID RF: 0 acetaminophen [Tylenol Extra Strength] 500 mg Tablet 500 - 1,000 mg PO QID PRN (Reason: Pain) RF: 0 nystatin 100,000 unit/gram Powder 1 applic TOPICAL BID RF: 0 diclofenac sodium [Voltaren] 1 % Gel 2 g EXT BID Qty: 100 RF: 0 ferrous sulfate [FerrouSul] 325 mg (65 mg iron) Tablet 325 mg PO DAILY RF: 0 Lantus Solostar U-100 Insulin 100 unit/mL (3 mL) insulin pen 30 unit SUBCUT QPM RF: 0 Lantus Solostar U-100 Insulin 100 unit/mL (3 mL) insulin pen 70 unit SUBCUT QAM RF: 0 bumetanide 1 mg tablet See Rx Instructions .ROUTE .COMPLEX RF: 0 insulin aspart U-100 [Novolog Flexpen U-100 Insulin] 100 unit/mL (3 mL) insulin pen 0 unit SUBCUT TIDM MDD 60 UNITS/DAY RF: 0 oxycodone [OxyContin] 10 mg tablet,oral only,ext.rel.12 hr 10 mg PO Q12 RF: 0 bisacodyl [Dulcolax (bisacodyl)] 5 mg Tablet,Delayed Release (Dr/Ec) 5 mg PO HS PRN (Reason: Constipation) RF: 0 Mucinex DM 30-600 mg Tablet Extended Release 12 Hr 1 tab PO Q12H PRN (Reason: CONGESTION) RF: 0 diphenhydramine-acetaminophen [Tylenol PM Extra Strength] 25-500 mg Tablet 1 - 2 tab PO HS PRN (Reason: Sleep) RF: 0 albuterol sulfate 90 mcg/actuation HFA aerosol inhaler 2 inh INH QID PRN (Reason: shortness of breath or wheezing) Qty: 1 RF: 0 hydroxychloroquine [Plaquenil] 200 mg Tablet 200 mg PO DAILY RF: 0 ondansetron HCl 8 mg tablet 8 mg PO BID PRN (Reason: Nausea) RF: 0 gabapentin 300 mg capsule 600 mg PO TID RF: 0 Discontinued warfarin 10 mg Tablet 5 mg PO 2XWK RF: 0 Discharge Orders: Discharge Order (Routine); Ordered 07/02/20 Ordered By: Tra Bah/Other Patient Handouts: What to Know When TakingWarfarin, Managing Type 2 Diabetes, Warfarin tablets Admission Data Admit Date/Time: 06/28/20 18:38 Attending Provider: Alice Guerra Admit Provider: Nixon Mata Primary Care Provider: Jarret Saunders Other Providers: Nixon Mata ; Ryan Preston ; Adrenaline Mobility,Clinicient Other Interventions: Discharge Summary Assessment (RN) Last Done: 07/02/20 14:47 Supervising Physician Co-Signing Physician Notes Patient seen and examined with PGY-1 Dr. Coronel. Agree with history, exam findings, assessment and plan as outlined. In brief, April is a 69 year old female with history of lymphedema, hypothyroid, VTE, DM and morbid obesity (BMI 71) admitted with chest pain. Reports that since moving rooms and change in fan position, she has had some chest tightness that resolved with an albuterol inhaler she had brought form home. She does not want to wait until 4pm to hear if she is approved for [facility]. She is willing to wait until 3. VS and nursing notes reviewed. Awake, alert. Lungs are clear to auscultation, soft ronchi in the left base that clears with coughing. No wheezes. Good air movement. Labs and imaging reviewed. 1. Chest tightness. Resolved with albuterol. Ordered albuterol inhaler with spacer and Mucinex. Low concern for COVID or acute pulmonary process that requires imaging. . 1. Atypical chest pain. Resolved. Echo with preserved EF and normal wall motion. Grade 2 diastolic dysfunction and elevated LA pressure. Continue with ASA, metolazone, bumex. Unable to do stress and cath due to weight/body habitus. 2. Weakness, deconditioning, ambulatory dysfunction. PT/OT. SNF recommended, but none with bariatric rooms. Awaiting approval from insurance for [facility]. She has already not done well at home and really cannot get the type of rehab she needs through home services. She is at high risk of further decompensating in terms of physical abilities and strength if she returns to the same home situation even with aides and assistive equipment. 3. DM. A1C 8.3. Glycemic management consult. 4. Chronic respiratory failure. At baseline 4L O2. 5. History of VTE. INR 2.3 today. Continue current Coumadin regimen (7.5mg Sun, Mon, Tues, Thurs, Sat and 10mg Tue/Tuepreviously 5mg Tue/Tue) 6. SHERI. Cr bumped with diuresis. Will decrease bumex for tomorrow and continue to monitor Cr/eGFR. 7. Irritated skin tag on the abdomen. Please see separate procedure note for removal of the skin tag. Dispo: Discharged home today. If she is accepted to [facility], they will contact her and arrange for her to be admitted from home. DME requests from patient also signed and submitted. I personally spent 45 minutes discharge planning for this patient.
[2020-07-02] MEDS ORDERED: guaiFENesin 600 MG TABCR PO SCH (21:00)
== END 2020-07-02 17:11 | disposition home or self-care (01) | DRG 313 ==
LOC: ED 03:34 → 2W 03:34 → SUATTDRO 06:28 → 2W 08:42 → SUATTDRO 06-28 18:38 → 3N 07-01 18:22

== ENCOUNTER 2020-10-31 11:35 | Inpatient (IN) ==
--- NOTE | 2020-10-31 20:40 | Communication Note ---
Date of Service: October 31, 2020 Ethics input in regards to this very difficult situation Autonomy: The patient is not able to make her own decisions, but her sister is her power of contracts attorney, who knows her quite well, and has been following her situation very closely. My understanding is that she is not yet ready for a full withdrawal of care, and having taken care of the patient several times in the past, including recently, I could see where April would not want an immediate withdrawal of care either. Autonomy in decision making would allow them to choose the manner in which her care proceeds without coercion, and of course the high emotions in the situation may require them to have more time to work through their decision-making processtherefore, while one could certainly question the futility of ongoing aggressive care, it is also not totally irrational, even if it serves to allow time for processing of the decision making. Beneficence: Beneficence as it relates to April, would be that in [place], she can hopefully have more contact with her loved ones. April having been close to her family, I would see this being of importance. Further, given that in discussions with the burn team, they feel that further deterioration is an inevitability, and that we would not be cheating her of a chance of a good outcome, I do not see that we are stealing beneficence (see below under non-maleficence) from her. The main part of beneficence with her probably is keeping her comfortable, which appears to have been achievable with Versed and Dilaudid. As long as we continue this, we can keep her comfortable, and she can also gain the ability to be nearer to loved ones Non-maleficence: Given that she has been able to be kept comfortable with Versed and Dilaudid, I do not see where we will be causing her harm by bringing her here. Further given that the burn team feels that her situation will and badly no matter what, it does not seem that we are taking away a chance of a good outcome by bringing her here. This of course, can lead to the question of futility, and why we would continue any care at all besides that which would keep her comfortable, for which I would redirect you to autonomy above. Justice: Having bed availability, and the ability to care for her needs as above outlined, it does not appear that we would be taking resources from another patient in order to care for her. Further, given that the burn team feels they have done what they can for her, she will be allowing room for another patient there who might benefit more greatly from their skill and services. Therefore I see no justice issues and transferring her care here.
[2020-11-01] MEDS ORDERED: MIDAZOLAM HCL 125MG/250ML D5W ONE (18:57)
[2020-11-01] MEDS: NOREPINEPHRINE/D5W 8 MG/508 ML BAG IV SCH (19:00)
[2020-11-01] MEDS: MIDAZOLAM HCL 125 MG/250 ML BAG IV PRN (19:00)
[2020-11-01] MEDS ORDERED: HYDROmorphone/NSS 100 MG/100 ML BAG IV SCH ×2 (19:15→21:15)
[2020-11-01] MEDS ORDERED: ACETAMINOPHEN SUSP 500 MG/15.6 ML UDP OG PRN (20:23)
[2020-11-01] MEDS ORDERED: bisacodyL 10 MG SUPP PR PRN (20:28)
[2020-11-01] MEDS ORDERED: LINEZOLID CONSULT ACTIVE PRN (20:29)
[2020-11-01] MEDS ORDERED: LINEZOLID 600 MG/300 ML D5W IV SCH (20:45)
[2020-11-01] MEDS ORDERED: ICU PROTOCOL FOR HYPERGLYCEMIA PRN (20:57)
[2020-11-01] MEDS ORDERED: DOCUSATE SODIUM SYRUP 20MG/5ML 480ML NG SCH (21:00)
[2020-11-01] MEDS ORDERED: DOCUSATE SODIUM 100 MG CAP PO SCH (21:00)
[2020-11-01] MEDS ORDERED: ENOXAPARIN INJ 40 MG/0.4 ML SYR SQ SCH (21:00)
[2020-11-01] MEDS ORDERED: INSULIN PROTOCOL GOAL RANGE ONE (21:12)
[2020-11-01] MEDS ORDERED: STAT IV Infusion **Titration per Protocol STA (21:12)
[2020-11-01] MEDS: PEPTAMEN INTENSE VHP 1.0 CAL 1,000 ML BAG OG PRN (21:12)
[2020-11-01] MEDS ORDERED: MIDAZOLAM BOLUS FROM BAG IV PRN (21:12)
[2020-11-01] MEDS ORDERED: INSULIN REGULAR 250 UNITS in SODIUM CHLORIDE 0.9% 247.5 ML IV SCH (21:15)
[2020-11-01] MEDS ORDERED: PHARMACY GLYCEMIC MGMT CONSULT PRN (21:35)
[2020-11-01] MEDS: DOCUSATE SODIUM SYRUP 100 MG/10 ML UDC NG SCH (21:45)
[2020-11-01] MEDS: SENNOSIDES 8.8 MG/5 ML UDC PO SCH (21:46)
--- NOTE | 2020-11-01 21:50 | Communication Note ---
Date of Service: November 01, 2020 Right IJ TLC day #0/5 due for NS on 11/06 Right femoral A-line day #0/5 for NS on 11/06 Powers day #12 ETT day #14 Right chest tube was discontinued on 10/23/2020 Linezolid is on day #10 Was on aztreonam #7 days DC 10/26
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
[2020-11-01] MEDS: ENOXAPARIN INJ 40 MG/0.4 ML SYR SQ SCH (22:11)
[2020-11-01] MEDS: CHLORHEXIDINE GLUCONATE 0.12% 480 ML MT SCH (22:11)
[2020-11-01] MEDS: LINEZOLID IV SCH (22:11)
[2020-11-01] MEDS ORDERED: ALBUTEROL HFA 8 GM INHALER INH SCH (23:00)
[2020-11-01] MEDS ORDERED: CARBOHYDRATES FOR HYPOGLYCEMIA PO PRN (23:45)
[2020-11-01] MEDS ORDERED: GLUCOSE 10 TABS/TUBE PO PRN (23:45)
[2020-11-01] MEDS ORDERED: GLUCOSE 40% GEL 15 GM TUBE PO PRN (23:45)
[2020-11-01] MEDS ORDERED: GLUCAGON FOR INJ 1 MG VIAL SQ PRN (23:45)
[2020-11-02] MEDS ORDERED: INSULIN ASPART 100 UNITS/ML 3 ML PEN SC SCH
[2020-11-02] MEDS: ALBUTEROL 0.083% NEBU SOLN 3 ML VIAL NEB SCH ×7 (00:11→23:07)
[2020-11-02] MEDS: INSULIN ASPART 100 UNITS/ML 3 ML PEN SC SCH ×6 (00:32→20:16)
[2020-11-02 01:35] LABS: Influenza A virus by PCR Negative (Neg); Influenza B virus by PCR Negative (Neg); RSV by PCR Negative (Neg); SARS CoV2 RNA(COVID-19) InHosp NEGATIVE (Negative)
[2020-11-02] MEDS ORDERED: NovoLIN-R BOLUS FROM BAG IV ONE (02:30)
[2020-11-02] MEDS: INSULIN REGULAR 250 UNITS in SODIUM CHLORIDE 0.9% 247.5 ML IV SCH (02:40)
[2020-11-02 05:13] LABS: Basophils # (auto) 0.02 K/uL (0-0.2); Basophils % (auto) 0.4 %; Eosinophils # (auto) 0.09 K/uL (0-0.5); Eosinophils % (auto) 1.7 %; Immature Granulocytes # (auto) 0.15 K/uL (0.00-0.02); Immature Granulocytes % (auto) 2.9 %; Lymphocytes # (auto) 1.66 K/uL (1.2-3.4); Lymphocytes % (auto) 32.1 %; Mean Corpuscular Hemoglobin 27.6 pg (25-34); Mean Corpuscular Hgb Conc 29.6 g/dL (32-36); Mean Corpuscular Volume 93.1 fL (80-100); Mean Platelet Volume 8.9 fL (7.4-10.4); Monocytes % (auto) 9.7 %; Neutrophils # (auto) 2.75 K/uL (1.4-6.5); Neutrophils % (auto) 53.2 %; Nucleated RBC # (auto) 0.08 K/uL (0-0); Nucleated RBC % (auto) 1.6 %; Platelet Count 318 K/uL (130-400); RDW Coefficient of Variation 17.3 % (11.5-14.5); RDW Standard Deviation 54.7 fL (36.4-46.3); White Blood Count 5.17 K/uL (4.8-10.8)
[2020-11-02 05:19] LABS: Base Excess ABG 9.5 mEq/L (-9-1.8); HCO3 ABG 35 mmol/L (19-24); Oxygen Saturation ABG 94.5 % (90-95); PCO2 ABG 54 mmHg (35-46); PO2 ABG 81 mmHg (80-95); pH ABG 7.43 (7.35-7.45)
[2020-11-02 05:21] LABS: Allen Test Pos (Pos)
[2020-11-02] MEDS: LINEZOLID IV SCH ×3 (05:26→20:22)
[2020-11-02 05:39] LABS: BUN Creatinine Ratio 40.7 (10-20); Calcium 9.2 mg/dl (8.5-10.1); Creatinine Clr Calc Pharmacy 114.2 ml/min; Est GFR (African American) 69.8; Est GFR (Non-African American) 60.3; Magnesium 2.7 mg/dl (1.8-2.4); Potassium 4.7 mmol/L (3.5-5.1)
[2020-11-02 05:41] LABS: C Reactive Protein 10.2 mg/dl (0-0.29); Phosphorus 2.8 mg/dl (2.5-4.9)
[2020-11-02] MEDS: PEPTAMEN INTENSE VHP 1.0 CAL 1,000 ML BAG OG PRN ×3 (05:46→20:58)
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
[2020-11-02 07:11] LABS: INR 1.1 (0.9-1.1); Prothrombin Time 10.9 Seconds (9.0-12.0)
[2020-11-02] MEDS: SENNOSIDES 8.8 MG/5 ML UDC PO SCH ×2 (08:56→20:22)
[2020-11-02] MEDS: DOCUSATE SODIUM SYRUP 100 MG/10 ML UDC NG SCH ×2 (08:56→20:22)
[2020-11-02] MEDS: POLYETHYLENE (MIRALAX) 17 GM PACK PO SCH (08:56)
[2020-11-02] MEDS ORDERED: SILVER SULFADIAZINE 1% CR 50 GM JAR EXT SCH (09:00)
[2020-11-02] MEDS: ENOXAPARIN INJ 40 MG/0.4 ML SYR SQ SCH ×2 (09:41→20:22)
[2020-11-02] MEDS: CHLORHEXIDINE GLUCONATE 0.12% 480 ML MT SCH ×2 (09:42→20:22)
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
[2020-11-02] MEDS: PANTOprazole 40 MG in SYRINGE 0 ML IV SCH (12:36)
[2020-11-02] MEDS: SILVER SULFADIAZINE 1% CR 400 GM JAR EXT SCH (12:36)
[2020-11-02] MEDS: AZTREONAM 2,000 MG in DEXTROSE 5% 100 ML IV SCH ×2 (13:07→20:21)
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
[2020-11-02] MEDS: ACETAMINOPHEN 1,000 MG/100 ML VIAL IV PRN ×2 (13:43→22:32)
[2020-11-02] MEDS: MIDODRINE HCL 2.5 MG TAB PO SCH ×2 (13:52→16:45)
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
[2020-11-02] MEDS: NOREPINEPHRINE/D5W 8 MG/508 ML BAG IV SCH (16:32)
[2020-11-02] MEDS: MIDAZOLAM HCL 125 MG/250 ML BAG IV PRN (16:37)
[2020-11-03] MEDS: INSULIN ASPART 100 UNITS/ML 3 ML PEN SC SCH ×6 (01:07→20:44)
[2020-11-03] MEDS: INSULIN REGULAR 250 UNITS in SODIUM CHLORIDE 0.9% 247.5 ML IV SCH (01:08)
[2020-11-03] MEDS: ALBUTEROL 0.083% NEBU SOLN 3 ML VIAL NEB SCH ×6 (03:43→23:11)
[2020-11-03] MEDS: PEPTAMEN INTENSE VHP 1.0 CAL 1,000 ML BAG OG PRN (04:23)
[2020-11-03] MEDS: AZTREONAM 2,000 MG in DEXTROSE 5% 100 ML IV SCH ×3 (04:23→20:43)
[2020-11-03] MEDS: LINEZOLID IV SCH ×3 (04:23→20:44)
[2020-11-03 05:12] LABS: Basophils # (auto) 0.02 K/uL (0-0.2); Basophils % (auto) 0.3 %; Eosinophils # (auto) 0.14 K/uL (0-0.5); Eosinophils % (auto) 2.3 %; Hematocrit (blood only) 25.8 % (37-47); Hemoglobin 7.6 g/dL (12.0-16.0); Immature Granulocytes # (auto) 0.09 K/uL (0.00-0.02); Immature Granulocytes % (auto) 1.5 %; Lymphocytes # (auto) 2.35 K/uL (1.2-3.4); Lymphocytes % (auto) 38.3 %; Mean Corpuscular Hemoglobin 27.4 pg (25-34); Mean Corpuscular Hgb Conc 29.5 g/dL (32-36); Mean Corpuscular Volume 93.1 fL (80-100); Monocytes % (auto) 9.8 %; Neutrophils # (auto) 2.93 K/uL (1.4-6.5); Neutrophils % (auto) 47.8 %; Nucleated RBC # (auto) 0.16 K/uL (0-0); Nucleated RBC % (auto) 2.6 %; Platelet Count 319 K/uL (130-400); RDW Coefficient of Variation 17.7 % (11.5-14.5); RDW Standard Deviation 54.6 fL (36.4-46.3); Red Blood Count 2.77 M/uL (4.2-5.4); White Blood Count 6.13 K/uL (4.8-10.8)
[2020-11-03 05:31] LABS: BUN Creatinine Ratio 42.4 (10-20); Calcium 9.3 mg/dl (8.5-10.1); Creatinine Clr Calc Pharmacy 110.2 ml/min; Est GFR (African American) 66.4; Est GFR (Non-African American) 57.3; Magnesium 2.7 mg/dl (1.8-2.4); Potassium 4.9 mmol/L (3.5-5.1)
[2020-11-03 05:35] LABS: Phosphorus 2.7 mg/dl (2.5-4.9); Polychromasia 1+; T4 Free Thyroxine 0.68 ng/dl (0.8-1.6)
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
[2020-11-03] MEDS: ENOXAPARIN INJ 40 MG/0.4 ML SYR SQ SCH (08:19)
[2020-11-03] MEDS: LEVOTHYROXINE SODIUM 50 MCG TABLET NG SCH (08:20)
[2020-11-03] MEDS: DOCUSATE SODIUM SYRUP 100 MG/10 ML UDC NG SCH ×2 (08:20→20:49)
[2020-11-03] MEDS: POLYETHYLENE (MIRALAX) 17 GM PACK PO SCH (08:20)
[2020-11-03] MEDS: MIDODRINE HCL 2.5 MG TAB PO SCH ×3 (08:20→16:52)
[2020-11-03] MEDS: SENNOSIDES 8.8 MG/5 ML UDC PO SCH ×2 (08:20→22:24)
[2020-11-03] MEDS: CHLORHEXIDINE GLUCONATE 0.12% 480 ML MT SCH ×2 (08:21→20:48)
[2020-11-03] MEDS: SILVER SULFADIAZINE 1% CR 400 GM JAR EXT SCH (08:21)
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
--- NOTE | 2020-11-03 08:28 | XRay Report ---
XR chest 1V portable HISTORY: 69 years-old Female f/u acute respiratory failure COMPARISON: Chest radiograph 11/01/2020 TECHNIQUE: Portable AP view of the chest FINDINGS: Cardiac silhouette is enlarged. Endotracheal tube overlies the midline, 5.0 cm superior to the taylor . Enteric tube courses below the diaphragm with distal tip outside the field of view. Right IJ centra l venous catheter distal tip projects over the superior cavoatrial junction. No pneumothorax. Bluntin g of the left costophrenic angle suggests trace effusion. Left lung base opacities. Chronic interstit ial coarsening. Degenerative changes of the shoulders and spine. IMPRESSION: 1. Lines and tubes as above. 2. Left lung base opacities suggestive of atelectasis versus pneumonitis. 3. Unchanged interstitial coarsening. ACT 112: Negative or not required by law. The above report was generated using voice recognition software. It may contain grammatical, syntax o r spelling errors. Electronically signed by: Greg Coello M.D. 11/03/2020 8:27 AM
[2020-11-03] MEDS ORDERED: ACETAMINOPHEN 1,000 MG/100 ML VIAL IV PRN (08:41)
[2020-11-03] MEDS: ACETAMINOPHEN 1,000 MG/100 ML VIAL IV PRN (08:46)
[2020-11-03 09:10] LABS: Alanine Aminotransferase 17 U/L (12-78); Albumin Level 1.5 gm/dl (3.4-5.0); Alkaline Phosphatase 64 U/L (45-117); Aspartate Aminotransferase 18 U/L (15-37); Bilirubin Direct < 0.1 mg/dl (0-0.2); Bilirubin,Total 0.2 mg/dl (0.2-1); Total Protein 6.2 gm/dl (6.4-8.2)
[2020-11-03] MEDS ORDERED: SODIUM CHLORIDE 0.9% 250 ML IV PRN (10:55)
[2020-11-03] MEDS ORDERED: fentaNYL citrate 100 MCG/2 ML VIAL ONE (12:10)
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
--- NOTE | 2020-11-03 12:51 | XRay Report ---
XR chest 1V portable CLINICAL HISTORY: Respiratory failure COMPARISON STUDY: 11/03/2020 FINDINGS: There is an endotracheal tube 53 mm above the taylor. There is an enteric tube which passes into the stomach. There is a right subclavian central venous catheter the tip of which projects over the atriocaval junction. There is a right internal jugular central venous catheter, the tip of which projects over the atriocaval junction. There is no pneumothorax. The heart remains enlarged. There a re bilateral interstitial pulmonary opacities most pronounced within the left perihilar region. These appear slightly progressive.[ IMPRESSION: 1. Interval placement of a right subclavian central venous catheter. The tip projects over the atrioc aval junction. There is no pneumothorax 2. Slight progression in the bilateral interstitial pulmonary opacities, most pronounced within the l eft perihilar region. ACT 112: Negative or not required by law. Electronically signed by: Mich Padron M.D. 11/03/2020 12:49 PM
--- NOTE | 2020-11-03 12:59 | Procedure Note ---
Procedure Note Date of Service November 03, 2020 Procedure date: Noted above Procedure: Central venous access Pre-procedure indication: Need for vasoactive medication administration Post-procedure Diagnosis: same as above Prior to Procedure: Informed Consent: The risks, benefits, indications, potential complications, and alternatives were explained to the the patient's sister and informed consent obtained. Attending Staff: Camille Saucedo DO Resident/APC: Not applicable Skin Prep: Chlorhexidine Anesthesia: 4 mL 1% lidocaine without epinephrine The identity of the patient was confirmed and a bedside time out was performed. Description of Procedure: After sterile prep and sterile drape utilizing standard sterile technique the superficial skin of the right subclavian area was anesthetized. The target vessel was identified and entered with an 18-gauge needle. Dark venous blood return was noted. A guidewire was inserted through the needle and into the vessel. The needle was withdrawn and a skin rula was made. A tissue dilator was advanced via Seldinger technique and removed. A triple lumen catheter was inserted via Seldinger technique and the guidewire removed. All ports jaskaran and flushed easily. A Biopatch was placed, and the catheter was secured via silk suture. A sterile dressing was then applied. Complications: None Estimated blood loss: Trace Patient tolerated the procedure well. Post procedure chest x-ray was obtained and the catheter was in appropriate position Coding CPT Codes Tubes, Drains, and Vasc Access - Tubes, Drains, and Vasc Access: [id number] Insertion Of Non-tunneled Catheter Age 3 Yrs> ([id number]) [facility] [place] Codes (Charges) Tubes, Drains, and Vasc Access Procedure 1: Tubes, Drains, and Vasc Access: [id number] Insertion Of Non-tunneled Catheter Age 3 Yrs>
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
--- NOTE | 2020-11-03 13:18 | Billing Data ---
Date of Service November 03, 2020 Coding Level of Care Code Critical Care ea addt'l 30 min Time Spent (min) 120
[2020-11-03] MEDS: TUBE FEEDING WATER FLUSH OG SCH ×12 (13:38→23:48)
[2020-11-03] MEDS ORDERED: STAT IV Infusion **Titration per Protocol STA (13:42)
[2020-11-03] MEDS ORDERED: oxyCODONE HCL 20 MG TABCR (OxyCONTIN) PO SCH (13:45)
[2020-11-03] MEDS: ENOXAPARIN 150 MG/ML SYR SQ SCH (13:47)
[2020-11-03] MEDS ORDERED: fentaNYL citrate 100 MCG/2 ML VIAL IV STA (14:50)
[2020-11-03] MEDS: NOREPINEPHRINE/D5W 8 MG/508 ML BAG IV SCH ×2 (14:54→17:17)
[2020-11-03] MEDS: fentaNYL DRIP 1,250 MCG/250 ML BAG IV SCH ×2 (15:05→21:38)
[2020-11-03] MEDS: DEXTROSE 50% 50 ML SYRINGE IV PRN (16:55)
[2020-11-03] MEDS: MIDAZOLAM HCL 125 MG/250 ML BAG IV PRN (17:07)
[2020-11-03] MEDS: PANTOprazole 40 MG in SYRINGE 0 ML IV SCH (17:24)
[2020-11-03] MEDS: FAMOTIDINE 20 MG in SYRINGE 3 ML IV SCH (20:49)
[2020-11-04] MEDS: INSULIN ASPART 100 UNITS/ML 3 ML PEN SC SCH ×6 (00:31→20:08)
[2020-11-04] MEDS: TUBE FEEDING WATER FLUSH OG SCH ×24 (00:34→23:48)
[2020-11-04] MEDS: ENOXAPARIN 150 MG/ML SYR SQ SCH ×2 (02:13→12:47)
[2020-11-04] MEDS: fentaNYL DRIP 1,250 MCG/250 ML BAG IV SCH ×6 (02:58→20:45)
[2020-11-04] MEDS: ALBUTEROL 0.083% NEBU SOLN 3 ML VIAL NEB SCH ×6 (03:02→23:35)
[2020-11-04] MEDS: AZTREONAM 2,000 MG in DEXTROSE 5% 100 ML IV SCH ×3 (04:40→20:51)
[2020-11-04 05:21] LABS: Basophils # (auto) 0.02 K/uL (0-0.2); Basophils % (auto) 0.3 %; Eosinophils # (auto) 0.08 K/uL (0-0.5); Eosinophils % (auto) 1.2 %; Hemoglobin 8.1 g/dL (12.0-16.0); Immature Granulocytes # (auto) 0.11 K/uL (0.00-0.02); Immature Granulocytes % (auto) 1.7 %; Lymphocytes # (auto) 2.01 K/uL (1.2-3.4); Lymphocytes % (auto) 31.4 %; Mean Corpuscular Hemoglobin 27.5 pg (25-34); Mean Corpuscular Volume 91.5 fL (80-100); Mean Platelet Volume 8.9 fL (7.4-10.4); Monocytes # (auto) 0.74 K/uL (0.11-0.59); Monocytes % (auto) 11.5 %; Neutrophils # (auto) 3.45 K/uL (1.4-6.5); Neutrophils % (auto) 53.9 %; Nucleated RBC % (auto) 3.1 %; Platelet Count 305 K/uL (130-400); RDW Coefficient of Variation 18.1 % (11.5-14.5); Red Blood Count 2.95 M/uL (4.2-5.4); White Blood Count 6.41 K/uL (4.8-10.8)
[2020-11-04 05:44] LABS: BUN Creatinine Ratio 46.7 (10-20); Calcium 9.2 mg/dl (8.5-10.1); Creatinine Clr Calc Pharmacy 131.5 ml/min; Est GFR (African American) 82.2; Est GFR (Non-African American) 70.9; Magnesium 2.6 mg/dl (1.8-2.4); Potassium 4.4 mmol/L (3.5-5.1)
[2020-11-04 05:45] LABS: Basophilic Stippling 1+; Polychromasia 1+
[2020-11-04 05:47] LABS: Phosphorus 2.7 mg/dl (2.5-4.9)
[2020-11-04] MEDS: LINEZOLID IV SCH ×4 (05:54→21:34)
[2020-11-04] MEDS: LEVOTHYROXINE SODIUM 50 MCG TABLET NG SCH (05:57)
[2020-11-04] MEDS: INSULIN REGULAR 250 UNITS in SODIUM CHLORIDE 0.9% 247.5 ML IV SCH ×2 (07:15→13:13)
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
[2020-11-04] MEDS: DOCUSATE SODIUM SYRUP 100 MG/10 ML UDC NG SCH ×2 (08:54→20:51)
[2020-11-04] MEDS: SENNOSIDES 8.8 MG/5 ML UDC PO SCH ×2 (08:54→20:49)
[2020-11-04] MEDS: FAMOTIDINE 20 MG in SYRINGE 3 ML IV SCH ×2 (08:54→20:50)
[2020-11-04] MEDS: MIDODRINE HCL 2.5 MG TAB PO SCH (08:54)
[2020-11-04] MEDS: POLYETHYLENE (MIRALAX) 17 GM PACK PO SCH (08:55)
[2020-11-04] MEDS: CHLORHEXIDINE GLUCONATE 0.12% 480 ML MT SCH ×2 (08:56→20:49)
[2020-11-04] MEDS ORDERED: oxyCODONE HCL IR 5 MG TAB (IMMEDIATE RELEASE) PO SCH (09:00)
[2020-11-04] MEDS ORDERED: HYDROCORTISONE SOD 10 MG in SYRINGE 0 ML IV SCH (09:30)
[2020-11-04] MEDS ORDERED: HYDROCORTISONE SOD 50 MG in SYRINGE 0 ML IV ONE (09:45)
[2020-11-04] MEDS ORDERED: INSULIN GLARGINE 100 UNIT/ML VIAL SC ONE (10:45)
[2020-11-04] MEDS ORDERED: FUROSEMIDE 40 MG in SYRINGE 0 ML IV ONE (10:45)
--- NOTE | 2020-11-04 10:45 | XRay Report ---
SINGLE VIEW CHEST CLINICAL HISTORY: Tachypnea. FINDINGS: An AP, portable, semierect chest radiograph is compared to study dated 11/03/2020. The examin ation is degraded by portable technique and patient rotation. An endotracheal tube projects just be low the thoracic inlet approximately 8 cm above the taylor. A right subclavian central venous cathete r and an enteric tube are unchanged in position. The heart is enlarged noting atherosclerotic calcifi cation of the thoracic aorta. There is pulmonary vascular congestion. Interstitial opacities are seen throughout both lungs. No large pleural effusion or pneumothorax is seen. The skeletal structures ar e osteopenic. The bony thorax is grossly intact. IMPRESSION: 1. The tip of the endotracheal tube projects just below the thoracic inlet. 2. Cardiomegaly with evidence of congestive failure. 3. Bilateral interstitial airspace opacities are unchanged and could represent pulmonary edema and/or multifocal pneumonia. Clinical correlation will be required. ACT 112: Negative or not required by law. Electronically signed by: Stanley Palacio M.D. 11/04/2020 10:43 AM
[2020-11-04] MEDS: HYDROCORTISONE SOD IV SCH ×2 (10:55→19:57)
[2020-11-04] MEDS: KETAMINE / NSS 500 MG/500 ML BAG IV SCH (10:55)
[2020-11-04] MEDS: SODIUM CHLORIDE 0.9% IV SCH ×2 (10:55→19:57)
--- NOTE | 2020-11-04 11:03 | Pharmacy Report ---
Pharmacy Progress Note - Date of Service November 04, 2020 - Progress Note Contacted [facility] inpatient pharmacy to determine when linezolid and atreonam therapy began. Linezolid 600mg PO BID began 10/23 PM which continued thru 10/30 AM at which time therapy was changed to 450mg IV Q 8 hrs and was continued thru transfer on 11/01 Aztreonam 2gm IV Q 8 hrs began 10/20 and was discontinued on 10/26 AM
[2020-11-04] MEDS: NOREPINEPHRINE/D5W 8 MG/508 ML BAG IV SCH (11:22)
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
[2020-11-04] MEDS ORDERED: oxyCODONE HCL IR 30 MG TAB (IMMEDIATE RELEASE) PO SCH (12:00)
[2020-11-04] MEDS: PROPRANOLOL HCL 10 MG TAB PO SCH ×2 (12:47→20:54)
[2020-11-04] MEDS: MIDAZOLAM HCL 125 MG/250 ML BAG IV PRN (12:48)
--- NOTE | 2020-11-04 12:50 | Pharmacy Report ---
Pharmacy Glycemic Short Note 2 - Date of Service November 04, 2020 - Glycemic Short BSG Results (Last 24 hours): 11/03/20 11/03/20 11/03/20 12:11 13:49 16:40 Glucose POC Glucose 105 H 68 L* POC Glucose (other) 103 H 11/03/20 11/03/20 11/03/20 16:41 17:08 17:34 Glucose POC Glucose 77 90 117 H POC Glucose (other) 11/03/20 11/03/20 11/03/20 18:32 19:35 20:38 Glucose POC Glucose 145 H 139 H 176 H POC Glucose (other) 11/03/20 11/03/20 11/04/20 21:58 22:51 00:23 Glucose POC Glucose 197 H 180 H 165 H POC Glucose (other) 11/04/20 11/04/20 11/04/20 01:02 03:03 04:51 Glucose 157 H POC Glucose 144 H 148 H POC Glucose (other) 11/04/20 11/04/20 11/04/20 05:01 07:20 09:20 Glucose POC Glucose 147 H 160 H 165 H POC Glucose (other) OUTPATIENT ANTIDIABETIC REGIMEN: * Lantus 70 units QAM, 30 units QPM * Novolog sliding scale TIDM- max of 60 units/day ASSESSMENT: 11/04 * BSGs well controlled with IV insulin infusion and Novolog SQ coverage of continuous tube feeds. There was one episode of mild hypoglycemia yesterday however TF had been paused and rate decreased yesterday likely leading to this event * Insulin infusion running at 8.2 units/hr this AM with BSGs in mid 100s * Will initiate some basal insulin at this time to lessen reliance on insulin infusion and make the transition to SQ easier in the future. * Patient has been tolerating tube feeds. She remains intubated and will possibly have trach placed today. PLAN FOR INPATIENT GLYCEMIC CONTROL: * Continue IV insulin drip. Goal range 120-180mg/dL * Basal insulin * Lantus 50 units SQ BID - in addition to insulin drip * Bolus insulin * NovoLog per scale ACHS or Q6hrs while NPO * Goal Range: Low 110 mg/dL - High 180 mg/dL * Correction Factor: NONE * Nutritional / Prandial insulin per carb ratio of 1 unit per 5 grams CHO received from Peptamen P tube feeds. PLAN FOR DISCHARGE: * TBD
[2020-11-04] MEDS: SILVER SULFADIAZINE 1% CR 400 GM JAR EXT SCH (13:12)
[2020-11-04] MEDS ORDERED: LIDOCAINE HCL 2% (LOCAL) INJ 50 ML VIAL ONE (13:42)
[2020-11-04] MEDS ORDERED: VECURONIUM BROMIDE 10 MG VIAL IV ONE (13:49)
[2020-11-04] MEDS ORDERED: OXANDROLONE 10 MG TABLET PO ONE (14:00)
--- NOTE | 2020-11-04 14:15 | Procedure Note ---
Procedure Note Date of Service November 04, 2020 Procedure Date: Noted Above Procedure: Percutaneous Dilatational Tracheotomy with Bronchoscopic Guidance Pre-procedure Diagnosis & Indication: Chronic respiratory failure and need for ongoing mechanical ventilation Post-procedure Diagnosis: same as above Prior to Procedure: Informed Consent: The risks, benefits, indications, potential complications, and alternatives were explained to the patient's sister and informed consent was obtained. Performed by: Camille Saucedo DO Bronchoscopy Poem Writer: [place] Preprocedure: The identity of the patient was confirmed and a bedside time out was performed. [place] protocol was followed for this procedure. Prior to the initiation of sedation or the procedure, a timeout was performed. The patients identity was verified by confirming the patients wrist band for name, date of , and medical record number. Everyone in the room was in agreement with the patient identify, the procedure to be performed, consent was in place and matched the planned procedure, and the procedure site. The area was cleaned with a CHG scrub and draped with large sterile barrier. Hand hygiene was performed, and cap, mask, sterile gown, and sterile gloves were worn. The patient was covered by a large sterile drape. Sterile technique was maintained for the entire procedure. Anesthesia: The patient was intubated and sedated prior to the procedure. Additional midazolam and fentanyl was given for deep sedation. Once the patient was adequately sedated, vecuronium was administered for paralysis. Description of Procedure: The patient was placed in the supine position. The anterior neck was prepped and draped in usual sterile fashion. 1% lidocaine was administered approximately 2 fingerbreadths above the sternal notch for local anesthesia. The bronchoscope was introduced through the endotracheal tube and the trachea was properly visualized. The endotracheal tube was then gradually withdrawn within the trachea under direct bronchoscopic visualization. The area of the surgical site was initially transilluminated, and proper midline position was confirmed by bouncing the needle from the tracheostomy tray over the trachea with bronchoscopic examination. The needle was advanced into the trachea and proper positioning was confirmed with direct visualization. The needle was then removed leaving a white outer cannula in position. The wire from the tracheostomy tray was then advanced through the white outer cannula. The cannula was then removed. The initial small, blue dilator was then advanced over the wire into the trachea for initial dilation. The large, tapered dilator was then advanced over the wire into the trachea. The dilator was removed leaving the wire and white inner cannula in position. A number 8 percutaneous Shiley tracheostomy tube was then advanced over the wire and white inner cannula into the trachea. Proper positioning was confirmed with bronchoscopic visualization. The tracheostomy tube was then sutured in place with four nylon sutures. It was further secured with a tracheostomy tie. Estimated blood loss: Less than 5 mL. Complications: None immediate. Coding CPT Codes ENT - ENT: 94801 Incision of windpipe ([id number]) [facility] [place] Procedure Codes ([place]) ENT ENT: 81347 Incision of windpipe
--- NOTE | 2020-11-04 14:16 | Billing Data ---
Date of Service November 04, 2020 Coding Level of Care Code Critical Care 08 30- mins
--- NOTE | 2020-11-04 14:29 | Procedure Note ---
Procedure Note Date of Service November 04, 2020 Note Procedure Name: Fiberoptic bronchoscopy for placement of percutaneous tracheostomy tube Procedure time out: side/site verified, patient ID confirmed, correct procedure Consent obtained: written (The risks, benefits, indications, potential complications, and alternatives were explained to the family and informed consent obtained by Dr. Saucedo prior to the procedure.) Time of procedure: 1340 Performed by: physician consumer loan processor: Stanley Middleton PA-C Indications: diagnostic, therapeutic Contraindications: Relative contraindication included patient on therapeutic doses of Lovenox for previous history of pulmonary emboli. Factor Xa level was checked prior to the procedure and was 0.52 international units/mL which is at the low end of therapeutic for this patient. Platelet count was 305,000. INR was 1.1 when last checked on 11/02/2020. Patient is not on any antiplatelet therapy. Indication: Patient requiring percutaneous placement of tracheostomy tube. Fiberoptic bronchoscopy required for clearance of secretions prior to the procedure, visualization of cannulization, and verification of airways status post procedure. The bronchoscope was introduced into the endotracheal tube. There were thin secretions in all segments of the airway. These were evacuated easily with minimal amounts of saline. There was no evidence of bleeding or significant bronchial trauma. The right and main left bronchus as well as the segmental branches of the right middle and right lower lobe and left upper, lingula and left lower lobes were again examined with trace blood. Again there were minimal secretions but no evidence of mucous plugging. There was no evidence of bronchial trauma on the final examination with the fiberoptic scope. The cuff of the endotracheal tube was deflated and the endotracheal tube was withdrawn to the level of the vocal cords using video bronchoscopy. The cuff was lightly reinflated and the fiberoptic bronchoscope was advanced to the tip of the endotracheal tube. The needle entry site in the trachea midline was visualized as was the placement of the guidewire into the distal trachea. Photographs were taken to confirm placement of the guidewire. After placement of the tracheostomy tube, the bronchoscope was withdrawn from the endotracheal tube and introduced through the tracheostomy tube to confirm correct placement. The bronchoscope was then withdrawn to allow suturing of the tracheostomy tube into position. After confirmation of position and securement of the tracheostomy tube the endotracheal tube was removed. The patient experienced no desaturation or complication during the procedure. Dr. Saucedo was present for the entire procedure as he was performing the surgical portion of the percutaneous tracheostomy Complications: none Patient tolerated procedure: well Post-procedure vital signs: reviewed and stable Comments: The patient was already on multiple agents for sedation and vecuronium he was used as a neuromuscular blockade for the procedure with airway intact with endotracheal tube. This was ordered, administered, and monitored by Dr. Saucedo during my portion of the procedure. Coding CPT Codes Pulmonary/Thoracic - Pulmonary and Thoracic: 70289 Bronchoscopy, clear airways ([id number]) Pulmonary/Thoracic - Pulmonary and Thoracic: 97668 Bronchoscopy, reclear airway ([id number]) [facility] [place]) Pulmonary/Thoracic Procedure 1: Pulmonary and Thoracic: 17785 Bronchoscopy, clear airways Procedure 2: Pulmonary and Thoracic: 35903 Bronchoscopy, reclear airway
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
--- NOTE | 2020-11-04 15:46 | XRay Report ---
KUB CLINICAL HISTORY: core safe feeding tube placement COMPARISON STUDY: Chest radiograph performed earlier today. FINDINGS: Tip of the feeding tube is not visualized this exam but is at least within the body of the stomach. Tip of endotracheal tube is approximately 6.7 cm above the taylor. Right subclavian central line is noted. Lungs are suboptimally assessed due to motion artifact. Cardiomegaly is noted. Left ba silar opacity is noted. There is interstitial thickening. IMPRESSION: Tip of feeding tube not visualized on this exam but at least within the proximal body of the stomach. ACT 112: Negative or not required by law. Electronically signed by: Judson Lerma M.D. 11/04/2020 3:44 PM
[2020-11-04] MEDS: PEPTAMEN INTENSE VHP 1.0 CAL 1,000 ML BAG OG PRN (15:59)
[2020-11-04] MEDS: diazePAM 5 MG TABLET PO SCH ×2 (16:00→20:46)
[2020-11-04] MEDS: OXYCODONE PO SCH (17:36)
[2020-11-04] MEDS: OXANDROLONE 10 MG TABLET PO SCH (20:50)
[2020-11-04] MEDS: INSULIN GLARGINE 100 UNIT/ML VIAL SC SCH (20:50)
[2020-11-05] MEDS: TUBE FEEDING WATER FLUSH OG SCH ×22 (00:23→23:14)
[2020-11-05] MEDS: OXYCODONE PO SCH ×4 (00:23→17:46)
[2020-11-05] MEDS: INSULIN ASPART 100 UNITS/ML 3 ML PEN SC SCH ×6 (00:23→22:05)
[2020-11-05] MEDS: ENOXAPARIN 150 MG/ML SYR SQ SCH ×2 (02:04→12:46)
[2020-11-05] MEDS: fentaNYL DRIP 1,250 MCG/250 ML BAG IV SCH ×5 (03:22→18:26)
[2020-11-05] MEDS: ALBUTEROL 0.083% NEBU SOLN 3 ML VIAL NEB SCH ×6 (03:49→23:30)
[2020-11-05] MEDS: AZTREONAM 2,000 MG in DEXTROSE 5% 100 ML IV SCH ×3 (04:19→22:13)
[2020-11-05] MEDS: SODIUM CHLORIDE 0.9% IV SCH ×2 (04:57→22:21)
[2020-11-05] MEDS: HYDROCORTISONE SOD IV SCH ×2 (04:57→22:21)
[2020-11-05 05:08] LABS: Basophils # (auto) 0.01 K/uL (0-0.2); Basophils % (auto) 0.2 %; Eosinophils # (auto) 0.02 K/uL (0-0.5); Eosinophils % (auto) 0.4 %; Hematocrit (blood only) 25.4 % (37-47); Hemoglobin 7.7 g/dL (12.0-16.0); Immature Granulocytes # (auto) 0.13 K/uL (0.00-0.02); Immature Granulocytes % (auto) 2.8 %; Lymphocytes # (auto) 1.24 K/uL (1.2-3.4); Lymphocytes % (auto) 26.7 %; Mean Corpuscular Hemoglobin 28.4 pg (25-34); Mean Corpuscular Hgb Conc 30.3 g/dL (32-36); Mean Corpuscular Volume 93.7 fL (80-100); Mean Platelet Volume 9.1 fL (7.4-10.4); Monocytes # (auto) 0.52 K/uL (0.11-0.59); Monocytes % (auto) 11.2 %; Neutrophils # (auto) 2.72 K/uL (1.4-6.5); Neutrophils % (auto) 58.7 %; Nucleated RBC # (auto) 0.06 K/uL (0-0); Nucleated RBC % (auto) 1.2 %; Platelet Count 285 K/uL (130-400); RDW Coefficient of Variation 18.3 % (11.5-14.5); RDW Standard Deviation 55.7 fL (36.4-46.3); Red Blood Count 2.71 M/uL (4.2-5.4); White Blood Count 4.64 K/uL (4.8-10.8)
[2020-11-05 05:24] LABS: Alanine Aminotransferase 18 U/L (12-78); Albumin Level 1.4 gm/dl (3.4-5.0); Aspartate Aminotransferase 15 U/L (15-37); BUN Creatinine Ratio 46.5 (10-20); Bilirubin Direct < 0.1 mg/dl (0-0.2); Blood Urea Nitrogen 39 mg/dl (7-18); Calcium 9.8 mg/dl (8.5-10.1); Carbon Dioxide 33 mmol/L (21-32); Chloride 105 mmol/L (98-107); Creatinine Clr Calc Pharmacy 126.1 ml/min; Est GFR (African American) 79.9; Est GFR (Non-African American) 68.9; Glucose 144 mg/dl (70-99); Magnesium 2.7 mg/dl (1.8-2.4); Potassium 4.6 mmol/L (3.5-5.1); Sodium 139 mmol/L (136-145)
[2020-11-05 05:33] LABS: Alkaline Phosphatase 65 U/L (45-117); Bilirubin,Total 0.2 mg/dl (0.2-1); Phosphorus 3.4 mg/dl (2.5-4.9); Total Protein 6.3 gm/dl (6.4-8.2)
[2020-11-05 05:35] LABS: Basophilic Stippling 1+; Polychromasia 1+
[2020-11-05] MEDS: PROPRANOLOL HCL 10 MG TAB PO SCH ×3 (06:24→22:17)
[2020-11-05] MEDS: diazePAM 5 MG TABLET PO SCH ×3 (06:25→23:14)
[2020-11-05] MEDS: LEVOTHYROXINE SODIUM 50 MCG TABLET NG SCH (06:25)
[2020-11-05] MEDS ORDERED: SODIUM CHLORIDE 0.9% 250 ML IV PRN (07:17)
[2020-11-05] MEDS: POLYETHYLENE (MIRALAX) 17 GM PACK PO SCH (07:38)
[2020-11-05] MEDS: FAMOTIDINE 20 MG in SYRINGE 3 ML IV SCH ×2 (07:38→22:20)
[2020-11-05] MEDS: DOCUSATE SODIUM SYRUP 100 MG/10 ML UDC NG SCH ×2 (07:39→22:13)
[2020-11-05] MEDS: SENNOSIDES 8.8 MG/5 ML UDC PO SCH ×2 (07:39→22:14)
[2020-11-05] MEDS: OXANDROLONE 10 MG TABLET PO SCH ×2 (07:39→22:20)
[2020-11-05] MEDS: MULTI VIT W/MINERALS LIQUID 15 ML UDP NG SCH (07:39)
[2020-11-05] MEDS: INSULIN GLARGINE 100 UNIT/ML VIAL SC SCH (07:39)
[2020-11-05] MEDS: CHLORHEXIDINE GLUCONATE 0.12% 480 ML MT SCH ×2 (07:41→22:21)
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
--- NOTE | 2020-11-05 08:00 | XRay Report ---
XR chest 1V portable CLINICAL HISTORY: Respiratory failure COMPARISON STUDY: 11/04/2020 FINDINGS: The study is rotated. There is a tracheostomy tube unchanged in position. There is an enter ic tube which passes into the stomach. There is a right-sided central venous catheter tip of which pr ojects over the atriocaval junction. There is persistent interstitial thickening similar to the prior study. Trace pleural effusions cannot be excluded.[ IMPRESSION: 1. Interval removal of the endotracheal tube and placement of a tracheostomy tube 2. Stable bilateral interstitial opacities, pulmonary edema versus infectious/inflammatory process. ACT 112: Negative or not required by law. Electronically signed by: Mich Padron M.D. 11/05/2020 7:59 AM
[2020-11-05] MEDS: MIDAZOLAM HCL 125 MG/250 ML BAG IV PRN (08:53)
--- NOTE | 2020-11-05 09:09 | Billing Data ---
Date of Service November 05, 2020 Coding Level of Care Code Critical Care 1st - mins
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
[2020-11-05] MEDS: ASCORBIC ACID 500 MG TAB PO SCH (10:43)
[2020-11-05] MEDS: FERROUS SULFATE 325 MG/7.4 ML UDP PO SCH (10:43)
[2020-11-05] MEDS: BACITRACIN OINT 15 GM TUBE EXT SCH (12:40)
[2020-11-05] MEDS: SILVER SULFADIAZINE 1% CR 400 GM JAR EXT SCH (12:41)
[2020-11-05] MEDS: PEPTAMEN INTENSE VHP 1.0 CAL 1,000 ML BAG OG PRN (12:47)
[2020-11-05] MEDS: LINEZOLID IV SCH ×2 (12:47→22:16)
[2020-11-05] MEDS: KETAMINE / NSS 500 MG/500 ML BAG IV SCH (14:20)
[2020-11-05] MEDS: INSULIN REGULAR 250 UNITS in SODIUM CHLORIDE 0.9% 247.5 ML IV SCH ×2 (14:20→15:44)
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
[2020-11-05] MEDS ORDERED: fentaNYL citrate 100 MCG/2 ML VIAL IV PRN (17:19)
[2020-11-05] MEDS ORDERED: MIDAZOLAM HCL 1 MG/ML 2ML VIAL IV PRN (17:19)
[2020-11-05] MEDS ORDERED: STAT IV Infusion **Titration per Protocol STA (18:15)
[2020-11-06] MEDS: INSULIN REGULAR 250 UNITS in SODIUM CHLORIDE 0.9% 247.5 ML IV SCH (00:14)
[2020-11-06] MEDS: TUBE FEEDING WATER FLUSH OG SCH ×19 (00:15→23:37)
[2020-11-06] MEDS: INSULIN ASPART 100 UNITS/ML 3 ML PEN SC SCH ×7 (00:16→23:39)
[2020-11-06] MEDS: OXYCODONE PO SCH ×5 (00:19→23:39)
[2020-11-06] MEDS: ALBUTEROL 0.083% NEBU SOLN 3 ML VIAL NEB SCH ×6 (04:27→22:31)
[2020-11-06] MEDS: AZTREONAM 2,000 MG in DEXTROSE 5% 100 ML IV SCH (04:44)
[2020-11-06] MEDS: LINEZOLID IV SCH (04:45)
[2020-11-06 04:56] LABS: Basophils # (auto) 0.01 K/uL (0-0.2); Basophils % (auto) 0.2 %; Eosinophils # (auto) 0.04 K/uL (0-0.5); Eosinophils % (auto) 0.7 %; Hematocrit (blood only) 29.7 % (37-47); Hemoglobin 8.9 g/dL (12.0-16.0); Immature Granulocytes # (auto) 0.28 K/uL (0.00-0.02); Immature Granulocytes % (auto) 4.9 %; Lymphocytes % (auto) 41.6 %; Mean Corpuscular Hemoglobin 27.3 pg (25-34); Mean Corpuscular Volume 91.1 fL (80-100); Monocytes % (auto) 13.9 %; Neutrophils # (auto) 2.24 K/uL (1.4-6.5); Neutrophils % (auto) 38.7 %; Nucleated RBC # (auto) 0.14 K/uL (0-0); Nucleated RBC % (auto) 2.5 %; Platelet Count 357 K/uL (130-400); RDW Coefficient of Variation 18.4 % (11.5-14.5); RDW Standard Deviation 51.4 fL (36.4-46.3); Red Blood Count 3.26 M/uL (4.2-5.4); White Blood Count 5.77 K/uL (4.8-10.8)
[2020-11-06 05:23] LABS: Basophilic Stippling 1+; Polychromasia 1+
[2020-11-06 05:33] LABS: Alanine Aminotransferase 30 U/L (12-78); Albumin Level 1.4 gm/dl (3.4-5.0); Aspartate Aminotransferase 31 U/L (15-37); BUN Creatinine Ratio 46.9 (10-20); Bilirubin Direct < 0.1 mg/dl (0-0.2); Blood Urea Nitrogen 37 mg/dl (7-18); Calcium 9.3 mg/dl (8.5-10.1); Carbon Dioxide 33 mmol/L (21-32); Chloride 106 mmol/L (98-107); Est GFR (African American) 87.3; Est GFR (Non-African American) 75.3; Glucose 97 mg/dl (70-99); Magnesium 2.5 mg/dl (1.8-2.4); Sodium 141 mmol/L (136-145)
[2020-11-06 05:38] LABS: Alkaline Phosphatase 73 U/L (45-117); Bilirubin,Total 0.3 mg/dl (0.2-1); Phosphorus 1.9 mg/dl (2.5-4.9); Total Protein 6.5 gm/dl (6.4-8.2)
[2020-11-06] MEDS: LEVOTHYROXINE SODIUM 50 MCG TABLET NG SCH (05:45)
[2020-11-06] MEDS: PROPRANOLOL HCL 10 MG TAB PO SCH ×3 (05:46→19:43)
[2020-11-06] MEDS: diazePAM 5 MG TABLET PO SCH ×2 (05:46→20:25)
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
[2020-11-06] MEDS: DOCUSATE SODIUM SYRUP 100 MG/10 ML UDC NG SCH ×2 (08:32→19:42)
[2020-11-06] MEDS: SENNOSIDES 8.8 MG/5 ML UDC PO SCH ×2 (08:33→19:41)
[2020-11-06] MEDS: OXANDROLONE 10 MG TABLET PO SCH (08:35)
[2020-11-06] MEDS: FAMOTIDINE 20 MG in SYRINGE 3 ML IV SCH ×2 (08:35→19:46)
[2020-11-06] MEDS: CHLORHEXIDINE GLUCONATE 0.12% 480 ML MT SCH ×2 (09:00→19:47)
[2020-11-06] MEDS: MULTI VIT W/MINERALS LIQUID 15 ML UDP NG SCH (09:19)
[2020-11-06] MEDS: DEXTROSE 50% 50 ML SYRINGE IV PRN (10:19)
[2020-11-06] MEDS: SILVER SULFADIAZINE 1% CR 400 GM JAR EXT SCH (12:00)
[2020-11-06] MEDS: BACITRACIN OINT 15 GM TUBE EXT SCH (12:00)
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
[2020-11-06] MEDS ORDERED: NEOSTIGMINE METHYLSULFATE 5 MG/5 ML SYR ONE (13:19)
[2020-11-06] MEDS ORDERED: ROCURONIUM BROMIDE 10 MG/ML 5 ML VIAL IV ONE ×2 (13:19→15:06)
[2020-11-06] MEDS ORDERED: PROPOFOL IV EMULSION 10 MG/ML 20 ML VIAL IV ONE (13:19)
[2020-11-06] MEDS ORDERED: ONDANSETRON INJ 2 MG/ML 2 ML VIAL ONE (13:19)
[2020-11-06] MEDS ORDERED: GLYCOPYRROLATE 0.2 MG/ML VIAL ONE (13:19)
[2020-11-06] MEDS ORDERED: fentaNYL citrate 100 MCG/2 ML VIAL ONE (13:19)
[2020-11-06] MEDS ORDERED: LIDOCAINE HCL 2% 2 ML VIAL/AMP(20MG/ML) INFIL ONE (13:19)
[2020-11-06] MEDS ORDERED: DEXAMETHASONE SOD INJ 4 MG/ML VIAL ONE (13:19)
[2020-11-06] MEDS: cefTRIAXone SODIUM 2,000 MG in DEXTROSE 5% 50 ML IV SCH (13:26)
[2020-11-06] MEDS: fentaNYL DRIP 1,250 MCG/250 ML BAG IV SCH (13:26)
[2020-11-06] MEDS ORDERED: FUROSEMIDE 20 MG in SYRINGE 0 ML IV ONE ×2 (13:33→16:15)
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
--- NOTE | 2020-11-06 13:44 | History & Physical Bridge Note ---
Date of Service November 06, 2020 History & Physical Bridge Note I have examined the patient, reviewed the History & Physical and in the interval since the performance of the History & Physical I have noted the following changes of clinical significance: no changes noted pt seen with sister/POA at bedside. discussed plan/risks/options. questions answered. will proceed with laparoscopy assisted EGD with PEG/gastrostomy tube placement.
[2020-11-06] MEDS ORDERED: FUROSEMIDE 40 MG/4 ML VIAL IV ONE (14:00)
[2020-11-06] MEDS ORDERED: KETAMINE 50 MG/5 ML SYRINGE ONE (14:38)
[2020-11-06] MEDS ORDERED: SODIUM PHOSPHATE 3 MMOL/1 ML INFUSION IV STA (14:43)
[2020-11-06] MEDS ORDERED: SODIUM PHOSPHATE 21 MMOL in SODIUM CHLORIDE 0.9% 500 ML IV ONE (15:15)
--- NOTE | 2020-11-06 15:29 | Pharmacy Report ---
Pharmacy Glycemic Short Note 2 - Date of Service November 06, 2020 - Glycemic Short BSG Results (Last 24 hours): 11/05/20 11/05/20 11/05/20 15:21 18:57 22:07 Glucose POC Glucose 132 H 142 H 147 H 11/06/20 11/06/20 11/06/20 01:20 02:28 03:32 Glucose POC Glucose 99 90 90 11/06/20 11/06/20 11/06/20 04:34 04:35 05:42 Glucose 97 POC Glucose 91 107 H 11/06/20 11/06/20 11/06/20 06:37 07:35 08:58 Glucose POC Glucose 121 H 102 H 96 11/06/20 11/06/20 11/06/20 10:09 10:37 12:44 Glucose POC Glucose 92 106 H 118 H 11/06/20 14:19 Glucose POC Glucose 108 H OUTPATIENT ANTIDIABETIC REGIMEN: * Lantus 70 units QAM, 30 units QPM * Novolog sliding scale TIDM- max of 60 units/day ASSESSMENT: 11/06 * BSGs well controlled over the last 24 hours. Insulin needs have greatly decreased while tube feeds have been held. Will not resume sq Lantus dosing until TFs resume. Given BSGs have remained stable off of the drip today, will plan to check BSG q2h and only restart infusion if BSG > 150 mg/dL. This was discussed with ICU team and a pending order to this effect has been entered. Unclear whether TFs will resume this evening after OR. 11/04 * BSGs well controlled with IV insulin infusion and Novolog SQ coverage of continuous tube feeds. There was one episode of mild hypoglycemia yesterday however TF had been paused and rate decreased yesterday likely leading to this event * Insulin infusion running at 8.2 units/hr this AM with BSGs in mid 100s * Will initiate some basal insulin at this time to lessen reliance on insulin infusion and make the transition to SQ easier in the future. * Patient has been tolerating tube feeds. She remains intubated and will possibly have trach placed today. PLAN FOR INPATIENT GLYCEMIC CONTROL: * Resume IV insulin drip if BSG > 150 mg/dL. Goal range 120-180mg/dL * Basal insulin * Lantus 50 units SQ BID - in addition to insulin drip- held until TFs resumed * Bolus insulin * NovoLog per scale ACHS or Q6hrs while NPO * Goal Range: Low 120 mg/dL - High 180 mg/dL * Correction Factor: NONE * Nutritional / Prandial insulin per carb ratio of 1 unit per 5 grams CHO received from [facility] tube feeds. PLAN FOR DISCHARGE: * TBD
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
[2020-11-06] MEDS: POLYETHYLENE (MIRALAX) 17 GM PACK PO SCH (15:59)
[2020-11-06] MEDS: FERROUS SULFATE 325 MG/7.4 ML UDP PO SCH ×2 (15:59→16:00)
[2020-11-06] MEDS: ASCORBIC ACID 500 MG TAB PO SCH (16:00)
[2020-11-06] MEDS: ENOXAPARIN 150 MG/ML SYR SQ SCH (16:01)
--- NOTE | 2020-11-06 16:13 | Anesthesiology Progress Note ---
Date of Service November 06, 2020 Anesthesia Post Procedure Vital Signs Vital Signs: Temp Pulse Pulse Resp BP BP Pulse Ox 11/06/20 13:51 36.5 C 78 31 H 138/77 97 11/06/20 13:00 36.4 C L 87 96 11/06/20 12:58 36.5 C 93 H 143/59 H 99 11/06/20 12:43 36.6 C 83 155/64 H 100 11/06/20 12:00 36.8 C 83 94 11/06/20 11:58 36.8 C 83 144/67 H 96 11/06/20 11:27 36.8 C 76 100/76 97 11/06/20 11:25 81 26 H 98 11/06/20 11:00 36.8 C 65 99 11/06/20 10:57 36.8 C 80 130/54 L 99 11/06/20 10:28 36.8 C 83 128/49 L 99 11/06/20 10:00 36.9 C 73 98 11/06/20 09:58 133/59 L 11/06/20 09:29 36.9 C 72 99 11/06/20 09:28 36.9 C 79 131/46 L 100 11/06/20 09:00 36.9 C 81 99 11/06/20 08:57 36.9 C 79 150/61 H 93 11/06/20 08:27 36.8 C 72 145/73 H 99 11/06/20 08:00 36.8 C 78 100 11/06/20 07:57 36.8 C 74 136/61 98 11/06/20 07:27 36.8 C 72 132/69 97 11/06/20 07:05 81 29 H 98 11/06/20 07:00 36.7 C 71 97 11/06/20 06:57 36.7 C 81 141/65 H 98 11/06/20 06:27 36.8 C 90 152/71 H 97 11/06/20 05:58 36.8 C 82 149/54 H 95 11/06/20 05:27 36.9 C 84 150/68 H 96 11/06/20 04:57 36.9 C 81 148/54 H 96 11/06/20 04:27 37.0 C 78 33 H 143/67 H 95 11/06/20 03:58 37.0 C 75 147/63 H 95 11/06/20 03:27 37.0 C 84 150/65 H 97 11/06/20 02:57 37.1 C 81 152/68 H 98 11/06/20 02:28 37.1 C 79 157/55 H 96 11/06/20 01:57 37.1 C 75 143/68 H 96 11/06/20 01:27 37.1 C 74 142/59 H 94 11/06/20 00:57 37.0 C 76 151/63 H 95 11/06/20 00:27 37.1 C 80 148/62 H 95 11/05/20 23:57 37.2 C 76 153/59 H 95 11/05/20 23:30 84 37 H 95 11/05/20 23:27 37.2 C 75 156/68 H 95 11/05/20 22:57 37.2 C 87 152/67 H 95 11/05/20 22:31 37.2 C 92 H 128/108 H 94 11/05/20 22:27 37.2 C 84 128/108 H 94 11/05/20 21:57 37.2 C 96 H 147/57 H 93 11/05/20 21:27 37.3 C 87 138/88 92 11/05/20 20:57 37.4 C 66 153/52 H 93 11/05/20 20:27 37.4 C 68 163/54 H 93 11/05/20 19:57 37.3 C 68 154/54 H 96 11/05/20 19:35 68 36 H 94 11/05/20 19:27 37.3 C 73 161/51 H 94 11/05/20 18:30 37.3 C 63 97 11/05/20 18:27 37.2 C 65 135/42 L 91 11/05/20 18:01 37.3 C 67 97 11/05/20 17:59 37.3 C 69 151/46 H 95 11/05/20 17:57 37.3 C 68 65/55 L 97 11/05/20 17:44 37.3 C 66 152/36 H 97 11/05/20 17:30 37.3 C 66 98 11/05/20 17:27 37.3 C 66 133/53 L 97 11/05/20 17:00 37.2 C 64 98 11/05/20 16:57 37.2 C 64 127/55 L 99 11/05/20 16:30 37.1 C 62 98 11/05/20 16:27 37.0 C 64 141/56 H 99 Transfer of Care Handoff Completed per policy Notes Mental Status: see notes below (sedated) Patient Amnestic to Procedure: Yes Nausea / Vomiting: adequately controlled Pain: adequately controlled Airway Patency, RR, SpO2: stable & adequate (assisted ventilation via tracheostomy) BP & HR: stable & adequate Hydration State: stable & adequate Anesthetic Complications: no major complications apparent
[2020-11-06] MEDS: ICU ELECTROLYTE REPLACEMENT PROTOCOL SCH (18:28)
[2020-11-06] MEDS ORDERED: STAT IV Infusion **Titration per Protocol STA (20:25)
[2020-11-06] MEDS: INSULIN GLARGINE 100 UNIT/ML VIAL SC SCH (20:31)
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
[2020-11-06] MEDS: KETAMINE / NSS 500 MG/500 ML BAG IV SCH (23:37)
[2020-11-07] MEDS: TUBE FEEDING WATER FLUSH OG SCH ×21 (00:52→23:49)
[2020-11-07] MEDS: ENOXAPARIN 150 MG/ML SYR SQ SCH ×2 (01:19→15:15)
[2020-11-07] MEDS: INSULIN REGULAR 250 UNITS in SODIUM CHLORIDE 0.9% 247.5 ML IV SCH (01:37)
[2020-11-07] MEDS: INSULIN ASPART 100 UNITS/ML 3 ML PEN SC SCH ×5 (03:48→19:36)
[2020-11-07] MEDS: ALBUTEROL 0.083% NEBU SOLN 3 ML VIAL NEB SCH ×6 (03:55→23:49)
[2020-11-07] MEDS: fentaNYL citrate 100 MCG/2 ML VIAL IV PRN ×2 (04:30→12:00)
[2020-11-07] MEDS: PEPTAMEN INTENSE VHP 1.0 CAL 1,000 ML BAG OG PRN (04:42)
[2020-11-07 05:00] LABS: Basophils # (auto) 0.02 K/uL (0-0.2); Basophils % (auto) 0.3 %; Eosinophils # (auto) 0.03 K/uL (0-0.5); Eosinophils % (auto) 0.5 %; Hematocrit (blood only) 31.1 % (37-47); Hemoglobin 9.4 g/dL (12.0-16.0); Immature Granulocytes # (auto) 0.27 K/uL (0.00-0.02); Immature Granulocytes % (auto) 4.4 %; Lymphocytes # (auto) 2.18 K/uL (1.2-3.4); Lymphocytes % (auto) 35.7 %; Mean Corpuscular Hemoglobin 27.9 pg (25-34); Mean Corpuscular Hgb Conc 30.2 g/dL (32-36); Mean Corpuscular Volume 92.3 fL (80-100); Mean Platelet Volume 8.9 fL (7.4-10.4); Monocytes # (auto) 0.71 K/uL (0.11-0.59); Monocytes % (auto) 11.6 %; Neutrophils % (auto) 47.5 %; Nucleated RBC # (auto) 0.21 K/uL (0-0); Nucleated RBC % (auto) 3.4 %; Platelet Count 409 K/uL (130-400); RDW Coefficient of Variation 19.4 % (11.5-14.5); RDW Standard Deviation 53.9 fL (36.4-46.3); Red Blood Count 3.37 M/uL (4.2-5.4); White Blood Count 6.11 K/uL (4.8-10.8)
[2020-11-07 05:21] LABS: Alanine Aminotransferase 51 U/L (12-78); Albumin Level 1.4 gm/dl (3.4-5.0); Aspartate Aminotransferase 42 U/L (15-37); BUN Creatinine Ratio 43.8 (10-20); Bilirubin Direct < 0.1 mg/dl (0-0.2); Blood Urea Nitrogen 36 mg/dl (7-18); Calcium 9.1 mg/dl (8.5-10.1); Carbon Dioxide 32 mmol/L (21-32); Chloride 107 mmol/L (98-107); Creatinine Clr Calc Pharmacy 128.7 ml/min; Est GFR (African American) 82.2; Est GFR (Non-African American) 70.9; Glucose 100 mg/dl (70-99); Magnesium 2.4 mg/dl (1.8-2.4); Potassium 4.1 mmol/L (3.5-5.1); Sodium 142 mmol/L (136-145)
[2020-11-07] MEDS: OXYCODONE PO SCH ×4 (05:46→23:51)
[2020-11-07 05:47] LABS: Alkaline Phosphatase 76 U/L (45-117); Bilirubin,Total 0.2 mg/dl (0.2-1); Phosphorus 3.2 mg/dl (2.5-4.9); Total Protein 6.4 gm/dl (6.4-8.2)
[2020-11-07] MEDS: LEVOTHYROXINE SODIUM 50 MCG TABLET NG SCH (05:47)
[2020-11-07] MEDS: PROPRANOLOL HCL 10 MG TAB PO SCH ×3 (05:48→20:47)
[2020-11-07] MEDS: ICU ELECTROLYTE REPLACEMENT PROTOCOL SCH ×2 (05:57→17:08)
[2020-11-07 06:02] LABS: Basophilic Stippling 1+; Polychromasia 1+
[2020-11-07] MEDS: fentaNYL DRIP 1,250 MCG/250 ML BAG IV SCH (07:15)
[2020-11-07] MEDS ORDERED: ALTEPLASE, RECOMBINANT 1 MG/ML 2ML VIAL INSTIL ONE (08:00)
--- NOTE | 2020-11-07 08:46 | Anesthesiology Progress Note ---
Date of Service November 07, 2020 Anesthesia Post Procedure Vital Signs Vital Signs: Temp Pulse Pulse Resp BP BP Pulse Ox 11/07/20 07:30 81 21 95 11/07/20 06:28 36.8 C 77 111/66 95 11/07/20 06:00 36.7 C 85 94 11/07/20 05:58 36.7 C 78 126/72 96 11/07/20 05:28 36.8 C 72 123/74 94 11/07/20 05:00 36.8 C 88 95 11/07/20 04:59 36.8 C 84 140/64 96 11/07/20 04:28 37.0 C 75 149/64 H 94 11/07/20 04:21 82 24 94 11/07/20 04:00 37.1 C 79 92 11/07/20 03:28 37.0 C 86 144/47 H 95 11/07/20 03:00 37.0 C 79 93 11/07/20 02:58 37.0 C 89 137/46 L 95 11/07/20 02:28 37.0 C 91 H 111/64 94 11/07/20 02:00 37.0 C 83 93 11/07/20 01:58 37.0 C 85 128/90 93 11/07/20 01:28 37.0 C 97 H 125/51 L 93 11/07/20 01:00 37.0 C 98 H 94 11/07/20 00:58 37.0 C 81 134/46 L 94 11/07/20 00:28 36.9 C 90 119/67 94 11/07/20 00:00 37.0 C 86 93 11/06/20 23:58 37.0 C 80 110/48 L 93 11/06/20 23:28 36.9 C 89 122/55 L 93 11/06/20 23:00 36.9 C 85 92 11/06/20 22:58 36.9 C 86 125/47 L 93 11/06/20 22:30 88 24 93 11/06/20 22:28 36.8 C 95 H 118/70 94 11/06/20 22:00 36.8 C 89 92 11/06/20 21:58 36.8 C 97 H 128/58 L 93 11/06/20 21:28 36.7 C 83 125/72 92 11/06/20 21:00 36.7 C 82 94 11/06/20 20:58 36.7 C 78 122/58 L 94 11/06/20 20:28 36.6 C 100 H 107/59 L 94 11/06/20 20:00 36.6 C 91 H 95 11/06/20 19:58 36.6 C 79 122/51 L 94 11/06/20 19:39 98 H 18 98 11/06/20 19:29 36.7 C 88 133/70 100 11/06/20 19:00 36.7 C 85 100 11/06/20 17:58 36.5 C 76 136/69 100 11/06/20 17:28 36.5 C 87 136/70 100 11/06/20 17:00 36.4 C L 93 H 99 11/06/20 16:58 36.4 C L 94 H 144/59 H 99 11/06/20 16:28 36.3 C L 87 120/82 100 11/06/20 16:00 36.1 C L 82 97 11/06/20 15:58 36.1 C L 97 H 155/57 H 97 11/06/20 15:55 96 H 25 H 97 11/06/20 15:45 36.2 C L 81 155/73 H 89 L 11/06/20 14:28 36.6 C 81 11/06/20 14:00 36.5 C 100 H 98 11/06/20 13:58 36.5 C 73 140/56 L 92 11/06/20 13:51 36.5 C 78 31 H 138/77 97 11/06/20 13:28 36.5 C 84 138/77 99 11/06/20 13:00 36.4 C L 87 96 11/06/20 12:58 36.5 C 93 H 143/59 H 99 11/06/20 12:43 36.6 C 83 155/64 H 100 11/06/20 12:00 36.8 C 83 94 11/06/20 11:58 36.8 C 83 144/67 H 96 11/06/20 11:27 36.8 C 76 100/76 97 11/06/20 11:25 81 26 H 98 11/06/20 11:00 36.8 C 65 99 11/06/20 10:57 36.8 C 80 130/54 L 99 11/06/20 10:28 36.8 C 83 128/49 L 99 11/06/20 10:00 36.9 C 73 98 11/06/20 09:58 133/59 L 11/06/20 09:29 36.9 C 72 99 11/06/20 09:28 36.9 C 79 131/46 L 100 11/06/20 09:00 36.9 C 81 99 11/06/20 08:57 36.9 C 79 150/61 H 93 Notes Mental Status: alert / awake / arousable (mentally not oriented per RN, this is her baseline) Nausea / Vomiting: adequately controlled Pain: adequately controlled Airway Patency, RR, SpO2: stable & adequate (Patient has tracheostomy and is on CPAP) BP & HR: stable & adequate Hydration State: stable & adequate Anesthetic Complications: no major complications apparent (Patient unable to participate in assessment, disoriented, mentation at baseline per RN.)
[2020-11-07] MEDS: POLYETHYLENE (MIRALAX) 17 GM PACK PO SCH (08:55)
[2020-11-07] MEDS: DOCUSATE SODIUM SYRUP 100 MG/10 ML UDC NG SCH ×2 (08:55→19:35)
[2020-11-07] MEDS: FAMOTIDINE 20 MG in SYRINGE 3 ML IV SCH ×2 (08:55→19:35)
[2020-11-07] MEDS: MULTI VIT W/MINERALS LIQUID 15 ML UDP NG SCH (08:55)
[2020-11-07] MEDS: SENNOSIDES 8.8 MG/5 ML UDC PO SCH ×2 (08:56→19:35)
[2020-11-07] MEDS: diazePAM 5 MG TABLET PO SCH ×2 (09:02→20:46)
[2020-11-07] MEDS: CHLORHEXIDINE GLUCONATE 0.12% 480 ML MT SCH ×2 (09:02→19:35)
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
[2020-11-07] MEDS: ZINC SULFATE 220 MG CAPSULE PO SCH ×2 (12:00→15:14)
[2020-11-07] MEDS: SILVER SULFADIAZINE 1% CR 400 GM JAR EXT SCH (12:00)
[2020-11-07] MEDS: BACITRACIN OINT 15 GM TUBE EXT SCH (12:00)
[2020-11-07] MEDS: ASCORBIC ACID 500 MG TAB PO SCH ×2 (12:00→15:14)
[2020-11-07] MEDS: cefTRIAXone SODIUM 2,000 MG in DEXTROSE 5% 50 ML IV SCH (12:45)
--- NOTE | 2020-11-07 14:44 | Pharmacy Report ---
Pharmacy Glycemic Short Note 2 - Date of Service November 07, 2020 - Glycemic Short BSG Results (Last 24 hours): 11/06/20 11/06/20 11/06/20 16:42 18:21 19:34 Glucose POC Glucose 121 H 131 H 155 H 11/06/20 11/06/20 11/06/20 20:26 21:31 22:41 Glucose POC Glucose 176 H 164 H 163 H 11/06/20 11/07/20 11/07/20 23:33 01:24 03:45 Glucose POC Glucose 145 H 124 H 104 H 11/07/20 11/07/20 11/07/20 04:30 04:33 05:30 Glucose 100 H POC Glucose 99 99 11/07/20 11/07/20 11/07/20 06:26 07:40 08:39 Glucose POC Glucose 109 H 121 H 136 H 11/07/20 11/07/20 11/07/20 09:19 10:39 11:46 Glucose POC Glucose 152 H 157 H 169 H 11/07/20 11/07/20 13:02 14:19 Glucose POC Glucose 157 H 151 H OUTPATIENT ANTIDIABETIC REGIMEN: * Lantus 70 units QAM, 30 units QPM * Novolog sliding scale TIDM- max of 60 units/day ASSESSMENT: 11/07: * BSGs have remained well controlled today. Tube feeds were restarted last evening * Patient received an additional dose of lantus last evening in addition to the infusion. Given insulin infusion requirements have been reduced today but have been very labile over the past 72 hours, will hold off any additional SQ basal insulin for now. Infusion was held for a few hours this morning per calculator and turned back on this morning ~1030 at 2units/hr and has remained stable throughout the day. Will plan to continue per insulin infusion protocol at this time. Discussed plan with ICU team. 11/06 * BSGs well controlled over the last 24 hours. Insulin needs have greatly decreased while tube feeds have been held. Will not resume sq Lantus dosing until TFs resume. Given BSGs have remained stable off of the drip today, will plan to check BSG q2h and only restart infusion if BSG > 150 mg/dL. This was discussed with ICU team and a pending order to this effect has been entered. Unclear whether TFs will resume this evening after OR. 4/6 * BSGs well controlled with IV insulin infusion and Novolog SQ coverage of continuous tube feeds. There was one episode of mild hypoglycemia yesterday however TF had been paused and rate decreased yesterday likely leading to this event * Insulin infusion running at 8.2 units/hr this AM with BSGs in mid 100s * Will initiate some basal insulin at this time to lessen reliance on insulin infusion and make the transition to SQ easier in the future. * Patient has been tolerating tube feeds. She remains intubated and will possibly have trach placed today. PLAN FOR INPATIENT GLYCEMIC CONTROL: * Continue IV insulin drip. Goal range 120-180mg/dL * Basal insulin * Hold on any additional SQ basal insulin at this time * Bolus insulin * NovoLog per scale ACHS or Q6hrs while NPO * Goal Range: Low 120 mg/dL - High 180 mg/dL * Correction Factor: NONE * Nutritional / Prandial insulin per carb ratio of 1 unit per 5 grams CHO received from Peptamen P tube feeds. PLAN FOR DISCHARGE: * TBD
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
[2020-11-08] MEDS: PEPTAMEN INTENSE VHP 1.0 CAL 1,000 ML BAG OG PRN ×3 (00:05→17:20)
[2020-11-08] MEDS: INSULIN REGULAR 250 UNITS in SODIUM CHLORIDE 0.9% 247.5 ML IV SCH ×2 (00:05→23:16)
[2020-11-08] MEDS: TUBE FEEDING WATER FLUSH OG SCH ×25 (00:06→23:17)
[2020-11-08] MEDS: INSULIN ASPART 100 UNITS/ML 3 ML PEN SC SCH ×7 (00:07→23:20)
[2020-11-08] MEDS: ENOXAPARIN 150 MG/ML SYR SQ SCH ×2 (02:59→14:54)
[2020-11-08] MEDS: fentaNYL DRIP 1,250 MCG/250 ML BAG IV SCH (04:19)
[2020-11-08 05:16] LABS: Basophils # (auto) 0.03 K/uL (0-0.2); Basophils % (auto) 0.4 %; Eosinophils # (auto) 0.05 K/uL (0-0.5); Eosinophils % (auto) 0.7 %; Hematocrit (blood only) 29.7 % (37-47); Hemoglobin 9.1 g/dL (12.0-16.0); Immature Granulocytes # (auto) 0.33 K/uL (0.00-0.02); Immature Granulocytes % (auto) 4.8 %; Lymphocytes # (auto) 2.19 K/uL (1.2-3.4); Mean Corpuscular Hemoglobin 28.3 pg (25-34); Mean Corpuscular Hgb Conc 30.6 g/dL (32-36); Mean Corpuscular Volume 92.2 fL (80-100); Mean Platelet Volume 8.7 fL (7.4-10.4); Monocytes # (auto) 0.87 K/uL (0.11-0.59); Monocytes % (auto) 12.7 %; Neutrophils # (auto) 3.38 K/uL (1.4-6.5); Neutrophils % (auto) 49.4 %; Nucleated RBC % (auto) 2.9 %; Platelet Count 402 K/uL (130-400); RDW Coefficient of Variation 19.6 % (11.5-14.5); RDW Standard Deviation 57.1 fL (36.4-46.3); Red Blood Count 3.22 M/uL (4.2-5.4); White Blood Count 6.85 K/uL (4.8-10.8)
[2020-11-08] MEDS: ALBUTEROL 0.083% NEBU SOLN 3 ML VIAL NEB SCH ×5 (05:22→20:53)
[2020-11-08 05:37] LABS: BUN Creatinine Ratio 54.6 (10-20); Calcium 9.2 mg/dl (8.5-10.1); Creatinine Clr Calc Pharmacy 154.5 ml/min; Est GFR (African American) 101.5; Est GFR (Non-African American) 87.6; Magnesium 2.5 mg/dl (1.8-2.4); Potassium 4.4 mmol/L (3.5-5.1)
[2020-11-08 05:39] LABS: Basophilic Stippling 1+; Phosphorus 2.8 mg/dl (2.5-4.9); Polychromasia 1+
[2020-11-08] MEDS: PROPRANOLOL HCL 10 MG TAB PO SCH ×3 (05:55→21:37)
[2020-11-08] MEDS: OXYCODONE PO SCH ×3 (05:55→18:25)
[2020-11-08] MEDS: LEVOTHYROXINE SODIUM 50 MCG TABLET NG SCH (05:56)
[2020-11-08] MEDS: ICU ELECTROLYTE REPLACEMENT PROTOCOL SCH ×2 (06:37→18:18)
[2020-11-08] MEDS: MULTI VIT W/MINERALS LIQUID 15 ML UDP NG SCH (08:08)
[2020-11-08] MEDS: ASCORBIC ACID 500 MG TAB PO SCH (08:08)
[2020-11-08] MEDS: FERROUS SULFATE 325 MG/7.4 ML UDP PO SCH (08:08)
[2020-11-08] MEDS: SENNOSIDES 8.8 MG/5 ML UDC PO SCH ×2 (08:08→19:34)
[2020-11-08] MEDS: ZINC SULFATE 220 MG CAPSULE PO SCH (08:08)
[2020-11-08] MEDS: DOCUSATE SODIUM SYRUP 100 MG/10 ML UDC NG SCH ×2 (08:08→19:34)
[2020-11-08] MEDS: POLYETHYLENE (MIRALAX) 17 GM PACK PO SCH (08:08)
[2020-11-08] MEDS: FAMOTIDINE 20 MG in SYRINGE 3 ML IV SCH ×2 (08:16→19:31)
[2020-11-08] MEDS: diazePAM 5 MG TABLET PO SCH ×2 (08:16→21:37)
[2020-11-08] MEDS: CHLORHEXIDINE GLUCONATE 0.12% 480 ML MT SCH ×2 (08:17→19:34)
[2020-11-08] MEDS: cefTRIAXone SODIUM 2,000 MG in DEXTROSE 5% 50 ML IV SCH (11:51)
[2020-11-08] MEDS: BACITRACIN OINT 15 GM TUBE EXT SCH (11:51)
[2020-11-08] MEDS: SILVER SULFADIAZINE 1% CR 400 GM JAR EXT SCH (12:09)
[2020-11-08] MEDS ORDERED: INSULIN GLARGINE 100 UNIT/ML VIAL SC ONE (12:15)
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
[2020-11-08] MEDS: INSULIN GLARGINE 100 UNIT/ML VIAL SC SCH (19:33)
[2020-11-08] MEDS: fentaNYL citrate 100 MCG/2 ML VIAL IV PRN (23:28)
[2020-11-09] MEDS: TUBE FEEDING WATER FLUSH OG SCH ×23 (00:06→22:18)
[2020-11-09] MEDS: OXYCODONE PO SCH ×4 (00:06→18:29)
[2020-11-09] MEDS: ALBUTEROL 0.083% NEBU SOLN 3 ML VIAL NEB SCH ×7 (00:39→22:03)
[2020-11-09] MEDS: PEPTAMEN INTENSE VHP 1.0 CAL 1,000 ML BAG OG PRN ×2 (00:56→08:11)
[2020-11-09] MEDS: ENOXAPARIN 150 MG/ML SYR SQ SCH ×2 (02:15→14:24)
[2020-11-09] MEDS: fentaNYL DRIP 1,250 MCG/250 ML BAG IV SCH ×2 (03:28→17:07)
[2020-11-09] MEDS: fentaNYL citrate 100 MCG/2 ML VIAL IV PRN (03:37)
[2020-11-09] MEDS: INSULIN ASPART 100 UNITS/ML 3 ML PEN SC SCH ×5 (04:00→20:05)
[2020-11-09 05:01] LABS: Basophils # (auto) 0.03 K/uL (0-0.2); Basophils % (auto) 0.4 %; Eosinophils # (auto) 0.09 K/uL (0-0.5); Eosinophils % (auto) 1.1 %; Hematocrit (blood only) 31.7 % (37-47); Hemoglobin 9.5 g/dL (12.0-16.0); Immature Granulocytes # (auto) 0.37 K/uL (0.00-0.02); Immature Granulocytes % (auto) 4.7 %; Lymphocytes # (auto) 2.63 K/uL (1.2-3.4); Lymphocytes % (auto) 33.1 %; Mean Corpuscular Hemoglobin 28.2 pg (25-34); Mean Corpuscular Volume 94.1 fL (80-100); Mean Platelet Volume 8.6 fL (7.4-10.4); Monocytes # (auto) 1.02 K/uL (0.11-0.59); Monocytes % (auto) 12.8 %; Neutrophils % (auto) 47.9 %; Nucleated RBC # (auto) 0.11 K/uL (0-0); Nucleated RBC % (auto) 1.4 %; Platelet Count 429 K/uL (130-400); RDW Standard Deviation 61.1 fL (36.4-46.3); Red Blood Count 3.37 M/uL (4.2-5.4); White Blood Count 7.94 K/uL (4.8-10.8)
[2020-11-09 05:24] LABS: Anisocytosis Present; Basophilic Stippling 1+; Polychromasia 1+
[2020-11-09 05:30] LABS: BUN Creatinine Ratio 59.9 (10-20); Calcium 9.3 mg/dl (8.5-10.1); Creatinine Clr Calc Pharmacy 156.3 ml/min; Magnesium 2.4 mg/dl (1.8-2.4); Potassium 4.7 mmol/L (3.5-5.1)
[2020-11-09 05:32] LABS: Phosphorus 2.1 mg/dl (2.5-4.9)
[2020-11-09] MEDS: ICU ELECTROLYTE REPLACEMENT PROTOCOL SCH ×2 (06:15→18:28)
[2020-11-09] MEDS: PROPRANOLOL HCL 10 MG TAB PO SCH ×3 (06:16→21:20)
[2020-11-09] MEDS: LEVOTHYROXINE SODIUM 50 MCG TABLET NG SCH (06:16)
[2020-11-09] MEDS: POT PHOSPHATE MONOBASIC W/ SOD TAB NG SCH ×3 (06:18→14:24)
[2020-11-09] MEDS ORDERED: acetaZOLAMIDE 250 MG TAB PO ONE (07:40)
[2020-11-09] MEDS ORDERED: FUROSEMIDE 40 MG in SYRINGE 0 ML IV ONE (07:40)
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
[2020-11-09] MEDS ORDERED: metFORMIN HCL 500 MG TAB PO SCH (08:00)
[2020-11-09] MEDS: ZINC SULFATE 220 MG CAPSULE PO SCH (08:05)
[2020-11-09] MEDS: INSULIN GLARGINE 100 UNIT/ML VIAL SC SCH (08:05)
[2020-11-09] MEDS: ASCORBIC ACID 500 MG TAB PO SCH (08:05)
[2020-11-09] MEDS: DOCUSATE SODIUM SYRUP 100 MG/10 ML UDC NG SCH ×2 (08:05→20:06)
[2020-11-09] MEDS: MULTI VIT W/MINERALS LIQUID 15 ML UDP NG SCH (08:06)
[2020-11-09] MEDS: SENNOSIDES 8.8 MG/5 ML UDC PO SCH ×2 (08:06→20:07)
[2020-11-09] MEDS: POLYETHYLENE (MIRALAX) 17 GM PACK PO SCH (08:06)
[2020-11-09] MEDS: FERROUS SULFATE 325 MG/7.4 ML UDP PO SCH (08:06)
[2020-11-09] MEDS: CHLORHEXIDINE GLUCONATE 0.12% 480 ML MT SCH ×2 (08:07→20:07)
[2020-11-09] MEDS: FAMOTIDINE 20 MG in SYRINGE 3 ML IV SCH ×2 (08:10→20:04)
[2020-11-09] MEDS: diazePAM 5 MG TABLET PO SCH ×2 (08:10→21:19)
[2020-11-09] MEDS: SILVER SULFADIAZINE 1% CR 400 GM JAR EXT SCH (09:02)
[2020-11-09] MEDS: BACITRACIN OINT 15 GM TUBE EXT SCH (09:02)
--- NOTE | 2020-11-09 10:00 | Pharmacy Report ---
Pharmacy Glycemic Short Note 2 - Date of Service November 09, 2020 - Glycemic Short BSG Results (Last 24 hours): 11/08/20 11/08/20 11/08/20 11:57 13:11 14:11 Glucose POC Glucose 198 H 211 H 194 H 11/08/20 11/08/20 11/08/20 15:02 16:17 17:04 Glucose POC Glucose 172 H 206 H 193 H 11/08/20 11/08/20 11/08/20 18:05 19:14 20:10 Glucose POC Glucose 178 H 189 H 192 H 11/08/20 11/08/20 11/08/20 21:11 22:15 23:12 Glucose POC Glucose 191 H 177 H 182 H 11/09/20 11/09/20 11/09/20 00:09 01:06 02:14 Glucose POC Glucose 172 H 162 H 156 H 11/09/20 11/09/20 11/09/20 04:09 04:51 06:26 Glucose 157 H POC Glucose 148 H 149 H 11/09/20 07:34 Glucose POC Glucose 155 H OUTPATIENT ANTIDIABETIC REGIMEN: * Lantus 70 units QAM, 30 units QPM * Novolog sliding scale TIDM- max of 60 units/day ASSESSMENT: 11/09: * BSGs ranging 150s-190 range over last 24 hrs - drip yesterday had been running pretty stable at 2 units/hr since 11/08 at 0000, then later in the day yesterday had needed to titrate up insulin drip again. Had given small dose of basal insulin yesterday when drip had been running at lower rate of 2 units/hr * Drip this AM running at 6 units/hr. Drip rates have been fluctuating up and down - hard to assess daily insulin needs at this time. Plan to give another dose of basal today to help to see if drip rate will decrease. Patient remains on Peptamen tube feeds 11/07: * BSGs have remained well controlled today. Tube feeds were restarted last evening * Patient received an additional dose of lantus last evening in addition to the infusion. Given insulin infusion requirements have been reduced today but have been very labile over the past 72 hours, will hold off any additional SQ basal insulin for now. Infusion was held for a few hours this morning per calculator and turned back on this morning ~1030 at 2units/hr and has remained stable throughout the day. Will plan to continue per insulin infusion protocol at this time. Discussed plan with ICU team. 11/06 * BSGs well controlled over the last 24 hours. Insulin needs have greatly decreased while tube feeds have been held. Will not resume sq Lantus dosing until TFs resume. Given BSGs have remained stable off of the drip today, will plan to check BSG q2h and only restart infusion if BSG > 150 mg/dL. This was discussed with ICU team and a pending order to this effect has been entered. Unclear whether TFs will resume this evening after OR. 11/04 * BSGs well controlled with IV insulin infusion and Novolog SQ coverage of continuous tube feeds. There was one episode of mild hypoglycemia yesterday however TF had been paused and rate decreased yesterday likely leading to this event * Insulin infusion running at 8.2 units/hr this AM with BSGs in mid 100s * Will initiate some basal insulin at this time to lessen reliance on insulin infusion and make the transition to SQ easier in the future. * Patient has been tolerating tube feeds. She remains intubated and will possibly have trach placed today. PLAN FOR INPATIENT GLYCEMIC CONTROL: * Continue IV insulin drip. Goal range 120-180mg/dL * Basal insulin * 30 units x 1 * Bolus insulin * NovoLog per scale ACHS or Q6hrs while NPO * Goal Range: Low 120 mg/dL - High 180 mg/dL * Correction Factor: NONE * Nutritional / Prandial insulin per carb ratio of 1 unit per 5 grams CHO received from Peptamen P tube feeds. PLAN FOR DISCHARGE: * TBD
[2020-11-09] MEDS ORDERED: INSULIN GLARGINE 100 UNIT/ML VIAL SC ONE (12:00)
[2020-11-09] MEDS: cefTRIAXone SODIUM 2,000 MG in DEXTROSE 5% 50 ML IV SCH (12:06)
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
[2020-11-09] MEDS ORDERED: FLUCONAZOLE 200 MG/100 ML BAG IV ONE (18:30)
[2020-11-10] MEDS: INSULIN REGULAR 250 UNITS in SODIUM CHLORIDE 0.9% 247.5 ML IV SCH (00:42)
[2020-11-10] MEDS: TUBE FEEDING WATER FLUSH OG SCH ×23 (00:42→23:51)
[2020-11-10] MEDS: PEPTAMEN INTENSE VHP 1.0 CAL 1,000 ML BAG OG PRN ×2 (00:43→16:58)
[2020-11-10] MEDS: OXYCODONE PO SCH ×4 (00:43→17:51)
[2020-11-10] MEDS: ENOXAPARIN 150 MG/ML SYR SQ SCH ×2 (00:44→14:14)
[2020-11-10] MEDS: INSULIN ASPART 100 UNITS/ML 3 ML PEN SC SCH ×6 (00:45→19:44)
[2020-11-10] MEDS: ALBUTEROL 0.083% NEBU SOLN 3 ML VIAL NEB SCH ×6 (02:16→22:22)
[2020-11-10 05:23] LABS: Hematocrit (blood only) 30.9 % (37-47); Hemoglobin 9.1 g/dL (12.0-16.0); Mean Corpuscular Hemoglobin 27.6 pg (25-34); Mean Corpuscular Hgb Conc 29.4 g/dL (32-36); Mean Corpuscular Volume 93.6 fL (80-100); Mean Platelet Volume 8.8 fL (7.4-10.4); Nucleated RBC # (auto) 0.08 K/uL (0-0); Platelet Count 408 K/uL (130-400); RDW Coefficient of Variation 19.9 % (11.5-14.5); RDW Standard Deviation 64.2 fL (36.4-46.3); White Blood Count 8.18 K/uL (4.8-10.8)
[2020-11-10 05:52] LABS: Anisocytosis Present; Basophilic Stippling 1+; Basophils # (auto) 0.01 K/uL (0-0.2); Basophils % (auto) 0.1 %; Eosinophils # (auto) 0.09 K/uL (0-0.5); Eosinophils % (auto) 1.1 %; Immature Granulocytes # (auto) 0.34 K/uL (0.00-0.02); Immature Granulocytes % (auto) 4.2 %; Lymphocytes # (auto) 2.33 K/uL (1.2-3.4); Lymphocytes % (auto) 28.5 %; Monocytes # (auto) 1.12 K/uL (0.11-0.59); Monocytes % (auto) 13.7 %; Neutrophils # (auto) 4.29 K/uL (1.4-6.5); Neutrophils % (auto) 52.4 %; Polychromasia 1+
[2020-11-10 05:57] LABS: BUN Creatinine Ratio 74.4 (10-20); Calcium 9.1 mg/dl (8.5-10.1); Creatinine Clr Calc Pharmacy 174.3 ml/min; Est GFR (African American) 105.7; Est GFR (Non-African American) 91.2; Magnesium 2.4 mg/dl (1.8-2.4); Potassium 4.4 mmol/L (3.5-5.1)
[2020-11-10 06:02] LABS: Phosphorus 2.3 mg/dl (2.5-4.9); Prealbumin 25.3 mg/dl (20-40)
[2020-11-10] MEDS: POT PHOSPHATE MONOBASIC W/ SOD TAB PO SCH ×3 (06:08→14:15)
[2020-11-10] MEDS: ICU ELECTROLYTE REPLACEMENT PROTOCOL SCH ×2 (06:08→17:49)
[2020-11-10] MEDS: PROPRANOLOL HCL 10 MG TAB PO SCH ×3 (06:09→21:19)
[2020-11-10] MEDS: LEVOTHYROXINE SODIUM 50 MCG TABLET NG SCH (06:09)
[2020-11-10] MEDS: FAMOTIDINE 20 MG in SYRINGE 3 ML IV SCH ×2 (08:34→19:43)
[2020-11-10] MEDS: diazePAM 5 MG TABLET PO SCH ×2 (08:34→21:18)
[2020-11-10] MEDS: FERROUS SULFATE 325 MG/7.4 ML UDP PO SCH (08:35)
[2020-11-10] MEDS: POLYETHYLENE (MIRALAX) 17 GM PACK PO SCH (08:35)
[2020-11-10] MEDS: ZINC SULFATE 220 MG CAPSULE PO SCH (08:35)
[2020-11-10] MEDS: DOCUSATE SODIUM SYRUP 100 MG/10 ML UDC NG SCH ×2 (08:35→19:44)
[2020-11-10] MEDS: MULTI VIT W/MINERALS LIQUID 15 ML UDP NG SCH (08:36)
[2020-11-10] MEDS: ASCORBIC ACID 500 MG TAB PO SCH (08:36)
[2020-11-10] MEDS: SENNOSIDES 8.8 MG/5 ML UDC PO SCH ×2 (08:36→19:43)
[2020-11-10] MEDS: INSULIN GLARGINE 100 UNIT/ML VIAL SC SCH (08:37)
[2020-11-10] MEDS: CHLORHEXIDINE GLUCONATE 0.12% 480 ML MT SCH ×2 (08:37→19:44)
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
[2020-11-10] MEDS ORDERED: LORazepam 2 MG/4 ML VIAL IV PRN (11:31)
[2020-11-10] MEDS: BACITRACIN OINT 15 GM TUBE EXT SCH (12:03)
[2020-11-10] MEDS: SILVER SULFADIAZINE 1% CR 400 GM JAR EXT SCH (12:04)
[2020-11-10] MEDS: cefTRIAXone SODIUM 2,000 MG in DEXTROSE 5% 50 ML IV SCH (12:04)
[2020-11-10] MEDS: fentaNYL DRIP 1,250 MCG/250 ML BAG IV SCH (16:53)
[2020-11-10] MEDS ORDERED: FLUCONAZOLE 100 MG/50 ML BAG IV SCH (18:00)
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
--- NOTE | 2020-11-10 19:40 | Billing Data ---
Date of Service November 10, 2020 Coding Level of Care Code 78301 Prolonged Care (int'l)
[2020-11-11] MEDS: PEPTAMEN INTENSE VHP 1.0 CAL 1,000 ML BAG OG PRN ×3 (00:06→17:46)
[2020-11-11] MEDS: OXYCODONE PO SCH ×5 (00:06→23:25)
[2020-11-11] MEDS: INSULIN ASPART 100 UNITS/ML 3 ML PEN SC SCH ×7 (00:07→23:26)
[2020-11-11] MEDS: INSULIN REGULAR 250 UNITS in SODIUM CHLORIDE 0.9% 247.5 ML IV SCH ×2 (00:10→23:26)
[2020-11-11] MEDS: TUBE FEEDING WATER FLUSH OG SCH ×19 (00:45→23:26)
[2020-11-11] MEDS: ENOXAPARIN 150 MG/ML SYR SQ SCH ×2 (01:49→17:37)
[2020-11-11] MEDS: fentaNYL citrate 100 MCG/2 ML VIAL IV PRN (02:00)
[2020-11-11] MEDS: ALBUTEROL 0.083% NEBU SOLN 3 ML VIAL NEB SCH ×6 (03:33→22:12)
[2020-11-11] MEDS: PROPRANOLOL HCL 10 MG TAB PO SCH ×3 (05:40→21:12)
[2020-11-11] MEDS: LEVOTHYROXINE SODIUM 50 MCG TABLET NG SCH (05:40)
[2020-11-11 05:56] LABS: Hematocrit (blood only) 30.3 % (37-47); Hemoglobin 8.7 g/dL (12.0-16.0); Mean Corpuscular Hemoglobin 27.4 pg (25-34); Mean Corpuscular Hgb Conc 28.7 g/dL (32-36); Mean Corpuscular Volume 95.3 fL (80-100); Mean Platelet Volume 8.8 fL (7.4-10.4); Nucleated RBC # (auto) 0.06 K/uL (0-0); Nucleated RBC % (auto) 0.8 %; Platelet Count 356 K/uL (130-400); RDW Coefficient of Variation 19.7 % (11.5-14.5); RDW Standard Deviation 65.3 fL (36.4-46.3); Red Blood Count 3.18 M/uL (4.2-5.4); White Blood Count 8.17 K/uL (4.8-10.8)
[2020-11-11 06:07] LABS: BUN Creatinine Ratio 90.3 (10-20); Calcium 9.4 mg/dl (8.5-10.1); Creatinine Clr Calc Pharmacy 173.5 ml/min; Est GFR (African American) 105.7; Est GFR (Non-African American) 91.2; Magnesium 2.5 mg/dl (1.8-2.4); Potassium 4.4 mmol/L (3.5-5.1)
[2020-11-11 06:10] LABS: Anisocytosis Present; Basophilic Stippling 1+; Basophils # (auto) 0.02 K/uL (0-0.2); Basophils % (auto) 0.2 %; Eosinophils # (auto) 0.13 K/uL (0-0.5); Eosinophils % (auto) 1.6 %; Immature Granulocytes # (auto) 0.27 K/uL (0.00-0.02); Immature Granulocytes % (auto) 3.3 %; Lymphocytes # (auto) 2.22 K/uL (1.2-3.4); Lymphocytes % (auto) 27.2 %; Monocytes # (auto) 0.97 K/uL (0.11-0.59); Monocytes % (auto) 11.9 %; Neutrophils # (auto) 4.56 K/uL (1.4-6.5); Neutrophils % (auto) 55.8 %; Polychromasia 1+
[2020-11-11 06:39] LABS: Phosphorus 3.2 mg/dl (2.5-4.9)
[2020-11-11] MEDS: ICU ELECTROLYTE REPLACEMENT PROTOCOL SCH ×2 (06:41→18:06)
[2020-11-11] MEDS: ASCORBIC ACID 500 MG TAB PO SCH (08:03)
[2020-11-11] MEDS: ZINC SULFATE 220 MG CAPSULE PO SCH (08:03)
[2020-11-11] MEDS: DOCUSATE SODIUM SYRUP 100 MG/10 ML UDC NG SCH ×2 (08:04→21:10)
[2020-11-11] MEDS: POLYETHYLENE (MIRALAX) 17 GM PACK PO SCH (08:04)
[2020-11-11] MEDS: FERROUS SULFATE 325 MG/7.4 ML UDP PO SCH (08:04)
[2020-11-11] MEDS: MULTI VIT W/MINERALS LIQUID 15 ML UDP NG SCH (08:04)
[2020-11-11] MEDS: SENNOSIDES 8.8 MG/5 ML UDC PO SCH ×2 (08:05→21:10)
[2020-11-11] MEDS: CHLORHEXIDINE GLUCONATE 0.12% 480 ML MT SCH ×2 (08:05→21:10)
[2020-11-11] MEDS: INSULIN GLARGINE 100 UNIT/ML VIAL SC SCH (08:19)
[2020-11-11] MEDS: FAMOTIDINE 20 MG in SYRINGE 3 ML IV SCH ×2 (08:20→21:09)
[2020-11-11] MEDS: diazePAM 5 MG TABLET PO SCH ×2 (08:27→21:09)
[2020-11-11] MEDS: SILVER SULFADIAZINE 1% CR 400 GM JAR EXT SCH (12:30)
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
[2020-11-11] MEDS: fentaNYL DRIP 1,250 MCG/250 ML BAG IV SCH (16:51)
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
--- NOTE | 2020-11-11 19:33 | Billing Data ---
Date of Service November 11, 2020 Coding Level of Care Code 43921 Prolonged Care (int'l)
--- NOTE | 2020-11-11 19:33 | Billing Data ---
Date of Service November 11, 2020 Coding Level of Care Code 39068 Prolonged Care-adt'l 30m
[2020-11-11] MEDS: CEFEPIME 2,000 MG in SYRINGE 0 ML IV SCH (21:09)
[2020-11-12] MEDS: ENOXAPARIN 150 MG/ML SYR SQ SCH ×2 (01:11→13:39)
[2020-11-12] MEDS: TUBE FEEDING WATER FLUSH OG SCH ×19 (01:11→23:40)
[2020-11-12] MEDS: ALBUTEROL 0.083% NEBU SOLN 3 ML VIAL NEB SCH ×6 (02:08→22:58)
[2020-11-12] MEDS: BACITRACIN OINT 15 GM TUBE EXT SCH (03:28)
[2020-11-12] MEDS: PEPTAMEN INTENSE VHP 1.0 CAL 1,000 ML BAG OG PRN ×2 (03:48→13:48)
[2020-11-12] MEDS: INSULIN ASPART 100 UNITS/ML 3 ML PEN SC SCH ×5 (03:53→21:09)
[2020-11-12 05:28] LABS: Basophils # (auto) 0.02 K/uL (0-0.2); Basophils % (auto) 0.3 %; Eosinophils # (auto) 0.11 K/uL (0-0.5); Eosinophils % (auto) 1.8 %; Hematocrit (blood only) 29.2 % (37-47); Hemoglobin 8.5 g/dL (12.0-16.0); Immature Granulocytes # (auto) 0.12 K/uL (0.00-0.02); Immature Granulocytes % (auto) 1.9 %; Lymphocytes # (auto) 1.85 K/uL (1.2-3.4); Lymphocytes % (auto) 29.6 %; Mean Corpuscular Hemoglobin 27.5 pg (25-34); Mean Corpuscular Hgb Conc 29.1 g/dL (32-36); Mean Corpuscular Volume 94.5 fL (80-100); Mean Platelet Volume 9.1 fL (7.4-10.4); Monocytes # (auto) 0.94 K/uL (0.11-0.59); Neutrophils # (auto) 3.22 K/uL (1.4-6.5); Neutrophils % (auto) 51.4 %; Nucleated RBC % (auto) 1.5 %; Platelet Count 378 K/uL (130-400); RDW Standard Deviation 65.9 fL (36.4-46.3); Red Blood Count 3.09 M/uL (4.2-5.4); White Blood Count 6.26 K/uL (4.8-10.8)
[2020-11-12 05:54] LABS: BUN Creatinine Ratio 101.7 (10-20); Calcium 9.8 mg/dl (8.5-10.1); Est GFR (African American) 108.7; Est GFR (Non-African American) 93.8; Magnesium 2.5 mg/dl (1.8-2.4); Potassium 4.7 mmol/L (3.5-5.1)
[2020-11-12 05:56] LABS: Phosphorus 2.5 mg/dl (2.5-4.9)
[2020-11-12] MEDS: ICU ELECTROLYTE REPLACEMENT PROTOCOL SCH ×2 (05:59→17:27)
[2020-11-12] MEDS: PROPRANOLOL HCL 10 MG TAB PO SCH ×3 (06:04→21:10)
[2020-11-12] MEDS: LEVOTHYROXINE SODIUM 50 MCG TABLET NG SCH (06:04)
[2020-11-12] MEDS: OXYCODONE PO SCH ×3 (06:04→17:43)
[2020-11-12 06:06] LABS: Anisocytosis Present; Basophilic Stippling 1+; Polychromasia 1+
[2020-11-12] MEDS: INSULIN GLARGINE 100 UNIT/ML VIAL SC SCH (09:08)
[2020-11-12] MEDS: CEFEPIME 2,000 MG in SYRINGE 0 ML IV SCH ×2 (09:09→21:10)
[2020-11-12] MEDS: MULTI VIT W/MINERALS LIQUID 15 ML UDP NG SCH (09:13)
[2020-11-12] MEDS: SENNOSIDES 8.8 MG/5 ML UDC PO SCH ×2 (09:19→21:10)
[2020-11-12] MEDS: FAMOTIDINE 20 MG in SYRINGE 3 ML IV SCH ×2 (09:19→21:10)
[2020-11-12] MEDS: POLYETHYLENE (MIRALAX) 17 GM PACK PO SCH (09:19)
[2020-11-12] MEDS: ZINC SULFATE 220 MG CAPSULE PO SCH (09:19)
[2020-11-12] MEDS: DOCUSATE SODIUM SYRUP 100 MG/10 ML UDC NG SCH ×2 (09:19→21:11)
[2020-11-12] MEDS: ASCORBIC ACID 500 MG TAB PO SCH (09:19)
[2020-11-12] MEDS: CHLORHEXIDINE GLUCONATE 0.12% 480 ML MT SCH ×2 (09:20→21:12)
[2020-11-12] MEDS: FERROUS SULFATE 325 MG/7.4 ML UDP PO SCH (09:20)
[2020-11-12] MEDS: diazePAM 5 MG TABLET PO SCH ×2 (09:21→21:10)
--- NOTE | 2020-11-12 11:12 | Pharmacy Report ---
Pharmacy Glycemic Short Note 2 - Date of Service November 12, 2020 - Glycemic Short BSG Results (Last 24 hours): 11/11/20 11/11/20 11/11/20 11:55 13:10 14:01 Glucose POC Glucose 229 H 192 H 199 H 11/11/20 11/11/20 11/11/20 15:04 16:02 16:58 Glucose POC Glucose 190 H 185 H 163 H 11/11/20 11/11/20 11/11/20 17:58 18:52 21:15 Glucose POC Glucose 150 H 163 H 165 H 11/11/20 11/12/20 11/12/20 23:08 01:13 05:08 Glucose 125 H POC Glucose 170 H 146 H 11/12/20 11/12/20 05:10 08:58 Glucose POC Glucose 120 H 126 H OUTPATIENT ANTIDIABETIC REGIMEN: * Lantus 70 units QAM, 30 units QPM * Novolog sliding scale TIDM- max of 60 units/day ASSESSMENT: 11/12: * BSGs continue to fluctuate somewhat on insulin infusion (rates ranged from ~3- 7 units/hr yesterday). Given these consistently changing insulin requirements will plan to continue with insulin infusion. Will also continue low dose Lantus and novolog to cover enteral nutrition. 11/09: * BSGs ranging 150s-190 range over last 24 hrs - drip yesterday had been running pretty stable at 2 units/hr since 11/08 at 0000, then later in the day yesterday had needed to titrate up insulin drip again. Had given small dose of basal insulin yesterday when drip had been running at lower rate of 2 units/hr * Drip this AM running at 6 units/hr. Drip rates have been fluctuating up and down - hard to assess daily insulin needs at this time. Plan to give another dose of basal today to help to see if drip rate will decrease. Patient remains on Peptamen tube feeds 11/07: * BSGs have remained well controlled today. Tube feeds were restarted last evening * Patient received an additional dose of lantus last evening in addition to the infusion. Given insulin infusion requirements have been reduced today but have been very labile over the past 72 hours, will hold off any additional SQ basal insulin for now. Infusion was held for a few hours this morning per calculator and turned back on this morning ~1030 at 2units/hr and has remained stable throughout the day. Will plan to continue per insulin infusion protocol at this time. Discussed plan with ICU team. 11/06 * BSGs well controlled over the last 24 hours. Insulin needs have greatly decreased while tube feeds have been held. Will not resume sq Lantus dosing until TFs resume. Given BSGs have remained stable off of the drip today, will plan to check BSG q2h and only restart infusion if BSG > 150 mg/dL. This was discussed with ICU team and a pending order to this effect has been entered. Unclear whether TFs will resume this evening after OR. 11/04 * BSGs well controlled with IV insulin infusion and Novolog SQ coverage of continuous tube feeds. There was one episode of mild hypoglycemia yesterday however TF had been paused and rate decreased yesterday likely leading to this event * Insulin infusion running at 8.2 units/hr this AM with BSGs in mid 100s * Will initiate some basal insulin at this time to lessen reliance on insulin infusion and make the transition to SQ easier in the future. * Patient has been tolerating tube feeds. She remains intubated and will possibly have trach placed today. PLAN FOR INPATIENT GLYCEMIC CONTROL: * Continue IV insulin drip. Goal range 120-180mg/dL * Basal insulin * 25 units SQ Qam * Bolus insulin * NovoLog per scale ACHS or Q6hrs while NPO * Goal Range: Low 120 mg/dL - High 180 mg/dL * Correction Factor: NONE * Nutritional / Prandial insulin per carb ratio of 1 unit per 5 grams CHO received from Peptamen P tube feeds. PLAN FOR DISCHARGE: * TBD
--- NOTE | 2020-11-12 12:39 | XRay Report ---
XR chest 1V portable HISTORY: 69 years-old Female tachypnea, ?infiltrate acute tachycardia with shortness of breath COMPARISON: Chest radiograph 11/05/2020 TECHNIQUE: AP view of the chest FINDINGS: Tracheostomy cannula overlies the midline at the level the clavicular heads. Right subclavian central venous catheter distal tip overlies the right atrium. No pneumothorax or large pleural effusion. Pul monary vascular congestion and interstitial coarsening with perihilar and left lung base consolidatio n. Degenerative changes of the shoulders and spine. IMPRESSION: Cardiomegaly with pulmonary edema. Left lung base consolidation may reflect a superimpose d infectious or inflammatory pneumonitis. ACT 112: Negative or not required by law. The above report was generated using voice recognition software. It may contain grammatical, syntax o r spelling errors. Electronically signed by: Greg Coello M.D. 11/12/2020 12:38 PM
[2020-11-12] MEDS: BACITRACIN ZINC TOP SCH (12:47)
[2020-11-12] MEDS: SILVER SULFADIAZINE 1% CR 400 GM JAR EXT SCH (12:47)
[2020-11-12] MEDS ORDERED: LINEZOLID CONSULT ACTIVE PRN (15:24)
[2020-11-12] MEDS ORDERED: FUROSEMIDE 40 MG in SYRINGE 0 ML IV ONE (15:45)
[2020-11-12] MEDS: fentaNYL DRIP 1,250 MCG/250 ML BAG IV SCH (16:26)
[2020-11-12] MEDS ORDERED: LINEZOLID 600 MG/300 ML D5W IV SCH (16:30)
[2020-11-12] MEDS: LINEZOLID IV SCH (18:29)
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
--- NOTE | 2020-11-12 18:34 | Billing Data ---
Date of Service November 12, 2020 Coding Level of Care Code 09122 Prolonged Care (int'l)
[2020-11-12] MEDS: INSULIN REGULAR 250 UNITS in SODIUM CHLORIDE 0.9% 247.5 ML IV SCH (23:26)
[2020-11-13] MEDS: OXYCODONE PO SCH ×4 (00:28→17:47)
[2020-11-13] MEDS: TUBE FEEDING WATER FLUSH OG SCH ×26 (00:45→23:44)
[2020-11-13] MEDS: INSULIN ASPART 100 UNITS/ML 3 ML PEN SC SCH ×6 (00:58→20:33)
[2020-11-13] MEDS: LINEZOLID IV SCH ×3 (01:55→17:45)
[2020-11-13] MEDS: ENOXAPARIN 150 MG/ML SYR SQ SCH ×2 (01:56→13:08)
[2020-11-13] MEDS: ALBUTEROL 0.083% NEBU SOLN 3 ML VIAL NEB SCH ×4 (03:36→15:57)
[2020-11-13 05:35] LABS: Basophils # (auto) 0.01 K/uL (0-0.2); Basophils % (auto) 0.1 %; Eosinophils % (auto) 1.4 %; Hematocrit (blood only) 29.6 % (37-47); Hemoglobin 8.6 g/dL (12.0-16.0); Immature Granulocytes # (auto) 0.08 K/uL (0.00-0.02); Immature Granulocytes % (auto) 1.2 %; Lymphocytes # (auto) 1.62 K/uL (1.2-3.4); Lymphocytes % (auto) 23.4 %; Mean Corpuscular Hemoglobin 27.9 pg (25-34); Mean Corpuscular Hgb Conc 29.1 g/dL (32-36); Mean Corpuscular Volume 96.1 fL (80-100); Mean Platelet Volume 9.2 fL (7.4-10.4); Monocytes # (auto) 1.14 K/uL (0.11-0.59); Monocytes % (auto) 16.5 %; Neutrophils # (auto) 3.98 K/uL (1.4-6.5); Neutrophils % (auto) 57.4 %; Nucleated RBC # (auto) 0.07 K/uL (0-0); Nucleated RBC % (auto) 1.1 %; Platelet Count 388 K/uL (130-400); RDW Coefficient of Variation 20.3 % (11.5-14.5); Red Blood Count 3.08 M/uL (4.2-5.4); White Blood Count 6.93 K/uL (4.8-10.8)
[2020-11-13 05:58] LABS: BUN Creatinine Ratio 111.5 (10-20); Calcium 10.2 mg/dl (8.5-10.1); Creatinine Clr Calc Pharmacy 192.8 ml/min; Est GFR (African American) 109.4; Est GFR (Non-African American) 94.4; Magnesium 2.5 mg/dl (1.8-2.4); Phosphorus 2.4 mg/dl (2.5-4.9); Potassium 4.9 mmol/L (3.5-5.1)
[2020-11-13 06:16] LABS: Anisocytosis Present; Basophilic Stippling 1+; Polychromasia 1+
[2020-11-13] MEDS: LEVOTHYROXINE SODIUM 50 MCG TABLET NG SCH (06:17)
[2020-11-13] MEDS: PROPRANOLOL HCL 10 MG TAB PO SCH ×3 (06:17→21:33)
[2020-11-13] MEDS: ICU ELECTROLYTE REPLACEMENT PROTOCOL SCH (06:34)
[2020-11-13] MEDS: POT PHOSPHATE MONOBASIC W/ SOD TAB NG SCH ×3 (08:02→15:27)
[2020-11-13] MEDS: FAMOTIDINE 20 MG in SYRINGE 3 ML IV SCH ×2 (08:03→19:59)
[2020-11-13] MEDS: CEFEPIME 2,000 MG in SYRINGE 0 ML IV SCH ×2 (08:03→19:59)
[2020-11-13] MEDS: diazePAM 5 MG TABLET PO SCH ×2 (08:03→19:52)
[2020-11-13] MEDS: INSULIN GLARGINE 100 UNIT/ML VIAL SC SCH (08:11)
[2020-11-13] MEDS: DOCUSATE SODIUM SYRUP 100 MG/10 ML UDC NG SCH ×2 (08:12→19:59)
[2020-11-13] MEDS: SENNOSIDES 8.8 MG/5 ML UDC PO SCH ×2 (08:12→19:59)
[2020-11-13] MEDS: MULTI VIT W/MINERALS LIQUID 15 ML UDP NG SCH (08:13)
[2020-11-13] MEDS: FERROUS SULFATE 325 MG/7.4 ML UDP PO SCH (08:13)
[2020-11-13] MEDS: POLYETHYLENE (MIRALAX) 17 GM PACK PO SCH (08:13)
[2020-11-13] MEDS: CHLORHEXIDINE GLUCONATE 0.12% 480 ML MT SCH ×2 (08:13→20:00)
[2020-11-13] MEDS: BACITRACIN ZINC TOP SCH (08:14)
[2020-11-13] MEDS: ASCORBIC ACID 500 MG TAB PO SCH (08:14)
[2020-11-13] MEDS: ZINC SULFATE 220 MG CAPSULE PO SCH (08:14)
[2020-11-13] MEDS: SILVER SULFADIAZINE 1% CR 400 GM JAR EXT SCH (08:15)
[2020-11-13] MEDS: PEPTAMEN INTENSE VHP 1.0 CAL 1,000 ML BAG OG PRN ×2 (10:16→21:33)
[2020-11-13] MEDS: fentaNYL DRIP 1,250 MCG/250 ML BAG IV SCH (15:15)
[2020-11-13] MEDS ORDERED: ALBUT/IPRATROP 3MG/0.5MG NEB 3 ML VIAL NEB ONE (16:47)
[2020-11-13] MEDS ORDERED: ACETYLCYSTEINE 10% INHAL SOLN 4 ML **DISPENSED BY RESP. INH ONE (16:48)
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
--- NOTE | 2020-11-13 18:21 | Billing Data ---
Date of Service November 13, 2020 Coding Level of Care Code 93695 Prolonged Care (int'l)
[2020-11-13] MEDS: ALBUT/IPRATROP 3MG/0.5MG NEB 3 ML VIAL NEB SCH ×2 (19:58→23:31)
[2020-11-14] MEDS: OXYCODONE PO SCH ×2 (00:22→05:56)
[2020-11-14] MEDS: INSULIN ASPART 100 UNITS/ML 3 ML PEN SC SCH ×6 (00:23→20:27)
[2020-11-14] MEDS: TUBE FEEDING WATER FLUSH OG SCH ×23 (00:24→22:14)
[2020-11-14] MEDS: INSULIN REGULAR 250 UNITS in SODIUM CHLORIDE 0.9% 247.5 ML IV SCH (01:53)
[2020-11-14] MEDS: ENOXAPARIN 150 MG/ML SYR SQ SCH (01:54)
[2020-11-14] MEDS: LINEZOLID IV SCH ×3 (01:56→17:52)
[2020-11-14] MEDS: ALBUT/IPRATROP 3MG/0.5MG NEB 3 ML VIAL NEB SCH ×5 (04:00→20:47)
[2020-11-14] MEDS: LEVOTHYROXINE SODIUM 50 MCG TABLET NG SCH (05:55)
[2020-11-14] MEDS: PROPRANOLOL HCL 10 MG TAB PO SCH ×3 (05:56→21:47)
[2020-11-14] MEDS: PEPTAMEN INTENSE VHP 1.0 CAL 1,000 ML BAG OG PRN ×2 (08:02→17:59)
[2020-11-14 08:30] LABS: Hematocrit (blood only) 30.1 % (37-47); Hemoglobin 8.7 g/dL (12.0-16.0); Mean Corpuscular Hgb Conc 28.9 g/dL (32-36); Mean Corpuscular Volume 96.8 fL (80-100); Nucleated RBC # (auto) 0.06 K/uL (0-0); Nucleated RBC % (auto) 0.9 %; Platelet Count 377 K/uL (130-400); RDW Coefficient of Variation 20.4 % (11.5-14.5); RDW Standard Deviation 69.6 fL (36.4-46.3); Red Blood Count 3.11 M/uL (4.2-5.4); White Blood Count 6.67 K/uL (4.8-10.8)
[2020-11-14 08:39] LABS: Anisocytosis Present; Basophilic Stippling 1+; Basophils # (auto) 0.02 K/uL (0-0.2); Basophils % (auto) 0.3 %; Eosinophils # (auto) 0.06 K/uL (0-0.5); Eosinophils % (auto) 0.9 %; Immature Granulocytes # (auto) 0.09 K/uL (0.00-0.02); Immature Granulocytes % (auto) 1.3 %; Monocytes # (auto) 1.05 K/uL (0.11-0.59); Monocytes % (auto) 15.7 %; Neutrophils # (auto) 3.65 K/uL (1.4-6.5); Neutrophils % (auto) 54.8 %; Polychromasia 1+
[2020-11-14 08:56] LABS: Albumin Level 1.6 gm/dl (3.4-5.0); BUN Creatinine Ratio 106.2 (10-20); Calcium 10.9 mg/dl (8.5-10.1); Creatinine Clr Calc Pharmacy 169.2 ml/min; Est GFR (African American) 105.7; Est GFR (Non-African American) 91.2; Potassium 5.1 mmol/L (3.5-5.1)
[2020-11-14 08:59] LABS: Albumin Globulin Ratio 0.3 (0.9-2); Bilirubin,Total 0.3 mg/dl (0.2-1); Total Protein 6.6 gm/dl (6.4-8.2)
[2020-11-14] MEDS: ZINC SULFATE 220 MG CAPSULE PO SCH (09:02)
[2020-11-14] MEDS: DOCUSATE SODIUM SYRUP 100 MG/10 ML UDC NG SCH ×2 (09:02→21:47)
[2020-11-14] MEDS: ASCORBIC ACID 500 MG TAB PO SCH (09:02)
[2020-11-14] MEDS: SENNOSIDES 8.8 MG/5 ML UDC PO SCH ×2 (09:02→21:47)
[2020-11-14] MEDS: FAMOTIDINE 20 MG in SYRINGE 3 ML IV SCH ×2 (09:02→21:54)
[2020-11-14] MEDS: POLYETHYLENE (MIRALAX) 17 GM PACK PO SCH (09:03)
[2020-11-14] MEDS: CEFEPIME 2,000 MG in SYRINGE 0 ML IV SCH ×2 (09:03→21:54)
[2020-11-14] MEDS: CHLORHEXIDINE GLUCONATE 0.12% 480 ML MT SCH ×2 (09:03→21:55)
[2020-11-14] MEDS: FERROUS SULFATE 325 MG/7.4 ML UDP PO SCH (09:03)
[2020-11-14] MEDS: MULTI VIT W/MINERALS LIQUID 15 ML UDP NG SCH (09:04)
[2020-11-14] MEDS: INSULIN GLARGINE 100 UNIT/ML VIAL SC SCH (09:08)
[2020-11-14] MEDS: diazePAM 5 MG TABLET PO SCH ×2 (09:12→21:55)
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
[2020-11-14] MEDS: oxyCODONE HCL IR 30 MG TAB (IMMEDIATE RELEASE) PO SCH ×2 (12:40→17:51)
--- NOTE | 2020-11-14 14:10 | Pharmacy Report ---
Pharmacy Glycemic Short Note 2 - Date of Service November 14, 2020 - Glycemic Short BSG Results (Last 24 hours): 11/13/20 11/13/20 11/13/20 15:20 17:09 20:03 Glucose POC Glucose 149 H 151 H 172 H 11/14/20 11/14/20 11/14/20 00:06 04:01 07:51 Glucose POC Glucose 143 H 123 H 119 H 11/14/20 11/14/20 11/14/20 07:59 08:56 09:59 Glucose 117 H POC Glucose 115 H 140 H 11/14/20 11/14/20 11/14/20 10:54 12:00 13:58 Glucose POC Glucose 142 H 140 H 143 H OUTPATIENT ANTIDIABETIC REGIMEN: * Lantus 70 units QAM, 30 units QPM * Novolog sliding scale TIDM- max of 60 units/day ASSESSMENT: 11/14: * BSGs well controlled with current insulin regimen * IV insulin infusion running at 5.9-7.4units/hr much of the last 24 hrs, this is with 25 units Lantus on board. * She has been tolerating her tube feeds and rate has remained stable (running at 125cc/hr) * Will increase basal insulin dose given improved stability. Would like to have larger dose of Lantus on board should patient be transferred in the near future. Given current insulin needs from IV and SQ routes, would anticipate she needs ~160-180 units of insulin per day. PLAN FOR INPATIENT GLYCEMIC CONTROL: * Continue IV insulin drip. Goal range 120-180mg/dL * Basal insulin - increase * Lantus 25 units SQ BID * Bolus insulin * NovoLog SQ Q 4 hrs * Goal Range: Low 120 mg/dL - High 180 mg/dL * Correction Factor: NONE * Nutritional / Prandial insulin per carb ratio of 1 unit per 4 grams CHO received from [facility] tube feeds
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
[2020-11-14] MEDS: MUPIROCIN 2% OINT 22 GM TUBE EXT SCH (14:46)
[2020-11-14] MEDS: fentaNYL DRIP 1,250 MCG/250 ML BAG IV SCH (14:46)
[2020-11-14] MEDS: COLLAGENASE EXT SCH (14:48)
[2020-11-14] MEDS: BACITRACIN EXT SCH (14:48)
[2020-11-14] MEDS: SILVER SULFADIAZINE 1% CR 400 GM JAR EXT SCH (14:48)
[2020-11-14] MEDS: BACITRACIN ZINC TOP SCH (14:48)
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
[2020-11-14] MEDS: ENOXAPARIN INJ 120 MG/0.8 ML SYR SQ SCH (17:52)
[2020-11-14] MEDS ORDERED: INSULIN GLARGINE 100 UNIT/ML VIAL SC SCH (21:00)
[2020-11-15] MEDS: TUBE FEEDING WATER FLUSH OG SCH ×23 (00:05→22:00)
[2020-11-15] MEDS: INSULIN ASPART 100 UNITS/ML 3 ML PEN SC SCH ×7 (00:06→23:33)
[2020-11-15] MEDS: ALBUT/IPRATROP 3MG/0.5MG NEB 3 ML VIAL NEB SCH ×7 (00:29→23:02)
[2020-11-15] MEDS: oxyCODONE HCL IR 30 MG TAB (IMMEDIATE RELEASE) PO SCH ×4 (00:56→18:19)
[2020-11-15] MEDS: LINEZOLID IV SCH ×3 (03:15→18:19)
[2020-11-15 05:03] LABS: Albumin Level 1.7 gm/dl (3.4-5.0); BUN Creatinine Ratio 112.9 (10-20); Calcium 10.9 mg/dl (8.5-10.1); Creatinine Clr Calc Pharmacy 169.2 ml/min; Est GFR (African American) 105.7; Est GFR (Non-African American) 91.2; Magnesium 2.7 mg/dl (1.8-2.4); Potassium 5.5 mmol/L (3.5-5.1)
[2020-11-15 05:07] LABS: Albumin Globulin Ratio 0.3 (0.9-2); Bilirubin,Total 0.2 mg/dl (0.2-1); Globulin 5.6 gm/dl (2.5-4.0); Total Protein 7.3 gm/dl (6.4-8.2)
[2020-11-15 05:11] LABS: Hematocrit (blood only) 31.3 % (37-47); Hemoglobin 8.9 g/dL (12.0-16.0); Mean Corpuscular Hemoglobin 27.6 pg (25-34); Mean Corpuscular Hgb Conc 28.4 g/dL (32-36); Mean Corpuscular Volume 97.2 fL (80-100); Mean Platelet Volume 8.9 fL (7.4-10.4); Nucleated RBC % (auto) 1.5 %; Platelet Count 418 K/uL (130-400); RDW Coefficient of Variation 20.6 % (11.5-14.5); Red Blood Count 3.22 M/uL (4.2-5.4); White Blood Count 6.22 K/uL (4.8-10.8)
[2020-11-15 05:14] LABS: Anisocytosis Present; Basophilic Stippling 1+; Basophils # (auto) 0.02 K/uL (0-0.2); Basophils % (auto) 0.3 %; Eosinophils # (auto) 0.08 K/uL (0-0.5); Eosinophils % (auto) 1.3 %; Immature Granulocytes % (auto) 1.6 %; Lymphocytes # (auto) 1.77 K/uL (1.2-3.4); Lymphocytes % (auto) 28.5 %; Monocytes # (auto) 1.18 K/uL (0.11-0.59); Neutrophils # (auto) 3.07 K/uL (1.4-6.5); Neutrophils % (auto) 49.3 %; Polychromasia 1+
[2020-11-15] MEDS: PROPRANOLOL HCL 10 MG TAB PO SCH ×3 (06:30→21:01)
[2020-11-15] MEDS: ENOXAPARIN INJ 120 MG/0.8 ML SYR SQ SCH (06:30)
[2020-11-15] MEDS: LEVOTHYROXINE SODIUM 50 MCG TABLET NG SCH (06:31)
[2020-11-15] MEDS: INSULIN GLARGINE 100 UNIT/ML VIAL SC SCH ×2 (07:57→21:03)
[2020-11-15] MEDS: DOCUSATE SODIUM SYRUP 100 MG/10 ML UDC NG SCH ×2 (07:59→21:00)
[2020-11-15] MEDS: SENNOSIDES 8.8 MG/5 ML UDC PO SCH ×2 (07:59→21:00)
[2020-11-15] MEDS: MULTI VIT W/MINERALS LIQUID 15 ML UDP NG SCH (07:59)
[2020-11-15] MEDS: FERROUS SULFATE 325 MG/7.4 ML UDP PO SCH (07:59)
[2020-11-15] MEDS: ASCORBIC ACID 500 MG TAB PO SCH (08:00)
[2020-11-15] MEDS: ZINC SULFATE 220 MG CAPSULE PO SCH (08:00)
[2020-11-15] MEDS: POLYETHYLENE (MIRALAX) 17 GM PACK PO SCH (08:00)
[2020-11-15] MEDS: diazePAM 5 MG TABLET PO SCH ×2 (08:02→21:00)
[2020-11-15] MEDS: CEFEPIME 2,000 MG in SYRINGE 0 ML IV SCH ×2 (08:02→21:00)
[2020-11-15] MEDS: FAMOTIDINE 20 MG in SYRINGE 3 ML IV SCH ×2 (08:02→21:00)
--- NOTE | 2020-11-15 08:40 | Pharmacy Report ---
Pharmacy Glycemic Short Note 2 - Date of Service November 15, 2020 - Glycemic Short BSG Results (Last 24 hours): 11/14/20 11/14/20 11/14/20 07:59 08:56 09:59 Glucose 117 H POC Glucose 115 H 140 H 11/14/20 11/14/20 11/14/20 10:54 12:00 13:58 Glucose POC Glucose 142 H 140 H 143 H 11/14/20 11/14/20 11/14/20 15:51 15:53 18:12 Glucose POC Glucose 160 H 163 H 188 H 11/14/20 11/14/20 11/14/20 20:15 21:00 22:06 Glucose POC Glucose 175 H 160 H 159 H 11/15/20 11/15/20 11/15/20 00:00 02:07 04:11 Glucose POC Glucose 163 H 160 H 157 H 11/15/20 11/15/20 04:34 05:57 Glucose 163 H POC Glucose 170 H OUTPATIENT ANTIDIABETIC REGIMEN: * Lantus 70 units QAM, 30 units QPM * Novolog sliding scale TIDM- max of 60 units/day ASSESSMENT: 11/15: * Pt has received 104 units of SQ insulin + ~ 100 units of IV insulin via infusion over the past 24hrs * 50 units of basal with Lantus * 54 units of bolus with NovoLog * Current SQ insulin orders have helped to stabilize IV insulin infusion at 4.6 units/hr however infusion has not been able to be stopped/DC indicating more SQ insulin is needed. * NovoLog order is covering Peptamen CHO continuous tube feedings. * Additional ~ 100 units of insulin needed to turn off insulin infusion. Will double Lantus from 25 BID to 50 BID and tighten CR from 4 to 3 * Continue to adjust orders based on BSG trends to maintain BSG in the 140-180 mg/dl range 11/14: * BSGs well controlled with current insulin regimen * IV insulin infusion running at 5.9-7.4units/hr much of the last 24 hrs, this is with 25 units Lantus on board. * She has been tolerating her tube feeds and rate has remained stable (running at 125cc/hr) * Will increase basal insulin dose given improved stability. Would like to have larger dose of Lantus on board should patient be transferred in the near future. Given current insulin needs from IV and SQ routes, would anticipate she needs ~160-180 units of insulin per day. PLAN FOR INPATIENT GLYCEMIC CONTROL: * Continue IV insulin drip. Goal range 120-180mg/dL. Hopefully will be able to turn off insulin infusion this afternoon once additional SQ insulin on board * Basal insulin - increase * Lantus 50 units SQ BID * Bolus insulin * NovoLog SQ Q 4 hrs * Goal Range: Low 120 mg/dL - High 180 mg/dL * Correction Factor: NONE * Nutritional / Prandial insulin per carb ratio of 1 unit per 3 grams CHO received from [facility] tube feeds
[2020-11-15] MEDS: BACITRACIN ZINC TOP SCH (08:53)
[2020-11-15] MEDS: MUPIROCIN 2% OINT 22 GM TUBE EXT SCH (08:53)
[2020-11-15] MEDS: SILVER SULFADIAZINE 1% CR 400 GM JAR EXT SCH (08:53)
[2020-11-15] MEDS: CHLORHEXIDINE GLUCONATE 0.12% 480 ML MT SCH ×2 (08:53→21:05)
[2020-11-15] MEDS ORDERED: BACITRACIN OINT 15 GM TUBE EXT SCH (09:00)
[2020-11-15] MEDS ORDERED: MUPIROCIN 2% OINT 22 GM TUBE EXT SCH (09:00)
[2020-11-15] MEDS ORDERED: COLLAGENASE OINT 30 GM TUBE EXT SCH (09:00)
[2020-11-15] MEDS: INSULIN REGULAR 250 UNITS in SODIUM CHLORIDE 0.9% 247.5 ML IV SCH ×2 (10:15→20:01)
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
[2020-11-15 13:30] LABS: BUN Creatinine Ratio 118.8 (10-20); Creatinine Clr Calc Pharmacy 170.4 ml/min; Est GFR (African American) 105.7; Est GFR (Non-African American) 91.2; Potassium 5.8 mmol/L (3.5-5.1)
[2020-11-15 13:31] LABS: Phosphorus 2.9 mg/dl (2.5-4.9)
[2020-11-15] MEDS ORDERED: LACTATED RINGER'S 1,000 ML IV ONE (14:00)
[2020-11-15] MEDS: BACITRACIN EXT SCH (14:01)
[2020-11-15] MEDS: COLLAGENASE EXT SCH (14:01)
[2020-11-15] MEDS: PEPTAMEN INTENSE VHP 1.0 CAL 1,000 ML BAG OG PRN (14:46)
[2020-11-15] MEDS: fentaNYL DRIP 1,250 MCG/250 ML BAG IV SCH (15:50)
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
[2020-11-15 21:00] LABS: BUN Creatinine Ratio 115.1 (10-20); Calcium 10.9 mg/dl (8.5-10.1); Est GFR (African American) 104.6; Est GFR (Non-African American) 90.2
[2020-11-15] MEDS: ENOXAPARIN 80 MG/0.8 ML SYR SQ SCH (21:01)
[2020-11-15] MEDS ORDERED: NovoLIN-R INSULIN PER UNIT CHARGE SC STA (22:39)
[2020-11-15] MEDS ORDERED: POLYETHYLENE (MIRALAX) 17 GM PACK PO STA (22:41)
[2020-11-15] MEDS ORDERED: DEXTROSE 50% 50 ML SYRINGE IV ONE (22:41)
--- NOTE | 2020-11-15 22:44 | Communication Note ---
Date of Service: November 15, 2020 Patient had a potassium that was elevated to 6 - glucose D50 - insulin regular 10 - miralax - held diet - continue to follow
[2020-11-15] MEDS ORDERED: INSULIN HUMAN REGULAR PER UNIT 10 UNITS in SYRINGE 9.9 ML IV ONE (23:00)
[2020-11-16] MEDS: oxyCODONE HCL IR 30 MG TAB (IMMEDIATE RELEASE) PO SCH ×3 (00:27→13:19)
[2020-11-16 01:04] LABS: BUN Creatinine Ratio 119.4 (10-20); Calcium 11.1 mg/dl (8.5-10.1); Creatinine Clr Calc Pharmacy 167.7 ml/min; Est GFR (African American) 105.1; Est GFR (Non-African American) 90.7; Potassium 5.9 mmol/L (3.5-5.1)
[2020-11-16] MEDS ORDERED: FUROSEMIDE 20 MG in SYRINGE 0 ML IV ONE (02:05)
[2020-11-16] MEDS: LINEZOLID IV SCH ×3 (02:20→18:29)
[2020-11-16] MEDS: ALBUT/IPRATROP 3MG/0.5MG NEB 3 ML VIAL NEB SCH ×6 (02:59→23:46)
[2020-11-16] MEDS: fentaNYL DRIP 1,250 MCG/250 ML BAG IV SCH (04:15)
[2020-11-16] MEDS: INSULIN ASPART 100 UNITS/ML 3 ML PEN SC SCH ×5 (04:16→19:49)
[2020-11-16] MEDS: DEXTROSE 50% 50 ML SYRINGE IV PRN (05:01)
[2020-11-16 05:13] LABS: Base Excess ABG 2.6 mEq/L (-9-1.8); HCO3 ABG 32 mmol/L (19-24); Oxygen Saturation ABG 92.9 % (90-95); PCO2 ABG 76 mmHg (35-46); PO2 ABG 70 mmHg (80-95); pH ABG 7.24 (7.35-7.45)
[2020-11-16 05:14] LABS: Allen Test Pos (Pos); Hematocrit (blood only) 31.7 % (37-47); Mean Corpuscular Hemoglobin 27.9 pg (25-34); Mean Corpuscular Hgb Conc 28.4 g/dL (32-36); Mean Corpuscular Volume 98.1 fL (80-100); Mean Platelet Volume 9.1 fL (7.4-10.4); Nucleated RBC # (auto) 0.12 K/uL (0-0); Nucleated RBC % (auto) 1.5 %; Platelet Count 401 K/uL (130-400); RDW Coefficient of Variation 20.4 % (11.5-14.5); RDW Standard Deviation 71.2 fL (36.4-46.3); Red Blood Count 3.23 M/uL (4.2-5.4); White Blood Count 7.75 K/uL (4.8-10.8)
[2020-11-16 05:37] LABS: Basophilic Stippling 1+; Basophils # (auto) 0.03 K/uL (0-0.2); Basophils % (auto) 0.4 %; Eosinophils # (auto) 0.05 K/uL (0-0.5); Eosinophils % (auto) 0.6 %; Immature Granulocytes # (auto) 0.16 K/uL (0.00-0.02); Immature Granulocytes % (auto) 2.1 %; Lymphocytes # (auto) 1.59 K/uL (1.2-3.4); Lymphocytes % (auto) 20.5 %; Monocytes # (auto) 1.66 K/uL (0.11-0.59); Monocytes % (auto) 21.4 %; Neutrophils # (auto) 4.26 K/uL (1.4-6.5); Polychromasia 1+
[2020-11-16 05:40] LABS: Albumin Level 1.8 gm/dl (3.4-5.0); BUN Creatinine Ratio 127.1 (10-20); Calcium 11.2 mg/dl (8.5-10.1); Creatinine Clr Calc Pharmacy 179.2 ml/min; Est GFR (African American) 107.5; Est GFR (Non-African American) 92.7; Magnesium 2.8 mg/dl (1.8-2.4)
[2020-11-16 05:43] LABS: Albumin Globulin Ratio 0.3 (0.9-2); Bilirubin,Total 0.3 mg/dl (0.2-1); Globulin 5.7 gm/dl (2.5-4.0); Phosphorus 3.2 mg/dl (2.5-4.9); Total Protein 7.5 gm/dl (6.4-8.2)
[2020-11-16] MEDS: LEVOTHYROXINE SODIUM 50 MCG TABLET NG SCH (05:59)
[2020-11-16] MEDS: PROPRANOLOL HCL 10 MG TAB PO SCH ×3 (05:59→21:39)
[2020-11-16] MEDS: CEFEPIME 2,000 MG in SYRINGE 0 ML IV SCH ×2 (07:37→21:39)
[2020-11-16] MEDS: diazePAM 5 MG TABLET PO SCH (07:37)
[2020-11-16] MEDS: FAMOTIDINE 20 MG in SYRINGE 3 ML IV SCH ×2 (07:37→21:39)
[2020-11-16] MEDS: DOCUSATE SODIUM SYRUP 100 MG/10 ML UDC NG SCH ×2 (07:38→21:39)
[2020-11-16] MEDS: ZINC SULFATE 220 MG CAPSULE PO SCH (07:38)
[2020-11-16] MEDS: SENNOSIDES 8.8 MG/5 ML UDC PO SCH ×2 (07:38→21:39)
[2020-11-16] MEDS: BACITRACIN ZINC TOP SCH (07:39)
[2020-11-16] MEDS: POLYETHYLENE (MIRALAX) 17 GM PACK PO SCH (07:39)
[2020-11-16] MEDS: MUPIROCIN 2% OINT 22 GM TUBE EXT SCH (07:39)
[2020-11-16] MEDS: CHLORHEXIDINE GLUCONATE 0.12% 480 ML MT SCH ×2 (07:39→21:39)
[2020-11-16] MEDS: MULTI VIT W/MINERALS LIQUID 15 ML UDP NG SCH (07:39)
[2020-11-16] MEDS: ASCORBIC ACID 500 MG TAB PO SCH (07:39)
[2020-11-16] MEDS: FERROUS SULFATE 325 MG/7.4 ML UDP PO SCH (07:39)
[2020-11-16] MEDS: SILVER SULFADIAZINE 1% CR 400 GM JAR EXT SCH (07:40)
[2020-11-16] MEDS: INSULIN GLARGINE 100 UNIT/ML VIAL SC SCH ×2 (07:44→18:29)
--- NOTE | 2020-11-16 08:52 | XRay Report ---
XR chest 1V portable CLINICAL HISTORY: hypoxia COMPARISON STUDY: 11/12/2020 FINDINGS: The study is rotated. Tracheostomy tube remains unchanged in position. There is a right sub clavian central venous catheter tip of which projects over the atriocaval junction. There are persist ent bilateral pulmonary airspace opacities.[ IMPRESSION: 1. Rotated study 2. Bilateral pulmonary airspace opacities, pulmonary edema versus a multifocal pneumonia. ACT 112: Negative or not required by law. Electronically signed by: Mich Padron M.D. 11/16/2020 8:50 AM
[2020-11-16] MEDS: ENOXAPARIN 80 MG/0.8 ML SYR SQ SCH ×2 (09:02→21:39)
--- NOTE | 2020-11-16 09:34 | Pharmacy Report ---
Pharmacy Glycemic Short Note 2 - Date of Service November 16, 2020 - Glycemic Short BSG Results (Last 24 hours): 11/15/20 11/15/20 11/15/20 10:09 11:10 12:05 Glucose POC Glucose 201 H 205 H 187 H 11/15/20 11/15/20 11/15/20 12:58 13:03 14:14 Glucose 205 H POC Glucose 200 H 172 H 11/15/20 11/15/20 11/15/20 15:14 16:10 17:11 Glucose POC Glucose 154 H 146 H 147 H 11/15/20 11/15/20 11/15/20 19:11 20:33 21:08 Glucose 136 H POC Glucose 145 H 129 H 11/15/20 11/16/20 11/16/20 23:12 00:31 00:59 Glucose 112 H POC Glucose 122 H 121 H 11/16/20 11/16/20 11/16/20 04:18 04:57 04:58 Glucose 83 POC Glucose 94 83 11/16/20 11/16/20 11/16/20 05:19 05:40 06:09 Glucose POC Glucose 99 99 103 H 11/16/20 11/16/20 07:43 09:04 Glucose POC Glucose 132 H 140 H OUTPATIENT ANTIDIABETIC REGIMEN: * Lantus 70 units QAM, 30 units QPM * Novolog sliding scale TIDM- max of 60 units/day ASSESSMENT: 11/16 * Pt has received 140 units of sq insulin + ~ 125 units of IV insulin via infusion over the past 24hrs * 100 units of basal with Lantus * 40 units of bolus with NovoLog (to cover CHO from continuous tube feedings) * TF on hold as of 0445 this AM. Subsequently the IV insulin infusion rate decreased to 0 units/hr without exact CHO on board. * BSGs in goal range without TF @ 103, 140 mg/dl. 100 units of basal insulin is adequate/true basal needs. No need to decrease without TF on board. * CHO ratio ordered for when TF is resumed. * Goal is to maintain BSGs <180 mg/dl (ideally <150 mg/dl) to promote wound healing/infection prevention. 11/15: * Pt has received 104 units of SQ insulin + ~ 100 units of IV insulin via infusion over the past 24hrs * 50 units of basal with Lantus * 54 units of bolus with NovoLog * Current SQ insulin orders have helped to stabilize IV insulin infusion at 4.6 units/hr however infusion has not been able to be stopped/DC indicating more SQ insulin is needed. * NovoLog order is covering Peptamen CHO continuous tube feedings. * Additional ~ 100 units of insulin needed to turn off insulin infusion. Will double Lantus from 25 BID to 50 BID and tighten CR from 4 to 3 * Continue to adjust orders based on BSG trends to maintain BSG in the 140-180 mg/dl range 11/14: * BSGs well controlled with current insulin regimen * IV insulin infusion running at 5.9-7.4units/hr much of the last 24 hrs, this is with 25 units Lantus on board. * She has been tolerating her tube feeds and rate has remained stable (running at 125cc/hr) * Will increase basal insulin dose given improved stability. Would like to have larger dose of Lantus on board should patient be transferred in the near future. Given current insulin needs from IV and SQ routes, would anticipate she needs ~160-180 units of insulin per day. PLAN FOR INPATIENT GLYCEMIC CONTROL: * IV insulin infusion currently on hold secondary to TF on hold. Will resume if/when BSG > 180 * Basal insulin - no change * Lantus 50 units SQ BID * Bolus insulin * NovoLog SQ Q 4 hrs * Goal Range: Low 110 mg/dL - High 140 mg/dL * Correction Factor: Add CF of 15 mg/dl/unit since IV insulin infusion on hold * Nutritional / Prandial insulin per carb ratio of 1 unit per 3 grams CHO received from Peptamen VHP tube feeds
[2020-11-16 11:43] LABS: iSTAT Arterial Blood Gas HCO3 31 meg/L (19-24); iSTAT Arterial Blood Gas pCO2 68 mmHg (35-46); iSTAT Arterial Blood Gas pH 7.27 (7.35-7.45); iSTAT Arterial Blood Gas pO2 77 mmHg (80-95); iSTAT Carbon Dioxide 33 mmol/L (24-31)
[2020-11-16] MEDS: NOVASOURCE RENAL 2.0 CAL 1000ML BAG PEG SCH (12:33)
--- NOTE | 2020-11-16 13:05 | Electrocardiogram Report ---
Test Reason : Blood Pressure : / mmHG Vent. Rate : 061 BPM Atrial Rate : 108 BPM P-R Int : 000 ms QRS Dur : 118 ms QT Int : 378 ms P-R-T Axes : 000 -37 025 degrees QTc Int : 380 ms Atrial fibrillation Left axis deviation Poor R wave progression, consider anterior WI vs. lead placement vs. LVH Abnormal ECG When compared with ECG of 16-OCT-2020 15:15, Atrial fibrillation has replaced Sinus rhythm Vent. rate has decreased BY 47 BPM Incomplete left bundle block is now Present Confirmed by Tanner Carvalho ([id number]) on 11/16/2020 1:05:31 PM Referred By: Rudy Gutiérrez Confirmed By:Shiva Carvalho
[2020-11-16] MEDS: LORazepam 0.5 MG TAB PO SCH ×2 (13:19→21:39)
[2020-11-16 14:46] LABS: BUN Creatinine Ratio 116.5 (10-20); Calcium 11.1 mg/dl (8.5-10.1); Creatinine Clr Calc Pharmacy 167.4 ml/min; Est GFR (African American) 105.1; Est GFR (Non-African American) 90.7; Potassium 6.3 mmol/L (3.5-5.1)
[2020-11-16] MEDS: COLLAGENASE EXT SCH (14:58)
[2020-11-16] MEDS: BACITRACIN EXT SCH (14:58)
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
[2020-11-16] MEDS: PATIROMER CALCIUM SORBITEX 8.4 GM PACK PO SCH (16:05)
[2020-11-16] MEDS ORDERED: LACTATED RINGER'S 500 ML IV SCH (16:15)
[2020-11-16] MEDS: TUBE FEEDING WATER FLUSH OG SCH ×7 (16:19→22:55)
[2020-11-16 16:59] LABS: iSTAT Arterial Blood Gas HCO3 31 meg/L (19-24); iSTAT Arterial Blood Gas pCO2 63 mmHg (35-46); iSTAT Arterial Blood Gas pH 7.31 (7.35-7.45); iSTAT Arterial Blood Gas pO2 76 mmHg (80-95); iSTAT Carbon Dioxide 33 mmol/L (24-31)
[2020-11-16] MEDS ORDERED: DEXTROSE 50% 50 ML SYRINGE IV ONE (19:10)
[2020-11-16] MEDS ORDERED: INSULIN HUMAN REGULAR PER UNIT 7 UNITS in SYRINGE 6.93 ML IV STA (19:10)
--- NOTE | 2020-11-16 19:16 | Billing Data ---
Date of Service November 16, 2020 Coding Level of Care Code 90692 Prolonged Care (int'l)
[2020-11-16] MEDS: SODI CHLOR 2.5MEQ/ML 14.6% 77 MEQ in DEXTROSE 10% 1,000 ML IV SCH (19:49)
[2020-11-16] MEDS ORDERED: diazePAM 5 MG TABLET PO SCH (21:00)
[2020-11-16 21:06] LABS: BUN Creatinine Ratio 109.4 (10-20); Calcium 11.3 mg/dl (8.5-10.1); Creatinine Clr Calc Pharmacy 152.6 ml/min
[2020-11-16 23:45] LABS: iSTAT Arterial Blood Gas HCO3 32 meg/L (19-24); iSTAT Arterial Blood Gas pCO2 63 mmHg (35-46); iSTAT Arterial Blood Gas pH 7.32 (7.35-7.45); iSTAT Arterial Blood Gas pO2 114 mmHg (80-95); iSTAT Carbon Dioxide 34 mmol/L (24-31); iSTAT Hematocrit 26 % (37-47); iSTAT Hemoglobin 8.8 g/dl (12.0-16.0); iSTAT Potassium 6.1 mmol/L (3.3-5.0); iSTAT Sodium 135 mmol/L (135-144)
[2020-11-17] MEDS: oxyCODONE HCL IR 30 MG TAB (IMMEDIATE RELEASE) PO SCH ×3 (00:10→23:37)
[2020-11-17] MEDS: INSULIN ASPART 100 UNITS/ML 3 ML PEN SC SCH ×7 (00:32→23:54)
[2020-11-17] MEDS: TUBE FEEDING WATER FLUSH OG SCH ×24 (00:36→23:00)
[2020-11-17] MEDS: LINEZOLID IV SCH ×3 (01:34→17:53)
[2020-11-17] MEDS: fentaNYL DRIP 1,250 MCG/250 ML BAG IV SCH (01:42)
[2020-11-17] MEDS: ALBUT/IPRATROP 3MG/0.5MG NEB 3 ML VIAL NEB SCH ×6 (03:20→23:19)
[2020-11-17] MEDS: HYDROmorphone INJ 2 MG/ML SYR/VIAL IV PRN ×3 (03:34→23:36)
[2020-11-17 05:13] LABS: iSTAT Arterial Blood Gas HCO3 32 meg/L (19-24); iSTAT Arterial Blood Gas pCO2 77 mmHg (35-46); iSTAT Arterial Blood Gas pH 7.22 (7.35-7.45); iSTAT Arterial Blood Gas pO2 102 mmHg (80-95); iSTAT Carbon Dioxide 34 mmol/L (24-31)
[2020-11-17 05:22] LABS: Hematocrit (blood only) 30.8 % (37-47); Hemoglobin 8.8 g/dL (12.0-16.0); Mean Corpuscular Hemoglobin 28.1 pg (25-34); Mean Corpuscular Hgb Conc 28.6 g/dL (32-36); Mean Corpuscular Volume 98.4 fL (80-100); Mean Platelet Volume 8.9 fL (7.4-10.4); Nucleated RBC # (auto) 0.08 K/uL (0-0); Nucleated RBC % (auto) 1.4 %; Platelet Count 426 K/uL (130-400); RDW Coefficient of Variation 20.7 % (11.5-14.5); RDW Standard Deviation 71.9 fL (36.4-46.3); Red Blood Count 3.13 M/uL (4.2-5.4)
[2020-11-17 05:24] LABS: Albumin Level 1.7 gm/dl (3.4-5.0); BUN Creatinine Ratio 104.7 (10-20); Calcium 11.2 mg/dl (8.5-10.1); Creatinine Clr Calc Pharmacy 157.3 ml/min; Est GFR (Non-African American) 88.9; Magnesium 2.8 mg/dl (1.8-2.4); Potassium 5.8 mmol/L (3.5-5.1)
[2020-11-17 05:27] LABS: Albumin Globulin Ratio 0.3 (0.9-2); Bilirubin,Total 0.3 mg/dl (0.2-1); C Reactive Protein 4.49 mg/dl (0-0.29); Globulin 5.5 gm/dl (2.5-4.0); Total Protein 7.2 gm/dl (6.4-8.2)
[2020-11-17 05:29] LABS: Anisocytosis Present; Basophilic Stippling 1+; Basophils # (auto) 0.01 K/uL (0-0.2); Basophils % (auto) 0.2 %; Eosinophils # (auto) 0.02 K/uL (0-0.5); Eosinophils % (auto) 0.3 %; Immature Granulocytes # (auto) 0.18 K/uL (0.00-0.02); Immature Granulocytes % (auto) 3.1 %; Lymphocytes # (auto) 1.88 K/uL (1.2-3.4); Lymphocytes % (auto) 32.4 %; Monocytes # (auto) 1.02 K/uL (0.11-0.59); Monocytes % (auto) 17.6 %; Neutrophils # (auto) 2.69 K/uL (1.4-6.5); Neutrophils % (auto) 46.4 %; Polychromasia 1+
[2020-11-17] MEDS: LORazepam 0.5 MG TAB PO SCH ×2 (05:42→20:04)
[2020-11-17] MEDS: LEVOTHYROXINE SODIUM 50 MCG TABLET NG SCH (05:42)
[2020-11-17] MEDS: PROPRANOLOL HCL 10 MG TAB PO SCH ×3 (05:42→21:18)
[2020-11-17] MEDS: INSULIN GLARGINE 100 UNIT/ML VIAL SC SCH (05:43)
[2020-11-17] MEDS: SODI CHLOR 2.5MEQ/ML 14.6% 77 MEQ in DEXTROSE 10% 1,000 ML IV SCH (06:25)
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
[2020-11-17] MEDS: ZINC SULFATE 220 MG CAPSULE PO SCH (08:02)
[2020-11-17] MEDS: FERROUS SULFATE 325 MG/7.4 ML UDP PO SCH (08:02)
[2020-11-17] MEDS: MULTI VIT W/MINERALS LIQUID 15 ML UDP NG SCH (08:02)
[2020-11-17] MEDS: SENNOSIDES 8.8 MG/5 ML UDC PO SCH ×2 (08:02→20:06)
[2020-11-17] MEDS: ASCORBIC ACID 500 MG TAB PO SCH (08:03)
[2020-11-17] MEDS: DOCUSATE SODIUM SYRUP 100 MG/10 ML UDC NG SCH ×2 (08:03→20:05)
[2020-11-17] MEDS: POLYETHYLENE (MIRALAX) 17 GM PACK PO SCH (08:03)
[2020-11-17] MEDS: ENOXAPARIN 80 MG/0.8 ML SYR SQ SCH ×2 (08:04→21:17)
[2020-11-17] MEDS: MUPIROCIN 2% OINT 22 GM TUBE EXT SCH (08:54)
[2020-11-17] MEDS: SILVER SULFADIAZINE 1% CR 400 GM JAR EXT SCH (08:54)
[2020-11-17] MEDS: BACITRACIN ZINC TOP SCH (08:54)
[2020-11-17] MEDS: CHLORHEXIDINE GLUCONATE 0.12% 480 ML MT SCH ×2 (08:54→20:07)
[2020-11-17] MEDS: CEFEPIME 2,000 MG in SYRINGE 0 ML IV SCH ×2 (08:58→21:18)
[2020-11-17] MEDS: FAMOTIDINE 20 MG in SYRINGE 3 ML IV SCH ×2 (08:58→21:17)
[2020-11-17] MEDS ORDERED: PATIROMER CALCIUM SORBITEX 8.4 GM PACK PO SCH (09:00)
[2020-11-17 09:25] LABS: iSTAT Arterial Blood Gas HCO3 30 meg/L (19-24); iSTAT Arterial Blood Gas pCO2 54 mmHg (35-46); iSTAT Arterial Blood Gas pH 7.35 (7.35-7.45); iSTAT Arterial Blood Gas pO2 71 mmHg (80-95); iSTAT Carbon Dioxide 31 mmol/L (24-31)
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
[2020-11-17] MEDS ORDERED: Nursing to Pharmacy Communication SCH (12:30)
[2020-11-17] MEDS ORDERED: INSULIN GLARGINE 100 UNIT/ML VIAL SC ONE (13:45)
--- NOTE | 2020-11-17 14:01 | Pharmacy Report ---
Pharmacy Glycemic Short Note 2 - Date of Service November 17, 2020 - Glycemic Short BSG Results (Last 24 hours): 11/16/20 11/16/20 11/16/20 14:20 16:07 19:26 Glucose 147 H POC Glucose 144 H 156 H 11/16/20 11/17/20 11/17/20 20:40 00:13 01:32 Glucose 181 H POC Glucose 201 H 197 H 11/17/20 11/17/20 11/17/20 02:30 03:31 04:33 Glucose POC Glucose 211 H 188 H 183 H 11/17/20 11/17/20 11/17/20 04:45 05:38 06:28 Glucose 175 H POC Glucose 180 H 188 H 11/17/20 11/17/20 11/17/20 08:06 09:24 11:13 Glucose POC Glucose 145 H 134 H 144 H 11/17/20 13:16 Glucose POC Glucose 112 H OUTPATIENT ANTIDIABETIC REGIMEN: * Lantus 70 units QAM, 30 units QPM * Novolog sliding scale TIDM- max of 60 units/day ASSESSMENT: 11/17 * 111 units SQ insulin given over last 24 hrs as well as insulin drip running at ~ 7units/hr * D10 1/2 NS infusion was initiated yesterday and did run at 85cc/hr, until this AM. Since this has been d/c'd insulin infusion needs have begun to decrease * Tube feeds were changed to Novasource Renal 2.0 and were running at 10cc/hr this AM, likely will advance to 20cc/hr this afternoon / evening * I was informed that patient needs to be off insulin infusion for 24 hrs in order for transfer to [facility]. Will give additional Lantus at this time, adjust Novolog parameters as well and transition off insulin drip today. I anticipate she will require 200+ units of SQ to achieve glycemic targets when feeds are near goal. 11/16 * Pt has received 140 units of sq insulin + ~ 125 units of IV insulin via infusion over the past 24hrs * 100 units of basal with Lantus * 40 units of bolus with NovoLog (to cover CHO from continuous tube feedings) * TF on hold as of 0445 this AM. Subsequently the IV insulin infusion rate de creased to 0 units/hr without exact CHO on board. * BSGs in goal range without TF @ 103, 140 mg/dl. 100 units of basal insulin is adequate/true basal needs. No need to decrease without TF on board. * CHO ratio ordered for when TF is resumed. * Goal is to maintain BSGs <180 mg/dl (ideally <150 mg/dl) to promote wound healing/infection prevention. 11/15: * Pt has received 104 units of SQ insulin + ~ 100 units of IV insulin via infusion over the past 24hrs * 50 units of basal with Lantus * 54 units of bolus with NovoLog * Current SQ insulin orders have helped to stabilize IV insulin infusion at 4.6 units/hr however infusion has not been able to be stopped/DC indicating more SQ insulin is needed. * NovoLog order is covering Peptamen CHO continuous tube feedings. * Additional ~ 100 units of insulin needed to turn off insulin infusion. Will double Lantus from 25 BID to 50 BID and tighten CR from 4 to 3 * Continue to adjust orders based on BSG trends to maintain BSG in the 140-180 mg/dl range 11/14: * BSGs well controlled with current insulin regimen * IV insulin infusion running at 5.9-7.4units/hr much of the last 24 hrs, this is with 25 units Lantus on board. * She has been tolerating her tube feeds and rate has remained stable (running at 125cc/hr) * Will increase basal insulin dose given improved stability. Would like to have larger dose of Lantus on board should patient be transferred in the near future. Given current insulin needs from IV and SQ routes, would anticipate she needs ~160-180 units of insulin per day. PLAN FOR INPATIENT GLYCEMIC CONTROL: * Lantus 40 units SQ x 1 now. Discontinue insulin drip 4 hrs after this dose is administered (~1800) * Increase Lantus to 60 units BID * Bolus insulin * NovoLog SQ Q 4 hrs * Goal Range: Low 110 mg/dL - High 140 mg/dL * Correction Factor: CF of 12 mg/dl/unit when insulin drip dc'd * Nutritional / Prandial insulin per carb ratio of 1 unit [facility] 2.[facility]
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
[2020-11-17] MEDS: PATIROMER CALCIUM SORBITEX 8.4 GM PACK PO SCH (14:23)
[2020-11-17] MEDS ORDERED: PATIROMER CALCIUM SORBITEX 8.4 GM PACK PO ONE (15:00)
--- NOTE | 2020-11-17 17:28 | Electrocardiogram Report ---
Test Reason : Blood Pressure : / mmHG Vent. Rate : 059 BPM Atrial Rate : 050 BPM P-R Int : 000 ms QRS Dur : 114 ms QT Int : 360 ms P-R-T Axes : 000 -38 029 degrees QTc Int : 356 ms Atrial fibrillation with slow ventricular response Left axis deviation Abnormal ECG Confirmed by Tanner Carvalho ([id number]) on 11/17/2020 5:28:32 PM Referred By: Rudy Gutiérrez Confirmed By:Shiva Carvalho
[2020-11-17] MEDS ORDERED: INSULIN GLARGINE 100 UNIT/ML VIAL SC SCH (18:00)
[2020-11-17] MEDS ORDERED: [UNRECOGNIZED DRUG - REMARK] ONE (18:00)
[2020-11-18] MEDS: INSULIN GLARGINE 100 UNIT/ML VIAL SC SCH ×2 (00:06→12:07)
[2020-11-18] MEDS: TUBE FEEDING WATER FLUSH OG SCH ×24 (00:08→23:00)
[2020-11-18] MEDS: LINEZOLID IV SCH ×3 (02:22→16:09)
[2020-11-18] MEDS: ALBUT/IPRATROP 3MG/0.5MG NEB 3 ML VIAL NEB SCH ×6 (03:18→23:17)
[2020-11-18] MEDS: HYDROmorphone INJ 2 MG/ML SYR/VIAL IV PRN ×5 (03:30→20:27)
[2020-11-18] MEDS: BACITRACIN ZINC TOP SCH (03:31)
[2020-11-18] MEDS: MUPIROCIN 2% OINT 22 GM TUBE EXT SCH (03:32)
[2020-11-18] MEDS: BACITRACIN EXT SCH (03:33)
[2020-11-18] MEDS: COLLAGENASE EXT SCH (03:33)
[2020-11-18] MEDS: SILVER SULFADIAZINE 1% CR 400 GM JAR EXT SCH (03:33)
[2020-11-18] MEDS: DEXTROSE 50% 50 ML SYRINGE IV PRN (05:23)
[2020-11-18] MEDS: PROPRANOLOL HCL 10 MG TAB PO SCH ×3 (05:24→21:49)
[2020-11-18] MEDS: LEVOTHYROXINE SODIUM 50 MCG TABLET NG SCH (05:24)
[2020-11-18] MEDS: INSULIN ASPART 100 UNITS/ML 3 ML PEN SC SCH ×5 (05:25→20:51)
[2020-11-18] MEDS: LORazepam 0.5 MG TAB PO PRN ×3 (05:34→12:23)
[2020-11-18] MEDS: INSULIN REGULAR 250 UNITS in SODIUM CHLORIDE 0.9% 247.5 ML IV SCH (05:55)
[2020-11-18] MEDS: CEFEPIME 2,000 MG in SYRINGE 0 ML IV SCH (09:07)
[2020-11-18] MEDS: ZINC SULFATE 220 MG CAPSULE PO SCH (09:08)
[2020-11-18] MEDS: MULTI VIT W/MINERALS LIQUID 15 ML UDP NG SCH (09:08)
[2020-11-18] MEDS: ENOXAPARIN 80 MG/0.8 ML SYR SQ SCH ×2 (09:08→20:25)
[2020-11-18] MEDS: DOCUSATE SODIUM SYRUP 100 MG/10 ML UDC NG SCH ×2 (09:08→20:26)
[2020-11-18] MEDS: FAMOTIDINE 20 MG in SYRINGE 3 ML IV SCH (09:08)
[2020-11-18] MEDS: ASCORBIC ACID 500 MG TAB PO SCH (09:08)
[2020-11-18] MEDS: POLYETHYLENE (MIRALAX) 17 GM PACK PO SCH (09:08)
[2020-11-18] MEDS: SENNOSIDES 8.8 MG/5 ML UDC PO SCH ×2 (09:08→20:26)
[2020-11-18] MEDS: FERROUS SULFATE 325 MG/7.4 ML UDP PO SCH (09:08)
[2020-11-18] MEDS: CHLORHEXIDINE GLUCONATE 0.12% 480 ML MT SCH ×2 (09:11→20:34)
[2020-11-18 10:47] LABS: BUN Creatinine Ratio 97.6 (10-20); Creatinine Clr Calc Pharmacy 215.1 ml/min; Est GFR (African American) 114.4; Est GFR (Non-African American) 98.7; Magnesium 2.5 mg/dl (1.8-2.4); Phosphorus 1.9 mg/dl (2.5-4.9); Potassium 4.8 mmol/L (3.5-5.1)
[2020-11-18] MEDS: PATIROMER CALCIUM SORBITEX 8.4 GM PACK PO SCH (11:26)
[2020-11-18] MEDS: oxyCODONE HCL IR 30 MG TAB (IMMEDIATE RELEASE) PO SCH (12:06)
--- NOTE | 2020-11-18 12:19 | Pharmacy Report ---
Pharmacy Glycemic Short Note 2 - Date of Service November 18, 2020 - Glycemic Short BSG Results (Last 24 hours): 11/17/20 11/17/20 11/17/20 13:16 14:36 15:41 Glucose POC Glucose 112 H 101 H 91 11/17/20 11/17/20 11/17/20 16:15 17:28 19:52 Glucose POC Glucose 95 102 H 115 H 11/17/20 11/18/20 11/18/20 23:51 05:14 05:16 Glucose POC Glucose 82 68 L* 68 L* 11/18/20 11/18/20 11/18/20 05:41 09:03 10:05 Glucose 115 H POC Glucose 85 77 11/18/20 11:48 Glucose POC Glucose 125 H OUTPATIENT ANTIDIABETIC REGIMEN: * Lantus 70 units QAM, 30 units QPM * Novolog sliding scale TIDM- max of 60 units/day ASSESSMENT: 11/18 * Patient has been successfully transitioned off the IV insulin drip * Patient's insulin needs did decrease substantially once D10 1/2 NS stopped * Mild hypoglycemia observed overnight, dipping to BSG 68 at 0400, this was with 90 units Lantus on board and Novasource renal running at 20cc/hr * Will titrate down Lantus and Novolog doses today as tube feeds remain less than goal and multiple BSGs less than 100 11/17 * 111 units SQ insulin given over last 24 hrs as well as insulin drip running at ~ 7units/hr * D10 1/2 NS infusion was initiated yesterday and did run at 85cc/hr, until this AM. Since this has been d/c'd insulin infusion needs have begun to decrease * Tube feeds were changed to Novasource Renal 2.0 and were running at 10cc/hr this AM, likely will advance to 20cc/hr this afternoon / evening * I was informed that patient needs to be off insulin infusion for 24 hrs in order for transfer to LTCF. Will give additional Lantus at this time, adjust Novolog parameters as well and transition off insulin drip today. I anticipate she will require 200+ units of SQ to achieve glycemic targets when feeds are near goal. 11/16 * Pt has received 140 units of sq insulin + ~ 125 units of IV insulin via infusion over the past 24hrs * 100 units of basal with Lantus * 40 units of bolus with NovoLog (to cover CHO from continuous tube feedings) * TF on hold as of 444 this AM. Subsequently the IV insulin infusion rate decreased to 0 units/hr without exact CHO on board. * BSGs in goal range without TF @ 103, 140 mg/dl. 100 units of basal insulin is adequate/true basal needs. No need to decrease without TF on board. * CHO ratio ordered for when TF is resumed. * Goal is to maintain BSGs <180 mg/dl (ideally <150 mg/dl) to promote wound healing/infection prevention. PLAN FOR INPATIENT GLYCEMIC CONTROL: * Lantus SQ BID per scale: * 0 units if BSG less than 120 * 30 units if BSG 120-180 * 40 units if BSG above 180 * Bolus insulin * NovoLog SQ Q 4 hrs * Goal Range: Low 110 mg/dL - High 140 mg/dL * Correction Factor: CF of 12 mg/dl/unit when insulin drip dc'd * Nutritional / Prandial insulin per carb ratio of 1 unit per 4 grams CHO received from Novasource Renal tube feeds - this will likely need altered once BSG recovers
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
[2020-11-18] MEDS: FAMOTIDINE SUSP 20 MG/2.5 ML UDP PO SCH (20:25)
[2020-11-18] MEDS: LORazepam 0.5 MG TAB PO SCH (20:27)
[2020-11-19] MEDS: TUBE FEEDING WATER FLUSH OG SCH ×25 (00:01→23:49)
[2020-11-19] MEDS: INSULIN ASPART 100 UNITS/ML 3 ML PEN SC SCH ×7 (00:01→23:55)
[2020-11-19] MEDS: oxyCODONE HCL IR 30 MG TAB (IMMEDIATE RELEASE) PO SCH ×3 (00:01→23:49)
[2020-11-19] MEDS: LINEZOLID IV SCH ×2 (02:11→09:10)
[2020-11-19] MEDS: NOVASOURCE RENAL 2.0 CAL 1000ML BAG PEG SCH ×2 (02:48→18:05)
[2020-11-19] MEDS: ALBUT/IPRATROP 3MG/0.5MG NEB 3 ML VIAL NEB SCH ×6 (03:45→23:38)
[2020-11-19] MEDS: HYDROmorphone INJ 2 MG/ML SYR/VIAL IV PRN ×4 (05:11→21:14)
[2020-11-19] MEDS: PROPRANOLOL HCL 10 MG TAB PO SCH ×3 (05:12→21:09)
[2020-11-19] MEDS: LEVOTHYROXINE SODIUM 50 MCG TABLET NG SCH (05:13)
[2020-11-19 05:38] LABS: BUN Creatinine Ratio 84.8 (10-20); Creatinine Clr Calc Pharmacy 224.4 ml/min; Est GFR (Non-African American) 100.1; Magnesium 2.4 mg/dl (1.8-2.4); Potassium 4.9 mmol/L (3.5-5.1)
[2020-11-19 05:39] LABS: Phosphorus 1.9 mg/dl (2.5-4.9)
[2020-11-19] MEDS: ENOXAPARIN 80 MG/0.8 ML SYR SQ SCH ×2 (08:00→21:09)
[2020-11-19] MEDS: DOCUSATE SODIUM SYRUP 100 MG/10 ML UDC NG SCH ×2 (08:01→21:08)
[2020-11-19] MEDS: ZINC SULFATE 220 MG CAPSULE PO SCH (08:01)
[2020-11-19] MEDS: MULTI VIT W/MINERALS LIQUID 15 ML UDP NG SCH (08:01)
[2020-11-19] MEDS: SENNOSIDES 8.8 MG/5 ML UDC PO SCH ×2 (08:01→21:08)
[2020-11-19] MEDS: POLYETHYLENE (MIRALAX) 17 GM PACK PO SCH (08:01)
[2020-11-19] MEDS: ASCORBIC ACID 500 MG TAB PO SCH (08:01)
[2020-11-19] MEDS: FAMOTIDINE SUSP 20 MG/2.5 ML UDP PO SCH ×2 (08:01→21:09)
[2020-11-19] MEDS: FERROUS SULFATE 325 MG/7.4 ML UDP PO SCH (08:01)
[2020-11-19] MEDS: CHLORHEXIDINE GLUCONATE 0.12% 480 ML MT SCH ×2 (08:02→21:00)
[2020-11-19] MEDS ORDERED: SODIUM PHOSPHATE 3 MMOL/1 ML INFUSION IV STA (09:35)
[2020-11-19] MEDS: MUPIROCIN 2% OINT 22 GM TUBE EXT SCH (09:57)
[2020-11-19] MEDS ORDERED: SODIUM PHOSPHATE 15 MMOL in SODIUM CHLORIDE 0.9% 250 ML IV ONE (10:00)
--- NOTE | 2020-11-19 10:28 | Pharmacy Report ---
Pharmacy Glycemic Short Note 2 - Date of Service November 19, 2020 - Glycemic Short BSG Results (Last 24 hours): 11/18/20 11/18/20 11/18/20 10:05 11:48 16:01 Glucose 115 H POC Glucose 125 H 102 H 11/18/20 11/18/20 11/19/20 20:22 23:58 04:24 Glucose POC Glucose 97 110 H 112 H 11/19/20 11/19/20 04:37 07:56 Glucose 103 H POC Glucose 98 OUTPATIENT ANTIDIABETIC REGIMEN: * Lantus 70 units QAM, 30 units QPM * Novolog sliding scale TIDM- max of 60 units/day ASSESSMENT: 11/19 * Patient's insulin needs continue to be much less than prior this admission * Only 47 units insulin administered over last 24 hrs and BSGs have ranged 97- 112 * Tube feeds have been advanced to 50cc/hr Novasource Renal * Will continue to scale back basal and rapid acting insulin doses. 11/18 * Patient has been successfully transitioned off the IV insulin drip * Patient's insulin needs did decrease substantially once D10 1/2 NS stopped * Mild hypoglycemia observed overnight, dipping to BSG 68 at 0400, this was with 90 units Lantus on board and Novasource renal running at 20cc/hr * Will titrate down Lantus and Novolog doses today as tube feeds remain less than goal and multiple BSGs less than 100 11/17 * 111 units SQ insulin given over last 24 hrs as well as insulin drip running at ~ 7units/hr * D10 1/2 NS infusion was initiated yesterday and did run at 85cc/hr, until this AM. Since this has been d/c'd insulin infusion needs have begun to decrease * Tube feeds were changed to Novasource Renal 2.0 and were running at 10cc/hr this AM, likely will advance to 20cc/hr this afternoon / evening * I was informed that patient needs to be off insulin infusion for 24 hrs in order for transfer to [facility]TCF. Will give additional Lantus at this time, adjust Novolog parameters as well and transition off insulin drip today. I anticipate she will require 200+ units of SQ to achieve glycemic targets when feeds are near goal. PLAN FOR INPATIENT GLYCEMIC CONTROL: * Lantus SQ BID per scale: * 0 units if BSG less than 120 * 25 units if BSG 120-180 * 35 units if BSG above 180 * Bolus insulin * NovoLog SQ Q 4 hrs * Goal Range: Low 110 mg/dL - High 140 mg/dL * Correction Factor: CF of 12 mg/dl/unit * Nutritional / Prandial insulin per carb ratio of 1 unit per 5 grams CHO received from Novasource Renal tube feeds
[2020-11-19] MEDS: BACITRACIN ZINC TOP SCH (10:38)
[2020-11-19] MEDS: SILVER SULFADIAZINE 1% CR 400 GM JAR EXT SCH (10:38)
[2020-11-19] MEDS: COLLAGENASE EXT SCH (10:39)
[2020-11-19] MEDS: BACITRACIN EXT SCH (10:39)
[2020-11-19] MEDS: INSULIN GLARGINE 100 UNIT/ML VIAL SC SCH ×3 (11:50→23:55)
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
[2020-11-19] MEDS ORDERED: CINACALCET HCL 30 MG TAB PO SCH (21:00)
[2020-11-19] MEDS: CINACALCET HCL 30 MG TAB PO SCH (21:09)
[2020-11-20] MEDS: TUBE FEEDING WATER FLUSH OG SCH ×22 (01:01→22:07)
[2020-11-20] MEDS: HYDROmorphone INJ 2 MG/ML SYR/VIAL IV PRN ×2 (02:49→12:15)
[2020-11-20] MEDS: SILVER SULFADIAZINE 1% CR 400 GM JAR EXT SCH (04:24)
[2020-11-20] MEDS: BACITRACIN EXT SCH (04:25)
[2020-11-20] MEDS: COLLAGENASE EXT SCH (04:25)
[2020-11-20] MEDS: INSULIN ASPART 100 UNITS/ML 3 ML PEN SC SCH ×5 (04:26→21:01)
[2020-11-20] MEDS: ALBUT/IPRATROP 3MG/0.5MG NEB 3 ML VIAL NEB SCH ×6 (04:42→23:00)
[2020-11-20 05:22] LABS: BUN Creatinine Ratio 71.5 (10-20); Calcium 10.6 mg/dl (8.5-10.1); Creatinine Clr Calc Pharmacy 243.2 ml/min; Est GFR (African American) 119.5; Est GFR (Non-African American) 103.1; Magnesium 2.2 mg/dl (1.8-2.4); Phosphorus 2.1 mg/dl (2.5-4.9); Potassium 4.7 mmol/L (3.5-5.1)
[2020-11-20] MEDS: LEVOTHYROXINE SODIUM 50 MCG TABLET NG SCH (06:03)
[2020-11-20] MEDS: PROPRANOLOL HCL 10 MG TAB PO SCH ×3 (06:03→21:01)
[2020-11-20] MEDS: MULTI VIT W/MINERALS LIQUID 15 ML UDP NG SCH (07:55)
[2020-11-20] MEDS: SENNOSIDES 8.8 MG/5 ML UDC PO SCH ×2 (07:55→21:00)
[2020-11-20] MEDS: DOCUSATE SODIUM SYRUP 100 MG/10 ML UDC NG SCH ×2 (07:55→21:00)
[2020-11-20] MEDS: FAMOTIDINE SUSP 20 MG/2.5 ML UDP PO SCH ×2 (07:55→21:07)
[2020-11-20] MEDS: FERROUS SULFATE 325 MG/7.4 ML UDP PO SCH (07:56)
[2020-11-20] MEDS: CINACALCET HCL 30 MG TAB PO SCH ×2 (07:56→21:00)
[2020-11-20] MEDS: ENOXAPARIN 80 MG/0.8 ML SYR SQ SCH ×2 (07:56→21:01)
[2020-11-20] MEDS: ASCORBIC ACID 500 MG TAB PO SCH (07:57)
[2020-11-20] MEDS: ZINC SULFATE 220 MG CAPSULE PO SCH (07:57)
[2020-11-20] MEDS: POLYETHYLENE (MIRALAX) 17 GM PACK PO SCH (07:57)
[2020-11-20] MEDS: CHLORHEXIDINE GLUCONATE 0.12% 480 ML MT SCH ×2 (08:17→21:07)
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
--- NOTE | 2020-11-20 10:15 | Pharmacy Report ---
Pharmacy Glycemic Short Note 2 - Date of Service November 20, 2020 - Glycemic Short BSG Results (Last 24 hours): 11/19/20 11/19/20 11/19/20 11:40 16:10 21:04 Glucose POC Glucose 105 H 109 H 123 H 11/19/20 11/20/20 11/20/20 23:52 04:20 04:45 Glucose 122 H POC Glucose 137 H 122 H 11/20/20 08:14 Glucose POC Glucose 131 H OUTPATIENT ANTIDIABETIC REGIMEN: * Lantus 70 units QAM, 30 units QPM * Novolog sliding scale TIDM- max of 60 units/day ASSESSMENT: 11/20 * BSGs at goal * 70 units SQ insulin administered over last 24 hrs * Novasource Renal continues at 50cc/hr * Anticipate daily insulin needs to be ~70-80 units per day based upon latest BSG trends 11/19 * Patient's insulin needs continue to be much less than prior this admission * Only 47 units insulin administered over last 24 hrs and BSGs have ranged 97- 112 * Tube feeds have been advanced to 50cc/hr Novasource Renal * Will continue to scale back basal and rapid acting insulin doses. 11/18 * Patient has been successfully transitioned off the IV insulin drip * Patient's insulin needs did decrease substantially once D10 1/2 NS stopped * Mild hypoglycemia observed overnight, dipping to BSG 68 at 0400, this was with 90 units Lantus on board and Novasource renal running at 20cc/hr * Will titrate down Lantus and Novolog doses today as tube feeds remain less than goal and multiple BSGs less than 100 11/17 * 111 units SQ insulin given over last 24 hrs as well as insulin drip running at ~ 7units/hr * D10 1/2 NS infusion was initiated yesterday and did run at 85cc/hr, until this AM. Since this has been d/c'd insulin infusion needs have begun to decrease * Tube feeds were changed to Novasource Renal 2.0 and were running at 10cc/hr this AM, likely will advance to 20cc/hr this afternoon / evening * I was informed that patient needs to be off insulin infusion for 24 hrs in order for transfer to [facility]. Will give additional Lantus at this time, adjust Novolog parameters as well and transition off insulin drip today. I anticipate she will require 200+ units of SQ to achieve glycemic targets when feeds are near goal. PLAN FOR INPATIENT GLYCEMIC CONTROL: * Lantus SQ BID per scale: * 0 units if BSG less than 120 * 15 units if BSG 120 or greater * Bolus insulin * NovoLog SQ Q 4 hrs * Goal Range: Low 110 mg/dL - High 140 mg/dL * Correction Factor: CF of 12 mg/dl/unit * Nutritional / Prandial insulin per carb ratio of 1 unit per 5 grams CHO received from Novasource Renal tube feeds
[2020-11-20] MEDS: INSULIN GLARGINE 100 UNIT/ML VIAL SC SCH (12:12)
[2020-11-20] MEDS: oxyCODONE HCL IR 30 MG TAB (IMMEDIATE RELEASE) PO SCH (12:15)
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
[2020-11-20] MEDS ORDERED: PROSOURCE NO CARB 30 ML/PKT PEG ONE (15:45)
[2020-11-20] MEDS: NOVASOURCE RENAL 2.0 CAL 1000ML BAG PEG SCH (16:42)
[2020-11-20] MEDS: oxyCODONE HCL IR 5 MG TAB (IMMEDIATE RELEASE) PO SCH (21:10)
[2020-11-21] MEDS: TUBE FEEDING WATER FLUSH OG SCH ×25 (00:01→23:00)
[2020-11-21] MEDS: INSULIN GLARGINE 100 UNIT/ML VIAL SC SCH ×2 (00:02→12:00)
[2020-11-21] MEDS: INSULIN ASPART 100 UNITS/ML 3 ML PEN SC SCH ×6 (00:03→20:20)
[2020-11-21] MEDS: HYDROmorphone INJ 2 MG/ML SYR/VIAL IV PRN ×3 (00:59→20:13)
[2020-11-21] MEDS: COLLAGENASE EXT SCH (03:57)
[2020-11-21] MEDS: BACITRACIN EXT SCH (03:57)
[2020-11-21] MEDS: SILVER SULFADIAZINE 1% CR 400 GM JAR EXT SCH (03:57)
[2020-11-21] MEDS: ALBUT/IPRATROP 3MG/0.5MG NEB 3 ML VIAL NEB SCH ×6 (04:01→23:30)
[2020-11-21] MEDS: LEVOTHYROXINE SODIUM 50 MCG TABLET NG SCH (05:31)
[2020-11-21] MEDS: PROPRANOLOL HCL 10 MG TAB PO SCH ×3 (05:31→20:15)
[2020-11-21 05:38] LABS: BUN Creatinine Ratio 72.7 (10-20); Calcium 10.3 mg/dl (8.5-10.1); Creatinine Clr Calc Pharmacy 247.8 ml/min; Est GFR (African American) 120.5; Est GFR (Non-African American) 103.9; Magnesium 2.1 mg/dl (1.8-2.4); Potassium 4.9 mmol/L (3.5-5.1)
[2020-11-21 05:39] LABS: Phosphorus 2.2 mg/dl (2.5-4.9)
[2020-11-21] MEDS: DOCUSATE SODIUM SYRUP 100 MG/10 ML UDC NG SCH ×2 (08:13→20:15)
[2020-11-21] MEDS: FAMOTIDINE SUSP 20 MG/2.5 ML UDP PO SCH ×2 (08:13→20:16)
[2020-11-21] MEDS: MULTI VIT W/MINERALS LIQUID 15 ML UDP NG SCH (08:13)
[2020-11-21] MEDS: CINACALCET HCL 30 MG TAB PO SCH ×2 (08:14→20:18)
[2020-11-21] MEDS: PROSOURCE NO CARB 30 ML/PKT PEG SCH (08:14)
[2020-11-21] MEDS: ASCORBIC ACID 500 MG TAB PO SCH (08:14)
[2020-11-21] MEDS: SENNOSIDES 8.8 MG/5 ML UDC PO SCH ×2 (08:14→20:15)
[2020-11-21] MEDS: ZINC SULFATE 220 MG CAPSULE PO SCH (08:14)
[2020-11-21] MEDS: ENOXAPARIN 80 MG/0.8 ML SYR SQ SCH ×2 (08:15→20:17)
[2020-11-21] MEDS: POLYETHYLENE (MIRALAX) 17 GM PACK PO SCH (08:15)
[2020-11-21] MEDS: FERROUS SULFATE 325 MG/7.4 ML UDP PO SCH (08:15)
[2020-11-21] MEDS: oxyCODONE HCL IR 5 MG TAB (IMMEDIATE RELEASE) PO SCH (08:17)
[2020-11-21] MEDS: CHLORHEXIDINE GLUCONATE 0.12% 480 ML MT SCH ×2 (08:19→20:14)
[2020-11-21] MEDS ORDERED: SODIUM PHOSPHATE 3 MMOL/1 ML INFUSION IV STA (09:57)
[2020-11-21] MEDS ORDERED: SODIUM PHOSPHATE 15 MMOL in SODIUM CHLORIDE 0.9% 250 ML IV ONE (10:30)
--- NOTE | 2020-11-21 11:42 | Pharmacy Report ---
Pharmacy Glycemic Short Note 2 - Date of Service November 21, 2020 - Glycemic Short BSG Results (Last 24 hours): 11/20/20 11/20/20 11/20/20 12:08 16:10 20:55 Glucose POC Glucose 147 H 145 H 170 H 11/20/20 11/21/20 11/21/20 23:59 03:55 04:52 Glucose 127 H POC Glucose 173 H 131 H 11/21/20 08:29 Glucose POC Glucose 136 H OUTPATIENT ANTIDIABETIC REGIMEN: * Lantus 70 units QAM, 30 units QPM * Novolog sliding scale TIDM- max of 60 units/day ASSESSMENT: 11/21 * BSGs at goal * 101 units SQ insulin administered over last 24 hrs (40 basal + 61 prandial) * Novasource Renal continues at 50cc/hr * Insulin needs trending upwards gradually each day - but remain well controlled with upwards titration of basal + prandial insulin 11/20 * BSGs at goal * 70 units SQ insulin administered over last 24 hrs (25 basal + 45 prandial) * Novasource Renal continues at 50cc/hr * Anticipate daily insulin needs to be ~70-80 units per day based upon latest BSG trends 11/19 * Patient's insulin needs continue to be much less than prior this admission * Only 47 units insulin administered over last 24 hrs and BSGs have ranged 97- 112 (30 basal + 17 rapid acting) * Tube feeds have been advanced to 50cc/hr Novasource Renal * Will continue to scale back basal and rapid acting insulin doses. 11/18 * Patient has been successfully transitioned off the IV insulin drip * Patient's insulin needs did decrease substantially once D10 1/2 NS stopped * Mild hypoglycemia observed overnight, dipping to BSG 68 at 0400, this was with 90 units Lantus on board and Novasource renal running at 20cc/hr * Will titrate down Lantus and Novolog doses today as tube feeds remain less than goal and multiple BSGs less than 100 PLAN FOR INPATIENT GLYCEMIC CONTROL: * Lantus SQ BID per scale: * 0 units if BSG less than 120 * 20 units if BSG 120 or greater * Bolus insulin * NovoLog SQ Q 4 hrs * Goal Range: Low 110 mg/dL - High 140 mg/dL * Correction Factor: CF of 12 mg/dl/unit * Nutritional / Prandial insulin per carb ratio of 1 unit per 4 grams CHO received from Novasource Renal tube feeds
[2020-11-21] MEDS: oxyCODONE HCL IR 5 MG TAB (IMMEDIATE RELEASE) PEG SCH ×2 (14:00→22:36)
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
[2020-11-21] MEDS: NOVASOURCE RENAL 2.0 CAL 1000ML BAG PEG SCH (20:14)
[2020-11-22] MEDS: TUBE FEEDING WATER FLUSH OG SCH ×24 (00:03→23:06)
[2020-11-22] MEDS: INSULIN GLARGINE 100 UNIT/ML VIAL SC SCH ×2 (00:08→11:54)
[2020-11-22] MEDS: INSULIN ASPART 100 UNITS/ML 3 ML PEN SC SCH ×6 (00:11→20:17)
[2020-11-22] MEDS: HYDROmorphone INJ 2 MG/ML SYR/VIAL IV PRN ×3 (01:41→22:49)
[2020-11-22] MEDS: ALBUT/IPRATROP 3MG/0.5MG NEB 3 ML VIAL NEB SCH ×6 (03:00→22:21)
[2020-11-22] MEDS: BACITRACIN EXT SCH (03:17)
[2020-11-22] MEDS: COLLAGENASE EXT SCH (03:17)
[2020-11-22] MEDS: SILVER SULFADIAZINE 1% CR 400 GM JAR EXT SCH (03:17)
[2020-11-22] MEDS: PROPRANOLOL HCL 10 MG TAB PO SCH ×3 (05:40→20:25)
[2020-11-22] MEDS: oxyCODONE HCL IR 5 MG TAB (IMMEDIATE RELEASE) PEG SCH ×3 (05:40→20:51)
[2020-11-22] MEDS: LEVOTHYROXINE SODIUM 50 MCG TABLET NG SCH (05:40)
[2020-11-22 06:03] LABS: BUN Creatinine Ratio 64.5 (10-20); Calcium 10.2 mg/dl (8.5-10.1); Creatinine Clr Calc Pharmacy 230.5 ml/min; Est GFR (African American) 117.7; Est GFR (Non-African American) 101.6; Magnesium 2.1 mg/dl (1.8-2.4); Potassium 4.7 mmol/L (3.5-5.1)
[2020-11-22 06:08] LABS: Phosphorus 3.1 mg/dl (2.5-4.9)
[2020-11-22] MEDS: POLYETHYLENE (MIRALAX) 17 GM PACK PO SCH (08:02)
[2020-11-22] MEDS: FAMOTIDINE SUSP 20 MG/2.5 ML UDP PO SCH ×2 (08:02→20:24)
[2020-11-22] MEDS: CINACALCET HCL 30 MG TAB PO SCH ×2 (08:02→20:24)
[2020-11-22] MEDS: ZINC SULFATE 220 MG CAPSULE PO SCH (08:02)
[2020-11-22] MEDS: FERROUS SULFATE 325 MG/7.4 ML UDP PO SCH (08:02)
[2020-11-22] MEDS: MULTI VIT W/MINERALS LIQUID 15 ML UDP NG SCH (08:02)
[2020-11-22] MEDS: ENOXAPARIN 80 MG/0.8 ML SYR SQ SCH ×2 (08:02→20:23)
[2020-11-22] MEDS: PROSOURCE NO CARB 30 ML/PKT PEG SCH (08:02)
[2020-11-22] MEDS: ASCORBIC ACID 500 MG TAB PO SCH (08:02)
[2020-11-22] MEDS: DOCUSATE SODIUM SYRUP 100 MG/10 ML UDC NG SCH ×2 (08:02→20:24)
[2020-11-22] MEDS: SENNOSIDES 8.8 MG/5 ML UDC PO SCH ×2 (08:02→20:25)
[2020-11-22] MEDS: CHLORHEXIDINE GLUCONATE 0.12% 480 ML MT SCH ×2 (08:03→20:21)
[2020-11-22] MEDS: NOVASOURCE RENAL 2.0 CAL 1000ML BAG PEG SCH (14:05)
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
[2020-11-22 18:15] LABS: Hemoglobin 8.8 g/dL (12.0-16.0); Mean Corpuscular Hemoglobin 28.5 pg (25-34); Mean Corpuscular Hgb Conc 29.3 g/dL (32-36); Mean Corpuscular Volume 97.1 fL (80-100); Mean Platelet Volume 8.5 fL (7.4-10.4); Platelet Count 219 K/uL (130-400); RDW Coefficient of Variation 21.3 % (11.5-14.5); RDW Standard Deviation 73.6 fL (36.4-46.3); Red Blood Count 3.09 M/uL (4.2-5.4); White Blood Count 6.66 K/uL (4.8-10.8)
[2020-11-23] MEDS: TUBE FEEDING WATER FLUSH OG SCH ×5 (00:06→05:06)
[2020-11-23] MEDS: INSULIN ASPART 100 UNITS/ML 3 ML PEN SC SCH ×2 (00:08→04:02)
[2020-11-23] MEDS: INSULIN GLARGINE 100 UNIT/ML VIAL SC SCH (00:08)
[2020-11-23] MEDS: ALBUT/IPRATROP 3MG/0.5MG NEB 3 ML VIAL NEB SCH ×2 (02:03→07:34)
[2020-11-23] MEDS: SILVER SULFADIAZINE 1% CR 400 GM JAR EXT SCH (04:02)
[2020-11-23] MEDS: BACITRACIN EXT SCH (04:03)
[2020-11-23] MEDS: COLLAGENASE EXT SCH (04:03)
[2020-11-23] MEDS: HYDROmorphone INJ 2 MG/ML SYR/VIAL IV PRN ×2 (04:10→08:12)
[2020-11-23] MEDS: oxyCODONE HCL IR 5 MG TAB (IMMEDIATE RELEASE) PEG SCH (05:04)
[2020-11-23] MEDS: PROPRANOLOL HCL 10 MG TAB PO SCH (05:05)
[2020-11-23] MEDS: LEVOTHYROXINE SODIUM 50 MCG TABLET NG SCH (05:06)
[2020-11-23 06:17] LABS: BUN Creatinine Ratio 63.4 (10-20); Calcium 10.2 mg/dl (8.5-10.1); Creatinine Clr Calc Pharmacy 234.3 ml/min; Est GFR (African American) 118.6; Est GFR (Non-African American) 102.3; Phosphorus 2.8 mg/dl (2.5-4.9); Potassium 4.5 mmol/L (3.5-5.1)
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
== END 2020-11-23 09:42 | disposition short-term general hospital (02) | DRG 4 ==
LOC: SUPCPDRO 11-01 18:39 → 1E 11-01 18:39 → SUATTDRO 11-01 18:39